=== PATIENT | male | born 1970 | race Caucasian/White ===

== ENCOUNTER 2018-07-10 17:51 | Inpatient (IN) | payer MEDICARE, MEDICAID, SELFPAY ==
[2018-07-10] VITALS (13 sets, daily range): BP systolic 98–200; BP diastolic 43–79; PULSE 65–106; RESP 16–24; TEMP 36.3–37.8; O2SAT 86–99; BMI 35.0; BMI 34.4; BMI 34.5
--- NOTE | 2018-07-10 17:58 | RAD_ITS ---
STUDY: X-RAY CHEST REASON FOR EXAM: Male, 47 years old. Dyspnea TECHNIQUE: Single frontal view COMPARISON: None. FINDINGS: The lungs are not fully expanded. There is right basilar opacity suspicious for early infiltrate.. Prominent cardiac shadow. Normal mediastinum and kuldip. Normal visualized pulmonary arteries. Normal visualized aortic arch and descending thoracic aorta. Normal visualized thoracic spine. Normal visualized ribs, clavicles, and shoulders. There is no demonstrated abnormality of the visualized soft tissue structures of the upper abdomen. RAD/Chest 1 View (Portable) IMPRESSION: Possible right basilar infiltrate. Mild cardiomegaly. Electronically Signed: Bay Mcdonald DO at 18:47 EDT Tel [phone], Service support ,
--- NOTE | 2018-07-10 17:58 | CT_ITS ---
STUDY: CT BRAIN WITHOUT CONTRAST REASON FOR EXAM: Male, 47 years old. Altered mental status RADIATION DOSAGE (If Supplied By Facility): CTDIvol = ( 44.99 ) mGy, DLP = ( 846.73 ) mGycm TECHNIQUE: Transaxial CT imaging of the brain was performed without administration of intravenous contrast material. Individualized dose optimization techniques were used for this CT. COMPARISON: No relevant priors. FINDINGS: Normal soft tissue structures. Normal calvarium. Normal size ventricles and extra-axial spaces for the patient's age. Normal white matter tracts of the cerebral hemispheres. Focal low attenuation of the left basal ganglia near the caudate nucleus may represent a prominent perivascular space or old lacunar infarct are normal thalami. Normal brainstem. Normal cerebellum. There is no intracranial hemorrhage. There are no findings of an acute ischemic infarction. Mucosal thickening of the left maxillary sinus. CT/Brain/Head without Contrast IMPRESSION: Focal low attenuation of the left basal ganglia as noted. Left maxillary sinusitis. Electronically Signed: Bay Mcdonald DO at 18:33 EDT Tel [phone], Service support ,
--- NOTE | 2018-07-10 18:10 | ED.VIS.GEN ---
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 Apparently he admitted to law enforcement that he snorted heroin Timing: - - Unknown Quality: Unknown Location: Patient's residence Current Severity: Moderate Maximum Severity: Severe Worsened by: Uncertain Relieved by: Improved after 2 A of Narcan Associated Symptoms: Trouble speaking, disorientation Narrative: Patient is a middle-aged male whose history is limited secondary to disorientation. He had a prescription for gabapentin filled on June 29. The 90 tablets are not accountable for. According to police paraphernalia was found to suggest use of heroin. After law enforcement arrived and spoke with patient he admits to snorting heroin. History is limited. Friend who is a nurse checked on him since she had not heard from him all day. He was found supine on his sulfa with his feet on the arm rest. He was not responsive and she called 911. Prior similar symptoms: No Recent Illness/Hospitalization: No Past Medical History - Allergies and Home Meds Allergies/Adverse Reactions: Allergies No Known Allergies Allergy (Verified 07/10/18 18:02) Surgical History: noncontributory Lives: Alone Drugs: - - Admits to heroin Review of Systems ROS: Unable to Obtain - Altered mental status with disorientation Physical Exam Vital Signs/Narrative: Vital Signs Temp Pulse Resp BP Pulse Ox 07/10/18 18:07 92 07/10/18 17:54 97.3 F L 65 24 H 109/58 L 88 Inital Vital Signs reviewed: Yes General: Well nourished, Well developed, No Acute Distress Head: Normocephalic, Atraumatic Eyes: Perrl, EOMI, - - No subconjunctival hemorrhage. Negative for: Pale conjunctiva, Scleral icterus ENT: No rhinorrhea, TM's clear, Dry mucous membranes, - - has dried gastric contents noted on face.. Negative for: Nasal congestion, Sinus tenderness Neck: Supple, Nontender, No lymphadenopathy, No JVD Cardiovascular: Regular rate, Regular rhythm, No murmurs, Normal S1, Normal S2 Respiratory: Chest nontender, Decreased Air Movement, - - Decreased respiratory volume with adventitial breath sounds noted on the right. Abdomen: Soft, Nontender, Nondistended, Normal bowel sounds, No masses. Negative for: Hepatomegaly, Splenomegaly Rectal: Deferred : - - Circumcised male penis without lesions or discharge Back: Nontender Extremities: Nontender, No edema Skin: Normal color, Cyanosis - Acrocyanosis, Trauma - Wheezing noted anterior right and left chest. Negative for: Jaundice Neurological: Normal DTR - No clonus or Babinski sign, Normal Gait - Unable, Confused, Disoriented. Negative for: Alert, Oriented x3, Normal Strength, Normal Sensation Psychological: - - Restrictive Diagnostic/Tx/Re-eval Chest X-Ray - ED: 1 View - Critical care time 42 minutes, Read by ED Physician, Normal, Heart, Mediastinum, Bony Structures, Right Infiltrate - Right middle lobe consistent with aspiration Impressions Brain CT 07/10/18 17:58 IMPRESSION: Focal low attenuation of the left basal ganglia as noted. Left maxillary sinusitis. Electronically Signed: Bay Mcdonald DO at 18:33 EDT Tel [phone], Service support , Chest X-Ray 07/10/18 17:58 IMPRESSION: Possible right basilar infiltrate. Mild cardiomegaly. Electronically Signed: Bay Mcdonald DO at 18:47 EDT Tel [phone], Service support , 07/10/18 17:58 Brain/Head without Contrast [CT] Stat Chest 1 View (Portable) [RAD] Stat 07/10/18 19:08 Abdomen Single View [RAD] Stat Chest 1 View (Portable) [RAD] Stat Laboratory Results 07/10/18 07/10/18 07/10/18 18:05 18:05 18:05 WBC 17.6 H RBC 5.50 Hgb 17.9 H Hct 52.6 MCV 95.6 H MCH 32.5 H MCHC 34.0 RDW 13.5 RDW Differential 47.3 H Plt Count 234 MPV 10.4 Immature Gran % (Auto) 0.600 Neut % (Auto) 87.1 H Lymph % (Auto) 7.2 L Towns % (Auto) 5.0 Eos % (Auto) 0.0 Baso % (Auto) 0.1 Absolute Neuts (auto) 15.4 H Absolute Lymphs (auto) 1.26 Total Counted Not Reportable PT 15.4 H INR 1.2 APTT 29.7 Sodium 129 L Potassium 9.0 H* Chloride 95 L Carbon Dioxide 22.0 Anion Gap 12 BUN 45 H Creatinine 4.30 H Estim Creat Clear Calc 23.11 Est GFR (MDRD) Af Amer 19 L Est GFR (MDRD) Non-Af 16 L BUN/Creatinine Ratio 10.5 Glucose 104 Lactic Acid Calcium 7.6 L Total Bilirubin 0.90 AST 4147 H ALT 2027 H Alkaline Phosphatase 107 Total Protein 9.3 H Albumin 4.0 Globulin 5.3 H Albumin/Globulin Ratio 0.8 L Lipase 401 H Urine Opiates Screen Urine Methadone Screen Ur Barbiturates Screen Ur Phencyclidine Scrn Ur Amphetamines Screen U Methamphetamin-MDMA U Benzodiazepines Scrn Urine Cocaine Screen U Cannabinoids Screen Ur Drug Screen Comment Ethyl Alcohol 07/10/18 07/10/18 07/10/18 18:05 18:20 18:20 WBC RBC Hgb Hct MCV MCH MCHC RDW RDW Differential Plt Count MPV Immature Gran % (Auto) Neut % (Auto) Lymph % (Auto) Towns % (Auto) Eos % (Auto) Baso % (Auto) Absolute Neuts (auto) Absolute Lymphs (auto) Total Counted PT INR APTT Sodium Potassium Chloride Carbon Dioxide Anion Gap BUN Creatinine Estim Creat Clear Calc Est GFR (MDRD) Af Amer Est GFR (MDRD) Non-Af BUN/Creatinine Ratio Glucose Lactic Acid 5.0 H* Calcium Total Bilirubin AST ALT Alkaline Phosphatase Total Protein Albumin Globulin Albumin/Globulin Ratio Lipase Urine Opiates Screen POSITIVE H Urine Methadone Screen NEGATIVE Ur Barbiturates Screen POSITIVE H Ur Phencyclidine Scrn NEGATIVE Ur Amphetamines Screen NEGATIVE U Methamphetamin-MDMA NEGATIVE U Benzodiazepines Scrn NEGATIVE Urine Cocaine Screen NEGATIVE U Cannabinoids Screen NEGATIVE Ur Drug Screen Comment Ethyl Alcohol 4.0 Ammonia level was added after reviewing elevated liver enzymes. Acetaminophen level was ordered as well. Blood gas is pending. - Rhythm Strip Rhythm Strip: Sinus Rhythm Rate: 93 - T waves are peaked Ectopy: None - EKG Initial EKG Interpretation: Sinus Tachycardia - Circular rate is 104. [place] interval, Q confucianist QT interval are normal. Voltage is low. EKG was obtained after treatment for hyperkalemia. - Medical Decision Making With history of unresponsiveness and concern for drug use will obtain alcohol and drug screen. Because there is bruising concern for intracranial bleed. CT of the head was obtained. Because his pulse ox was only 85% on room air and there is abnormal breath sounds on the right chest x-ray was obtained because of concern for aspiration. Blood work was obtained as well. CPK was also obtained because of concern for rhabdomyolysis. Payne was placed for accurate I's and O's. Patient has evidence of acute kidney injury/failure, there is also evidence of liver injury. We will obtain ammonia because of decreased level of consciousness and acetaminophen level. His elevated liver enzymes may be secondary to gabapentin overdose. Because patient's level of conscious is more depressed and concerned he may aspirate again he was orotracheally intubated. Patient received 20 mg of etomidate and 75 mg's rocuronium. He was easily orotracheally been with an 8.0 endotracheal tube. Tooth is 24 cm at the gum. OG was placed by me. Because patient has an elevated white count, tachypneic with a right middle lobe infiltrate will administer 30 cc/kg bolus. The hospitalist was paged for admission as well as the dipper machine operator. Patient received 1 amp of calcium chloride and 5 units of insulin and 1 amp of D50 for his hyperkalemia, 9.0. The blood specimen was not hemolyzed. - Critical Care Time Critical care time (excluding procedures): 30-74 minutes, Discussing w/Patient &/or Family/Pony Trimmer, Discussing w/Consultants, Arranging Admission or Transfer, Performing Direct Patient Care at Bedside Procedures Procedure(s): 1. Intubation via RSI and described in vehicle decision portion of the chart. 2. Placement of OG by physician, ED Disposition - Plan for ED Patient: Disposition: Acute Care [facility] Diagnosis: Acute respiratory failure with hypoxia, Aspiration pneumonia due to food (regurgitated), Acute kidney injury (nontraumatic), Elevated liver enzymes, Acute hyperkalemia, Lactic acidosis, Anaphylactic shock, unspecified, initial encounter, Toxic effect of ingested berries, intentional self-harm, initial encounter, Encephalopathy acute
--- NOTE | 2018-07-10 18:13 | ED.DCSUM_ITS ---
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 Apparently he admitted to law enforcement that he snorted heroin Timing: - - Unknown Quality: Unknown Location: Patient's residence Current Severity: Moderate Maximum Severity: Severe Worsened by: Uncertain Relieved by: Improved after 2 A of Narcan Associated Symptoms: Trouble speaking, disorientation Narrative: Patient is a middle-aged male whose history is limited secondary to disorientation. He had a prescription for gabapentin filled on June 29. The 90 tablets are not accountable for. According to police paraphernalia was found to suggest use of heroin. After law enforcement arrived and spoke with patient he admits to snorting heroin. History is limited. Friend who is a nurse checked on him since she had not heard from him all day. He was found supine on his sulfa with his feet on the arm rest. He was not responsive and she called 911. Prior similar symptoms: No Recent Illness/Hospitalization: No Past Medical History - Allergies and Home Meds Allergies/Adverse Reactions: Allergies No Known Allergies Allergy (Verified 07/10/18 18:02) Surgical History: noncontributory Lives: Alone Drugs: - - Admits to heroin Review of Systems ROS: Unable to Obtain - Altered mental status with disorientation Physical Exam Vital Signs/Narrative: Vital Signs Temp Pulse Resp BP Pulse Ox 07/10/18 18:07 92 07/10/18 17:54 97.3 F L 65 24 H 109/58 L 88 Inital Vital Signs reviewed: Yes General: Well nourished, Well developed, No Acute Distress Head: Normocephalic, Atraumatic Eyes: Perrl, EOMI, - - No subconjunctival hemorrhage. Negative for: Pale conjunctiva, Scleral icterus ENT: No rhinorrhea, TM's clear, Dry mucous membranes, - - has dried gastric contents noted on face.. Negative for: Nasal congestion, Sinus tenderness Neck: Supple, Nontender, No lymphadenopathy, No JVD Cardiovascular: Regular rate, Regular rhythm, No murmurs, Normal S1, Normal S2 Respiratory: Chest nontender, Decreased Air Movement, - - Decreased respiratory volume with adventitial breath sounds noted on the right. Abdomen: Soft, Nontender, Nondistended, Normal bowel sounds, No masses. Negative for: Hepatomegaly, Splenomegaly Rectal: Deferred : - - Circumcised male penis without lesions or discharge Back: Nontender Extremities: Nontender, No edema Skin: Normal color, Cyanosis - Acrocyanosis, Trauma - Wheezing noted anterior right and left chest. Negative for: Jaundice Neurological: Normal DTR - No clonus or Babinski sign, Normal Gait - Unable, Con fused, Disoriented. Negative for: Alert, Oriented x3, Normal Strength, Normal Sensation Psychological: - - Restrictive Diagnostic/Tx/Re-eval Chest X-Ray - ED: 1 View - Critical care time 42 minutes, Read by ED Physician, Normal, Heart, Mediastinum, Bony Structures, Right Infiltrate - Right middle lobe consistent with aspiration Impressions Brain CT 07/10/18 17:58 IMPRESSION: Focal low attenuation of the left basal ganglia as noted. Left maxillary sinusitis. Electronically Signed: Bay Mcdonald DO at 18:33 EDT Tel [phone], Service support , Chest X-Ray 07/10/18 17:58 IMPRESSION: Possible right basilar infiltrate. Mild cardiomegaly. Electronically Signed: Bay Mcdonald DO at 18:47 EDT Tel [phone], Service support , 07/10/18 17:58 Brain/Head without Contrast [CT] Stat Chest 1 View (Portable) [RAD] Stat 07/10/18 19:08 Abdomen Single View [RAD] Stat Chest 1 View (Portable) [RAD] Stat Laboratory Results 07/10/18 07/10/18 07/10/18 18:05 18:05 18:05 WBC 17.6 H RBC 5.50 Hgb 17.9 H Hct 52.6 MCV 95.6 H MCH 32.5 H MCHC 34.0 RDW 13.5 RDW Differential 47.3 H Plt Count 234 MPV 10.4 Immature Gran % (Auto) 0.600 Neut % (Auto) 87.1 H Lymph % (Auto) 7.2 L [place] % (Auto) 5.0 Eos % (Auto) 0.0 Baso % (Auto) 0.1 Absolute Neuts (auto) 15.4 H Absolute Lymphs (auto) 1.26 Total Counted Not Reportable PT 15.4 H INR 1.2 APTT 29.7 Sodium 129 L Potassium 9.0 H* Chloride 95 L Carbon Dioxide 22.0 Anion Gap 12 BUN 45 H Creatinine 4.30 H Estim Creat Clear Calc 23.11 Est GFR (MDRD) Af Amer 19 L Est GFR (MDRD) Non-Af 16 L BUN/Creatinine Ratio 10.5 Glucose 104 Lactic Acid Calcium 7.6 L Total Bilirubin 0.90 AST 4147 H ALT 2027 H Alkaline Phosphatase 107 Total Protein 9.3 H Albumin 4.0 Globulin 5.3 H Albumin/Globulin Ratio 0.8 L Lipase 401 H Urine Opiates Screen Urine Methadone Screen Ur Barbiturates Screen Ur Phencyclidine Scrn Ur Amphetamines Screen U Methamphetamin-MDMA U Benzodiazepines Scrn Urine Cocaine Screen U Cannabinoids Screen Ur Drug Screen Comment Ethyl Alcohol 07/10/18 07/10/18 07/10/18 18:05 18:20 18:20 WBC RBC Hgb Hct MCV MCH MCHC RDW RDW Differential Plt Count MPV Immature Gran % (Auto) Neut % (Auto) Lymph % (Auto) [place] % (Auto) Eos % (Auto) Baso % (Auto) Absolute Neuts (auto) Absolute Lymphs (auto) Total Counted PT INR APTT Sodium Potassium Chloride Carbon Dioxide Anion Gap BUN Creatinine Estim Creat Clear Calc Est GFR (MDRD) Af Amer Est GFR (MDRD) Non-Af BUN/Creatinine Ratio Glucose Lactic Acid 5.0 H* Calcium Total Bilirubin AST ALT Alkaline Phosphatase Total Protein Albumin Globulin Albumin/Globulin Ratio Lipase Urine Opiates Screen POSITIVE H Urine Methadone Screen NEGATIVE Ur Barbiturates Screen POSITIVE H Ur Phencyclidine Scrn NEGATIVE Ur Amphetamines Screen NEGATIVE U Methamphetamin-MDMA NEGATIVE U Benzodiazepines Scrn NEGATIVE Urine Cocaine Screen NEGATIVE U Cannabinoids Screen NEGATIVE Ur Drug Screen Comment Ethyl Alcohol 4.0 Ammonia level was added after reviewing elevated liver enzymes. Acetaminophen level was ordered as well. Blood gas is pending. - Rhythm Strip Rhythm Strip: Sinus Rhythm Rate: 93 - T waves are peaked Ectopy: None - EKG Initial EKG Interpretation: Sinus Tachycardia - Circular rate is 104. [place] interval, Q hindu QT interval are normal. Voltage is low. EKG was obtained after treatment for hyperkalemia. - Medical Decision Making With history of unresponsiveness and concern for drug use will obtain alcohol and drug screen. Because there is bruising concern for intracranial bleed. CT of the head was obtained. Because his pulse ox was only 85% on room air and there is abnormal breath sounds on the right chest x-ray was obtained because of concern for aspiration. Blood work was obtained as well. CPK was also obtained because of concern for rhabdomyolysis. Payne was placed for accurate I's and O's. Patient has evidence of acute kidney injury/failure, there is also evidence of liver injury. We will obtain ammonia because of decreased level of consciousness and acetaminophen level. His elevated liver enzymes may be second bryan to gabapentin overdose. Because patient's level of conscious is more depressed and concerned he may aspirate again he was orotracheally intubated. Patient received 20 mg of etomidate and 75 mg's rocuronium. He was easily orotracheally been with an 8.0 endotracheal tube. Tooth is 24 cm at the gum. OG was placed by me. Because patient has an elevated white count, tachypneic with a right middle lobe infiltrate will administer 30 cc/kg bolus. The hospitalist was paged for admission as well as the external grinder tender. Patient received 1 amp of calcium chloride and 5 units of insulin and 1 amp of D50 for his hyperkalemia, 9.0. The blood specimen was not hemolyzed. - Critical Care Time Critical care time (excluding procedures): 30-74 minutes, Discussing w/Patient &/or Family/Apiculture Teacher, Discussing w/Consultants, Arranging Admission or Transfer, Performing Direct Patient Care at Bedside Procedures Procedure(s): 1. Intubation via RSI and described in vehicle decision portion of the chart. 2. Placement of OG by physician, ED Disposition - Plan for ED Patient: Disposition: Acute Care [facility] Diagnosis: Acute respiratory failure with hypoxia, Aspiration pneumonia due to food (regurgitated), Acute kidney injury (nontraumatic), Elevated liver enzymes, Acute hyperkalemia, Lactic acidosis, Anaphylactic shock, unspecified, initial encounter, Toxic effect of ingested berries, intentional self-harm, initial encounter, Encephalopathy acute
[2018-07-10 18:21] LABS: Absolute Lymphocyte Count 1.26 X10^3/ul (0.83-4.51); Absolute Neutrophil Count 15.4 X10^3/uL (2.0-7.7); Basophil# 0.01 X10^3/uL; Basophil% 0.1 % (0-1); Hematocrit 52.6 % (40-54); Hemoglobin 17.9 g/dl (13.0-16.5); Lymphocyte # 1.26 X10^3/ul (4.0); Lymphocyte % 7.2 % (19-41); Mean Corpuscular Hgb 32.5 pg (27.0-32.0); Mean Corpuscular Volume 95.6 fL (80-94); Mean Platelet Vol. 10.4 fl (6.2-12.0); Monocyte# 0.88 X10^3/uL; Neutrophil # 15.35 X10^3/uL (2.7-7.7); Neutrophil % 87.1 % (47-70); Platelet Count 234 K/mm3 (150-450); RBC Distribution Width CV 13.5 % (11.6-14.6); RBC Distribution Width SD 47.3 fl (35.1-43.9); White Blood Count 17.6 K/mm3 (4.4-11.0)
[2018-07-10 18:24] LABS: POSITIVE COUNT NO; POSITIVE DIFFERENTIAL NO; POSITIVE MORPHOLOGY NO
[2018-07-10 18:32] LABS: International Normalized Ratio 1.2; Prothrombin Time (Protime)PT. 15.4 SECONDS (11.7-14.9)
[2018-07-10 18:33] LABS: Partial Thromboplast Time 29.7 Seconds (24.1-36.2)
--- NOTE | 2018-07-10 18:55 | EKG12_ITS ---
Test Reason : Blood Pressure : / mmHG Vent. Rate : 104 BPM Atrial Rate : 104 BPM P-R Int : 160 ms QRS Dur : 090 ms QT Int : 336 ms P-R-T Axes : 046 058 026 degrees QTc Int : 441 ms Sinus tachycardia Low voltage QRS Borderline ECG Confirmed by PAULETTE BAUTISTA, JEFFREY ([id number]), primer expeditor and drier CHICHI FLORES ([id number]) on 07/13/2018 10:54:41 AM Referred By: Confirmed By:JEFFREY CALDWELL MD
[2018-07-10 18:57] LABS: ALB/GLOB Ratio 0.8 RATIO (0.9-2.4); AST(SGOT) 4147 U/L (15-37); Alanine Aminotransfer ALT/SGPT 2027 U/L (16-61); Alkaline Phosphatase 107 U/L (45-117); Anion Gap 12 (5-15); BUN 45 mg/dL (7-18); BUN/Creat Ratio 10.5 RATIO (10-20); Calcium,Total 7.6 mg/dL (8.5-10.1); Chloride 95 mmol/L (98-107); EST Glomerular Filtration Rate 16 mL/min (>60); Est Glom Filt Rate - Afr Amer 19 mL/min (>60); Estimated Creatinine Clearance 23.11 ml/min; Globulin 5.3 g/dL (2.2-4.2); Glucose 104 mg/dL (74-106); Lipase 401 U/L (73-393); Protein, Total 9.3 g/dL (6.4-8.2); Sodium Level 129 mmol/L (136-145)
[2018-07-10 18:58] LABS: Amphetamine Urine VISTA NEGATIVE (<1000 ng/mL); Barbiturate Urine VISTA POSITIVE (< 200 ng/mL); Benzodiazepine Urine VISTA NEGATIVE (< 200 ng/mL); Cocaine Urine VISTA NEGATIVE (< 300 ng/mL); Ecstacy Urine VISTA NEGATIVE (< 500 ng/mL); Methadone Urine VISTA NEGATIVE (< 300 ng/mL); PCP Urine VISTA NEGATIVE (< 25 ng/mL); THC Urine VISTA NEGATIVE (< 50 ng/mL); Vista UDS pH Range 6
[2018-07-10] MEDS: Calcium Chloride 1 GM/10 ML Syringe IV (18:59)
--- NOTE | 2018-07-10 19:08 | RAD_ITS ---
STUDY: X-RAY CHEST REASON FOR EXAM: Male, 47 years old. OG placement. TECHNIQUE: Single AP portable view of the chest. COMPARISON: July 10, 2018 (1820 hours). FINDINGS: There is an endotracheal tube with its tip 6.3 cm above the darby. There is an enteric tube with its tip approximately 5 cm below the left hemidiaphragm. The lungs are hypoexpanded. There is continued density at both lung bases. There is borderline cardiomegaly. There is no change in the mediastinum, kuldip, pulmonary arteries or aorta. No visualized osseous changes. There is no demonstrated abnormality of the visualized soft tissue structures of the upper abdomen. RAD/Chest 1 View (Portable) IMPRESSION: 1. Endotracheal tube as described. 2. Enteric tube with its tip approximately 5 cm beyond the diaphragm. 3. No other major interval change when compared to the earlier study. Electronically Signed: Rosendo Madrigal DO at 20:11 EDT Tel [phone], Service support ,
--- NOTE | 2018-07-10 19:08 | RAD_ITS ---
STUDY: X-RAY CHEST REASON FOR EXAM: Male, 47 years old. OG placement. TECHNIQUE: Single AP portable view of the chest. COMPARISON: July 10, 2018 (1942 hours). FINDINGS: Stable endotracheal tube. The tear tube is now seen within the gastric fundus. There is no change in pulmonary findings when compared to prior study. Stable borderline cardiomegaly. There is no change in the mediastinum, kuldip, pulmonary arteries or aorta. No visualized osseous changes. There is no demonstrated abnormality of the visualized soft tissue structures of the upper abdomen. RAD/Chest 1 View (Portable) IMPRESSION: 1. Interval advancement of the enteric tube when compared to the earlier study. 2. No other interval change. Electronically Signed: Rosendo Madrigal DO at 20:12 EDT Tel [phone], Service support ,
[2018-07-10] MEDS: Etomidate 20 MG/10 ML Vial IV (19:13)
[2018-07-10] MEDS: Rocuronium Bromide 50 MG/5 ML Vial 75 MG IV (19:13)
[2018-07-10] MEDS: 0.9% Normal Saline 1,000 ML 1000 ML IV ×3 (19:19→19:52)
[2018-07-10] MEDS: Propofol 10MG/Ml 1,000 MG/100 ML Bottle 6.834 MG CONT INF ×2 (19:20→22:05)
--- NOTE | 2018-07-10 19:24 | PCM.HP.STD ---
Problem List (1) Acute respiratory failure with hypoxia Status: Acute (2) Aspiration pneumonia due to food (regurgitated) Status: Acute (3) Acute kidney injury (nontraumatic) Status: Acute (4) Elevated liver enzymes Status: Acute (5) Acute hyperkalemia Status: Acute (6) Lactic acidosis Status: Acute History of Present Illness Date of Admission: 07/10/18 Chief Complaint: unresponsiveness The patient is a 47 year old M with unknown medical history because he was minimally responsive. Patient is friend to a hospice nurse and reportedly recently patient sent messages to the Hospice nurse threatening to harm himself. At that time patient was found drinking vodka. On the day of presentation his friend, the hospice nurse did a wellness check on the patient and she found the patient lying supine in a sofa with his leg raised up and he had some vomitus on his chest. Patient was minimally responsive. Reportedly on 06/29/2017 patient filled 90 pills of 300 mg of gabapentin tablet and all were gone on the day of presentation. Reportedly paramedics found paraphernalia consistent with heroin. At the emergency department, emergency department doctor reported abnormal lung sounds at the patient's right side. Chest x-ray showed mild cardiomegaly and right basilar infiltrates. CT of the brain and head without contrast showed focal low attenuation of the left basilar ganglia and left maxillary sinusitis. Because of low [place] Coma Scale patient was intubated and started on propofol drip. Also an OG tube was placed at the emergency department. Patient was noted to have a potassium of 9.0. Emergency department doctor reported tall T waves on the monitor. Calcium gluconate; and insulin insulin and dextrose were given. Twelve leads EKG after administration of the above medication return unremarkable. Also patient was found to have elevated lactic acid of 5.0. His creatinine was 4.30. His BUN was severely elevated. His liver enzymes were also severely elevated. His lipase was mildly elevated. Emergency Department doctor discussed the case with Dr. Elias Garzon, Stove Carriage Operator and the patient was accepted to our intensive care unit. Past Medical History Medical History: Medical History (Last Updated 07/10/18 @ 23:08 by Faustino Hagan MD) Hx unobtainable Allergies No Known Allergies Allergy (Verified 07/10/18 18:02) Home Medications: Ambulatory Orders Medication Instructions Recorded Butalb/Acetaminophen/Caffeine 1 capsule PO Q6H PRN 07/10/18 [Fioricet 50-300-40 mg Capsule] Gabapentin 800 mg PO DAILY 07/10/18 Surgical History: - - Intubated and sedated and unable to obtain further history. Lives: Alone Smoking Status: Current every day smoker Tobacco Use: Cigarettes Alcohol: Heavy Drugs: - - Admits to heroin - *Family History Paternal History Items: - - unable to be obtained because of acute encephalopathy Maternal History Items: - - unable to be obtained because of acute encephalopathy Review of Systems Unable to obtain accurate/complete ROS d/t: Intubated and sedated VTE Information - Inpt Only VTE Present on Admission: No VTE Mechan Device Prophylaxis: None VTE Pharm Prophylaxis ordered?: Yes Patient Problems: Active and Suspected Problems (Last Updated 07/10/18 @ 23:08 by Faustino Hagan MD) Acute respiratory failure with hypoxia (Acute) Aspiration pneumonia due to food (regurgitated) (Acute) Acute kidney injury (nontraumatic) (Acute) Elevated liver enzymes (Acute) Acute hyperkalemia (Acute) Lactic acidosis (Acute) Anaphylactic shock, unspecified, initial encounter (Acute) Toxic effect of ingested berries, intentional self-harm, initial encounter (Acute) Encephalopathy acute (Acute) - Physical Exam General: - - Intubated and sedated HEENT: Atraumatic Neck: Trachea Midline Lungs: Diminished, - Cardiovascular: Tachycardic Abdomen: Hypoactive Bowel Sounds Extremities: No edema, Capillary Refill Less than 3 Seconds Skin: No rashes, No breakdown Musculoskeletal: No Muscle Wasting Neurological: - - Intubated and sedated Psych/Mental Status: - - Intubated and sedated Vital Signs Temp Pulse Resp BP Pulse Ox 97.3 F L 95 16 116/43 L 91 07/10/18 17:54 07/10/18 19:10 07/10/18 19:10 07/10/18 19:10 07/10/18 19:10 Oxygen Flow Rate (L/min) 5 Oxygen Delivery Method Nasal Cannula Weight: 113.9 kg Body Mass Index (BMI) 35.0 Laboratory Tests Past 24 Hrs 07/10/18 07/10/18 07/10/18 18:05 18:05 18:05 WBC 17.6 H RBC 5.50 Hgb 17.9 H Hct 52.6 MCV 95.6 H MCH 32.5 H MCHC 34.0 RDW 13.5 RDW Differential 47.3 H Plt Count 234 MPV 10.4 Immature Gran % (Auto) 0.600 Neut % (Auto) 87.1 H Lymph % (Auto) 7.2 L Alpine % (Auto) 5.0 Eos % (Auto) 0.0 Baso % (Auto) 0.1 Absolute Neuts (auto) 15.4 H Absolute Lymphs (auto) 1.26 Total Counted Not Reportable PT 15.4 H INR 1.2 APTT 29.7 Sodium 129 L Potassium 9.0 H* Chloride 95 L Carbon Dioxide 22.0 Anion Gap 12 BUN 45 H Creatinine 4.30 H Estim Creat Clear Calc 23.11 Est GFR (MDRD) Af Amer 19 L Est GFR (MDRD) Non-Af 16 L BUN/Creatinine Ratio 10.5 Glucose 104 Lactic Acid Calcium 7.6 L Total Bilirubin 0.90 AST 4147 H ALT 2027 H Alkaline Phosphatase 107 Total Creatine Kinase Total Protein 9.3 H Albumin 4.0 Globulin 5.3 H Albumin/Globulin Ratio 0.8 L Lipase 401 H Urine Opiates Screen Urine Methadone Screen Ur Barbiturates Screen Ur Phencyclidine Scrn Ur Amphetamines Screen U Methamphetamin-MDMA U Benzodiazepines Scrn Urine Cocaine Screen U Cannabinoids Screen Ur Drug Screen Comment Ethyl Alcohol 07/10/18 07/10/18 07/10/18 18:05 18:05 18:20 WBC RBC Hgb Hct MCV MCH MCHC RDW RDW Differential Plt Count MPV Immature Gran % (Auto) Neut % (Auto) Lymph % (Auto) Alpine % (Auto) Eos % (Auto) Baso % (Auto) Absolute Neuts (auto) Absolute Lymphs (auto) Total Counted PT INR APTT Sodium Potassium Chloride Carbon Dioxide Anion Gap BUN Creatinine Estim Creat Clear Calc Est GFR (MDRD) Af Amer Est GFR (MDRD) Non-Af BUN/Creatinine Ratio Glucose Lactic Acid 5.0 H* Calcium Total Bilirubin AST ALT Alkaline Phosphatase Total Creatine Kinase Pending Total Protein Albumin Globulin Albumin/Globulin Ratio Lipase Urine Opiates Screen Urine Methadone Screen Ur Barbiturates Screen Ur Phencyclidine Scrn Ur Amphetamines Screen U Methamphetamin-MDMA U Benzodiazepines Scrn Urine Cocaine Screen U Cannabinoids Screen Ur Drug Screen Comment Ethyl Alcohol 4.0 07/10/18 18:20 WBC RBC Hgb Hct MCV MCH MCHC RDW RDW Differential Plt Count MPV Immature Gran % (Auto) Neut % (Auto) Lymph % (Auto) Alpine % (Auto) Eos % (Auto) Baso % (Auto) Absolute Neuts (auto) Absolute Lymphs (auto) Total Counted PT INR APTT Sodium Potassium Chloride Carbon Dioxide Anion Gap BUN Creatinine Estim Creat Clear Calc Est GFR (MDRD) Af Amer Est GFR (MDRD) Non-Af BUN/Creatinine Ratio Glucose Lactic Acid Calcium Total Bilirubin AST ALT Alkaline Phosphatase Total Creatine Kinase Total Protein Albumin Globulin Albumin/Globulin Ratio Lipase Urine Opiates Screen POSITIVE H Urine Methadone Screen NEGATIVE Ur Barbiturates Screen POSITIVE H Ur Phencyclidine Scrn NEGATIVE Ur Amphetamines Screen NEGATIVE U Methamphetamin-MDMA NEGATIVE U Benzodiazepines Scrn NEGATIVE Urine Cocaine Screen NEGATIVE U Cannabinoids Screen NEGATIVE Ur Drug Screen Comment Ethyl Alcohol Assessment/Plan All Active Problems (Last Updated 07/10/18 @ 23:08 by Faustino Hagan MD) Acute respiratory failure with hypoxia (Acute) Aspiration pneumonia due to food (regurgitated) (Acute) Acute kidney injury (nontraumatic) (Acute) Elevated liver enzymes (Acute) Acute hyperkalemia (Acute) Lactic acidosis (Acute) Anaphylactic shock, unspecified, initial encounter (Acute) Toxic effect of ingested berries, intentional self-harm, initial encounter (Acute) Encephalopathy acute (Acute) The patient is a 47 year old M with unknown medical history who was unresponsive on presentation and was found to have paraphernalia consistent with a heroine; was recently found drinking vodka; had an empty bottle of gabapentin which was recently filled; had sent threatening messages to harm himself; and was found to have elevated liver enzymes; elevated CPK; and elevated lipase; positive urinary drug screen of opiates and barbiturates; as well as pulmonary infiltrate consistent with acute toxic metabolic encephalopathy; aspiration pneumonia and septic shock; and rhabdomyolysis. Acute toxic metabolic encephalopathy Urine drug screen showed positive opiates; positive barbiturates and with empty bottle of recently filled gabapentin. Patient was intubated and placed on mechanical ventilation. ABG was obtained and ventilation setting was subsequently adjusted. Patient is a consent for alcoholism we will place patient on thiamine; folic acid and multivitamins by OG tube. Stove Carriage Operator consult to optimize management. Septic shock Etiology includes aspiration and pneumonia. Lactic acid was 5.0. Unasyn was started the emergency department continued. Strep pneumonia antigen and Legionella pneumonia antigen ordered. MRSA of nares nares ordered. Trend lactic acid Follow-up blood cultures. Transaminitis Patient noted to have AST of 4147; ALT of 2026. This is in the ratio of 2 is 2 1. Likely from septic shock. Cannot rule out history of alcoholism. Acetaminophen level is unremarkable. Most likely from septic shock. However will check viral hepatitis panel We will trend liver enzymes and treat septic shock at this time. Hyperammonemia. His ammonia is mildly elevated at 33. We will trend ammonia level Likely from poor clearance due to shock liver Rhabdomyolysis: patient found to have a CPK of 54,480 Urine noted to be positive for protein; and occult blood. Received normal saline 30 mL's per kilogram per septic shock protocol. We will continue on normal saline maintenance infusion at 100 mL's per hour. Hyperkalemia On admission his potassium was 9.0. Patient received calcium gluconate; and insulin with dextrose. Discussed with car dumper,Dr. Sean Alexander who recommended Kayexalate and repeat potassium level after 3 hours time.. Kayexalate and MiraLAX was ordered. Nephrology Dr. Sean Alexander will be following patient. Kayexalate and miralax as repeat potassium was 7.9 Metabolic acidosis Patient while on ventilator was found to have pH of 7.23. Bicarbonate of 18.3. PO2 of 79 while on 60% FiO2. Discussed with respiratory to adjust PEEP from 5 to 8. Abnormal urinalysis Urine was noted to positive for protein; urine occult blood (which could be from rhabdomyolysis) positive nitrite and mild increase in leukocyte esterase. Notably urine of 0 bacteria. Will get urine culture. Tobacco abuse Patient with poor prognosis. Hospital Admitting Clerk if patient is able to make a recovery from his critical condition. Ethanol abuse Patient with poor prognosis. Hospital Admitting Clerk if patient is able to make a recovery from his critical condition. Thiamine; folic acid and multivitamins by OG tube. Polysubstance abuse Positive for opioids and barbiturates on drug screen. Patient with poor prognosis. Hospital Admitting Clerk if patient is able to make a recovery from his critical condition. DVT Prophylaxis Subcutaneous Lovenox GI prophylaxis Pepcid 20 mg by G-tube twice daily Critical Care spent on patient was 60 minutes ( 07/10/2018 19:15 to 20:15). It involved direct care with patient at bedside. Discussing the case and obtaining information from patient's friend who was at the bedside. Review of Chest X-ray; interpretation of labs; ventilator management; and discussion with car dumper. Patient was in respiratory failure as demonstrated by CO2 narcosis. He was in septic shock as demonstrated by lactic acid of 5.0; and he was in acute encephalopathy with GCS < 8 for which reason he required intubation. Code Visit Inpatient E&M: 69657 Init Hosp L3 Procedures: 34013 Critial Care 1st Hr
[2018-07-10] MEDS: Dextrose 50%-Water 25 GM/50 ML DISP.SYRIN IV (19:26)
[2018-07-10 20:16] LABS: Acetaminophen (Tylenol) Level < 2.0 ug/mL (10.0-30.0)
[2018-07-10] MEDS: Sodium Polystyrene Sulfonate 15 GM/60 ML UDC 30 GM PO (20:40)
[2018-07-10 21:56] LABS: Magnesium 2.2 mg/dL (1.6-2.6)
[2018-07-10] MEDS: Polyethylene Glycol 3350 17 GM PACKET 34 GM PO (22:04)
[2018-07-10] MEDS: Chlorhexidine 15 ML PO (22:12)
[2018-07-10 22:14] LABS: Reflex Lactate? Y
[2018-07-10 22:35] LABS: Base Excess -9 mmol/L (-2 to +2); Bicarbonate 18.3 mmol/L (22-26); Blood Gas Specimen Type ART; FI02 60; Mode A-C; O2 Delivery Device Vent; PEEP 5; PO2 79 mmHG (75-100); RR 16; SITE L Radial; SO2 93 % (95-99); Time Given 2225; Total Carbon Dioxide 20 mmol/L; Vt 500; pCO2 43.9 mmHg (35-45); pH 7.23 (7.35-7.45)
[2018-07-10 23:07] LABS: Anion Gap 8 (5-15); BUN 53 mg/dL (7-18); BUN/Creat Ratio 12.3 RATIO (10-20); Calcium,Total 6.8 mg/dL (8.5-10.1); Chloride 104 mmol/L (98-107); Creatinine, Serum 4.31 mg/dL (0.70-1.30); EST Glomerular Filtration Rate 16 mL/min (>60); Est Glom Filt Rate - Afr Amer 19 mL/min (>60); Estimated Creatinine Clearance 22.35 ml/min; Glucose 126 mg/dL (74-106); Sodium Level 133 mmol/L (136-145)
[2018-07-10 23:08] LABS: Potassium 7.9 mmol/L (3.5-5.1)
[2018-07-10 23:19] LABS: Lactic Acid 3.1 mmol/L (0.4-2.0)
[2018-07-10] MEDS: 0.9% Normal Saline 1,000 ML 100 ML IV (23:27)
[2018-07-10] MEDS: Sodium Bicarbonate 8.4% 50 ML Syringe 50 MEQ IV (23:45)
[2018-07-10 23:56] LABS: Bedside Glucose 135 mg/dL (70-110)
[2018-07-11] VITALS (35 sets, daily range): BP systolic 99–149; BP diastolic 49–89; PULSE 63–95; RESP 15–21; TEMP 37–38.5; O2SAT 95–100
[2018-07-11] MEDS: Sodium Polystyrene Sulfonate 15 GM/60 ML UDC 30 GM PO (00:26)
[2018-07-11] MEDS: Propofol 10MG/Ml 1,000 MG/100 ML Bottle 6.834 MG CONT INF ×3 (02:46→12:23)
[2018-07-11 03:37] LABS: Bacteria 0 SEEN /hpf (None Seen); Mucous, Urine 0 SEEN /hpf (<or=2+); Squamous Epithelial Cells - UA 0 SEEN /hpf (0-5)
--- NOTE | 2018-07-11 03:49 | NURSING ---
2 ring removed from left hand, placed in container with a patient label at bedside.
[2018-07-11 03:50] LABS: Color, Urine Amber (Yellow); Glucose, Dipstick 50 mg/dl (Normal); Ketone-Dipstick 5 mg/dl (Negative); Leukocyte Esterase-Dipstick 25 /ul (Negative); Nitrite-Dipstick Positive (Negative); Occult Blood-Urine 250 /ul (Negative); Protein-Dipstick 100 mg/dl (Negative); Urine Clarity Sl. Cloudy (Clear); Urine Urobilinogen 1 mg/dl (Normal)
[2018-07-11 04:08] LABS: Urine Sodium 41 mmol/L (Not Establ.)
[2018-07-11 04:12] LABS: Urine Bilirubin Dipstick 1 mg/dL (Negative)
[2018-07-11 04:15] LABS: Amorphous Sediment 2+; Red Blood Cells-Urine 0-5 SEEN /hpf (0-5); White Blood Cells 0-5 SEEN /hpf (0-5)
[2018-07-11 04:56] LABS: Bedside Glucose 145 mg/dL (70-110)
[2018-07-11 04:58] LABS: Absolute Lymphocyte Count 1.32 X10^3/ul (0.83-4.51); Absolute Neutrophil Count 12.4 X10^3/uL (2.0-7.7); Basophil# 0.01 X10^3/uL; Basophil% 0.1 % (0-1); Hematocrit 41.6 % (40-54); Hemoglobin 14.1 g/dl (13.0-16.5); Lymphocyte # 1.32 X10^3/ul (4.0); Lymphocyte % 9.2 % (19-41); Mean Corp Hgb Conc 33.9 g/gl (32-36); Mean Corpuscular Hgb 31.5 pg (27.0-32.0); Mean Corpuscular Volume 93.1 fL (80-94); Mean Platelet Vol. 10.5 fl (6.2-12.0); Monocyte# 0.53 X10^3/uL; Monocyte% 3.7 % (0-10); Neutrophil # 12.44 X10^3/uL (2.7-7.7); Neutrophil % 86.9 % (47-70); Platelet Count 136 K/mm3 (150-450); RBC Distribution Width CV 13.4 % (11.6-14.6); RBC Distribution Width SD 45.8 fl (35.1-43.9); Red Blood Count 4.47 M/mm3 (4.6-6.2); White Blood Count 14.3 K/mm3 (4.4-11.0)
[2018-07-11 05:05] LABS: POSITIVE COUNT NO; POSITIVE DIFFERENTIAL NO; POSITIVE MORPHOLOGY NO
[2018-07-11] MEDS: Polyethylene Glycol 3350 17 GM PACKET 34 GM GT (05:12)
--- NOTE | 2018-07-11 05:55 | US_ITS ---
STUDY: RENAL ULTRASOUND - COMPLETE REASON FOR EXAM: Male, 47 years old. Acute failure. TECHNIQUE: Ultrasound evaluation of the kidneys was performed with real-time and static nova-scale imaging. COMPARISON: None. FINDINGS: RIGHT KIDNEY: Normal location of the right kidney, which is normal in size. The right kidney measures 13.5 x 5 x 6.1 cm. There is a normal cortex of the right kidney. The renal cortex measures 1.7 cm. There is no right renal mass or cyst. There are no right renal calculi. There is no right hydronephrosis. DISTAL RIGHT URETER: There is non-visualization of the distal right ureter. There is no demonstrated right ureterovesical junction calculus. There is no demonstrated right ureteral jet. LEFT KIDNEY: Normal location of the left kidney, which is normal in size. The left kidney measures 12.2 x 5.3 x 5.5 cm. There is a normal cortex of the left kidney. The renal cortex measures 1.7 cm. There is no left renal mass or cyst. There is a nonobstructive stone in the left kidney measuring about 9 mm. There is no left hydronephrosis. DISTAL LEFT URETER: There is non-visualization of the distal left ureter. There is no demonstrated left ureterovesical junction calculus. There is no demonstrated left ureteral jet. BLADDER: The bladder is not well-distended. There is a Payne catheter in the bladder. US/Kidney and Bladder IMPRESSION: No evidence of hydronephrosis. Small nonobstructing stone in the left kidney. Electronically Signed: Balbir An MD at 15:59 EDT Tel , Service support ,
--- NOTE | 2018-07-11 06:45 | PCM.CONS.R ---
Consultation - Renal 07/11/18 PCP/ Referring MD: Requesting physician: Dr. Hagan Primary care physician: No Primary Care Phys Reason for Consultation:: HÉCTOR - History of Present Illness History of Present Illness: The patient is a 47 year old M with unknown past medical history presents to ED yesterday with unresponsiveness. Pt was found lying on his couch at home by his friend. He was obtunded. There is a suspicion of gabapentin overdose. Pt is currently intubated/sedated and cannot provide history, On evaluation in the ED, the pt was found to have HÉCTOR with SCr of 4.30 mg/dL. More importantly, the pt was found to have K of 9.0 mEq/L. Hyperkalemia is treated with Kayexalate, but repeat K was still 7.9 mEq/L. This am K is pending. However, he remains oliguric. The pt is found to have rhabdomyolysis with CK of 54K. - Allergies Allergies: Allergies No Known Allergies Allergy (Verified 07/10/18 18:02) - Current Medications Current Medications: Current Medications Albuterol Sulfate (Ventolin Aerosols) 2.5 mg INHALATION Q2H PRN PRN PRN Reason: sob/wheezing Bisacodyl (Dulcolax) 5 mg PO DAILY PRN PRN PRN Reason: Constipation Chlorhexidine Gluconate () 15 ml PO BID [facility] Last Admin: 07/10/18 22:12 Dose: 15 ml Chlorhexidine Gluconate () 1 each TOPICAL DAILY [facility] Dextrose (D50w Syringe) 0 gm IV X1 PRN; Protocol PRN Reason: Hypoglycemia Enoxaparin Sodium (Lovenox) 30 mg SC DAILY@1000 [facility] Fentanyl Citrate (Sublimaze (100mcg Ampule)) 25 mcg IV Q2H PRN PRN PRN Reason: Pain >/= 4/10 or CPOT>/= 3/8 Folic Acid (Folic Acid) 1 mg GT DAILY@0800 [facility] Stop: 07/13/18 08:01 Glucagon () 1 mg IM .X1 PRN PRN Reason: Hypoglycemia Sodium Chloride () 250 mls @ 15 mls/hr IV .[id number] PRN PRN Reason: SALINE FLUSH Famotidine 20 mg/ Sodium (Chloride) 10 mls @ 300 mls/hr IV Q12 [facility] Last Admin: 07/10/18 22:13 Dose: 300 mls/hr Propofol (Diprivan) 1,000 mg in 100 mls @ 6.834 mls/hr CONT INF .Q12H [facility] Last Admin: 07/11/18 02:46 Dose: 6.834 mls/hr Ampicillin Sodium/Sulbactam (Sodium 3 gm/ Sodium Chloride) 112 mls @ 150 mls/hr IV Q12 [facility] Sodium Chloride () 1,000 mls @ 100 mls/hr IV .Q10H [facility] Stop: 07/11/18 13:54 Last Admin: 07/10/18 23:27 Dose: 100 mls/hr Sodium Bicarbonate 50 meq/ (Dextrose) 1,050 mls @ 75 mls/hr IV .Q14H [facility] Stop: 07/11/18 12:14 Last Admin: 07/10/18 23:26 Dose: 75 mls/hr Magnesium Hydroxide (Milk Of Magnesia) 30 ml GT DAILY PRN PRN PRN Reason: Constipation Multivitamins/Minerals (Multivitamin With Minerals) 1 tablet GT DAILYCM [facility] Ondansetron HCl (Zofran) 4 mg IV Q8H PRN PRN PRN Reason: NAUSEA Polyethylene Glycol (Miralax) 34 gm GT X1 PRN PRN Reason: Bowel Movement Last Admin: 07/11/18 05:12 Dose: 34 gm Sodium Chloride () 5 - 15 ml IV UD PRN PRN Reason: SALINE FLUSH Thiamine HCl (Vitamin B1) 100 mg GT BIDCM [facility] Stop: 07/13/18 17:01 - Past Surgical History Surgical History: - - Intubated and sedated and unable to obtain further history. 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 - Family History Paternal History Items: - - unable to be obtained because of acute encephalopathy Maternal History Items: - - unable to be obtained because of acute encephalopathy Patient Problems: Active and Suspected Problems (Last Updated 07/10/18 @ 23:08 by Faustino Hagan MD) Acute respiratory failure with hypoxia (Acute) Aspiration pneumonia due to food (regurgitated) (Acute) Acute kidney injury (nontraumatic) (Acute) Elevated liver enzymes (Acute) Acute hyperkalemia (Acute) Lactic acidosis (Acute) Anaphylactic shock, unspecified, initial encounter (Acute) Toxic effect of ingested berries, intentional self-harm, initial encounter (Acute) Encephalopathy acute (Acute) - Physical Exam General: - - Sedated. HEENT: Atraumatic Oral: Moist Mucosa, - - intubated Neck: Supple Lungs: Clear to auscultation - anteriorly Cardiovascular: Normal S1, Normal S2, No murmurs Abdomen: Bowel Sounds Present, Soft, Non Tender, Non-Distended Extremities: No clubbing, No cyanosis, No edema Skin: No rashes Musculoskeletal: No Tenderness to Palpation of Joints or Extremities Neurological: - - Obtunded Vital Signs Temp Pulse Resp BP Pulse Ox 99.8 F H 89 17 118/68 98 07/11/18 06:00 07/11/18 06:00 07/11/18 06:00 07/11/18 06:00 07/11/18 06:00 Oxygen Flow Rate (L/min) 5 Oxygen Delivery Method Mechanical Ventilator Weight: 111.1 kg Body Mass Index (BMI) 34.4 Intake and Output for Last 24 Hours 07/09/18 07/10/18 07/11/18 23:59 23:59 23:59 Intake Total 3203 / 3203 1326 / 1326 Output Total 650 / 650 300 / 300 Balance 2553 / 2553 1026 / 1026 Laboratory Tests Past 24 Hrs 07/10/18 07/10/18 07/10/18 18:05 18:05 18:05 WBC 17.6 H RBC 5.50 Hgb 17.9 H Hct 52.6 MCV 95.6 H MCH 32.5 H MCHC 34.0 RDW 13.5 RDW Differential 47.3 H Plt Count 234 MPV 10.4 Immature Gran % (Auto) 0.600 Neut % (Auto) 87.1 H Lymph % (Auto) 7.2 L [place] % (Auto) 5.0 Eos % (Auto) 0.0 Baso % (Auto) 0.1 Absolute Neuts (auto) 15.4 H Absolute Lymphs (auto) 1.26 Total Counted Not Reportable PT 15.4 H INR 1.2 APTT 29.7 Specimen Type Sample Site pH Bicarbonate Actual POC Total CO2 Base Excess O2 Saturation O2 % ABG pCO2 ABG pO2 Respiration Rate O2 Delivery Device Minute Volume Vent Mode Tidal Volume POC PEEP Blood Gas Notified Whom Blood Gas Notified Time Sodium 129 L Potassium 9.0 H* Chloride 95 L Carbon Dioxide 22.0 Anion Gap 12 BUN 45 H Creatinine 4.30 H Estim Creat Clear Calc 23.11 Est GFR (MDRD) Af Amer 19 L Est GFR (MDRD) Non-Af 16 L BUN/Creatinine Ratio 10.5 Glucose 104 Lactic Acid Calcium 7.6 L Phosphorus Magnesium Total Bilirubin 0.90 AST 4147 H ALT 2027 H Alkaline Phosphatase 107 Ammonia Total Creatine Kinase Total Protein 9.3 H Albumin 4.0 Globulin 5.3 H Albumin/Globulin Ratio 0.8 L Triglycerides Lipase 401 H Urine Color Urine Clarity Urine pH Ur Specific [place] Urine Protein Urine Glucose (UA) Urine Ketones Urine Occult Blood Urine Nitrite Urine Bilirubin Urine Urobilinogen Ur Leukocyte Esterase Urine RBC Urine WBC Ur Squamous Epith Cells Amorphous Sediment Urine Bacteria Urine Mucus Ur Random Sodium Urine Creatinine Urine Opiates Screen Urine Methadone Screen Acetaminophen Ur Barbiturates Screen Ur Phencyclidine Scrn Ur Amphetamines Screen U Methamphetamin-MDMA U Benzodiazepines Scrn Urine Cocaine Screen U Cannabinoids Screen Ur Drug Screen Comment Ethyl Alcohol Hepatitis A IgM Ab Hep Bs Antigen Hep B Core IgM Ab Hepatitis C Ab (EIA) 07/10/18 07/10/18 07/10/18 18:05 18:05 18:20 WBC RBC Hgb Hct MCV MCH MCHC RDW RDW Differential Plt Count MPV Immature Gran % (Auto) Neut % (Auto) Lymph % (Auto) [place] % (Auto) Eos % (Auto) Baso % (Auto) Absolute Neuts (auto) Absolute Lymphs (auto) Total Counted PT INR APTT Specimen Type Sample Site pH Bicarbonate Actual POC Total CO2 Base Excess O2 Saturation O2 % ABG pCO2 ABG pO2 Respiration Rate O2 Delivery Device Minute Volume Vent Mode Tidal Volume POC PEEP Blood Gas Notified Whom Blood Gas Notified Time Sodium Potassium Chloride Carbon Dioxide Anion Gap BUN Creatinine Estim Creat Clear Calc Est GFR (MDRD) Af Amer Est GFR (MDRD) Non-Af BUN/Creatinine Ratio Glucose Lactic Acid 5.0 H* Calcium Phosphorus Magnesium Total Bilirubin AST ALT Alkaline Phosphatase Ammonia Total Creatine Kinase 15395 H Total Protein Albumin Globulin Albumin/Globulin Ratio Triglycerides Lipase Urine Color Urine Clarity Urine pH Ur Specific [place] Urine Protein Urine Glucose (UA) Urine Ketones Urine Occult Blood Urine Nitrite Urine Bilirubin Urine Urobilinogen Ur Leukocyte Esterase Urine RBC Urine WBC Ur Squamous Epith Cells Amorphous Sediment Urine Bacteria Urine Mucus Ur Random Sodium Urine Creatinine Urine Opiates Screen Urine Methadone Screen Acetaminophen Ur Barbiturates Screen Ur Phencyclidine Scrn Ur Amphetamines Screen U Methamphetamin-MDMA U Benzodiazepines Scrn Urine Cocaine Screen U Cannabinoids Screen Ur Drug Screen Comment Ethyl Alcohol 4.0 Hepatitis A IgM Ab Hep Bs Antigen Hep B Core IgM Ab Hepatitis C Ab (EIA) 07/10/18 07/10/18 07/10/18 18:20 19:20 19:20 WBC RBC Hgb Hct MCV MCH MCHC RDW RDW Differential Plt Count MPV Immature Gran % (Auto) Neut % (Auto) Lymph % (Auto) [place] % (Auto) Eos % (Auto) Baso % (Auto) Absolute Neuts (auto) Absolute Lymphs (auto) Total Counted PT INR APTT Specimen Type Sample Site pH Bicarbonate Actual POC Total CO2 Base Excess O2 Saturation O2 % ABG pCO2 ABG pO2 Respiration Rate O2 Delivery Device Minute Volume Vent Mode Tidal Volume POC PEEP Blood Gas Notified Whom Blood Gas Notified Time Sodium Potassium Chloride Carbon Dioxide Anion Gap BUN Creatinine Estim Creat Clear Calc Est GFR (MDRD) Af Amer Est GFR (MDRD) Non-Af BUN/Creatinine Ratio Glucose Lactic Acid Calcium Phosphorus Magnesium Total Bilirubin AST ALT Alkaline Phosphatase Ammonia 33.0 H Total Creatine Kinase Total Protein Albumin Globulin Albumin/Globulin Ratio Triglycerides Lipase Urine Color Urine Clarity Urine pH Ur Specific [place] Urine Protein Urine Glucose (UA) Urine Ketones Urine Occult Blood Urine Nitrite Urine Bilirubin Urine Urobilinogen Ur Leukocyte Esterase Urine RBC Urine WBC Ur Squamous Epith Cells Amorphous Sediment Urine Bacteria Urine Mucus Ur Random Sodium Urine Creatinine Urine Opiates Screen POSITIVE H Urine Methadone Screen NEGATIVE Acetaminophen < 2.0 L Ur Barbiturates Screen POSITIVE H Ur Phencyclidine Scrn NEGATIVE Ur Amphetamines Screen NEGATIVE U Methamphetamin-MDMA NEGATIVE U Benzodiazepines Scrn NEGATIVE Urine Cocaine Screen NEGATIVE U Cannabinoids Screen NEGATIVE Ur Drug Screen Comment Ethyl Alcohol Hepatitis A IgM Ab Hep Bs Antigen Hep B Core IgM Ab Hepatitis C Ab (EIA) 07/10/18 07/10/18 07/10/18 21:40 21:40 22:29 WBC RBC Hgb Hct MCV MCH MCHC RDW RDW Differential Plt Count MPV Immature Gran % (Auto) Neut % (Auto) Lymph % (Auto) [place] % (Auto) Eos % (Auto) Baso % (Auto) Absolute Neuts (auto) Absolute Lymphs (auto) Total Counted PT INR APTT Specimen Type ART Sample Site L Radial pH 7.23 L Bicarbonate Actual 18.3 L POC Total CO2 20 Base Excess -9 L O2 Saturation 93 L O2 % 60 ABG pCO2 43.9 ABG pO2 79 Respiration Rate 16 O2 Delivery Device Vent Minute Volume 10.00 Vent Mode A-C Tidal Volume 500 POC PEEP 5 Blood Gas Notified Whom [facility] Blood Gas Notified Time 2225 Sodium Potassium Chloride Carbon Dioxide Anion Gap BUN Creatinine Estim Creat Clear Calc Est GFR (MDRD) Af Amer Est GFR (MDRD) Non-Af BUN/Creatinine Ratio Glucose Lactic Acid Calcium Phosphorus 7.0 H Magnesium 2.2 Total Bilirubin AST ALT Alkaline Phosphatase Ammonia Total Creatine Kinase Total Protein Albumin Globulin Albumin/Globulin Ratio Triglycerides Lipase Urine Color Urine Clarity Urine pH Ur Specific [place] Urine Protein Urine Glucose (UA) Urine Ketones Urine Occult Blood Urine Nitrite Urine Bilirubin Urine Urobilinogen Ur Leukocyte Esterase Urine RBC Urine WBC Ur Squamous Epith Cells Amorphous Sediment Urine Bacteria Urine Mucus Ur Random Sodium Urine Creatinine Urine Opiates Screen Urine Methadone Screen Acetaminophen Ur Barbiturates Screen Ur Phencyclidine Scrn Ur Amphetamines Screen U Methamphetamin-MDMA U Benzodiazepines Scrn Urine Cocaine Screen U Cannabinoids Screen Ur Drug Screen Comment Ethyl Alcohol Hepatitis A IgM Ab Hep Bs Antigen Hep B Core IgM Ab Hepatitis C Ab (EIA) 07/10/18 07/10/18 07/11/18 22:45 22:45 03:30 WBC RBC Hgb Hct MCV MCH MCHC RDW RDW Differential Plt Count MPV Immature Gran % (Auto) Neut % (Auto) Lymph % (Auto) [place] % (Auto) Eos % (Auto) Baso % (Auto) Absolute Neuts (auto) Absolute Lymphs (auto) Total Counted PT INR APTT Specimen Type Sample Site pH Bicarbonate Actual POC Total CO2 Base Excess O2 Saturation O2 % ABG pCO2 ABG pO2 Respiration Rate O2 Delivery Device Minute Volume Vent Mode Tidal Volume POC PEEP Blood Gas Notified Whom Blood Gas Notified Time Sodium 133 L Potassium 7.9 H* Chloride 104 Carbon Dioxide 21.0 Anion Gap 8 BUN 53 H Creatinine 4.31 H Estim Creat Clear Calc 22.35 Est GFR (MDRD) Af Amer 19 L Est GFR (MDRD) Non-Af 16 L BUN/Creatinine Ratio 12.3 Glucose 126 H Lactic Acid 3.1 H Calcium 6.8 L Phosphorus Magnesium Total Bilirubin AST ALT Alkaline Phosphatase Ammonia Total Creatine Kinase Total Protein Albumin Globulin Albumin/Globulin Ratio Triglycerides Lipase Urine Color Christine Urine Clarity Sl. Cloudy Urine pH 5.0 Ur Specific [place] 1.020 Urine Protein 100 H Urine Glucose (UA) 50 H Urine Ketones 5 H Urine Occult Blood 250 H Urine Nitrite Positive H Urine Bilirubin 1 H Urine Urobilinogen 1 H Ur Leukocyte Esterase 25 H Urine RBC 0-5 SEEN Urine WBC 0-5 SEEN Ur Squamous Epith Cells 0 SEEN Amorphous Sediment 2+ Urine Bacteria 0 SEEN Urine Mucus 0 SEEN Ur Random Sodium Urine Creatinine Urine Opiates Screen Urine Methadone Screen Acetaminophen Ur Barbiturates Screen Ur Phencyclidine Scrn Ur Amphetamines Screen U Methamphetamin-MDMA U Benzodiazepines Scrn Urine Cocaine Screen U Cannabinoids Screen Ur Drug Screen Comment Ethyl Alcohol Hepatitis A IgM Ab Hep Bs Antigen Hep B Core IgM Ab Hepatitis C Ab (EIA) 07/11/18 07/11/18 07/11/18 03:30 03:30 04:25 WBC 14.3 H RBC 4.47 L Hgb 14.1 Hct 41.6 MCV 93.1 MCH 31.5 MCHC 33.9 RDW 13.4 RDW Differential 45.8 H Plt Count 136 L MPV 10.5 Immature Gran % (Auto) 0.100 Neut % (Auto) 86.9 H Lymph % (Auto) 9.2 L [place] % (Auto) 3.7 Eos % (Auto) 0.0 Baso % (Auto) 0.1 Absolute Neuts (auto) 12.4 H Absolute Lymphs (auto) 1.32 Total Counted Not Reportable PT INR APTT Specimen Type Sample Site pH Bicarbonate Actual POC Total CO2 Base Excess O2 Saturation O2 % ABG pCO2 ABG pO2 Respiration Rate O2 Delivery Device Minute Volume Vent Mode Tidal Volume POC PEEP Blood Gas Notified Whom Blood Gas Notified Time Sodium Potassium Chloride Carbon Dioxide Anion Gap BUN Creatinine Estim Creat Clear Calc Est GFR (MDRD) Af Amer Est GFR (MDRD) Non-Af BUN/Creatinine Ratio Glucose Lactic Acid Calcium Phosphorus Magnesium Total Bilirubin AST ALT Alkaline Phosphatase Ammonia Total Creatine Kinase Total Protein Albumin Globulin Albumin/Globulin Ratio Triglycerides Lipase Urine Color Urine Clarity Urine pH Ur Specific [place] Urine Protein Urine Glucose (UA) Urine Ketones Urine Occult Blood Urine Nitrite Urine Bilirubin Urine Urobilinogen Ur Leukocyte Esterase Urine RBC Urine WBC Ur Squamous Epith Cells Amorphous Sediment Urine Bacteria Urine Mucus Ur Random Sodium 41 Urine Creatinine 114.00 Urine Opiates Screen Urine Methadone Screen Acetaminophen Ur Barbiturates Screen Ur Phencyclidine Scrn Ur Amphetamines Screen U Methamphetamin-MDMA U Benzodiazepines Scrn Urine Cocaine Screen U Cannabinoids Screen Ur Drug Screen Comment Ethyl Alcohol Hepatitis A IgM Ab Hep Bs Antigen Hep B Core IgM Ab Hepatitis C Ab (EIA) 07/11/18 07/11/18 07/11/18 04:25 04:25 05:30 WBC RBC Hgb Hct MCV MCH MCHC RDW RDW Differential Plt Count MPV Immature Gran % (Auto) Neut % (Auto) Lymph % (Auto) [place] % (Auto) Eos % (Auto) Baso % (Auto) Absolute Neuts (auto) Absolute Lymphs (auto) Total Counted PT INR APTT Specimen Type Sample Site pH Bicarbonate Actual POC Total CO2 Base Excess O2 Saturation O2 % ABG pCO2 ABG pO2 Respiration Rate O2 Delivery Device Minute Volume Vent Mode Tidal Volume POC PEEP Blood Gas Notified Whom Blood Gas Notified Time Sodium Pending Potassium Pending Chloride Pending Carbon Dioxide Pending Anion Gap Pending BUN Pending Creatinine Pending Estim Creat Clear Calc Est GFR (MDRD) Af Amer Pending Est GFR (MDRD) Non-Af Pending BUN/Creatinine Ratio Pending Glucose Pending Lactic Acid Calcium Pending Phosphorus Magnesium Total Bilirubin Pending AST Pending ALT Pending Alkaline Phosphatase Pending Ammonia 41.0 H Total Creatine Kinase Pending Total Protein Pending Albumin Pending Globulin Albumin/Globulin Ratio Triglycerides Pending Lipase Urine Color Urine Clarity Urine pH Ur Specific [place] Urine Protein Urine Glucose (UA) Urine Ketones Urine Occult Blood Urine Nitrite Urine Bilirubin Urine Urobilinogen Ur Leukocyte Esterase Urine RBC Urine WBC Ur Squamous Epith Cells Amorphous Sediment Urine Bacteria Urine Mucus Ur Random Sodium Urine Creatinine Urine Opiates Screen Urine Methadone Screen Acetaminophen Ur Barbiturates Screen Ur Phencyclidine Scrn Ur Amphetamines Screen U Methamphetamin-MDMA U Benzodiazepines Scrn Urine Cocaine Screen U Cannabinoids Screen Ur Drug Screen Comment Ethyl Alcohol Hepatitis A IgM Ab Pending Hep Bs Antigen Pending Hep B Core IgM Ab Pending Hepatitis C Ab (EIA) Pending POC Glucose 07/11/18 07/10/18 04:47 23:50 POC Glucose 145 H 135 H Assessment/Plan All Active Problems (Last Updated 07/10/18 @ 23:08 by Faustino Hagan MD) Acute respiratory failure with hypoxia (Acute) Aspiration pneumonia due to food (regurgitated) (Acute) Acute kidney injury (nontraumatic) (Acute) Elevated liver enzymes (Acute) Acute hyperkalemia (Acute) Lactic acidosis (Acute) Anaphylactic shock, unspecified, initial encounter (Acute) Toxic effect of ingested berries, intentional self-harm, initial encounter (Acute) Encephalopathy acute (Acute) 1. Acute kidney injury. Pt's baseline renal function is unknown. Presumed normal. HÉCTOR is likely due to ischemic/nephrotoxic ATN related to rhabdomyolysis and volume depletion. Pt remains oliguric despite volume resuscitation. Since K is high, we will dialyze the pt today. Discussed with Dr. Garzon. Dose medications for CrCl<15. Decrease Pepcid to once per day. 2. Hyperkalemia. K is still>6 despite Kayexalate. Since he is still oliguric. This am K is still pending, but will still likely be high since he is oliguric with rhabdo. Will start dialysis. Can stop HCO3 gtt once the pt is on dialysis. 3. Rhabdomyolysis. See above. Will dialyze for HÉCTOR related to rhabdo. Trend CPK. No evidence of compartment syndrome involving limbs. 4. Acute hypoxic respiratory failure. Intubated/on vent. On antibiotic for possible aspiration. Dose of Unasyn acceptable for HÉCTOR on dialysis.
--- NOTE | 2018-07-11 07:17 | PCM.CON.CC ---
Problem List (1) Secondary rhabdomyolysis Status: Acute (2) Acute respiratory failure with hypoxia Status: Acute (3) Aspiration pneumonia due to food (regurgitated) Status: Acute Qualifiers: Laterality: bilateral Lung location: lower lobe of lung Qualified Code(s): J69.0 - Pneumonitis due to inhalation of food and vomit (4) Acute kidney injury (nontraumatic) Status: Acute (5) Elevated liver enzymes Status: Acute (6) Acute hyperkalemia Status: Acute (7) Lactic acidosis Status: Acute (8) Encephalopathy acute Status: Acute Reason for Consult Date of Consultation: 07/11/18 Reason for Consultation: Respiratory failure History of Present Illness: The patient is a 47 year old M, with past medical history listed below, who presented to [facility] after being found unresponsive by a friend. Patient was reportedly disoriented on presentation, but was reportedly found with drug paraphernalia and an empty bottle of gabapentin that was filled with 90 tablets on June 29. Patient had reportedly admitted to police officers that he had snorted heroin earlier in the day. Patient was reportedly found supine on the sofa with his feet on the armrest. Patient was unresponsive, so 911 was called. In the intensive care unit, patient was given Narcan with little improvement. Patient was noted to be 85% on room air and chest x-ray was suggestive of aspiration. Patient was intubated without difficulty. Patient was given a 30 cc/kg bolus, amp of calcium chloride, insulin and D50 for hyperkalemia of 9. Patient was transported to the intensive care unit for further monitoring. Overnight in the intensive care unit, patient has had very little urine output. Patient has had approximately 100 cc overnight despite significant fluid. Patient was initiated on bicarbonate drip. Patient did have a fever overnight and respiratory had reported some thick secretions. Patient is requiring 60% FiO2 to maintain saturations. Patient is currently intubated and sedated and unable to provide additional information at this time. Did discuss with Dr. Howell of nephrology at the bedside. Given patient's CK levels and lack of urine output, it is unclear the patient will recover renal function without aggressive measures. I have been asked to place a temporary dialysis line for patient to receive dialysis today. We will attempt to obtain consent from family members. Patient reportedly has only 2 brothers, his friend that is a hospice nurse and no children. Patient's brothers are reportedly out of state. Patient's parents are reportedly , but none of this can be personally verified. Past Medical History Medical History: Medical History (Last Updated 07/10/18 @ 23:08 by Faustino Hagan MD) Hx unobtainable Allergies No Known Allergies Allergy (Verified 07/10/18 18:02) Home Medications: Ambulatory Orders Medication Instructions Recorded Butalb/Acetaminophen/Caffeine 1 capsule PO Q6H PRN 07/10/18 [Fioricet 50-300-40 mg Capsule] Gabapentin 800 mg PO DAILY 07/10/18 Surgical History: - - Intubated and sedated and unable to obtain further history. Lives: Alone Smoking Status: Current every day smoker Tobacco Use: Cigarettes Alcohol: Heavy Drugs: - - Admits to heroin - *Family History Paternal History Items: - - unable to be obtained because of acute encephalopathy Maternal History Items: - - unable to be obtained because of acute encephalopathy Review of Systems Unable to obtain accurate/complete ROS d/t: Intubated and sedated Patient Problems: Active and Suspected Problems (Last Updated 07/10/18 @ 23:08 by Faustino Hagan MD) Acute respiratory failure with hypoxia (Acute) Aspiration pneumonia due to food (regurgitated) (Acute) Acute kidney injury (nontraumatic) (Acute) Elevated liver enzymes (Acute) Acute hyperkalemia (Acute) Lactic acidosis (Acute) Anaphylactic shock, unspecified, initial encounter (Acute) Toxic effect of ingested berries, intentional self-harm, initial encounter (Acute) Encephalopathy acute (Acute) Secondary rhabdomyolysis (Acute) Subjective: Respiratory reports patient's endotracheal tube has been moved from 24 cm to 27 cm since the chest x-ray. ABG on record is after mechanical ventilation and was completed on the floor. Objective: Chest x-ray shows endotracheal tube high with bilateral lower lobe infiltrates. - Physical Exam General: - - Intubated and sedated. Appears older than stated age. Multiple tattoos noted. HEENT: Atraumatic, PERRLA, EOMI, Normocephalic, - - Scleral injection without icterus Oral: No Gingival or Mucosal Lesions/ Ulcerations, Dry Mucosa Neck: Supple, No JVD, No Nodes, Trachea Midline Lungs: No wheeze, No rales, Diminished, Rhonchi - Bilateral bases, but improved with suctioning, - - Symmetric expansion. Cardiovascular: Regular rate, Regular Rhythm, Normal S1, Normal S2, No murmurs, No rub noted, No Gallop Abdomen: Bowel Sounds Present, Soft, Non Tender, Non-Distended, Obese Extremities: No clubbing, No cyanosis, No edema, Capillary Refill Less than 3 Seconds Skin: No rashes, No breakdown Musculoskeletal: No Tenderness to Palpation of Joints or Extremities Lymphatic: No Cervical, Supraclavicular, or Inguinal Adenopathy Neurological: Cranial nerves II-XII grossly intact, Neuro grossly intact Psych/Mental Status: Flat Affect Vital Signs Temp Pulse Resp BP Pulse Ox 37.7 C H 89 17 118/68 98 07/11/18 06:00 07/11/18 06:00 07/11/18 06:00 07/11/18 06:00 07/11/18 06:00 Oxygen Flow Rate (L/min) 5 Oxygen Delivery Method Mechanical Ventilator Weight: 111.1 kg Body Mass Index (BMI) 34.4 Intake and Output for Last 24 Hours 07/09/18 07/10/18 07/11/18 23:59 23:59 23:59 Intake Total 3203 / 3203 1326 / 1326 Output Total 650 / 650 300 / 300 Balance 2553 / 2553 1026 / 1026 Laboratory Tests Past 24 Hrs 07/10/18 07/10/18 07/10/18 18:05 18:05 18:05 WBC 17.6 H RBC 5.50 Hgb 17.9 H Hct 52.6 MCV 95.6 H MCH 32.5 H MCHC 34.0 RDW 13.5 RDW Differential 47.3 H Plt Count 234 MPV 10.4 Immature Gran % (Auto) 0.600 Neut % (Auto) 87.1 H Lymph % (Auto) 7.2 L [place] % (Auto) 5.0 Eos % (Auto) 0.0 Baso % (Auto) 0.1 Absolute Neuts (auto) 15.4 H Absolute Lymphs (auto) 1.26 Total Counted Not Reportable PT 15.4 H INR 1.2 APTT 29.7 Specimen Type Sample Site pH Bicarbonate Actual POC Total CO2 Base Excess O2 Saturation O2 % ABG pCO2 ABG pO2 Respiration Rate O2 Delivery Device Minute Volume Vent Mode Tidal Volume POC PEEP Blood Gas Notified Whom Blood Gas Notified Time Sodium 129 L Potassium 9.0 H* Chloride 95 L Carbon Dioxide 22.0 Anion Gap 12 BUN 45 H Creatinine 4.30 H Estim Creat Clear Calc 23.11 Est GFR (MDRD) Af Amer 19 L Est GFR (MDRD) Non-Af 16 L BUN/Creatinine Ratio 10.5 Glucose 104 Lactic Acid Calcium 7.6 L Phosphorus Magnesium Total Bilirubin 0.90 AST 4147 H ALT 2027 H Alkaline Phosphatase 107 Ammonia Total Creatine Kinase Total Protein 9.3 H Albumin 4.0 Globulin 5.3 H Albumin/Globulin Ratio 0.8 L Triglycerides Lipase 401 H Urine Color Urine Clarity Urine pH Ur Specific [place] Urine Protein Urine Glucose (UA) Urine Ketones Urine Occult Blood Urine Nitrite Urine Bilirubin Urine Urobilinogen Ur Leukocyte Esterase Urine RBC Urine WBC Ur Squamous Epith Cells Amorphous Sediment Urine Bacteria Urine Mucus Ur Random Sodium Urine Creatinine Urine Opiates Screen Urine Methadone Screen Acetaminophen Ur Barbiturates Screen Ur Phencyclidine Scrn Ur Amphetamines Screen U Methamphetamin-MDMA U Benzodiazepines Scrn Urine Cocaine Screen U Cannabinoids Screen Ur Drug Screen Comment Ethyl Alcohol Hepatitis A IgM Ab Hep Bs Antigen Hep B Core IgM Ab Hepatitis C Ab (EIA) 07/10/18 07/10/18 07/10/18 18:05 18:05 18:20 WBC RBC Hgb Hct MCV MCH MCHC RDW RDW Differential Plt Count MPV Immature Gran % (Auto) Neut % (Auto) Lymph % (Auto) [place] % (Auto) Eos % (Auto) Baso % (Auto) Absolute Neuts (auto) Absolute Lymphs (auto) Total Counted PT INR APTT Specimen Type Sample Site pH Bicarbonate Actual POC Total CO2 Base Excess O2 Saturation O2 % ABG pCO2 ABG pO2 Respiration Rate O2 Delivery Device Minute Volume Vent Mode Tidal Volume POC PEEP Blood Gas Notified Whom Blood Gas Notified Time Sodium Potassium Chloride Carbon Dioxide Anion Gap BUN Creatinine Estim Creat Clear Calc Est GFR (MDRD) Af Amer Est GFR (MDRD) Non-Af BUN/Creatinine Ratio Glucose Lactic Acid 5.0 H* Calcium Phosphorus Magnesium Total Bilirubin AST ALT Alkaline Phosphatase Ammonia Total Creatine Kinase 09022 H Total Protein Albumin Globulin Albumin/Globulin Ratio Triglycerides Lipase Urine Color Urine Clarity Urine pH Ur Specific [place] Urine Protein Urine Glucose (UA) Urine Ketones Urine Occult Blood Urine Nitrite Urine Bilirubin Urine Urobilinogen Ur Leukocyte Esterase Urine RBC Urine WBC Ur Squamous Epith Cells Amorphous Sediment Urine Bacteria Urine Mucus Ur Random Sodium Urine Creatinine Urine Opiates Screen Urine Methadone Screen Acetaminophen Ur Barbiturates Screen Ur Phencyclidine Scrn Ur Amphetamines Screen U Methamphetamin-MDMA U Benzodiazepines Scrn Urine Cocaine Screen U Cannabinoids Screen Ur Drug Screen Comment Ethyl Alcohol 4.0 Hepatitis A IgM Ab Hep Bs Antigen Hep B Core IgM Ab Hepatitis C Ab (EIA) 07/10/18 07/10/18 07/10/18 18:20 19:20 19:20 WBC RBC Hgb Hct MCV MCH MCHC RDW RDW Differential Plt Count MPV Immature Gran % (Auto) Neut % (Auto) Lymph % (Auto) [place] % (Auto) Eos % (Auto) Baso % (Auto) Absolute Neuts (auto) Absolute Lymphs (auto) Total Counted PT INR APTT Specimen Type Sample Site pH Bicarbonate Actual POC Total CO2 Base Excess O2 Saturation O2 % ABG pCO2 ABG pO2 Respiration Rate O2 Delivery Device Minute Volume Vent Mode Tidal Volume POC PEEP Blood Gas Notified Whom Blood Gas Notified Time Sodium Potassium Chloride Carbon Dioxide Anion Gap BUN Creatinine Estim Creat Clear Calc Est GFR (MDRD) Af Amer Est GFR (MDRD) Non-Af BUN/Creatinine Ratio Glucose Lactic Acid Calcium Phosphorus Magnesium Total Bilirubin AST ALT Alkaline Phosphatase Ammonia 33.0 H Total Creatine Kinase Total Protein Albumin Globulin Albumin/Globulin Ratio Triglycerides Lipase Urine Color Urine Clarity Urine pH Ur Specific [place] Urine Protein Urine Glucose (UA) Urine Ketones Urine Occult Blood Urine Nitrite Urine Bilirubin Urine Urobilinogen Ur Leukocyte Esterase Urine RBC Urine WBC Ur Squamous Epith Cells Amorphous Sediment Urine Bacteria Urine Mucus Ur Random Sodium Urine Creatinine Urine Opiates Screen POSITIVE H Urine Methadone Screen NEGATIVE Acetaminophen < 2.0 L Ur Barbiturates Screen POSITIVE H Ur Phencyclidine Scrn NEGATIVE Ur Amphetamines Screen NEGATIVE U Methamphetamin-MDMA NEGATIVE U Benzodiazepines Scrn NEGATIVE Urine Cocaine Screen NEGATIVE U Cannabinoids Screen NEGATIVE Ur Drug Screen Comment Ethyl Alcohol Hepatitis A IgM Ab Hep Bs Antigen Hep B Core IgM Ab Hepatitis C Ab (EIA) 07/10/18 07/10/18 07/10/18 21:40 21:40 22:29 WBC RBC Hgb Hct MCV MCH MCHC RDW RDW Differential Plt Count MPV Immature Gran % (Auto) Neut % (Auto) Lymph % (Auto) [place] % (Auto) Eos % (Auto) Baso % (Auto) Absolute Neuts (auto) Absolute Lymphs (auto) Total Counted PT INR APTT Specimen Type ART Sample Site L Radial pH 7.23 L Bicarbonate Actual 18.3 L POC Total CO2 20 Base Excess -9 L O2 Saturation 93 L O2 % 60 ABG pCO2 43.9 ABG pO2 79 Respiration Rate 16 O2 Delivery Device Vent Minute Volume 10.00 Vent Mode A-C Tidal Volume 500 POC PEEP 5 Blood Gas Notified Whom [facility] Blood Gas Notified Time 2225 Sodium Potassium Chloride Carbon Dioxide Anion Gap BUN Creatinine Estim Creat Clear Calc Est GFR (MDRD) Af Amer Est GFR (MDRD) Non-Af BUN/Creatinine Ratio Glucose Lactic Acid Calcium Phosphorus 7.0 H Magnesium 2.2 Total Bilirubin AST ALT Alkaline Phosphatase Ammonia Total Creatine Kinase Total Protein Albumin Globulin Albumin/Globulin Ratio Triglycerides Lipase Urine Color Urine Clarity Urine pH Ur Specific [place] Urine Protein Urine Glucose (UA) Urine Ketones Urine Occult Blood Urine Nitrite Urine Bilirubin Urine Urobilinogen Ur Leukocyte Esterase Urine RBC Urine WBC Ur Squamous Epith Cells Amorphous Sediment Urine Bacteria Urine Mucus Ur Random Sodium Urine Creatinine Urine Opiates Screen Urine Methadone Screen Acetaminophen Ur Barbiturates Screen Ur Phencyclidine Scrn Ur Amphetamines Screen U Methamphetamin-MDMA U Benzodiazepines Scrn Urine Cocaine Screen U Cannabinoids Screen Ur Drug Screen Comment Ethyl Alcohol Hepatitis A IgM Ab Hep Bs Antigen Hep B Core IgM Ab Hepatitis C Ab (EIA) 07/10/18 07/10/18 07/11/18 22:45 22:45 03:30 WBC RBC Hgb Hct MCV MCH MCHC RDW RDW Differential Plt Count MPV Immature Gran % (Auto) Neut % (Auto) Lymph % (Auto) [place] % (Auto) Eos % (Auto) Baso % (Auto) Absolute Neuts (auto) Absolute Lymphs (auto) Total Counted PT INR APTT Specimen Type Sample Site pH Bicarbonate Actual POC Total CO2 Base Excess O2 Saturation O2 % ABG pCO2 ABG pO2 Respiration Rate O2 Delivery Device Minute Volume Vent Mode Tidal Volume POC PEEP Blood Gas Notified Whom Blood Gas Notified Time Sodium 133 L Potassium 7.9 H* Chloride 104 Carbon Dioxide 21.0 Anion Gap 8 BUN 53 H Creatinine 4.31 H Estim Creat Clear Calc 22.35 Est GFR (MDRD) Af Amer 19 L Est GFR (MDRD) Non-Af 16 L BUN/Creatinine Ratio 12.3 Glucose 126 H Lactic Acid 3.1 H Calcium 6.8 L Phosphorus Magnesium Total Bilirubin AST ALT Alkaline Phosphatase Ammonia Total Creatine Kinase Total Protein Albumin Globulin Albumin/Globulin Ratio Triglycerides Lipase Urine Color [place] Urine Clarity Sl. Cloudy Urine pH 5.0 Ur Specific [place] 1.020 Urine Protein 100 H Urine Glucose (UA) 50 H Urine Ketones 5 H Urine Occult Blood 250 H Urine Nitrite Positive H Urine Bilirubin 1 H Urine Urobilinogen 1 H Ur Leukocyte Esterase 25 H Urine RBC 0-5 SEEN Urine WBC 0-5 SEEN Ur Squamous Epith Cells 0 SEEN Amorphous Sediment 2+ Urine Bacteria 0 SEEN Urine Mucus 0 SEEN Ur Random Sodium Urine Creatinine Urine Opiates Screen Urine Methadone Screen Acetaminophen Ur Barbiturates Screen Ur Phencyclidine Scrn Ur Amphetamines Screen U Methamphetamin-MDMA U Benzodiazepines Scrn Urine Cocaine Screen U Cannabinoids Screen Ur Drug Screen Comment Ethyl Alcohol Hepatitis A IgM Ab Hep Bs Antigen Hep B Core IgM Ab Hepatitis C Ab (EIA) 07/11/18 07/11/18 07/11/18 03:30 03:30 04:25 WBC 14.3 H RBC 4.47 L Hgb 14.1 Hct 41.6 MCV 93.1 MCH 31.5 MCHC 33.9 RDW 13.4 RDW Differential 45.8 H Plt Count 136 L MPV 10.5 Immature Gran % (Auto) 0.100 Neut % (Auto) 86.9 H Lymph % (Auto) 9.2 L [place] % (Auto) 3.7 Eos % (Auto) 0.0 Baso % (Auto) 0.1 Absolute Neuts (auto) 12.4 H Absolute Lymphs (auto) 1.32 Total Counted Not Reportable PT INR APTT Specimen Type Sample Site pH Bicarbonate Actual POC Total CO2 Base Excess O2 Saturation O2 % ABG pCO2 ABG pO2 Respiration Rate O2 Delivery Device Minute Volume Vent Mode Tidal Volume POC PEEP Blood Gas Notified Whom Blood Gas Notified Time Sodium Potassium Chloride Carbon Dioxide Anion Gap BUN Creatinine Estim Creat Clear Calc Est GFR (MDRD) Af Amer Est GFR (MDRD) Non-Af BUN/Creatinine Ratio Glucose Lactic Acid Calcium Phosphorus Magnesium Total Bilirubin AST ALT Alkaline Phosphatase Ammonia Total Creatine Kinase Total Protein Albumin Globulin Albumin/Globulin Ratio Triglycerides Lipase Urine Color Urine Clarity Urine pH Ur Specific [place] Urine Protein Urine Glucose (UA) Urine Ketones Urine Occult Blood Urine Nitrite Urine Bilirubin Urine Urobilinogen Ur Leukocyte Esterase Urine RBC Urine WBC Ur Squamous Epith Cells Amorphous Sediment Urine Bacteria Urine Mucus Ur Random Sodium 41 Urine Creatinine 114.00 Urine Opiates Screen Urine Methadone Screen Acetaminophen Ur Barbiturates Screen Ur Phencyclidine Scrn Ur Amphetamines Screen U Methamphetamin-MDMA U Benzodiazepines Scrn Urine Cocaine Screen U Cannabinoids Screen Ur Drug Screen Comment Ethyl Alcohol Hepatitis A IgM Ab Hep Bs Antigen Hep B Core IgM Ab Hepatitis C Ab (EIA) 07/11/18 07/11/18 07/11/18 04:25 04:25 05:30 WBC RBC Hgb Hct MCV MCH MCHC RDW RDW Differential Plt Count MPV Immature Gran % (Auto) Neut % (Auto) Lymph % (Auto) [place] % (Auto) Eos % (Auto) Baso % (Auto) Absolute Neuts (auto) Absolute Lymphs (auto) Total Counted PT INR APTT Specimen Type Sample Site pH Bicarbonate Actual POC Total CO2 Base Excess O2 Saturation O2 % ABG pCO2 ABG pO2 Respiration Rate O2 Delivery Device Minute Volume Vent Mode Tidal Volume POC PEEP Blood Gas Notified Whom Blood Gas Notified Time Sodium Pending Potassium Pending Chloride Pending Carbon Dioxide Pending Anion Gap Pending BUN Pending Creatinine Pending Estim Creat Clear Calc Est GFR (MDRD) Af Amer Pending Est GFR (MDRD) Non-Af Pending BUN/Creatinine Ratio Pending Glucose Pending Lactic Acid Calcium Pending Phosphorus Magnesium Total Bilirubin Pending AST Pending ALT Pending Alkaline Phosphatase Pending Ammonia 41.0 H Total Creatine Kinase Pending Total Protein Pending Albumin Pending Globulin Albumin/Globulin Ratio Triglycerides Pending Lipase Urine Color Urine Clarity Urine pH Ur Specific [place] Urine Protein Urine Glucose (UA) Urine Ketones Urine Occult Blood Urine Nitrite Urine Bilirubin Urine Urobilinogen Ur Leukocyte Esterase Urine RBC Urine WBC Ur Squamous Epith Cells Amorphous Sediment Urine Bacteria Urine Mucus Ur Random Sodium Urine Creatinine Urine Opiates Screen Urine Methadone Screen Acetaminophen Ur Barbiturates Screen Ur Phencyclidine Scrn Ur Amphetamines Screen U Methamphetamin-MDMA U Benzodiazepines Scrn Urine Cocaine Screen U Cannabinoids Screen Ur Drug Screen Comment Ethyl Alcohol Hepatitis A IgM Ab Pending Hep Bs Antigen Pending Hep B Core IgM Ab Pending Hepatitis C Ab (EIA) Pending POC Glucose 07/11/18 07/10/18 04:47 23:50 POC Glucose 145 H 135 H Clinical Impression(s) from Imaging Studies Brain CT 07/10/18 17:58 IMPRESSION: Focal low attenuation of the left basal ganglia as noted. Left maxillary sinusitis. Electronically Signed: Bay Mcdonald DO at 18:33 EDT Tel [phone], Service support , Chest X-Ray 07/10/18 17:58 IMPRESSION: Possible right basilar infiltrate. Mild cardiomegaly. Electronically Signed: Bay Mcdonald DO at 18:47 EDT Tel [phone], Service support , Chest X-Ray 07/10/18 19:08 IMPRESSION: 1. Interval advancement of the enteric tube when compared to the earlier study. 2. No other interval change. Electronically Signed: Rosendo Madrigal DO at 20:12 EDT Tel [phone], Service support , Chest X-Ray 07/10/18 19:08 IMPRESSION: 1. Endotracheal tube as described. 2. Enteric tube with its tip approximately 5 cm beyond the diaphragm. 3. No other major interval change when compared to the earlier study. Electronically Signed: Rosendo Madrigal DO at 20:11 EDT Tel [phone], Service support , Assessment/Plan Active and Suspected Problems (Last Updated 07/10/18 @ 23:08 by Faustino Hagan MD) Acute respiratory failure with hypoxia (Acute) Aspiration pneumonia due to food (regurgitated) (Acute) Acute kidney injury (nontraumatic) (Acute) Elevated liver enzymes (Acute) Acute hyperkalemia (Acute) Lactic acidosis (Acute) Anaphylactic shock, unspecified, initial encounter (Acute) Toxic effect of ingested berries, intentional self-harm, initial encounter (Acute) Encephalopathy acute (Acute) Secondary rhabdomyolysis (Acute) RECOMMENDATIONS: 1. Continue empiric antibiotics 2. Placement of hemodialysis line later this morning 3. Wean oxygen as tolerated 4. Likely continue aggressive fluid resuscitation, but discontinue bicarbonate once on hemodialysis IMPRESSIONS: 1. Acute toxic encephalopathy secondary to possible drug overdose/toxic hepatitis Patient may have overdosed on gabapentin or had decreased mental status secondary to snorting heroin. Exact etiology is unclear at this time. Patient does have extensive elevation of liver enzymes with a history of alcoholism. Unclear if this is an acute on chronic versus acute hepatitis only. Patient currently intubated and sedated. Will monitor. Cannot exclude an element of hypoxic encephalopathy given aspiration and presentation of hypoxia. 2. Acute combined respiratory failure secondary to probable aspiration pneumonia Patient reportedly does have a smoking history. Patient is on increased FiO2, but peak pressures are not excessive. May need to add empiric steroid therapy. Patient is on appropriate antibiotics at this time. Patient appears to be volume depleted at this time, so extent of infiltrates may be underestimating amount of aspiration. 3. Acute renal failure/hyperkalemia secondary to rhabdomyolysis Discussed with nephrology. Patient has minimal chance of recovering renal function without aggressive therapy. After consent can be obtained, a dialysis line will be placed by myself. Patient should receive dialysis today. Patient did receive medications for hyperkalemia, but no bowel movements have been noted. 4. Illicit drug use/lack of history/hyperammonemia/polysubstance abuse Complicates care, management, recovery and prognosis. We will need to monitor for withdrawal following cessation of sedation and fentanyl drips. TIME: 45 minutes critical care time spent, excluding procedures, addressing patient's acute encephalopathy, respiratory failure, renal failure, hyperkalemia, hepatitis, review of all data and collaboration with care team (6 AM to 7 AM) Code Visit 9xxxx: [id number] Critical care first hour
--- NOTE | 2018-07-11 07:23 | CON.PCM_ITS ---
Problem List (1) Secondary rhabdomyolysis Status: Acute (2) Acute respiratory failure with hypoxia Status: Acute (3) Aspiration pneumonia due to food (regurgitated) Status: Acute Qualifiers: Laterality: bilateral Lung location: lower lobe of lung Qualified Code(s): J69.0 - Pneumonitis due to inhalation of food and vomit (4) Acute kidney injury (nontraumatic) Status: Acute (5) Elevated liver enzymes Status: Acute (6) Acute hyperkalemia Status: Acute (7) Lactic acidosis Status: Acute (8) Encephalopathy acute Status: Acute Reason for Consult Date of Consultation: 07/11/18 Reason for Consultation: Respiratory failure History of Present Illness: The patient is a 47 year old M, with past medical history listed below, who presented to [facility] after being found unresponsive by a friend. Patient was reportedly disoriented on presentation, but was reportedly found with drug paraphernalia and an empty bottle of gabapentin that was filled with 90 tablets on June 29. Patient had reportedly admitted to police officers that he had snorted heroin earlier in the day. Patient was reportedly found supine on the sofa with his feet on the armrest. Patient was unresponsive, so 911 was called. In the intensive care unit, patient was given Narcan with little improvement. Patient was noted to be 85% on room air and chest x-ray was suggestive of aspiration. Patient was intubated without difficulty. Patient was given a 30 cc/kg bolus, amp of calcium chloride, insulin and D50 for hyperkalemia of 9. Patient was transported to the intensive care unit for further monitoring. Overnight in the intensive care unit, patient has had very little urine output. Patient has had approximately 100 cc overnight despite significant fluid. Patient was initiated on bicarbonate drip. Patient did have a fever overnight and respiratory had reported some thick secretions. Patient is requiring 60% FiO2 to maintain saturations. Patient is currently intubated and sedated and unable to provide additional information at this time. Did discuss with Dr. Howell of nephrology at the bedside. Given patient's CK levels and lack of urine output, it is unclear the patient will recover renal function without aggressive measures. I have been asked to place a temporary dialysis line for patient to receive dialysis today. We will attempt to obtain consent from family members. Patient reportedly has only 2 brothers, his friend that is a hospice nurse and no children. Patient's brothers are reportedly out of state. Patient's parents are reportedly , but none of this can be personally verified. Past Medical History Medical History: Medical History (Last Updated 07/10/18 @ 23:08 by Faustino Hagan MD) Hx unobtainable Allergies No Known Allergies Allergy (Verified 07/10/18 18:02) Home Medications: Ambulatory Orders Medication Instructions Recorded Butalb/Acetaminophen/Caffeine 1 capsule PO Q6H PRN 07/10/18 [Fioricet 50-300-40 mg Capsule] Gabapentin 800 mg PO DAILY 07/10/18 Surgical History: - - Intubated and sedated and unable to obtain further hi story. Lives: Alone Smoking Status: Current every day smoker Tobacco Use: Cigarettes Alcohol: Heavy Drugs: - - Admits to heroin - *Family History Paternal History Items: - - unable to be obtained because of acute encephalopathy Maternal History Items: - - unable to be obtained because of acute encephalopathy Review of Systems Unable to obtain accurate/complete ROS d/t: Intubated and sedated Patient Problems: Active and Suspected Problems (Last Updated 07/10/18 @ 23:08 by Faustino Hagan MD) Acute respiratory failure with hypoxia (Acute) Aspiration pneumonia due to food (regurgitated) (Acute) Acute kidney injury (nontraumatic) (Acute) Elevated liver enzymes (Acute) Acute hyperkalemia (Acute) Lactic acidosis (Acute) Anaphylactic shock, unspecified, initial encounter (Acute) Toxic effect of ingested berries, intentional self-harm, initial encounter (Acute) Encephalopathy acute (Acute) Secondary rhabdomyolysis (Acute) Subjective: Respiratory reports patient's endotracheal tube has been moved from 24 cm to 27 cm since the chest x-ray. ABG on record is after mechanical ventilation and was completed on the floor. Objective: Chest x-ray shows endotracheal tube high with bilateral lower lobe infiltrates. - Physical Exam General: - - Intubated and sedated. Appears older than stated age. Multiple tattoos noted. HEENT: Atraumatic, PERRLA, EOMI, Normocephalic, - - Scleral injection without icterus Oral: No Gingival or Mucosal Lesions/ Ulcerations, Dry Mucosa Neck: Supple, No JVD, No Nodes, Trachea Midline Lungs: No wheeze, No rales, Diminished, Rhonchi - Bilateral bases, but improved with suctioning, - - Symmetric expansion. Cardiovascular: Regular rate, Regular Rhythm, Normal S1, Normal S2, No murmurs, No rub noted, No Gallop Abdomen: Bowel Sounds Present, Soft, Non Tender, Non-Distended, Obese Extremities: No clubbing, No cyanosis, No edema, Capillary Refill Less than 3 Seconds Skin: No rashes, No breakdown Musculoskeletal: No Tenderness to Palpation of Joints or Extremities Lymphatic: No Cervical, Supraclavicular, or Inguinal Adenopathy Neurological: Cranial nerves II-XII grossly intact, Neuro grossly intact Psych/Mental Status: Flat Affect Vital Signs Temp Pulse Resp BP Pulse Ox 37.7 C H 89 17 118/68 98 07/11/18 06:00 07/11/18 06:00 07/11/18 06:00 07/11/18 06:00 07/11/18 06:00 Oxygen Flow Rate (L/min) 5 Oxygen Delivery Method Mechanical Ventilator Weight: 111.1 kg Body Mass Index (BMI) 34.4 Intake and Output for Last 24 Hours 07/09/18 07/10/18 07/11/18 23:59 23:59 23:59 Intake Total 3203 / 3203 1326 / 1326 Output Total 650 / 650 300 / 300 Balance 2553 / 2553 1026 / 1026 Laboratory Tests Past 24 Hrs 07/10/18 07/10/18 07/10/18 18:05 18:05 18:05 WBC 17.6 H RBC 5.50 Hgb 17.9 H Hct 52.6 MCV 95.6 H MCH 32.5 H MCHC 34.0 RDW 13.5 RDW Differential 47.3 H Plt Count 234 MPV 10.4 Immature Gran % (Auto) 0.600 Neut % (Auto) 87.1 H Lymph % (Auto) 7.2 L [place] % (Auto) 5.0 Eos % (Auto) 0.0 Baso % (Auto) 0.1 Absolute Neuts (auto) 15.4 H Absolute Lymphs (auto) 1.26 Total Counted Not Reportable PT 15.4 H INR 1.2 APTT 29.7 Specimen Type Sample Site pH Bicarbonate Actual POC Total CO2 Base Excess O2 Saturation O2 % ABG pCO2 ABG pO2 Respiration Rate O2 Delivery Device Minute Volume Vent Mode Tidal Volume POC PEEP Blood Gas Notified Whom Blood Gas Notified Time Sodium 129 L Potassium 9.0 H* Chloride 95 L Carbon Dioxide 22.0 Anion Gap 12 BUN 45 H Creatinine 4.30 H Estim Creat Clear Calc 23.11 Est GFR (MDRD) Af Amer 19 L Est GFR (MDRD) Non-Af 16 L BUN/Creatinine Ratio 10.5 Glucose 104 Lactic Acid Calcium 7.6 L Phosphorus Magnesium Total Bilirubin 0.90 AST 4147 H ALT 2027 H Alkaline Phosphatase 107 Ammonia Total Creatine Kinase Total Protein 9.3 H Albumin 4.0 Globulin 5.3 H Albumin/Globulin Ratio 0.8 L Triglycerides Lipase 401 H Urine Color Urine Clarity Urine pH Ur Specific [place] Urine Protein Urine Glucose (UA) Urine Ketones Urine Occult Blood Urine Nitrite Urine Bilirubin Urine Urobilinogen Ur Leukocyte Esterase Urine RBC Urine WBC Ur Squamous Epith Cells Amorphous Sediment Urine Bacteria Urine Mucus Ur Random Sodium Urine Creatinine Urine Opiates Screen Urine Methadone Screen Acetaminophen Ur Barbiturates Screen Ur Phencyclidine Scrn Ur Amphetamines Screen U Methamphetamin-MDMA U Benzodiazepines Scrn Urine Cocaine Screen U Cannabinoids Screen Ur Drug Screen Comment Ethyl Alcohol Hepatitis A IgM Ab Hep Bs Antigen Hep B Core IgM Ab Hepatitis C Ab (EIA) 07/10/18 07/10/18 07/10/18 18:05 18:05 18:20 WBC RBC Hgb Hct MCV MCH MCHC RDW RDW Differential Plt Count MPV Immature Gran % (Auto) Neut % (Auto) Lymph % (Auto) [place] % (Auto) Eos % (Auto) Baso % (Auto) Absolute Neuts (auto) Absolute Lymphs (auto) Total Counted PT INR APTT Specimen Type Sample Site pH Bicarbonate Actual POC Total CO2 Base Excess O2 Saturation O2 % ABG pCO2 ABG pO2 Respiration Rate O2 Delivery Device Minute Volume Vent Mode Tidal Volume POC PEEP Blood Gas Notified Whom Blood Gas Notified Time Sodium Potassium Chloride Carbon Dioxide Anion Gap BUN Creatinine Estim Creat Clear Calc Est GFR (MDRD) Af Amer Est GFR (MDRD) Non-Af BUN/Creatinine Ratio Glucose Lactic Acid 5.0 H* Calcium Phosphorus Magnesium Total Bilirubin AST ALT Alkaline Phosphatase Ammonia Total Creatine Kinase 17205 H Total Protein Albumin Globulin Albumin/Globulin Ratio Triglycerides Lipase Urine Color Urine Clarity Urine pH Ur Specific Gilbert Urine Protein Urine Glucose (UA) Urine Ketones Urine Occult Blood Urine Nitrite Urine Bilirubin Urine Urobilinogen Ur Leukocyte Esterase Urine RBC Urine WBC Ur Squamous Epith Cells Amorphous Sediment Urine Bacteria Urine Mucus Ur Random Sodium Urine Creatinine Urine Opiates Screen Urine Methadone Screen Acetaminophen Ur Barbiturates Screen Ur Phencyclidine Scrn Ur Amphetamines Screen U Methamphetamin-MDMA U Benzodiazepines Scrn Urine Cocaine Screen U Cannabinoids Screen Ur Drug Screen Comment Ethyl Alcohol 4.0 Hepatitis A IgM Ab Hep Bs Antigen Hep B Core IgM Ab Hepatitis C Ab (EIA) 07/10/18 07/10/18 07/10/18 18:20 19:20 19:20 WBC RBC Hgb Hct MCV MCH MCHC RDW RDW Differential Plt Count MPV Immature Gran % (Auto) Neut % (Auto) Lymph % (Auto) [place] % (Auto) Eos % (Auto) Baso % (Auto) Absolute Neuts (auto) Absolute Lymphs (auto) Total Counted PT INR APTT Specimen Type Sample Site pH Bicarbonate Actual POC Total CO2 Base Excess O2 Saturation O2 % ABG pCO2 ABG pO2 Respiration Rate O2 Delivery Device Minute Volume Vent Mode Tidal Volume POC PEEP Blood Gas Notified Whom Blood Gas Notified Time Sodium Potassium Chloride Carbon Dioxide Anion Gap BUN Creatinine Estim Creat Clear Calc Est GFR (MDRD) Af Amer Est GFR (MDRD) Non-Af BUN/Creatinine Ratio Glucose Lactic Acid Calcium Phosphorus Magnesium Total Bilirubin AST ALT Alkaline Phosphatase Ammonia 33.0 H Total Creatine Kinase Total Protein Albumin Globulin Albumin/Globulin Ratio Triglycerides Lipase Urine Color Urine Clarity Urine pH Ur Specific Gilbert Urine Protein Urine Glucose (UA) Urine Ketones Urine Occult Blood Urine Nitrite Urine Bilirubin Urine Urobilinogen Ur Leukocyte Esterase Urine RBC Urine WBC Ur Squamous Epith Cells Amorphous Sediment Urine Bacteria Urine Mucus Ur Random Sodium Urine Creatinine Urine Opiates Screen POSITIVE H Urine Methadone Screen NEGATIVE Acetaminophen < 2.0 L Ur Barbiturates Screen POSITIVE H Ur Phencyclidine Scrn NEGATIVE Ur Amphetamines Screen NEGATIVE U Methamphetamin-MDMA NEGATIVE U Benzodiazepines Scrn NEGATIVE Urine Cocaine Screen NEGATIVE U Cannabinoids Screen NEGATIVE Ur Drug Screen Comment Ethyl Alcohol Hepatitis A IgM Ab Hep Bs Antigen Hep B Core IgM Ab Hepatitis C Ab (EIA) 07/10/18 07/10/18 07/10/18 21:40 21:40 22:29 WBC RBC Hgb Hct MCV MCH MCHC RDW RDW Differential Plt Count MPV Immature Gran % (Auto) Neut % (Auto) Lymph % (Auto) [place] % (Auto) Eos % (Auto) Baso % (Auto) Absolute Neuts (auto) Absolute Lymphs (auto) Total Counted PT INR APTT Specimen Type ART Sample Site L Radial pH 7.23 L Bicarbonate Actual 18.3 L POC Total CO2 20 Base Excess -9 L O2 Saturation 93 L O2 % 60 ABG pCO2 43.9 ABG pO2 79 Respiration Rate 16 O2 Delivery Device Vent Minute Volume 10.00 Vent Mode A-C Tidal Volume 500 POC PEEP 5 Blood Gas Notified Whom [facility] Blood Gas Notified Time 2225 Sodium Potassium Chloride Carbon Dioxide Anion Gap BUN Creatinine Estim Creat Clear Calc Est GFR (MDRD) Af Amer Est GFR (MDRD) Non-Af BUN/Creatinine Ratio Glucose Lactic Acid Calcium Phosphorus 7.0 H Magnesium 2.2 Total Bilirubin AST ALT Alkaline Phosphatase Ammonia Total Creatine Kinase Total Protein Albumin Globulin Albumin/Globulin Ratio Triglycerides Lipase Urine Color Urine Clarity Urine pH Ur Specific [place] Urine Protein Urine Glucose (UA) Urine Ketones Urine Occult Blood Urine Nitrite Urine Bilirubin Urine Urobilinogen Ur Leukocyte Esterase Urine RBC Urine WBC Ur Squamous Epith Cells Amorphous Sediment Urine Bacteria Urine Mucus Ur Random Sodium Urine Creatinine Urine Opiates Screen Urine Methadone Screen Acetaminophen Ur Barbiturates Screen Ur Phencyclidine Scrn Ur Amphetamines Screen U Methamphetamin-MDMA U Benzodiazepines Scrn Urine Cocaine Screen U Cannabinoids Screen Ur Drug Screen Comment Ethyl Alcohol Hepatitis A IgM Ab Hep Bs Antigen Hep B Core IgM Ab Hepatitis C Ab (EIA) 07/10/18 07/10/18 07/11/18 22:45 22:45 03:30 WBC RBC Hgb Hct MCV MCH MCHC RDW RDW Differential Plt Count MPV Immature Gran % (Auto) Neut % (Auto) Lymph % (Auto) [place] % (Auto) Eos % (Auto) Baso % (Auto) Absolute Neuts (auto) Absolute Lymphs (auto) Total Counted PT INR APTT Specimen Type Sample Site pH Bicarbonate Actual POC Total CO2 Base Excess O2 Saturation O2 % ABG pCO2 ABG pO2 Respiration Rate O2 Delivery Device Minute Volume Vent Mode Tidal Volume POC PEEP Blood Gas Notified Whom Blood Gas Notified Time Sodium 133 L Potassium 7.9 H* Chloride 104 Carbon Dioxide 21.0 Anion Gap 8 BUN 53 H Creatinine 4.31 H Estim Creat Clear Calc 22.35 Est GFR (MDRD) Af Amer 19 L Est GFR (MDRD) Non-Af 16 L BUN/Creatinine Ratio 12.3 Glucose 126 H Lactic Acid 3.1 H Calcium 6.8 L Phosphorus Magnesium Total Bilirubin AST ALT Alkaline Phosphatase Ammonia Total Creatine Kinase Total Protein Albumin Globulin Albumin/Globulin Ratio Triglycerides Lipase Urine Color Christine Urine Clarity Sl. Cloudy Urine pH 5.0 Ur Specific Gilbert 1.020 Urine Protein 100 H Urine Glucose (UA) 50 H Urine Ketones 5 H Urine Occult Blood 250 H Urine Nitrite Positive H Urine Bilirubin 1 H Urine Urobilinogen 1 H Ur Leukocyte Esterase 25 H Urine RBC 0-5 SEEN Urine WBC 0-5 SEEN Ur Squamous Epith Cells 0 SEEN Amorphous Sediment 2+ Urine Bacteria 0 SEEN Urine Mucus 0 SEEN Ur Random Sodium Urine Creatinine Urine Opiates Screen Urine Methadone Screen Acetaminophen Ur Barbiturates Screen Ur Phencyclidine Scrn Ur Amphetamines Screen U Methamphetamin-MDMA U Benzodiazepines Scrn Urine Cocaine Screen U Cannabinoids Screen Ur Drug Screen Comment Ethyl Alcohol Hepatitis A IgM Ab Hep Bs Antigen Hep B Core IgM Ab Hepatitis C Ab (EIA) 07/11/18 07/11/18 07/11/18 03:30 03:30 04:25 WBC 14.3 H RBC 4.47 L Hgb 14.1 Hct 41.6 MCV 93.1 MCH 31.5 MCHC 33.9 RDW 13.4 RDW Differential 45.8 H Plt Count 136 L MPV 10.5 Immature Gran % (Auto) 0.100 Neut % (Auto) 86.9 H Lymph % (Auto) 9.2 L [place] % (Auto) 3.7 Eos % (Auto) 0.0 Baso % (Auto) 0.1 Absolute Neuts (auto) 12.4 H Absolute Lymphs (auto) 1.32 Total Counted Not Reportable PT INR APTT Specimen Type Sample Site pH Bicarbonate Actual POC Total CO2 Base Excess O2 Saturation O2 % ABG pCO2 ABG pO2 Respiration Rate O2 Delivery Device Minute Volume Vent Mode Tidal Volume POC PEEP Blood Gas Notified Whom Blood Gas Notified Time Sodium Potassium Chloride Carbon Dioxide Anion Gap BUN Creatinine Estim Creat Clear Calc Est GFR (MDRD) Af Amer Est GFR (MDRD) Non-Af BUN/Creatinine Ratio Glucose Lactic Acid Calcium Phosphorus Magnesium Total Bilirubin AST ALT Alkaline Phosphatase Ammonia Total Creatine Kinase Total Protein Albumin Globulin Albumin/Globulin Ratio Triglycerides Lipase Urine Color Urine Clarity Urine pH Ur Specific [place] Urine Protein Urine Glucose (UA) Urine Ketones Urine Occult Blood Urine Nitrite Urine Bilirubin Urine Urobilinogen Ur Leukocyte Esterase Urine RBC Urine WBC Ur Squamous Epith Cells Amorphous Sediment Urine Bacteria Urine Mucus Ur Random Sodium 41 Urine Creatinine 114.00 Urine Opiates Screen Urine Methadone Screen Acetaminophen Ur Barbiturates Screen Ur Phencyclidine Scrn Ur Amphetamines Screen U Methamphetamin-MDMA U Benzodiazepines Scrn Urine Cocaine Screen U Cannabinoids Screen Ur Drug Screen Comment Ethyl Alcohol Hepatitis A IgM Ab Hep Bs Antigen Hep B Core IgM Ab Hepatitis C Ab (EIA) 07/11/18 07/11/18 07/11/18 04:25 04:25 05:30 WBC RBC Hgb Hct MCV MCH MCHC RDW RDW Differential Plt Count MPV Immature Gran % (Auto) Neut % (Auto) Lymph % (Auto) [place] % (Auto) Eos % (Auto) Baso % (Auto) Absolute Neuts (auto) Absolute Lymphs (auto) Total Counted PT INR APTT Specimen Type Sample Site pH Bicarbonate Actual POC Total CO2 Base Excess O2 Saturation O2 % ABG pCO2 ABG pO2 Respiration Rate O2 Delivery Device Minute Volume Vent Mode Tidal Volume POC PEEP Blood Gas Notified Whom Blood Gas Notified Time Sodium Pending Potassium Pending Chloride Pending Carbon Dioxide Pending Anion Gap Pending BUN Pending Creatinine Pending Estim Creat Clear Calc Est GFR (MDRD) Af Amer Pending Est GFR (MDRD) Non-Af Pending BUN/Creatinine Ratio Pending Glucose Pending Lactic Acid Calcium Pending Phosphorus Magnesium Total Bilirubin Pending AST Pending ALT Pending Alkaline Phosphatase Pending Ammonia 41.0 H Total Creatine Kinase Pending Total Protein Pending Albumin Pending Globulin Albumin/Globulin Ratio Triglycerides Pending Lipase Urine Color Urine Clarity Urine pH Ur Specific [place] Urine Protein Urine Glucose (UA) Urine Ketones Urine Occult Blood Urine Nitrite Urine Bilirubin Urine Urobilinogen Ur Leukocyte Esterase Urine RBC Urine WBC Ur Squamous Epith Cells Amorphous Sediment Urine Bacteria Urine Mucus Ur Random Sodium Urine Creatinine Urine Opiates Screen Urine Methadone Screen Acetaminophen Ur Barbiturates Screen Ur Phencyclidine Scrn Ur Amphetamines Screen U Methamphetamin-MDMA U Benzodiazepines Scrn Urine Cocaine Screen U Cannabinoids Screen Ur Drug Screen Comment Ethyl Alcohol Hepatitis A IgM Ab Pending Hep Bs Antigen Pending Hep B Core IgM Ab Pending Hepatitis C Ab (EIA) Pending POC Glucose 07/11/18 07/10/18 04:47 23:50 POC Glucose 145 H 135 H Clinical Impression(s) from Imaging Studies Brain CT 07/10/18 17:58 IMPRESSION: Focal low attenuation of the left basal ganglia as noted. Left maxillary sinusitis. Electronically Signed: Bay Mcdonald DO at 18:33 EDT Tel [phone], Service support , Chest X-Ray 07/10/18 17:58 IMPRESSION: Possible right basilar infiltrate. Mild cardiomegaly. Electronically Signed: Bay Mcdonald DO at 18:47 EDT Tel [phone], Service support , Chest X-Ray 07/10/18 19:08 IMPRESSION: 1. Interval advancement of the enteric tube when compared to the earlier study. 2. No other interval change. Electronically Signed: Rosendo Madrigal DO at 20:12 EDT Tel [phone], Service support , Chest X-Ray 07/10/18 19:08 IMPRESSION: 1. Endotracheal tube as described. 2. Enteric tube with its tip approximately 5 cm beyond the diaphragm. 3. No other major interval change when compared to the earlier study. Electronically Signed: Rosendo Madrigal DO at 20:11 EDT Tel [phone], Service support , Assessment/Plan Active and Suspected Problems (Last Updated 07/10/18 @ 23:08 by Faustino Hagan MD) Acute respiratory failure with hypoxia (Acute) Aspiration pneumonia due to food (regurgitated) (Acute) Acute kidney injury (nontraumatic) (Acute) Elevated liver enzymes (Acute) Acute hyperkalemia (Acute) Lactic acidosis (Acute) Anaphylactic shock, unspecified, initial encounter (Acute) Toxic effect of ingested berries, intentional self-harm, initial encounter (A cute) Encephalopathy acute (Acute) Secondary rhabdomyolysis (Acute) RECOMMENDATIONS: 1. Continue empiric antibiotics 2. Placement of hemodialysis line later this morning 3. Wean oxygen as tolerated 4. Likely continue aggressive fluid resuscitation, but discontinue bicarbonate once on hemodialysis IMPRESSIONS: 1. Acute toxic encephalopathy secondary to possible drug overdose/toxic hepatitis Patient may have overdosed on gabapentin or had decreased mental status secondary to snorting heroin. Exact etiology is unclear at this time. Patient does have extensive elevation of liver enzymes with a history of alcoholism. Unclear if this is an acute on chronic versus acute hepatitis only. Patient currently intubated and sedated. Will monitor. Cannot exclude an element of hypoxic encephalopathy given aspiration and presentation of hypoxia. 2. Acute combined respiratory failure secondary to probable aspiration pneumonia Patient reportedly does have a smoking history. Patient is on increased FiO2, but peak pressures are not excessive. May need to add empiric steroid therapy. Patient is on appropriate antibiotics at this time. Patient appears to be volume depleted at this time, so extent of infiltrates may be underestimating amount of aspiration. 3. Acute renal failure/hyperkalemia secondary to rhabdomyolysis Discussed with nephrology. Patient has minimal chance of recovering renal function without aggressive therapy. After consent can be obtained, a dialysis line will be placed by myself. Patient should receive dialysis today. Patient did receive medications for hyperkalemia, but no bowel movements have been noted. 4. Illicit drug use/lack of history/hyperammonemia/polysubstance abuse Complicates care, management, recovery and prognosis. We will need to monitor for withdrawal following cessation of sedation and fentanyl drips. TIME: 45 minutes critical care time spent, excluding procedures, addressing patient's acute encephalopathy, respiratory failure, renal failure, hyperkalemia, hepatitis, review of all data and collaboration with care team (6 AM to 7 AM) Code Visit 9xxxx: [id number] Critical care first hour
--- NOTE | 2018-07-11 07:35 | PCM.PN.HOSP ---
Patient Problems: Active and Suspected Problems (Last Updated 07/10/18 @ 23:08 by Faustino Hagan MD) Acute respiratory failure with hypoxia (Acute) Aspiration pneumonia due to food (regurgitated) (Acute) Acute kidney injury (nontraumatic) (Acute) Elevated liver enzymes (Acute) Acute hyperkalemia (Acute) Lactic acidosis (Acute) Anaphylactic shock, unspecified, initial encounter (Acute) Toxic effect of ingested berries, intentional self-harm, initial encounter (Acute) Encephalopathy acute (Acute) Secondary rhabdomyolysis (Acute) Subjective: 47-year-old male admitted last night with unresponsiveness, intubated for primary airway protection. Noted to have aspirated. Managed last night in ICU. Nephrology consulted, plan for dialysis. Vitals/I&O's: Vital Signs Temp Pulse Resp BP Pulse Ox 99.8 F H 89 17 118/68 98 07/11/18 06:00 07/11/18 06:00 07/11/18 06:00 07/11/18 06:00 07/11/18 06:00 Oxygen Flow Rate (L/min) 5 Oxygen Delivery Method Mechanical Ventilator Weight: 111.1 kg Body Mass Index (BMI) 34.4 Intake and Output for Last 24 Hours 07/09/18 07/10/18 07/11/18 23:59 23:59 23:59 Intake Total 3203 / 3203 1326 / 1326 Output Total 650 / 650 300 / 300 Balance 2553 / 2553 1026 / 1026 General: - - Sedated, intubated, on mechanical ventilator, obese HEENT: Atraumatic, PERRLA, EOMI, Normocephalic Oral: Dry Mucosa - Sedated, intubated, on mechanical ventilator, - - OG tube in situ Neck: Supple Lungs: Diminished Cardiovascular: Regular rate, Regular Rhythm, Normal S1, Normal S2, No murmurs Abdomen: Bowel Sounds Present, Soft, Non Tender, Non-Distended, No Hepato-splenomegaly Extremities: No edema Skin: No rashes, No breakdown Musculoskeletal: No Tenderness to Palpation of Joints or Extremities Lymphatic: No Cervical, Supraclavicular, or Inguinal Adenopathy Neurological: Cranial nerves II-XII grossly intact, Neuro grossly intact Psych/Mental Status: Normal Affect, Appropriate Laboratory Results 07/10/18 18:05: WBC 17.6 H, RBC 5.50, Hgb 17.9 H, Hct 52.6, MCV 95.6 H, MCH 32.5 H, MCHC 34.0, RDW 13.5, RDW Differential 47.3 H, Plt Count 234, MPV 10.4, Immature Gran % (Auto) 0.600, Neut % (Auto) 87.1 H, Lymph % (Auto) 7.2 L, Coles % (Auto) 5.0, Eos % (Auto) 0.0, Baso % (Auto) 0.1, Absolute Neuts (auto) 15.4 H, Absolute Lymphs (auto) 1.26, Total Counted Not Reportable 07/10/18 18:05: PT 15.4 H, INR 1.2, APTT 29.7 07/10/18 18:05: Sodium 129 L, Potassium 9.0 H*, Chloride 95 L, Carbon Dioxide 22.0, Anion Gap 12, BUN 45 H, Creatinine 4.30 H, Estim Creat Clear Calc 23.11, Est GFR (MDRD) Af Amer 19 L, Est GFR (MDRD) Non-Af 16 L, BUN/Creatinine Ratio 10.5, Glucose 104, Calcium 7.6 L, Total Bilirubin 0.90, AST 4147 H, ALT 2027 H, Alkaline Phosphatase 107, Total Protein 9.3 H, Albumin 4.0, Globulin 5.3 H, Albumin/Globulin Ratio 0.8 L, Lipase 401 H 07/10/18 18:05: Lactic Acid 5.0 H* 07/10/18 18:05: Total Creatine Kinase 16614 H 07/10/18 18:20: Ethyl Alcohol 4.0 07/10/18 18:20: Urine Opiates Screen POSITIVE H, Urine Methadone Screen NEGATIVE, Ur Barbiturates Screen POSITIVE H, Ur Phencyclidine Scrn NEGATIVE, Ur Amphetamines Screen NEGATIVE, U Methamphetamin-MDMA NEGATIVE, U Benzodiazepines Scrn NEGATIVE, Urine Cocaine Screen NEGATIVE, U Cannabinoids Screen NEGATIVE, Ur Drug Screen Comment 07/10/18 19:20: Acetaminophen < 2.0 L 07/10/18 19:20: Ammonia 33.0 H 07/10/18 21:40: Magnesium 2.2 07/10/18 21:40: Phosphorus 7.0 H 07/10/18 22:29: Specimen Type ART, Sample Site L Radial, pH 7.23 L, Bicarbonate Actual 18.3 L, POC Total CO2 20, Base Excess -9 L, O2 Saturation 93 L, O2 % 60, ABG pCO2 43.9, ABG pO2 79, Respiration Rate 16, O2 Delivery Device Vent, Minute Volume 10.00, Vent Mode A-C, Tidal Volume 500, POC PEEP 5, Blood Gas Notified Whom ANN MARIE BAUTISTA, Blood Gas Notified Time 22207/10/18 22:45: Sodium 133 L, Potassium 7.9 H*, Chloride 104, Carbon Dioxide 21.0, Anion Gap 8, BUN 53 H, Creatinine 4.31 H, Estim Creat Clear Calc 22.35, Est GFR (MDRD) Af Amer 19 L, Est GFR (MDRD) Non-Af 16 L, BUN/Creatinine Ratio 12.3, Glucose 126 H, Calcium 6.8 L 07/10/18 22:45: Lactic Acid 3.1 H 07/10/18 23:50: POC Glucose 135 H 07/11/18 03:30: Urine Color Christine, Urine Clarity Sl. Cloudy, Urine pH 5.0, Ur Specific Cornish 1.020, Urine Protein 100 H, Urine Glucose (UA) 50 H, Urine Ketones 5 H, Urine Occult Blood 250 H, Urine Nitrite Positive H, Urine Bilirubin 1 H, Urine Urobilinogen 1 H, Ur Leukocyte Esterase 25 H, Urine RBC 0-5 SEEN, Urine WBC 0-5 SEEN, Ur Squamous Epith Cells 0 SEEN, Amorphous Sediment 2+, Urine Bacteria 0 SEEN, Urine Mucus 0 SEEN 07/11/18 03:30: Urine Creatinine 114.00 07/11/18 03:30: Ur Random Sodium 41 07/11/18 04:25: WBC 14.3 H, RBC 4.47 L, Hgb 14.1, Hct 41.6, MCV 93.1, MCH 31.5, MCHC 33.9, RDW 13.4, RDW Differential 45.8 H, Plt Count 136 L, MPV 10.5, Immature Gran % (Auto) 0.100, Neut % (Auto) 86.9 H, Lymph % (Auto) 9.2 L, Coles % (Auto) 3.7, Eos % (Auto) 0.0, Baso % (Auto) 0.1, Absolute Neuts (auto) 12.4 H, Absolute Lymphs (auto) 1.32, Total Counted Not Reportable 07/11/18 04:25: Sodium Pending, Potassium Pending, Chloride Pending, Carbon Dioxide Pending, Anion Gap Pending, BUN Pending, Creatinine Pending, Est GFR (MDRD) Af Amer Pending, Est GFR (MDRD) Non-Af Pending, BUN/Creatinine Ratio Pending, Glucose Pending, Calcium Pending, Total Bilirubin Pending, AST Pending, ALT Pending, Alkaline Phosphatase Pending, Total Creatine Kinase Pending, Total Protein Pending, Albumin Pending, Triglycerides Pending 07/11/18 04:25: Ammonia 41.0 H 07/11/18 04:47: POC Glucose 145 H 07/11/18 05:30: Hepatitis A IgM Ab Pending, Hep Bs Antigen Pending, Hep B Core IgM Ab Pending, Hepatitis C Ab (EIA) Pending Current Medications Albuterol Sulfate (Ventolin Aerosols) 2.5 mg INHALATION Q2H PRN PRN PRN Reason: sob/wheezing Bisacodyl (Dulcolax) 5 mg PO DAILY PRN PRN PRN Reason: Constipation Chlorhexidine Gluconate () 15 ml PO BID [facility] Last Admin: 07/10/18 22:12 Dose: 15 ml Chlorhexidine Gluconate () 1 each TOPICAL DAILY [facility] Dextrose (D50w Syringe) 0 gm IV X1 PRN; Protocol PRN Reason: Hypoglycemia Enoxaparin Sodium (Lovenox) 30 mg SC DAILY@1000 KRISTEN Fentanyl Citrate (Sublimaze (100mcg Ampule)) 25 mcg IV Q2H PRN PRN PRN Reason: Pain >/= 4/10 or CPOT>/= 3/8 Folic Acid (Folic Acid) 1 mg GT DAILY@0800 [facility] Stop: 07/13/18 08:01 Glucagon () 1 mg IM .X1 PRN PRN Reason: Hypoglycemia Sodium Chloride () 250 mls @ 15 mls/hr IV .[id number] PRN PRN Reason: SALINE FLUSH Propofol (Diprivan) 1,000 mg in 100 mls @ 6.834 mls/hr CONT INF .Q12H [facility] Last Admin: 07/11/18 07:21 Dose: 6.834 mls/hr Ampicillin Sodium/Sulbactam (Sodium 3 gm/ Sodium Chloride) 112 mls @ 150 mls/hr IV Q12 [facility] Sodium Chloride () 1,000 mls @ 100 mls/hr IV .Q10H [facility] Stop: 07/11/18 13:54 Last Admin: 07/10/18 23:27 Dose: 100 mls/hr Sodium Bicarbonate 50 meq/ (Dextrose) 1,050 mls @ 75 mls/hr IV .Q14H [facility] Stop: 07/11/18 12:14 Last Admin: 07/10/18 23:26 Dose: 75 mls/hr Famotidine 20 mg/ Sodium (Chloride) 10 mls @ 300 mls/hr IV Q24 [facility] Lactated Ringer's () 1,000 mls @ 999 mls/hr IV .Q1H1M [facility] Stop: 07/11/18 08:25 Magnesium Hydroxide (Milk Of Magnesia) 30 ml GT DAILY PRN PRN PRN Reason: Constipation Multivitamins/Minerals (Multivitamin With Minerals) 1 tablet GT DAILYCM [facility] Ondansetron HCl (Zofran) 4 mg IV Q8H PRN PRN PRN Reason: NAUSEA Polyethylene Glycol (Miralax) 34 gm GT X1 PRN PRN Reason: Bowel Movement Last Admin: 07/11/18 05:12 Dose: 34 gm Sodium Chloride () 5 - 15 ml IV UD PRN PRN Reason: SALINE FLUSH Thiamine HCl (Vitamin B1) 100 mg GT BIDCM [facility] Stop: 07/13/18 17:01 Medical Necessity - Tobacco Use Smoking Status: Current every day smoker Tobacco Use: Cigarettes Assessment/Plan All Active Problems (Last Updated 07/10/18 @ 23:08 by Faustino Hagan MD) Acute respiratory failure with hypoxia (Acute) Aspiration pneumonia due to food (regurgitated) (Acute) Acute kidney injury (nontraumatic) (Acute) Elevated liver enzymes (Acute) Acute hyperkalemia (Acute) Lactic acidosis (Acute) Anaphylactic shock, unspecified, initial encounter (Acute) Toxic effect of ingested berries, intentional self-harm, initial encounter (Acute) Encephalopathy acute (Acute) Secondary rhabdomyolysis (Acute) 47 year old male with alcohol use disorder history admitted with unresponsiveness. Patient was emergently intubated in the emergency department for airway protection and has since been managed in the ICU on mechanical ventilator. Patient with reported suicidal ideation/intent, found to have heroin, vodka and an empty bottle of gabapentin in his possession. 1. Acute hypoxic respiratory failure secondary to acute metabolic encephalopathy, status post intubation, admitting SPO2 was 85% being managed on mechanical ventilator, internet salesperson on consulted, continue per recommendation 2. Acute metabolic encephalopathy secondary to polysubstance use/reported gabapentin overdose Urine drug screen showed positive opiates, barbiturates, intubated, will continue to monitor 2. Elevated lactic acid secondary to HÉCTOR, hypoxia, less likely from septic shock, lactic acid is resolving, is 3.1 Blood pressures have remained stable, started on IV antibiotics for aspiration 3. HÉCTOR secondary to medication overdose/rhabdomyolysis/dehydration, Patient is oliguric, nephrology consulted, plan is for dialysis 4. Aspiration pneumonitis/pneumonia, on IV Unasyn, WBC count improved from 17.6-14.3, will continue on same antibiotics 5. Hyperkalemia, status post Kayexalate, secondary to AK I patient is to be dialyzed today, nephrology consulted 6. Rhabdomyolysis likely secondary to medication side effect/unresponsiveness, admitting CK was 54,480, currently [id number] Patient will be dialyzed today 7. Elevated liver transaminitis likely medication related, very minimal change in liver function 8. Hyperammonemia, admitting ammonia was 33, increasing to 41.0 9. Polysubstance use, reported use of alcohol, urine tox positive for opiates and barbiturates 10. Chronic alcohol use 11. DVT PPx - Heparin SC 12. GI ppx- famotidine. Code Visit Inpatient E&M: 07601 Subs Hosp L2
--- NOTE | 2018-07-11 07:43 | NURSING ---
Attempted to call brother, Matthew, to get consent for temp dialysis catheter. He did not answer at this time. Left message to call back as soon as possible for consent for procedure this AM.
[2018-07-11 07:46] LABS: Allen Test POS; Base Excess -7 mmol/L (-2 to +2); Bicarbonate 19.7 mmol/L (22-26); Blood Gas Specimen Type ART; FI02 50; Mode A-C; O2 Delivery Device Vent; PEEP 5; PO2 90 mmHG (75-100); RR 16; SITE L Radial; SO2 96 % (95-99); Time Given 730; Total Carbon Dioxide 21 mmol/L; Vt 500; pCO2 40.1 mmHg (35-45)
[2018-07-11] MEDS: Lactated Ringers 1,000 ML 999 ML IV ×2 (07:51→09:30)
[2018-07-11 08:16] LABS: ALB/GLOB Ratio 0.8 RATIO (0.9-2.4); AST(SGOT) 3674 U/L (15-37); Alanine Aminotransfer ALT/SGPT 1573 U/L (16-61); Albumin, Serum 2.7 g/dL (3.2-5.0); Alkaline Phosphatase 75 U/L (45-117); Anion Gap 11 (5-15); BUN 63 mg/dL (7-18); BUN/Creat Ratio 13.3 RATIO (10-20); CPK Total, Creatine Kinase 51520 U/L (39-308); Calcium,Total 6.4 mg/dL (8.5-10.1); Chloride 103 mmol/L (98-107); Creatinine, Serum 4.72 mg/dL (0.70-1.30); EST Glomerular Filtration Rate 14 mL/min (>60); Est Glom Filt Rate - Afr Amer 17 mL/min (>60); Estimated Creatinine Clearance 20.41 ml/min; Globulin 3.6 g/dL (2.2-4.2); Glucose 138 mg/dL (74-106); Potassium 6.2 mmol/L (3.5-5.1); Protein, Total 6.3 g/dL (6.4-8.2); Sodium Level 135 mmol/L (136-145); Triglycerides 168 mg/dL
--- NOTE | 2018-07-11 08:23 | CASEMGMT ---
SW spoke w/pt's RN, as her note indicates she does have a number for pt's brother Matthew, called and left a message. Pt is on a ventilator at this time. SW is available to speak w/family as needed and assist as appropriate with supportive/discharge needs. ZIGGY Tapia, GRADE RECORDER
[2018-07-11] MEDS: 0.9% Normal Saline 1,000 ML 100 ML IV (09:45)
--- NOTE | 2018-07-11 09:46 | NURSING ---
Dr Garzon at bedside placing temp dialysis line
--- NOTE | 2018-07-11 10:15 | PCM.OP.PRO ---
Problem List (1) Secondary rhabdomyolysis Status: Acute (2) Acute respiratory failure with hypoxia Status: Acute (3) Aspiration pneumonia due to food (regurgitated) Status: Acute Qualifiers: Laterality: bilateral Lung location: lower lobe of lung Qualified Code(s): J69.0 - Pneumonitis due to inhalation of food and vomit (4) Acute kidney injury (nontraumatic) Status: Acute (5) Elevated liver enzymes Status: Acute (6) Acute hyperkalemia Status: Acute (7) Lactic acidosis Status: Acute (8) Encephalopathy acute Status: Acute Procedure Report Date of Procedure: 07/11/18 - Dialysis line Temporary Hemodialysis Catheter Indication: Acute renal failure from rhabdomyolysis Consent was obtained from: Brother over telephone A time-out was completed verifying correct patient, procedure, site, positioning, and special equipment if applicable. The patient was placed in a dependent position appropriate for hemodialysis line placement based on the vein to be cannulated. The patient's right IJ was prepped and draped in the sterile fashion. 1% Lidocaine was used and emphasized the surrounding skin area. A 21 cm guidewire was introduced into the right IJ, following sequential dilations, using the Seldinger technique and under ultrasound guidance. Verification of venous position using ultrasound guidance and nonpulsatile dark blood. The catheter was threaded smoothly over the guidewire and appropriate blood return was obtained. Each lumen of the catheter was evacuated of air and flushed with sterile saline. 1.3 cc of heparin was dwelled in each catheter. The catheter was then sutured in place to the skin and a sterile dressing applied. Chest x-ray to confirm appropriate positioning is pending. ULTRASOUND GUIDANCE STATEMENT (Vascular Access): I performed an ultrasound image acquisition and interpretation for needle placement during the procedure. The vessel was identified and was found to be free of thrombosis by compression technique. A safe point of entry was marked at the skin in an angle for axis was determined. The needle was guided by obtaining free-flowing fluid and by real-time visualization. Code Visit Procedures: 60220 Insert Non-tunnel CV Cath - With ultrasound guidance [id number]
--- NOTE | 2018-07-11 10:19 | PRO.PCM_ITS ---
Problem List (1) Secondary rhabdomyolysis Status: Acute (2) Acute respiratory failure with hypoxia Status: Acute (3) Aspiration pneumonia due to food (regurgitated) Status: Acute Qualifiers: Laterality: bilateral Lung location: lower lobe of lung Qualified Code(s): J69.0 - Pneumonitis due to inhalation of food and vomit (4) Acute kidney injury (nontraumatic) Status: Acute (5) Elevated liver enzymes Status: Acute (6) Acute hyperkalemia Status: Acute (7) Lactic acidosis Status: Acute (8) Encephalopathy acute Status: Acute Procedure Report Date of Procedure: 07/11/18 - Dialysis line Temporary Hemodialysis Catheter Indication: Acute renal failure from rhabdomyolysis Consent was obtained from: Brother over telephone A time-out was completed verifying correct patient, procedure, site, positioning, and special equipment if applicable. The patient was placed in a dependent position appropriate for hemodialysis line placement based on the vein to be cannulated. The patient's right IJ was prepped and draped in the sterile fashion. 1% Lidocaine was used and emphasized the surrounding skin area. A 21 cm guidewire was introduced into the right IJ, following sequential dilations, using the Seldinger technique and under ultrasound guidance. Verification of venous position using ultrasound guidance and nonpulsatile dark blood. The catheter was threaded smoothly over the guidewire and appropriate blood return was obtained. Each lumen of the catheter was evacuated of air and flushed with sterile saline. 1.3 cc of heparin was dwelled in each catheter. The catheter was then sutured in place to the skin and a sterile dressing applied. Chest x- ray to confirm appropriate positioning is pending. ULTRASOUND GUIDANCE STATEMENT (Vascular Access): I performed an ultrasound image acquisition and interpretation for needle placement during the procedure. The vessel was identified and was found to be free of thrombosis by compression technique. A safe point of entry was marked at the skin in an angle for axis was determined. The needle was guided by obtaining free-flowing fluid and by real-time visualization. Code Visit Procedures: 87128 Insert Non-tunnel CV Cath - With ultrasound guidance [id number]
--- NOTE | 2018-07-11 10:20 | RAD_ITS ---
STUDY: X-RAY CHEST REASON FOR EXAM: Male, 47 years old. Status post central line placement TECHNIQUE: Single AP portable view of the chest. COMPARISON: 07/10/2018. FINDINGS: The endotracheal tube is in stable position. There is a new right internal jugular central venous catheter with its tip in the distal superior vena cava. Bilateral lower lung infiltrates are again seen slightly improved on the right side since the previous examination. There may be trace of left pleural effusion. There is borderline cardiomegaly. Normal mediastinum and kuldip. Normal visualized pulmonary arteries. The thoracic aorta is obscured. The bony structures are unchanged. There is no demonstrated abnormality of the visualized soft tissue structures of the upper abdomen. RAD/CXR for Line Placement IMPRESSION: 1. Status post right central venous catheter placement. 2. No evidence of pneumothorax. 3. Improved right basilar infiltrate. 4. Otherwise no significant change Electronically Signed: Balbir An MD at 10:46 EDT Tel , Service support ,
[2018-07-11] MEDS: Folic Acid 1 MG Tablet GT (12:25)
[2018-07-11] MEDS: Thiamine Hydrochloride 100 MG Tablet GT ×2 (12:25→18:18)
[2018-07-11] MEDS: Multivitamins,Ther W-Minerals Tablet 1 TABLET GT (12:25)
[2018-07-11] MEDS: Heparin 10,000 UNITS/10 ML Vial 1000 UNITS IV (12:25)
[2018-07-11] MEDS: CHLORHEXIDINE GLUC 2% CLOTH 1 EACH TOWELETTE TOPICAL (12:32)
[2018-07-11] MEDS: Chlorhexidine 15 ML PO ×2 (12:32→21:36)
[2018-07-11] MEDS: 0.9% NaCl Peripheral Flush Adult/Peds IV (12:37)
[2018-07-11] MEDS: fentaNYL drip 100 ML 2.5 MCG CONT INF (12:47)
[2018-07-11 13:46] LABS: Bedside Glucose 107 mg/dL (70-110)
[2018-07-11 15:05] LABS: M R Staph aureus DNA By PCR POSITIVE (Negative); Probe Check PASS
[2018-07-11] MEDS: Heparin Injection (Vial) 5,000 UNIT/ML VIAL 5000 UNIT SC ×2 (18:18→21:36)
[2018-07-11] MEDS: Vital AF 1.2 Cal Liquid 1,000 ML 65 ML GT (18:19)
[2018-07-11 18:36] LABS: Bedside Glucose 89 mg/dL (70-110)
[2018-07-11] MEDS: Heparin 10,000 UNITS/10 ML Vial 2600 UNITS IV (18:41)
--- NOTE | 2018-07-11 18:55 | DIALYSIS ---
HD tx complete. 2.5 hour, 1k bath. No fluid removed with HD. Pt tolerated HD tx well. Right IJ Mahurkar. Site benign, dressing dry and intact. Lumen flushed with NS, filled to volume with Heparin, capped and clamped. Patient's next HD tx tomorrow (07/12/18) Report given to primary RN, Boni Licona
[2018-07-12] VITALS (36 sets, daily range): BP systolic 110–158; BP diastolic 52–77; PULSE 70–102; RESP 11–24; TEMP 37.7–38.6; O2SAT 87–100
[2018-07-12 00:15] LABS: Bedside Glucose 108 mg/dL (70-110)
[2018-07-12] MEDS: Propofol 10MG/Ml 1,000 MG/100 ML Bottle 6.834 MG CONT INF ×2 (00:17→09:36)
[2018-07-12] MEDS: CHLORHEXIDINE GLUC 2% CLOTH 1 EACH TOWELETTE TOPICAL (02:17)
--- NOTE | 2018-07-12 02:44 | NURSING ---
Pt.'s belongings went through and locked in closet in pt. room. Cell phone, wallet, glasses, pants, socks, underwear, keys, earrings and rings all found in pt. belonging bag and locked in pt.'s room. Also found an empty bottle of Gabapentin and a bottle of Fiorcet. Bottle of Fiorcet locked in narc seamless tube drawer med room.
[2018-07-12] MEDS: 0.9% NaCl Peripheral Flush Adult/Peds IV ×6 (04:01→14:04)
[2018-07-12 04:21] LABS: Absolute Lymphocyte Count 1.57 X10^3/ul (0.83-4.51); Basophil# 0.02 X10^3/uL; Basophil% 0.2 % (0-1); Eosinophil# 0.12 X10^3/uL; Hematocrit 37.3 % (40-54); Hemoglobin 12.8 g/dl (13.0-16.5); Lymphocyte # 1.57 X10^3/ul (4.0); Lymphocyte % 12.6 % (19-41); Mean Corp Hgb Conc 34.3 g/gl (32-36); Mean Corpuscular Hgb 31.4 pg (27.0-32.0); Mean Corpuscular Volume 91.6 fL (80-94); Mean Platelet Vol. 10.8 fl (6.2-12.0); Monocyte# 0.78 X10^3/uL; Monocyte% 6.2 % (0-10); Neutrophil # 9.97 X10^3/uL (2.7-7.7); Neutrophil % 79.7 % (47-70); Platelet Count 112 K/mm3 (150-450); RBC Distribution Width CV 13.8 % (11.6-14.6); RBC Distribution Width SD 45.6 fl (35.1-43.9); Red Blood Count 4.07 M/mm3 (4.6-6.2); White Blood Count 12.5 K/mm3 (4.4-11.0)
[2018-07-12 04:54] LABS: Albumin, Serum 2.1 g/dL (3.2-5.0); BUN 62 mg/dL (7-18); BUN/Creat Ratio 11.6 RATIO (10-20); Calcium,Total 6.6 mg/dL (8.5-10.1); Chloride 99 mmol/L (98-107); Creatinine, Serum 5.34 mg/dL (0.70-1.30); EST Glomerular Filtration Rate 12 mL/min (>60); Est Glom Filt Rate - Afr Amer 15 mL/min (>60); Estimated Creatinine Clearance 18.04 ml/min; Glucose 108 mg/dL (74-106); Potassium 4.5 mmol/L (3.5-5.1); Sodium Level 136 mmol/L (136-145)
[2018-07-12 04:55] LABS: POSITIVE COUNT NO; POSITIVE DIFFERENTIAL NO; POSITIVE MORPHOLOGY NO
[2018-07-12] MEDS: Heparin Injection (Vial) 5,000 UNIT/ML VIAL 5000 UNIT SC ×3 (05:45→22:04)
[2018-07-12 05:51] LABS: Bedside Glucose 99 mg/dL (70-110)
[2018-07-12 06:51] LABS: Allen Test POS; Base Excess -4 mmol/L (-2 to +2); Blood Gas Specimen Type ART; FI02 30; Mode A-C; O2 Delivery Device Vent; PEEP 5; PO2 76 mmHG (75-100); RR 16; SITE L Radial; SO2 95 % (95-99); Time Given 640; Total Carbon Dioxide 22 mmol/L; Vt 500; pCO2 33.5 mmHg (35-45); pH 7.41 (7.35-7.45)
--- NOTE | 2018-07-12 07:31 | PN_ITS ---
Patient Problems: Active and Suspected Problems (Last Updated 07/10/18 @ 23:08 by Faustino Hagan MD) Acute respiratory failure with hypoxia (Acute) Aspiration pneumonia due to food (regurgitated) (Acute) Acute kidney injury (nontraumatic) (Acute) Elevated liver enzymes (Acute) Acute hyperkalemia (Acute) Lactic acidosis (Acute) Anaphylactic shock, unspecified, initial encounter (Acute) Toxic effect of ingested berries, intentional self-harm, initial encounter (Acute) Encephalopathy acute (Acute) Secondary rhabdomyolysis (Acute) Subjective: Patient was seen and examined. Remains intubated. He will be getting dialysis today. Still having fever. No other acute events overnight. Objective: Physical exam: General: - - Sedated, intubated, on mechanical ventilator, obese HEENT: Atraumatic, PERRLA, EOMI, Normocephalic Oral: Dry Mucosa - Sedated, intubated, on mechanical ventilator, - - OG tube in situ Neck: Supple Lungs: Diminished Cardiovascular: Regular rate, Regular Rhythm, Normal S1, Normal S2, No murmurs Abdomen: Bowel Sounds Present, Soft, Non Tender, Non-Distended, No Hepato- splenomegaly Extremities: No edema Skin: No rashes, No breakdown Musculoskeletal: No Tenderness to Palpation of Joints or Extremities Lymphatic: No Cervical, Supraclavicular, or Inguinal Adenopathy Neurological: Cranial nerves II-XII grossly intact, Neuro grossly intact Psych/Mental Status: Normal Affect, Appropriate Vitals/I&O's: Vital Signs Temp Pulse Resp BP Pulse Ox 100.5 F H 83 15 139/63 H 98 07/12/18 06:00 07/12/18 06:00 07/12/18 06:00 07/12/18 06:00 07/12/18 06:00 Oxygen Flow Rate (L/min) 5 Oxygen Delivery Method Mechanical Ventilator Weight: 116.2 kg Body Mass Index (BMI) 34.4 Intake and Output for Last 24 Hours 07/10/18 07/11/18 07/12/18 23:59 23:59 23:59 Intake Total 3203 / 3203 6418.5 / 6418.5 1096.4 / 1096.4 Output Total 650 / 650 700 / 700 50 / 50 Balance 2553 / 2553 5718.5 / 5718.5 1046.4 / 1046.4 Microbiology Past 72 Hours 07/10/18 18:45 Blood Culture (Wb) - Anticubital Right Bacteria Detection (PCR) - Final Streptococcus pneumoniae 07/10/18 18:45 Blood Culture (Wb) - Anticubital Right Blood Culture - Preliminary Gram Positive Cocci 07/11/18 03:30 Urine Catheter - Payne Streptococcus pneumoniae Antigen (M - Final 07/11/18 03:30 Urine Catheter - Payne Legionella Antigen - Final Laboratory Results 07/11/18 04:25: Sodium 135 L, Potassium 6.2 H*, Chloride 103, Carbon Dioxide 21.0, Anion Gap 11, BUN 63 H, Creatinine 4.72 H, Estim Creat Clear Calc 20.41, Est GFR (MDRD) Af Amer 17 L, Est GFR (MDRD) Non-Af 14 L, BUN/Creatinine Ratio 13.3, Glucose 138 H, Calcium 6.4 L*, Total Bilirubin 0.90, AST 3674 H, ALT 1573 H, Alkaline Phosphatase 75, Total Creatine Kinase 17076 H, Total Protein 6.3 L, Albumin 2.7 L, Globulin 3.6, Albumin/Globulin Ratio 0.8 L, Triglycerides 168 07/11/18 07:42: Specimen Type ART, Sample Site L Radial, pH 7.30 L, Bicarbonate Actual 19.7 L, POC Total CO2 21, Base Excess -7 L, O2 Saturation 96, O2 % 50, ABG pCO2 40.1, ABG pO2 90, Suman Test POS, Respiration Rate 16, O2 Delivery Device Vent, Vent Mode A-C, Tidal Volume 500, POC PEEP 5, Blood Gas Notified Whom ICU , Blood Gas Notified Time 730 07/11/18 12:20: MRSA (PCR) POSITIVE H 07/11/18 12:48: POC Glucose 107 07/11/18 18:21: POC Glucose 89 07/12/18 00:04: POC Glucose 108 07/12/18 04:00: WBC 12.5 H, RBC 4.07 L, Hgb 12.8 L, Hct 37.3 L, MCV 91.6, MCH 31.4, MCHC 34.3, RDW 13.8, RDW Differential 45.6 H, Plt Count 112 L, MPV 10.8, Immature Gran % (Auto) 0.300, Neut % (Auto) 79.7 H, Lymph % (Auto) 12.6 L, Dickenson % (Auto) 6.2, Eos % (Auto) 1.0, Baso % (Auto) 0.2, Absolute Neuts (auto) 10.0 H, Absolute Lymphs (auto) 1.57, Total Counted Not Reportable 07/12/18 04:00: Sodium 136, Potassium 4.5, Chloride 99, Carbon Dioxide 24.0, BUN 62 H, Creatinine 5.34 H, Estim Creat Clear Calc 18.04, Est GFR (MDRD) Af Amer 15 L, Est GFR (MDRD) Non-Af 12 L, BUN/Creatinine Ratio 11.6, Glucose 108 H, Calcium 6.6 L, Phosphorus 5.0 H, Albumin 2.1 L 07/12/18 04:00: Magnesium Pending, Total Bilirubin Pending, Direct Bilirubin Pending, AST Pending, ALT Pending, Alkaline Phosphatase Pending, Total Creatine Kinase Pending, Total Protein Pending, Albumin Pending 07/12/18 05:41: POC Glucose 99 07/12/18 06:45: Specimen Type ART, Sample Site L Radial, pH 7.41, Bicarbonate Actual 21.0 L, POC Total CO2 22, Base Excess -4 L, O2 Saturation 95, O2 % 30, ABG pCO2 33.5 L, ABG pO2 76, Suman Test POS, Respiration Rate 16, O2 Delivery Device Vent, Vent Mode A-C, Tidal Volume 500, POC PEEP 5, Blood Gas Notified Whom ICU MD, Blood Gas Notified Time 640 Current Medications Albuterol Sulfate (Ventolin Aerosols) 2.5 mg INHALATION Q2H PRN PRN PRN Reason: sob/wheezing Bisacodyl (Dulcolax) 5 mg PO DAILY PRN PRN PRN Reason: Constipation Chlorhexidine Gluconate () 15 ml PO BID [facility] Last Admin: 07/11/18 21:36 Dose: 15 ml Chlorhexidine Gluconate () 1 each TOPICAL DAILY [facility] Last Admin: 07/12/18 02:17 Dose: 1 each Dextrose (D50w Syringe) 0 gm IV X1 PRN; Protocol PRN Reason: Hypoglycemia Fentanyl Citrate (Sublimaze (100mcg Ampule)) 25 mcg IV Q2H PRN PRN PRN Reason: Pain >/= 4/10 or CPOT>/= 3/8 Folic Acid (Folic Acid) 1 mg GT DAILY@0800 [facility] Stop: 07/13/18 08:01 Last Admin: 07/11/18 12:25 Dose: 1 mg Glucagon () 1 mg IM .X1 PRN PRN Reason: Hypoglycemia Heparin Sodium (Porcine) (Heparin Na) 5,000 unit SC Q8 [facility] Last Admin: 07/12/18 05:45 Dose: 5,000 unit Sodium Chloride () 250 mls @ 15 mls/hr IV .[id number] PRN PRN Reason: SALINE FLUSH Propofol (Diprivan) 1,000 mg in 100 mls @ 6.834 mls/hr CONT INF .Q12H [facility] Last Admin: 07/12/18 00:17 Dose: 6.834 mls/hr Ampicillin Sodium/Sulbactam (Sodium 3 gm/ Sodium Chloride) 112 mls @ 150 mls/hr IV Q12 [facility] Last Admin: 07/11/18 21:34 Dose: 150 mls/hr Famotidine 20 mg/ Sodium (Chloride) 10 mls @ 300 mls/hr IV Q24 [facility] Last Admin: 07/11/18 12:34 Dose: 300 mls/hr Fentanyl () 100 mls @ 2.5 mls/hr CONT INF .Q40H [facility] Last Admin: 07/11/18 12:47 Dose: 2.5 mls/hr Enteral Nutritional Formula (Vital Af 1.2 Dc Liquid) 1,000 mls @ 65 mls/hr GT .[id number] [facility] Last Admin: 07/12/18 04:09 Dose: Not Given Sodium Chloride () 1,000 mls @ 125 mls/hr IV .Q8H [facility] Last Admin: 07/12/18 05:15 Dose: Not Given Insulin Human Lispro (Humalog Kwikpen (Bkc)) 0 unit SC Q6 [facility]; Protocol Last Admin: 07/12/18 05:45 Dose: Not Given Magnesium Hydroxide (Milk Of Magnesia) 30 ml GT DAILY PRN PRN PRN Reason: Constipation Multivitamins/Minerals (Multivitamin With Minerals) 1 tablet GT DAILYCM [facility] Last Admin: 07/11/18 12:25 Dose: 1 tablet Ondansetron HCl (Zofran) 4 mg IV Q8H PRN PRN PRN Reason: NAUSEA Polyethylene Glycol (Miralax) 34 gm GT X1 PRN PRN Reason: Bowel Movement Last Admin: 07/11/18 05:12 Dose: 34 gm Sodium Chloride () 5 - 15 ml IV UD PRN PRN Reason: SALINE FLUSH Last Admin: 07/12/18 04:04 Dose: 10 ml Thiamine HCl (Vitamin B1) 100 mg GT BIDCM KRISTEN Stop: 07/13/18 17:01 Last Admin: 07/11/18 18:18 Dose: 100 mg Medical Necessity - Tobacco Use Smoking Status: Current every day smoker Tobacco Use: Cigarettes Assessment/Plan All Active Problems (Last Updated 07/10/18 @ 23:08 by Faustino Hagan MD) Acute respiratory failure with hypoxia (Acute) Aspiration pneumonia due to food (regurgitated) (Acute) Acute kidney injury (nontraumatic) (Acute) Elevated liver enzymes (Acute) Acute hyperkalemia (Acute) Lactic acidosis (Acute) Anaphylactic shock, unspecified, initial encounter (Acute) Toxic effect of ingested berries, intentional self-harm, initial encounter (Acute) Encephalopathy acute (Acute) Secondary rhabdomyolysis (Acute) 47 year old male with alcohol use disorder history admitted with unresponsiveness. Patient was emergently intubated in the emergency department for airway protection and has since been managed in the ICU on mechanical ventilator. Patient with reported suicidal ideation/intent, found to have heroin, vodka and an empty bottle of gabapentin in his possession. 1. Acute hypoxic respiratory failure secondary to acute metabolic encephalopathy, status post intubation, admitting SPO2 was 85% On mechanical ventilator, dispatcher service or work on consulted, continue per recommendations 2. Acute metabolic encephalopathy secondary to polysubstance use/reported gabape ntin overdose Urine drug screen showed positive opiates, barbiturates, intubated, will continue to monitor 2. Elevated lactic acid secondary to HÉCTOR, hypoxia, less likely from septic shock, resolved 3. HÉCTOR secondary to medication overdose/rhabdomyolysis/dehydration, Started on hemodialysis, day #2, nephrology consulted and following 4. Aspiration pneumonitis/pneumonia, on IV Unasyn, still spiking fever despite being on IV Unasyn White cell count is improved, will switch to Zosyn, repeat blood cultures, ID consult, labs in a.m. 5. Hyperkalemia, status post Kayexalate, secondary to HÉCTOR, resolved Receiving dialysis, follow-up labs in a.m. 6. Rhabdomyolysis likely secondary to medication side effect/unresponsiveness, admitting CK was 54,480, Improved to 20,835, getting dialysis today, CK in a.m. 7. Elevated liver transaminitis likely medication related, very minimal change in liver function Get ultrasound of the liver, trend liver enzymes 8. Hyperammonemia, admitting ammonia was 33, increasing to 41.0, repeat in am 9. Polysubstance use, reported use of alcohol, urine tox positive for opiates and barbiturates 10. Chronic alcohol use, will be monitoring for alcohol withdrawal 11. Hypomagnesemia, replaced, recheck in am 12. DVT PPx - Heparin SC 13. GI ppx- famotidine. Code Visit Inpatient E&M: 73667 Subs Hosp L3
[2018-07-12] MEDS: Folic Acid 1 MG Tablet GT (08:00)
[2018-07-12] MEDS: Thiamine Hydrochloride 100 MG Tablet GT ×2 (08:00→17:31)
[2018-07-12] MEDS: Multivitamins,Ther W-Minerals Tablet 1 TABLET GT (08:01)
--- NOTE | 2018-07-12 08:09 | PN_ITS ---
Subjective: Patient did okay overnight. Patient was tolerating tube feeds and had a spontaneous breathing trial this morning. Patient is interacting appropriately and reports generalized muscle aches. Unable to determine the patient was trying to hurt himself at this time. Patient did pass a spontaneous breathing trial, but extubation was delayed so that hemodialysis could be completed safely. General: - - Anasarca. RASS -1. Appears older than stated age. Obese. Good vent synchrony. HEENT: Atraumatic, PERRLA, EOMI, Normocephalic, - - Scleral injection without icterus Oral: Moist Mucosa, No Gingival or Mucosal Lesions/ Ulcerations, - - Fair dentition Neck: Supple, No Nodes, Trachea Midline, JVD, Right Lungs: No rhonchi, No wheeze, No rales, Diminished, - - Symmetric expansion. No dullness to percussion. Cardiovascular: Regular rate, Regular Rhythm, Normal S1, Normal S2, No murmurs, No rub noted, No Gallop Abdomen: Bowel Sounds Present, Soft, Non Tender, Distended - Mildly, - - No guarding or rebound tenderness noted Extremities: No clubbing, No cyanosis, Capillary Refill Less than 3 Seconds, Edema Skin: - - No significant change compared to previous Musculoskeletal: Tenderness - Generalized to palpation Lymphatic: No Cervical, Supraclavicular, or Inguinal Adenopathy Neurological: Cranial nerves II-XII grossly intact, Neuro grossly intact, - - Weak movements noted. Psych/Mental Status: Appropriate, Flat Affect Vital Signs Temp Pulse Resp BP Pulse Ox 38.1 C H 102 H 16 139/63 H 97 07/12/18 06:00 07/12/18 07:40 07/12/18 07:10 07/12/18 06:00 07/12/18 07:10 Oxygen Flow Rate (L/min) 5 Oxygen Delivery Method Mechanical Ventilator Weight: 116.2 kg Body Mass Index (BMI) 34.4 Intake and Output for Last 24 Hours 07/10/18 07/11/18 07/12/18 23:59 23:59 23:59 Intake Total 3203 / 3203 6418.5 / 6418.5 1096.4 / 1096.4 Output Total 650 / 650 700 / 700 50 / 50 Balance 2553 / 2553 5718.5 / 5718.5 1046.4 / 1046.4 Labs (Last 48 Hours) 07/10/18 07/10/18 07/10/18 18:05 18:05 18:05 WBC 17.6 H RBC 5.50 Hgb 17.9 H Hct 52.6 MCV 95.6 H MCH 32.5 H MCHC 34.0 RDW 13.5 RDW Differential 47.3 H Plt Count 234 MPV 10.4 Immature Gran % (Auto) 0.600 Neut % (Auto) 87.1 H Lymph % (Auto) 7.2 L [place] % (Auto) 5.0 Eos % (Auto) 0.0 Baso % (Auto) 0.1 Absolute Neuts (auto) 15.4 H Absolute Lymphs (auto) 1.26 Total Counted Not Reportable PT 15.4 H INR 1.2 APTT 29.7 Specimen Type Sample Site pH Bicarbonate Actual POC Total CO2 Base Excess O2 Saturation O2 % ABG pCO2 ABG pO2 Suman Test Respiration Rate O2 Delivery Device Minute Volume Vent Mode Tidal Volume POC PEEP Blood Gas Notified Whom Blood Gas Notified Time Sodium 129 L Potassium 9.0 H* Chloride 95 L Carbon Dioxide 22.0 Anion Gap 12 BUN 45 H Creatinine 4.30 H Estim Creat Clear Calc 23.11 Est GFR (MDRD) Af Amer 19 L Est GFR (MDRD) Non-Af 16 L BUN/Creatinine Ratio 10.5 Glucose 104 Lactic Acid Calcium 7.6 L Phosphorus Magnesium Total Bilirubin 0.90 Direct Bilirubin AST 4147 H ALT 2027 H Alkaline Phosphatase 107 Ammonia Total Creatine Kinase Total Protein 9.3 H Albumin 4.0 Globulin 5.3 H Albumin/Globulin Ratio 0.8 L Triglycerides Lipase 401 H Urine Color Urine Clarity Urine pH Ur Specific [place] Urine Protein Urine Glucose (UA) Urine Ketones Urine Occult Blood Urine Nitrite Urine Bilirubin Urine Urobilinogen Ur Leukocyte Esterase Urine RBC Urine WBC Ur Squamous Epith Cells Amorphous Sediment Urine Bacteria Urine Mucus Ur Random Sodium Urine Creatinine Urine Opiates Screen Urine Methadone Screen Acetaminophen Ur Barbiturates Screen Ur Phencyclidine Scrn Ur Amphetamines Screen U Methamphetamin-MDMA U Benzodiazepines Scrn Urine Cocaine Screen U Cannabinoids Screen Ur Drug Screen Comment Ethyl Alcohol Hepatitis A IgM Ab Hep Bs Antigen Hep B Core IgM Ab Hepatitis C Ab (EIA) MRSA (PCR) POC Glucose 07/10/18 07/10/18 07/10/18 18:05 18:05 18:20 WBC RBC Hgb Hct MCV MCH MCHC RDW RDW Differential Plt Count MPV Immature Gran % (Auto) Neut % (Auto) Lymph % (Auto) [place] % (Auto) Eos % (Auto) Baso % (Auto) Absolute Neuts (auto) Absolute Lymphs (auto) Total Counted PT INR APTT Specimen Type Sample Site pH Bicarbonate Actual POC Total CO2 Base Excess O2 Saturation O2 % ABG pCO2 ABG pO2 Suman Test Respiration Rate O2 Delivery Device Minute Volume Vent Mode Tidal Volume POC PEEP Blood Gas Notified Whom Blood Gas Notified Time Sodium Potassium Chloride Carbon Dioxide Anion Gap BUN Creatinine Estim Creat Clear Calc Est GFR (MDRD) Af Amer Est GFR (MDRD) Non-Af BUN/Creatinine Ratio Glucose Lactic Acid 5.0 H* Calcium Phosphorus Magnesium Total Bilirubin Direct Bilirubin AST ALT Alkaline Phosphatase Ammonia Total Creatine Kinase 71432 H Total Protein Albumin Globulin Albumin/Globulin Ratio Triglycerides Lipase Urine Color Urine Clarity Urine pH Ur Specific [place] Urine Protein Urine Glucose (UA) Urine Ketones Urine Occult Blood Urine Nitrite Urine Bilirubin Urine Urobilinogen Ur Leukocyte Esterase Urine RBC Urine WBC Ur Squamous Epith Cells Amorphous Sediment Urine Bacteria Urine Mucus Ur Random Sodium Urine Creatinine Urine Opiates Screen Urine Methadone Screen Acetaminophen Ur Barbiturates Screen Ur Phencyclidine Scrn Ur Amphetamines Screen U Methamphetamin-MDMA U Benzodiazepines Scrn Urine Cocaine Screen U Cannabinoids Screen Ur Drug Screen Comment Ethyl Alcohol 4.0 Hepatitis A IgM Ab Hep Bs Antigen Hep B Core IgM Ab Hepatitis C Ab (EIA) MRSA (PCR) POC Glucose 07/10/18 07/10/18 07/10/18 18:20 19:20 19:20 WBC RBC Hgb Hct MCV MCH MCHC RDW RDW Differential Plt Count MPV Immature Gran % (Auto) Neut % (Auto) Lymph % (Auto) [place] % (Auto) Eos % (Auto) Baso % (Auto) Absolute Neuts (auto) Absolute Lymphs (auto) Total Counted PT INR APTT Specimen Type Sample Site pH Bicarbonate Actual POC Total CO2 Base Excess O2 Saturation O2 % ABG pCO2 ABG pO2 Suman Test Respiration Rate O2 Delivery Device Minute Volume Vent Mode Tidal Volume POC PEEP Blood Gas Notified Whom Blood Gas Notified Time Sodium Potassium Chloride Carbon Dioxide Anion Gap BUN Creatinine Estim Creat Clear Calc Est GFR (MDRD) Af Amer Est GFR (MDRD) Non-Af BUN/Creatinine Ratio Glucose Lactic Acid Calcium Phosphorus Magnesium Total Bilirubin Direct Bilirubin AST ALT Alkaline Phosphatase Ammonia 33.0 H Total Creatine Kinase Total Protein Albumin Globulin Albumin/Globulin Ratio Triglycerides Lipase Urine Color Urine Clarity Urine pH Ur Specific [place] Urine Protein Urine Glucose (UA) Urine Ketones Urine Occult Blood Urine Nitrite Urine Bilirubin Urine Urobilinogen Ur Leukocyte Esterase Urine RBC Urine WBC Ur Squamous Epith Cells Amorphous Sediment Urine Bacteria Urine Mucus Ur Random Sodium Urine Creatinine Urine Opiates Screen POSITIVE H Urine Methadone Screen NEGATIVE Acetaminophen < 2.0 L Ur Barbiturates Screen POSITIVE H Ur Phencyclidine Scrn NEGATIVE Ur Amphetamines Screen NEGATIVE U Methamphetamin-MDMA NEGATIVE U Benzodiazepines Scrn NEGATIVE Urine Cocaine Screen NEGATIVE U Cannabinoids Screen NEGATIVE Ur Drug Screen Comment Ethyl Alcohol Hepatitis A IgM Ab Hep Bs Antigen Hep B Core IgM Ab Hepatitis C Ab (EIA) MRSA (PCR) POC Glucose 07/10/18 07/10/18 07/10/18 21:40 21:40 22:29 WBC RBC Hgb Hct MCV MCH MCHC RDW RDW Differential Plt Count MPV Immature Gran % (Auto) Neut % (Auto) Lymph % (Auto) [place] % (Auto) Eos % (Auto) Baso % (Auto) Absolute Neuts (auto) Absolute Lymphs (auto) Total Counted PT INR APTT Specimen Type ART Sample Site L Radial pH 7.23 L Bicarbonate Actual 18.3 L POC Total CO2 20 Base Excess -9 L O2 Saturation 93 L O2 % 60 ABG pCO2 43.9 ABG pO2 79 Suman Test Respiration Rate 16 O2 Delivery Device Vent Minute Volume 10.00 Vent Mode A-C Tidal Volume 500 POC PEEP 5 Blood Gas Notified Whom [place] [employer] Blood Gas Notified Time 2225 Sodium Potassium Chloride Carbon Dioxide Anion Gap BUN Creatinine Estim Creat Clear Calc Est GFR (MDRD) Af Amer Est GFR (MDRD) Non-Af BUN/Creatinine Ratio Glucose Lactic Acid Calcium Phosphorus 7.0 H Magnesium 2.2 Total Bilirubin Direct Bilirubin AST ALT Alkaline Phosphatase Ammonia Total Creatine Kinase Total Protein Albumin Globulin Albumin/Globulin Ratio Triglycerides Lipase Urine Color Urine Clarity Urine pH Ur Specific [place] Urine Protein Urine Glucose (UA) Urine Ketones Urine Occult Blood Urine Nitrite Urine Bilirubin Urine Urobilinogen Ur Leukocyte Esterase Urine RBC Urine WBC Ur Squamous Epith Cells Amorphous Sediment Urine Bacteria Urine Mucus Ur Random Sodium Urine Creatinine Urine Opiates Screen Urine Methadone Screen Acetaminophen Ur Barbiturates Screen Ur Phencyclidine Scrn Ur Amphetamines Screen U Methamphetamin-MDMA U Benzodiazepines Scrn Urine Cocaine Screen U Cannabinoids Screen Ur Drug Screen Comment Ethyl Alcohol Hepatitis A IgM Ab Hep Bs Antigen Hep B Core IgM Ab Hepatitis C Ab (EIA) MRSA (PCR) POC Glucose 07/10/18 07/10/18 07/10/18 22:45 22:45 23:50 WBC RBC Hgb Hct MCV MCH MCHC RDW RDW Differential Plt Count MPV Immature Gran % (Auto) Neut % (Auto) Lymph % (Auto) [place] % (Auto) Eos % (Auto) Baso % (Auto) Absolute Neuts (auto) Absolute Lymphs (auto) Total Counted PT INR APTT Specimen Type Sample Site pH Bicarbonate Actual POC Total CO2 Base Excess O2 Saturation O2 % ABG pCO2 ABG pO2 Suman Test Respiration Rate O2 Delivery Device Minute Volume Vent Mode Tidal Volume POC PEEP Blood Gas Notified Whom Blood Gas Notified Time Sodium 133 L Potassium 7.9 H* Chloride 104 Carbon Dioxide 21.0 Anion Gap 8 BUN 53 H Creatinine 4.31 H Estim Creat Clear Calc 22.35 Est GFR (MDRD) Af Amer 19 L Est GFR (MDRD) Non-Af 16 L BUN/Creatinine Ratio 12.3 Glucose 126 H Lactic Acid 3.1 H Calcium 6.8 L Phosphorus Magnesium Total Bilirubin Direct Bilirubin AST ALT Alkaline Phosphatase Ammonia Total Creatine Kinase Total Protein Albumin Globulin Albumin/Globulin Ratio Triglycerides Lipase Urine Color Urine Clarity Urine pH Ur Specific [place] Urine Protein Urine Glucose (UA) Urine Ketones Urine Occult Blood Urine Nitrite Urine Bilirubin Urine Urobilinogen Ur Leukocyte Esterase Urine RBC Urine WBC Ur Squamous Epith Cells Amorphous Sediment Urine Bacteria Urine Mucus Ur Random Sodium Urine Creatinine Urine Opiates Screen Urine Methadone Screen Acetaminophen Ur Barbiturates Screen Ur Phencyclidine Scrn Ur Amphetamines Screen U Methamphetamin-MDMA U Benzodiazepines Scrn Urine Cocaine Screen U Cannabinoids Screen Ur Drug Screen Comment Ethyl Alcohol Hepatitis A IgM Ab Hep Bs Antigen Hep B Core IgM Ab Hepatitis C Ab (EIA) MRSA (PCR) POC Glucose 135 H 07/11/18 07/11/18 07/11/18 03:30 03:30 03:30 WBC RBC Hgb Hct MCV MCH MCHC RDW RDW Differential Plt Count MPV Immature Gran % (Auto) Neut % (Auto) Lymph % (Auto) [place] % (Auto) Eos % (Auto) Baso % (Auto) Absolute Neuts (auto) Absolute Lymphs (auto) Total Counted PT INR APTT Specimen Type Sample Site pH Bicarbonate Actual POC Total CO2 Base Excess O2 Saturation O2 % ABG pCO2 ABG pO2 Suman Test Respiration Rate O2 Delivery Device Minute Volume Vent Mode Tidal Volume POC PEEP Blood Gas Notified Whom Blood Gas Notified Time Sodium Potassium Chloride Carbon Dioxide Anion Gap BUN Creatinine Estim Creat Clear Calc Est GFR (MDRD) Af Amer Est GFR (MDRD) Non-Af BUN/Creatinine Ratio Glucose Lactic Acid Calcium Phosphorus Magnesium Total Bilirubin Direct Bilirubin AST ALT Alkaline Phosphatase Ammonia Total Creatine Kinase Total Protein Albumin Globulin Albumin/Globulin Ratio Triglycerides Lipase Urine Color [place] Urine Clarity Sl. Cloudy Urine pH 5.0 Ur Specific [place] 1.020 Urine Protein 100 H Urine Glucose (UA) 50 H Urine Ketones 5 H Urine Occult Blood 250 H Urine Nitrite Positive H Urine Bilirubin 1 H Urine Urobilinogen 1 H Ur Leukocyte Esterase 25 H Urine RBC 0-5 SEEN Urine WBC 0-5 SEEN Ur Squamous Epith Cells 0 SEEN Amorphous Sediment 2+ Urine Bacteria 0 SEEN Urine Mucus 0 SEEN Ur Random Sodium 41 Urine Creatinine 114.00 Urine Opiates Screen Urine Methadone Screen Acetaminophen Ur Barbiturates Screen Ur Phencyclidine Scrn Ur Amphetamines Screen U Methamphetamin-MDMA U Benzodiazepines Scrn Urine Cocaine Screen U Cannabinoids Screen Ur Drug Screen Comment Ethyl Alcohol Hepatitis A IgM Ab Hep Bs Antigen Hep B Core IgM Ab Hepatitis C Ab (EIA) MRSA (PCR) POC Glucose 07/11/18 07/11/18 07/11/18 04:25 04:25 04:25 WBC 14.3 H RBC 4.47 L Hgb 14.1 Hct 41.6 MCV 93.1 MCH 31.5 MCHC 33.9 RDW 13.4 RDW Differential 45.8 H Plt Count 136 L MPV 10.5 Immature Gran % (Auto) 0.100 Neut % (Auto) 86.9 H Lymph % (Auto) 9.2 L [place] % (Auto) 3.7 Eos % (Auto) 0.0 Baso % (Auto) 0.1 Absolute Neuts (auto) 12.4 H Absolute Lymphs (auto) 1.32 Total Counted Not Reportable PT INR APTT Specimen Type Sample Site pH Bicarbonate Actual POC Total CO2 Base Excess O2 Saturation O2 % ABG pCO2 ABG pO2 Suman Test Respiration Rate O2 Delivery Device Minute Volume Vent Mode Tidal Volume POC PEEP Blood Gas Notified Whom Blood Gas Notified Time Sodium 135 L Potassium 6.2 H* Chloride 103 Carbon Dioxide 21.0 Anion Gap 11 BUN 63 H Creatinine 4.72 H Estim Creat Clear Calc 20.41 Est GFR (MDRD) Af Amer 17 L Est GFR (MDRD) Non-Af 14 L BUN/Creatinine Ratio 13.3 Glucose 138 H Lactic Acid Calcium 6.4 L* Phosphorus Magnesium Total Bilirubin 0.90 Direct Bilirubin AST 3674 H ALT 1573 H Alkaline Phosphatase 75 Ammonia 41.0 H Total Creatine Kinase 62505 H Total Protein 6.3 L Albumin 2.7 L Globulin 3.6 Albumin/Globulin Ratio 0.8 L Triglycerides 168 Lipase Urine Color Urine Clarity Urine pH Ur Specific [place] Urine Protein Urine Glucose (UA) Urine Ketones Urine Occult Blood Urine Nitrite Urine Bilirubin Urine Urobilinogen Ur Leukocyte Esterase Urine RBC Urine WBC Ur Squamous Epith Cells Amorphous Sediment Urine Bacteria Urine Mucus Ur Random Sodium Urine Creatinine Urine Opiates Screen Urine Methadone Screen Acetaminophen Ur Barbiturates Screen Ur Phencyclidine Scrn Ur Amphetamines Screen U Methamphetamin-MDMA U Benzodiazepines Scrn Urine Cocaine Screen U Cannabinoids Screen Ur Drug Screen Comment Ethyl Alcohol Hepatitis A IgM Ab Hep Bs Antigen Hep B Core IgM Ab Hepatitis C Ab (EIA) MRSA (PCR) POC Glucose 07/11/18 07/11/18 07/11/18 04:47 05:30 07:42 WBC RBC Hgb Hct MCV MCH MCHC RDW RDW Differential Plt Count MPV Immature Gran % (Auto) Neut % (Auto) Lymph % (Auto) [place] % (Auto) Eos % (Auto) Baso % (Auto) Absolute Neuts (auto) Absolute Lymphs (auto) Total Counted PT INR APTT Specimen Type ART Sample Site L Radial pH 7.30 L Bicarbonate Actual 19.7 L POC Total CO2 21 Base Excess -7 L O2 Saturation 96 O2 % 50 ABG pCO2 40.1 ABG pO2 90 Suman Test POS Respiration Rate 16 O2 Delivery Device Vent Minute Volume Vent Mode A-C Tidal Volume 500 POC PEEP 5 Blood Gas Notified Whom ICU Blood Gas Notified Time 730 Sodium Potassium Chloride Carbon Dioxide Anion Gap BUN Creatinine Estim Creat Clear Calc Est GFR (MDRD) Af Amer Est GFR (MDRD) Non-Af BUN/Creatinine Ratio Glucose Lactic Acid Calcium Phosphorus Magnesium Total Bilirubin Direct Bilirubin AST ALT Alkaline Phosphatase Ammonia Total Creatine Kinase Total Protein Albumin Globulin Albumin/Globulin Ratio Triglycerides Lipase Urine Color Urine Clarity Urine pH Ur Specific [place] Urine Protein Urine Glucose (UA) Urine Ketones Urine Occult Blood Urine Nitrite Urine Bilirubin Urine Urobilinogen Ur Leukocyte Esterase Urine RBC Urine WBC Ur Squamous Epith Cells Amorphous Sediment Urine Bacteria Urine Mucus Ur Random Sodium Urine Creatinine Urine Opiates Screen Urine Methadone Screen Acetaminophen Ur Barbiturates Screen Ur Phencyclidine Scrn Ur Amphetamines Screen U Methamphetamin-MDMA U Benzodiazepines Scrn Urine Cocaine Screen U Cannabinoids Screen Ur Drug Screen Comment Ethyl Alcohol Hepatitis A IgM Ab Pending Hep Bs Antigen Pending Hep B Core IgM Ab Pending Hepatitis C Ab (EIA) Pending MRSA (PCR) POC Glucose 145 H 07/11/18 07/11/18 07/11/18 12:20 12:48 18:21 WBC RBC Hgb Hct MCV MCH MCHC RDW RDW Differential Plt Count MPV Immature Gran % (Auto) Neut % (Auto) Lymph % (Auto) [place] % (Auto) Eos % (Auto) Baso % (Auto) Absolute Neuts (auto) Absolute Lymphs (auto) Total Counted PT INR APTT Specimen Type Sample Site pH Bicarbonate Actual POC Total CO2 Base Excess O2 Saturation O2 % ABG pCO2 ABG pO2 Suman Test Respiration Rate O2 Delivery Device Minute Volume Vent Mode Tidal Volume POC PEEP Blood Gas Notified Whom Blood Gas Notified Time Sodium Potassium Chloride Carbon Dioxide Anion Gap BUN Creatinine Estim Creat Clear Calc Est GFR (MDRD) Af Amer Est GFR (MDRD) Non-Af BUN/Creatinine Ratio Glucose Lactic Acid Calcium Phosphorus Magnesium Total Bilirubin Direct Bilirubin AST ALT Alkaline Phosphatase Ammonia Total Creatine Kinase Total Protein Albumin Globulin Albumin/Globulin Ratio Triglycerides Lipase Urine Color Urine Clarity Urine pH Ur Specific [place] Urine Protein Urine Glucose (UA) Urine Ketones Urine Occult Blood Urine Nitrite Urine Bilirubin Urine Urobilinogen Ur Leukocyte Esterase Urine RBC Urine WBC Ur Squamous Epith Cells Amorphous Sediment Urine Bacteria Urine Mucus Ur Random Sodium Urine Creatinine Urine Opiates Screen Urine Methadone Screen Acetaminophen Ur Barbiturates Screen Ur Phencyclidine Scrn Ur Amphetamines Screen U Methamphetamin-MDMA U Benzodiazepines Scrn Urine Cocaine Screen U Cannabinoids Screen Ur Drug Screen Comment Ethyl Alcohol Hepatitis A IgM Ab Hep Bs Antigen Hep B Core IgM Ab Hepatitis C Ab (EIA) MRSA (PCR) POSITIVE H POC Glucose 107 89 07/12/18 07/12/18 07/12/18 00:04 04:00 04:00 WBC 12.5 H RBC 4.07 L Hgb 12.8 L Hct 37.3 L MCV 91.6 MCH 31.4 MCHC 34.3 RDW 13.8 RDW Differential 45.6 H Plt Count 112 L MPV 10.8 Immature Gran % (Auto) 0.300 Neut % (Auto) 79.7 H Lymph % (Auto) 12.6 L [place] % (Auto) 6.2 Eos % (Auto) 1.0 Baso % (Auto) 0.2 Absolute Neuts (auto) 10.0 H Absolute Lymphs (auto) 1.57 Total Counted Not Reportable PT INR APTT Specimen Type Sample Site pH Bicarbonate Actual POC Total CO2 Base Excess O2 Saturation O2 % ABG pCO2 ABG pO2 Suman Test Respiration Rate O2 Delivery Device Minute Volume Vent Mode Tidal Volume POC PEEP Blood Gas Notified Whom Blood Gas Notified Time Sodium 136 Potassium 4.5 Chloride 99 Carbon Dioxide 24.0 Anion Gap BUN 62 H Creatinine 5.34 H Estim Creat Clear Calc 18.04 Est GFR (MDRD) Af Amer 15 L Est GFR (MDRD) Non-Af 12 L BUN/Creatinine Ratio 11.6 Glucose 108 H Lactic Acid Calcium 6.6 L Phosphorus 5.0 H Magnesium Total Bilirubin Direct Bilirubin AST ALT Alkaline Phosphatase Ammonia Total Creatine Kinase Total Protein Albumin 2.1 L Globulin Albumin/Globulin Ratio Triglycerides Lipase Urine Color Urine Clarity Urine pH Ur Specific [place] Urine Protein Urine Glucose (UA) Urine Ketones Urine Occult Blood Urine Nitrite Urine Bilirubin Urine Urobilinogen Ur Leukocyte Esterase Urine RBC Urine WBC Ur Squamous Epith Cells Amorphous Sediment Urine Bacteria Urine Mucus Ur Random Sodium Urine Creatinine Urine Opiates Screen Urine Methadone Screen Acetaminophen Ur Barbiturates Screen Ur Phencyclidine Scrn Ur Amphetamines Screen U Methamphetamin-MDMA U Benzodiazepines Scrn Urine Cocaine Screen U Cannabinoids Screen Ur Drug Screen Comment Ethyl Alcohol Hepatitis A IgM Ab Hep Bs Antigen Hep B Core IgM Ab Hepatitis C Ab (EIA) MRSA (PCR) POC Glucose 108 07/12/18 07/12/18 07/12/18 04:00 05:41 06:45 WBC RBC Hgb Hct MCV MCH MCHC RDW RDW Differential Plt Count MPV Immature Gran % (Auto) Neut % (Auto) Lymph % (Auto) [place] % (Auto) Eos % (Auto) Baso % (Auto) Absolute Neuts (auto) Absolute Lymphs (auto) Total Counted PT INR APTT Specimen Type ART Sample Site L Radial pH 7.41 Bicarbonate Actual 21.0 L POC Total CO2 22 Base Excess -4 L O2 Saturation 95 O2 % 30 ABG pCO2 33.5 L ABG pO2 76 Suman Test POS Respiration Rate 16 O2 Delivery Device Vent Minute Volume Vent Mode A-C Tidal Volume 500 POC PEEP 5 Blood Gas Notified Whom ICU Blood Gas Notified Time 640 Sodium Potassium Chloride Carbon Dioxide Anion Gap BUN Creatinine Estim Creat Clear Calc Est GFR (MDRD) Af Amer Est GFR (MDRD) Non-Af BUN/Creatinine Ratio Glucose Lactic Acid Calcium Phosphorus Magnesium Pending Total Bilirubin Pending Direct Bilirubin Pending AST Pending ALT Pending Alkaline Phosphatase Pending Ammonia Total Creatine Kinase Pending Total Protein Pending Albumin Pending Globulin Albumin/Globulin Ratio Triglycerides Lipase Urine Color Urine Clarity Urine pH Ur Specific [place] Urine Protein Urine Glucose (UA) Urine Ketones Urine Occult Blood Urine Nitrite Urine Bilirubin Urine Urobilinogen Ur Leukocyte Esterase Urine RBC Urine WBC Ur Squamous Epith Cells Amorphous Sediment Urine Bacteria Urine Mucus Ur Random Sodium Urine Creatinine Urine Opiates Screen Urine Methadone Screen Acetaminophen Ur Barbiturates Screen Ur Phencyclidine Scrn Ur Amphetamines Screen U Methamphetamin-MDMA U Benzodiazepines Scrn Urine Cocaine Screen U Cannabinoids Screen Ur Drug Screen Comment Ethyl Alcohol Hepatitis A IgM Ab Hep Bs Antigen Hep B Core IgM Ab Hepatitis C Ab (EIA) MRSA (PCR) POC Glucose 99 Microbiology 07/10/18 18:45 Blood Culture (Wb) - Anticubital Right Bacteria Detection (PCR) - Final Streptococcus pneumoniae 07/10/18 18:45 Blood Culture (Wb) - Anticubital Right Blood Culture - Preliminary Gram Positive Cocci 07/11/18 03:30 Urine Catheter - Payne Streptococcus pneumoniae Antigen (M - Final 07/11/18 03:30 Urine Catheter - Payne Legionella Antigen - Final Clinical Impression(s) from Imaging Studies Renal Ultrasound 07/11/18 05:55 IMPRESSION: No evidence of hydronephrosis. Small nonobstructing stone in the left kidney. Electronically Signed: Balbir An MD at 15:59 EDT Tel , Service support , Chest X-Ray 07/11/18 10:20 IMPRESSION: 1. Status post right central venous catheter placement. 2. No evidence of pneumothorax. 3. Improved right basilar infiltrate. 4. Otherwise no significant change Electronically Signed: Balbir An MD at 10:46 EDT Tel , Service support , Medical Necessity - Tobacco Use Smoking Status: Current every day smoker Tobacco Use: Cigarettes Assessment/Plan All Active Problems (Last Updated 07/10/18 @ 23:08 by Faustino Hagan MD) Acute respiratory failure with hypoxia (Acute) Aspiration pneumonia due to food (regurgitated) (Acute) Acute kidney injury (nontraumatic) (Acute) Elevated liver enzymes (Acute) Acute hyperkalemia (Acute) Lactic acidosis (Acute) Anaphylactic shock, unspecified, initial encounter (Acute) Toxic effect of ingested berries, intentional self-harm, initial encounter (Acute) Encephalopathy acute (Acute) Secondary rhabdomyolysis (Acute) RECOMMENDATIONS: 1. Continue antibiotics 2. Hemodialysis per nephrology 3. Wean oxygen as tolerated 4. Continue to monitor CK levels 5. Extubation following hemodialysis today IMPRESSIONS: 1. Acute toxic encephalopathy secondary to possible drug overdose/toxic hepatitis Appears to be improving. Patient may have overdosed on gabapentin or had decreased mental status secondary to snorting heroin. Exact etiology is unclear at this time. Patient does have extensive elevation of liver enzymes with a history of alcoholism. Unclear if this is an acute on chronic versus acute hepatitis only. Patient currently intubated and sedated. Will monitor. Cannot exclude an element of hypoxic encephalopathy given aspiration and presentation of hypoxia. 2. Acute combined respiratory failure secondary to pneumococcal pneumonia Patient reportedly does have a smoking history. Patient is growing pneumococcus and cultures at this time. Patient may have had a pneumonia with decompensation following illicit drug use. Patient is on appropriate antibiotics at this time. Patient was able to pass a spontaneous breathing and awakening trial 3. Acute renal failure/hyperkalemia secondary to rhabdomyolysis Discussed with nephrology. Patient has minimal chance of recovering renal function without aggressive therapy. Patient did receive hemodialysis yesterday with no fluid removal. Patient will receive hemodialysis today. Patient may be extubated following hemodialysis. 4. Illicit drug use/lack of history/hyperammonemia/polysubstance abuse Complicates care, management, recovery and prognosis. We will need to monitor for withdrawal following cessation of sedation and fentanyl drips. TIME: 35 minutes critical care time spent, excluding procedures, addressing patient's acute encephalopathy, respiratory failure, renal failure, hyperkalemia, hepatitis, review of all data and collaboration with care team (6 AM to 7:30 AM) Code Visit 9xxxx: [id number] Critical care first hour
[2018-07-12] MEDS: 0.9% Normal Saline 1,000 ML 125 ML IV ×2 (08:16)
--- NOTE | 2018-07-12 08:30 | PCM.PN.REN ---
Patient Problems: Active and Suspected Problems (Last Updated 07/10/18 @ 23:08 by Faustino Hagan MD) Acute respiratory failure with hypoxia (Acute) Aspiration pneumonia due to food (regurgitated) (Acute) Acute kidney injury (nontraumatic) (Acute) Elevated liver enzymes (Acute) Acute hyperkalemia (Acute) Lactic acidosis (Acute) Anaphylactic shock, unspecified, initial encounter (Acute) Toxic effect of ingested berries, intentional self-harm, initial encounter (Acute) Encephalopathy acute (Acute) Secondary rhabdomyolysis (Acute) Subjective: Following for HÉCTOR. Pt remains on ventilator (plan for extubation after HD). Seen during HD. Cannot do ROS. - Physical Exam General: No apparent distress HEENT: Atraumatic, Normocephalic Oral: - - Intubated Neck: Supple Lungs: Clear to auscultation Cardiovascular: Normal S1, Normal S2, No murmurs Abdomen: Bowel Sounds Present, Soft, Non Tender Extremities: No edema Vital Signs Temp Pulse Resp BP Pulse Ox 100.4 F H 82 12 122/52 H 96 07/12/18 08:00 07/12/18 08:00 07/12/18 08:00 07/12/18 08:00 07/12/18 08:00 Oxygen Flow Rate (L/min) 5 Oxygen Delivery Method Mechanical Ventilator Weight: 116.2 kg Body Mass Index (BMI) 34.4 Intake and Output for Last 24 Hours 07/10/18 07/11/18 07/12/18 23:59 23:59 23:59 Intake Total 3203 / 3203 6418.5 / 6418.5 1096.4 / 1096.4 Output Total 650 / 650 700 / 700 50 / 50 Balance 2553 / 2553 5718.5 / 5718.5 1046.4 / 1046.4 Microbiology Past 72 Hours 07/10/18 18:45 Bacteria Detection (PCR) - Final Blood Culture (Wb) - Anticubital Right Streptococcus pneumoniae Blood Culture - Preliminary Gram Positive Cocci 07/11/18 03:30 Streptococcus pneumoniae Antigen (M - Final Urine Catheter - Payne 07/11/18 03:30 Legionella Antigen - Final Urine Catheter - Payne Laboratory Tests Past 24 Hrs 07/11/18 07/12/18 07/12/18 12:20 04:00 04:00 WBC 12.5 H RBC 4.07 L Hgb 12.8 L Hct 37.3 L MCV 91.6 MCH 31.4 MCHC 34.3 RDW 13.8 RDW Differential 45.6 H Plt Count 112 L MPV 10.8 Immature Gran % (Auto) 0.300 Neut % (Auto) 79.7 H Lymph % (Auto) 12.6 L [place] % (Auto) 6.2 Eos % (Auto) 1.0 Baso % (Auto) 0.2 Absolute Neuts (auto) 10.0 H Absolute Lymphs (auto) 1.57 Total Counted Not Reportable Specimen Type Sample Site pH Bicarbonate Actual POC Total CO2 Base Excess O2 Saturation O2 % ABG pCO2 ABG pO2 Suman Test Respiration Rate O2 Delivery Device Vent Mode Tidal Volume POC PEEP Blood Gas Notified Whom Blood Gas Notified Time Sodium 136 Potassium 4.5 Chloride 99 Carbon Dioxide 24.0 BUN 62 H Creatinine 5.34 H Estim Creat Clear Calc 18.04 Est GFR (MDRD) Af Amer 15 L Est GFR (MDRD) Non-Af 12 L BUN/Creatinine Ratio 11.6 Glucose 108 H Calcium 6.6 L Phosphorus 5.0 H Magnesium Total Bilirubin Direct Bilirubin AST ALT Alkaline Phosphatase Total Creatine Kinase Total Protein Albumin 2.1 L MRSA (PCR) POSITIVE H 07/12/18 07/12/18 04:00 06:45 WBC RBC Hgb Hct MCV MCH MCHC RDW RDW Differential Plt Count MPV Immature Gran % (Auto) Neut % (Auto) Lymph % (Auto) [place] % (Auto) Eos % (Auto) Baso % (Auto) Absolute Neuts (auto) Absolute Lymphs (auto) Total Counted Specimen Type ART Sample Site L Radial pH 7.41 Bicarbonate Actual 21.0 L POC Total CO2 22 Base Excess -4 L O2 Saturation 95 O2 % 30 ABG pCO2 33.5 L ABG pO2 76 Suman Test POS Respiration Rate 16 O2 Delivery Device Vent Vent Mode A-C Tidal Volume 500 POC PEEP 5 Blood Gas Notified Whom ICU MD Blood Gas Notified Time 640 Sodium Potassium Chloride Carbon Dioxide BUN Creatinine Estim Creat Clear Calc Est GFR (MDRD) Af Amer Est GFR (MDRD) Non-Af BUN/Creatinine Ratio Glucose Calcium Phosphorus Magnesium Pending Total Bilirubin Pending Direct Bilirubin Pending AST Pending ALT Pending Alkaline Phosphatase Pending Total Creatine Kinase Pending Total Protein Pending Albumin Pending MRSA (PCR) POC Glucose 07/12/18 07/12/18 07/11/18 05:41 00:04 18:21 POC Glucose 99 108 89 07/11/18 12:48 POC Glucose 107 Medical Necessity - Tobacco Use Smoking Status: Current every day smoker Tobacco Use: Cigarettes Assessment/Plan All Active Problems (Last Updated 07/10/18 @ 23:08 by Faustino Hagan MD) Acute respiratory failure with hypoxia (Acute) Aspiration pneumonia due to food (regurgitated) (Acute) Acute kidney injury (nontraumatic) (Acute) Elevated liver enzymes (Acute) Acute hyperkalemia (Acute) Lactic acidosis (Acute) Anaphylactic shock, unspecified, initial encounter (Acute) Toxic effect of ingested berries, intentional self-harm, initial encounter (Acute) Encephalopathy acute (Acute) Secondary rhabdomyolysis (Acute) 1. Acute kidney injury. Pt's baseline renal function is unknown. Presumed normal. HÉCTOR is likely due to ischemic/nephrotoxic ATN related to rhabdomyolysis and volume depletion. UOP is better but still marginal-continue IVF. He does not appear to be volume OL. Dialysis #2 today. Seen on HD. 3.5 hrs today. Increase Qb to 350 mL/min. Plan on HD again tomorrow. Dose medications for CrCl<15. 2. Hyperkalemia. K is better. HD on 3 mEq K dialysate today. Follow K. 3. Rhabdomyolysis. Will dialyze for HÉCTOR related to rhabdo. Trend CPK. No evidence of compartment syndrome involving limbs. 4. Acute hypoxic respiratory failure. Intubated/on vent. On antibiotic for possible aspiration. Dose of Unasyn acceptable for HÉCTOR on dialysis.
[2018-07-12 08:34] LABS: AST(SGOT) 3047 U/L (15-37); Alanine Aminotransfer ALT/SGPT 2509 U/L (16-61); Albumin, Serum 2.2 g/dL (3.2-5.0); Alkaline Phosphatase 69 U/L (45-117); Bilirubin, Direct 0.78 mg/dL (0.00-0.30); CPK Total, Creatine Kinase 20835 U/L (39-308); Globulin 3.4 g/dL (2.2-4.2); Magnesium 1.9 mg/dL (1.6-2.6); Protein, Total 5.6 g/dL (6.4-8.2)
[2018-07-12] MEDS: Chlorhexidine 15 ML PO (10:23)
--- NOTE | 2018-07-12 12:23 | US_ITS ---
STUDY: RENAL ULTRASOUND - COMPLETE REASON FOR EXAM: Male, 47 years old. Acute failure. TECHNIQUE: Ultrasound evaluation of the kidneys was performed with real-time and static nova-scale imaging. COMPARISON: None. FINDINGS: RIGHT KIDNEY: Normal location of the right kidney, which is normal in size. The right kidney measures 13.5 x 5 x 6.1 cm. There is a normal cortex of the right kidney. The renal cortex measures 1.7 cm. There is no right renal mass or cyst. There are no right renal calculi. There is no right hydronephrosis. DISTAL RIGHT URETER: There is non-visualization of the distal right ureter. There is no demonstrated right ureterovesical junction calculus. There is no demonstrated right ureteral jet. LEFT KIDNEY: Normal location of the left kidney, which is normal in size. The left kidney measures 12.2 x 5.3 x 5.5 cm. There is a normal cortex of the left kidney. The renal cortex measures 1.7 cm. There is no left renal mass or cyst. There is a nonobstructive stone in the left kidney measuring about 9 mm. There is no left hydronephrosis. DISTAL LEFT URETER: There is non-visualization of the distal left ureter. There is no demonstrated left ureterovesical junction calculus. There is no demonstrated left ureteral jet. BLADDER: The bladder is not well-distended. There is a Payne catheter in the bladder. US/Liver IMPRESSION: No evidence of hydronephrosis. Small nonobstructing stone in the left kidney. Electronically Signed: Balbir An MD at 15:59 EDT Tel , Service support ,
--- NOTE | 2018-07-12 12:49 | DIALYSIS ---
Hemodialysis tx completed x 3.5 hours as ordered without complications. Pt tolerated tx well, no fluid removed. Next scheduled dialysis tx 07/13/18. Verbal report given to CIERRA Ramirez post tx.
[2018-07-12 12:51] LABS: Bedside Glucose 95 mg/dL (70-110)
[2018-07-12] MEDS: Heparin 10,000 UNITS/10 ML Vial 2600 UNITS IV (14:00)
[2018-07-12] MEDS: Magnesium Sulfate 1 GM in 0.9% Normal Saline 100 ML IV (14:01)
--- NOTE | 2018-07-12 14:26 | NURSING ---
1424- pt extubated. Placed on 2L NC. OG removed as well. Restraints off
--- NOTE | 2018-07-12 16:54 | NURSING ---
When talking with patient, he admitted to taking the rest of what was left in the gabapentin and doing heroin prior to admission. Pt stated I wasn't trying to hurt myself. I was just hurting real bad.
[2018-07-12 18:06] LABS: Bedside Glucose 119 mg/dL (70-110)
[2018-07-12] MEDS: Acetaminophen 325 MG Tablet 650 MG PO (18:41)
[2018-07-12 20:06] LABS: HEPATITIS B SURFACE AG Negative (Negative); Hepatitis A IgM Antibody Negative (Negative); Hepatitis B Core AB IgM Negative (Negative)
[2018-07-12] MEDS: oxyCODONE 5 MG Tablet 10 MG PO (20:28)
[2018-07-12] MEDS: 0.9% NaCl IVPB Med Flush (250 mL) 15 ML IV (22:04)
[2018-07-12 23:40] LABS: Bedside Glucose 105 mg/dL (70-110)
[2018-07-13] VITALS (20 sets, daily range): BP systolic 116–165; BP diastolic 56–86; PULSE 64–78; RESP 14–19; TEMP 36.6–37.9; O2SAT 89–96
[2018-07-13] MEDS: oxyCODONE 5 MG Tablet 10 MG PO ×3 (00:27→22:31)
[2018-07-13] MEDS: 0.9% Normal Saline 1,000 ML 125 ML IV ×2 (00:28→08:40)
[2018-07-13 04:33] LABS: Absolute Lymphocyte Count 1.37 X10^3/ul (0.83-4.51); Absolute Neutrophil Count 8.1 X10^3/uL (2.0-7.7); Basophil# 0.02 X10^3/uL; Basophil% 0.2 % (0-1); Eosinophil# 0.07 X10^3/uL; Eosinophils% 0.7 % (0-5); Hematocrit 32.1 % (40-54); Hemoglobin 11.2 g/dl (13.0-16.5); Lymphocyte # 1.37 X10^3/ul (4.0); Lymphocyte % 13.1 % (19-41); Mean Corp Hgb Conc 34.9 g/gl (32-36); Mean Corpuscular Hgb 31.6 pg (27.0-32.0); Mean Corpuscular Volume 90.7 fL (80-94); Mean Platelet Vol. 10.5 fl (6.2-12.0); Monocyte# 0.87 X10^3/uL; Monocyte% 8.3 % (0-10); Neutrophil # 8.08 X10^3/uL (2.7-7.7); Neutrophil % 77.1 % (47-70); Platelet Count 76 K/mm3 (150-450); RBC Distribution Width CV 13.2 % (11.6-14.6); RBC Distribution Width SD 42.9 fl (35.1-43.9); Red Blood Count 3.54 M/mm3 (4.6-6.2); White Blood Count 10.5 K/mm3 (4.4-11.0)
[2018-07-13 04:36] LABS: POSITIVE COUNT NO; POSITIVE DIFFERENTIAL NO; POSITIVE MORPHOLOGY NO
[2018-07-13] MEDS: CHLORHEXIDINE GLUC 2% CLOTH 1 EACH TOWELETTE TOPICAL (04:44)
[2018-07-13 05:40] LABS: ALB/GLOB Ratio 0.5 RATIO (0.9-2.4); AST(SGOT) 1152 U/L (15-37); Alanine Aminotransfer ALT/SGPT 1423 U/L (16-61); Albumin, Serum 1.9 g/dL (3.2-5.0); Alkaline Phosphatase 68 U/L (45-117); Anion Gap 11 (5-15); BUN 55 mg/dL (7-18); BUN/Creat Ratio 9.2 RATIO (10-20); CPK Total, Creatine Kinase 7457 U/L (39-308); Calcium,Total 6.4 mg/dL (8.5-10.1); Chloride 101 mmol/L (98-107); Creatinine, Serum 5.95 mg/dL (0.70-1.30); EST Glomerular Filtration Rate 11 mL/min (>60); Est Glom Filt Rate - Afr Amer 13 mL/min (>60); Estimated Creatinine Clearance 16.19 ml/min; Globulin 3.5 g/dL (2.2-4.2); Glucose 96 mg/dL (74-106); Potassium 3.8 mmol/L (3.5-5.1); Protein, Total 5.4 g/dL (6.4-8.2); Sodium Level 139 mmol/L (136-145)
--- NOTE | 2018-07-13 06:18 | PCM.PN.INT ---
Subjective: The patient was seen and examined at the bedside this morning. Events from the last 24 hours have been reviewed. The patient currently has a low-grade fever, but remains hemodynamically stable. He is maintaining appropriate oxygen saturations on 3 L/min via nasal cannula. The patient tolerated hemodialysis yesterday with no fluid removal. There are tentative plans for repeat hemodialysis session today. The patient's platelet count continues to fall and was noted to be 76,000 this morning. The patient subcu heparin was discontinued this morning accordingly. Transaminases and CK are improving. The patient is currently documented to be overall net +11.6 L for the admission. Objective: The patient's most recent lab work, culture data and imaging studies have all been personally reviewed. Blood culture was positive for Streptococcus pneumoniae. Sputum culture was positive for MSSA. General: Alert, Cooperative, No apparent distress HEENT: Atraumatic, PERRLA, Normocephalic Oral: No Gingival or Mucosal Lesions/ Ulcerations Neck: Supple, No Nodes, Trachea Midline Lungs: No rhonchi, No wheeze, No rales, Diminished Cardiovascular: Regular rate, Regular Rhythm, Normal S1, Normal S2, No murmurs Abdomen: Bowel Sounds Present, Soft, Non Tender Extremities: No clubbing, No cyanosis, Edema Skin: No breakdown Musculoskeletal: No Muscle Wasting Lymphatic: No Cervical, Supraclavicular, or Inguinal Adenopathy Neurological: Neuro grossly intact Psych/Mental Status: Flat Affect Vital Signs Temp Pulse Resp BP Pulse Ox 37.7 C H 70 16 131/56 H 91 07/13/18 06:00 07/13/18 06:00 07/13/18 06:00 07/13/18 06:00 07/13/18 06:00 Oxygen Flow Rate (L/min) 3 Oxygen Delivery Method Nasal Cannula Weight: 259 lb 14.8 oz Body Mass Index (BMI) 34.4 Intake and Output for Last 24 Hours 07/11/18 07/12/18 07/13/18 23:59 23:59 23:59 Intake Total 6418.5 / 6418.5 2712.2 / 2712.2 938.1 / 938.1 Output Total 700 / 700 225 / 225 75 / 75 Balance 5718.5 / 5718.5 2487.2 / 2487.2 863.1 / 863.1 Labs (Last 48 Hours) 07/11/18 07/11/18 07/11/18 04:25 07:42 12:20 WBC RBC Hgb Hct MCV MCH MCHC RDW RDW Differential Plt Count MPV Immature Gran % (Auto) Neut % (Auto) Lymph % (Auto) [place] % (Auto) Eos % (Auto) Baso % (Auto) Absolute Neuts (auto) Absolute Lymphs (auto) Total Counted Specimen Type ART Sample Site L Radial pH 7.30 L Bicarbonate Actual 19.7 L POC Total CO2 21 Base Excess -7 L O2 Saturation 96 O2 % 50 ABG pCO2 40.1 ABG pO2 90 Suman Test POS Respiration Rate 16 O2 Delivery Device Vent Vent Mode A-C Tidal Volume 500 POC PEEP 5 Blood Gas Notified Whom ICU MD Blood Gas Notified Time 730 Sodium 135 L Potassium 6.2 H* Chloride 103 Carbon Dioxide 21.0 Anion Gap 11 BUN 63 H Creatinine 4.72 H Estim Creat Clear Calc 20.41 Est GFR (MDRD) Af Amer 17 L Est GFR (MDRD) Non-Af 14 L BUN/Creatinine Ratio 13.3 Glucose 138 H Calcium 6.4 L* Phosphorus Magnesium Total Bilirubin 0.90 Direct Bilirubin AST 3674 H ALT 1573 H Alkaline Phosphatase 75 Ammonia Total Creatine Kinase 11791 H Total Protein 6.3 L Albumin 2.7 L Globulin 3.6 Albumin/Globulin Ratio 0.8 L Triglycerides 168 MRSA (PCR) POSITIVE H POC Glucose 07/11/18 07/11/18 07/12/18 12:48 18:21 00:04 WBC RBC Hgb Hct MCV MCH MCHC RDW RDW Differential Plt Count MPV Immature Gran % (Auto) Neut % (Auto) Lymph % (Auto) [place] % (Auto) Eos % (Auto) Baso % (Auto) Absolute Neuts (auto) Absolute Lymphs (auto) Total Counted Specimen Type Sample Site pH Bicarbonate Actual POC Total CO2 Base Excess O2 Saturation O2 % ABG pCO2 ABG pO2 Suman Test Respiration Rate O2 Delivery Device Vent Mode Tidal Volume POC PEEP Blood Gas Notified Whom Blood Gas Notified Time Sodium Potassium Chloride Carbon Dioxide Anion Gap BUN Creatinine Estim Creat Clear Calc Est GFR (MDRD) Af Amer Est GFR (MDRD) Non-Af BUN/Creatinine Ratio Glucose Calcium Phosphorus Magnesium Total Bilirubin Direct Bilirubin AST ALT Alkaline Phosphatase Ammonia Total Creatine Kinase Total Protein Albumin Globulin Albumin/Globulin Ratio Triglycerides MRSA (PCR) POC Glucose 107 89 108 07/12/18 07/12/18 07/12/18 04:00 04:00 04:00 WBC 12.5 H RBC 4.07 L Hgb 12.8 L Hct 37.3 L MCV 91.6 MCH 31.4 MCHC 34.3 RDW 13.8 RDW Differential 45.6 H Plt Count 112 L MPV 10.8 Immature Gran % (Auto) 0.300 Neut % (Auto) 79.7 H Lymph % (Auto) 12.6 L [place] % (Auto) 6.2 Eos % (Auto) 1.0 Baso % (Auto) 0.2 Absolute Neuts (auto) 10.0 H Absolute Lymphs (auto) 1.57 Total Counted Not Reportable Specimen Type Sample Site pH Bicarbonate Actual POC Total CO2 Base Excess O2 Saturation O2 % ABG pCO2 ABG pO2 Suman Test Respiration Rate O2 Delivery Device Vent Mode Tidal Volume POC PEEP Blood Gas Notified Whom Blood Gas Notified Time Sodium 136 Potassium 4.5 Chloride 99 Carbon Dioxide 24.0 Anion Gap BUN 62 H Creatinine 5.34 H Estim Creat Clear Calc 18.04 Est GFR (MDRD) Af Amer 15 L Est GFR (MDRD) Non-Af 12 L BUN/Creatinine Ratio 11.6 Glucose 108 H Calcium 6.6 L Phosphorus 5.0 H Magnesium 1.9 Total Bilirubin 1.30 H Direct Bilirubin 0.78 H AST 3047 H ALT 2509 H Alkaline Phosphatase 69 Ammonia Total Creatine Kinase 17331 H Total Protein 5.6 L Albumin 2.1 L 2.2 L Globulin 3.4 Albumin/Globulin Ratio Triglycerides MRSA (PCR) POC Glucose 07/12/18 07/12/18 07/12/18 05:41 06:45 12:42 WBC RBC Hgb Hct MCV MCH MCHC RDW RDW Differential Plt Count MPV Immature Gran % (Auto) Neut % (Auto) Lymph % (Auto) [place] % (Auto) Eos % (Auto) Baso % (Auto) Absolute Neuts (auto) Absolute Lymphs (auto) Total Counted Specimen Type ART Sample Site L Radial pH 7.41 Bicarbonate Actual 21.0 L POC Total CO2 22 Base Excess -4 L O2 Saturation 95 O2 % 30 ABG pCO2 33.5 L ABG pO2 76 Suman Test POS Respiration Rate 16 O2 Delivery Device Vent Vent Mode A-C Tidal Volume 500 POC PEEP 5 Blood Gas Notified Whom ICU MD Blood Gas Notified Time 640 Sodium Potassium Chloride Carbon Dioxide Anion Gap BUN Creatinine Estim Creat Clear Calc Est GFR (MDRD) Af Amer Est GFR (MDRD) Non-Af BUN/Creatinine Ratio Glucose Calcium Phosphorus Magnesium Total Bilirubin Direct Bilirubin AST ALT Alkaline Phosphatase Ammonia Total Creatine Kinase Total Protein Albumin Globulin Albumin/Globulin Ratio Triglycerides MRSA (PCR) POC Glucose 99 95 07/12/18 07/12/18 07/13/18 18:02 23:32 04:30 WBC 10.5 RBC 3.54 L Hgb 11.2 L Hct 32.1 L MCV 90.7 MCH 31.6 MCHC 34.9 RDW 13.2 RDW Differential 42.9 Plt Count 76 L MPV 10.5 Immature Gran % (Auto) 0.600 Neut % (Auto) 77.1 H Lymph % (Auto) 13.1 L [place] % (Auto) 8.3 Eos % (Auto) 0.7 Baso % (Auto) 0.2 Absolute Neuts (auto) 8.1 H Absolute Lymphs (auto) 1.37 Total Counted Not Reportable Specimen Type Sample Site pH Bicarbonate Actual POC Total CO2 Base Excess O2 Saturation O2 % ABG pCO2 ABG pO2 Suman Test Respiration Rate O2 Delivery Device Vent Mode Tidal Volume POC PEEP Blood Gas Notified Whom Blood Gas Notified Time Sodium Potassium Chloride Carbon Dioxide Anion Gap BUN Creatinine Estim Creat Clear Calc Est GFR (MDRD) Af Amer Est GFR (MDRD) Non-Af BUN/Creatinine Ratio Glucose Calcium Phosphorus Magnesium Total Bilirubin Direct Bilirubin AST ALT Alkaline Phosphatase Ammonia Total Creatine Kinase Total Protein Albumin Globulin Albumin/Globulin Ratio Triglycerides MRSA (PCR) POC Glucose 119 H 105 07/13/18 07/13/18 04:30 04:30 WBC RBC Hgb Hct MCV MCH MCHC RDW RDW Differential Plt Count MPV Immature Gran % (Auto) Neut % (Auto) Lymph % (Auto) [place] % (Auto) Eos % (Auto) Baso % (Auto) Absolute Neuts (auto) Absolute Lymphs (auto) Total Counted Specimen Type Sample Site pH Bicarbonate Actual POC Total CO2 Base Excess O2 Saturation O2 % ABG pCO2 ABG pO2 Suman Test Respiration Rate O2 Delivery Device Vent Mode Tidal Volume POC PEEP Blood Gas Notified Whom Blood Gas Notified Time Sodium 139 Potassium 3.8 Chloride 101 Carbon Dioxide 27.0 Anion Gap 11 BUN 55 H Creatinine 5.95 H Estim Creat Clear Calc 16.19 Est GFR (MDRD) Af Amer 13 L Est GFR (MDRD) Non-Af 11 L BUN/Creatinine Ratio 9.2 L Glucose 96 Calcium 6.4 L* Phosphorus Magnesium Total Bilirubin 3.40 H Direct Bilirubin AST 1152 H ALT 1423 H Alkaline Phosphatase 68 Ammonia 24.0 Total Creatine Kinase 7457 H Total Protein 5.4 L Albumin 1.9 L Globulin 3.5 Albumin/Globulin Ratio 0.5 L Triglycerides MRSA (PCR) POC Glucose Microbiology 07/11/18 12:20 Sputum, Induced/[place]ens Gram Stain - Final 07/11/18 12:20 Sputum, Induced/[place]ens Respiratory Culture - Preliminary Staphylococcus aureus 07/11/18 03:30 Urine Catheter - Payne Urine Culture - Preliminary Culture exhibits no growth. 07/10/18 18:45 Blood Culture (Wb) - Anticubital Right Bacteria Detection (PCR) - Final Streptococcus pneumoniae 07/10/18 18:45 Blood Culture (Wb) - Anticubital Right Blood Culture - Preliminary Streptococcus pneumoniae 07/11/18 03:30 Urine Catheter - Payne Streptococcus pneumoniae Antigen (M - Final 07/11/18 03:30 Urine Catheter - Payne Legionella Antigen - Final Clinical Impression(s) from Imaging Studies Brain CT 07/10/18 17:58 IMPRESSION: Focal low attenuation of the left basal ganglia as noted. Left maxillary sinusitis. Electronically Signed: Bay Mcdonald DO at 18:33 EDT Tel [phone], Service support , Chest X-Ray 07/10/18 17:58 IMPRESSION: Possible right basilar infiltrate. Mild cardiomegaly. Electronically Signed: Bay Mcdonald DO at 18:47 EDT Tel [phone], Service support , Chest X-Ray 07/10/18 19:08 IMPRESSION: 1. Interval advancement of the enteric tube when compared to the earlier study. 2. No other interval change. Electronically Signed: Rosendo Madrigal DO at 20:12 EDT Tel [phone], Service support , Chest X-Ray 07/10/18 19:08 IMPRESSION: 1. Endotracheal tube as described. 2. Enteric tube with its tip approximately 5 cm beyond the diaphragm. 3. No other major interval change when compared to the earlier study. Electronically Signed: Rosendo Madrigal DO at 20:11 EDT Tel [phone], Service support , Renal Ultrasound 07/11/18 05:55 IMPRESSION: No evidence of hydronephrosis. Small nonobstructing stone in the left kidney. Electronically Signed: Balbir An MD at 15:59 EDT Tel , Service support , Chest X-Ray 07/11/18 10:20 IMPRESSION: 1. Status post right central venous catheter placement. 2. No evidence of pneumothorax. 3. Improved right basilar infiltrate. 4. Otherwise no significant change Electronically Signed: Balbir An MD at 10:46 EDT Tel , Service support , Medical Necessity - Tobacco Use Smoking Status: Current every day smoker Tobacco Use: Cigarettes Assessment/Plan All Active Problems (Last Updated 07/10/18 @ 23:08 by Faustino Hagan MD) Acute respiratory failure with hypoxia (Acute) Aspiration pneumonia due to food (regurgitated) (Acute) Acute kidney injury (nontraumatic) (Acute) Elevated liver enzymes (Acute) Acute hyperkalemia (Acute) Lactic acidosis (Acute) Anaphylactic shock, unspecified, initial encounter (Acute) Toxic effect of ingested berries, intentional self-harm, initial encounter (Acute) Encephalopathy acute (Acute) Secondary rhabdomyolysis (Acute) RECOMMENDATIONS: 1. Discontinue heparin and avoid heparin-containing products. 2. Continue broad-spectrum antibiotics, pending finalized infectious workup. 3. Continue hemodialysis per nephrology recommendations. 4. Wean supplemental oxygen to maintain saturations at or above 90%. IMPRESSIONS: 1. Acute toxic encephalopathy secondary to possible drug overdose Improving clinically. Continue to avoid sedating medications. 2. Acute combined respiratory failure secondary to staphylococcal pneumonia Continue antibiotics as ordered. Wean supplemental oxygen to maintain saturations at or above 90%. Continue attempts at volume optimization with hemodialysis. Encourage incentive spirometer use and mobilize patient as tolerated. 3. Acute kidney injury/rhabdomyolysis Likely secondary to intravascular volume depletion coupled with rhabdomyolysis and ischemic ATN. Nephrology is following. He will likely require volume optimization by hemodialysis. Will defer management accordingly. 4. Acute liver injury Likely secondary to drug-induced liver injury. Continue to withhold potentially hepatotoxic medications. 5. Thrombocytopenia Likely secondary to sepsis. However, the patient was receiving heparin, so therefore cannot discount the possibility of heparin-induced thrombocytopenia. All heparin containing products have been discontinued at this time. 6. Illicit drug use/lack of history/hyperammonemia/polysubstance abuse Complicates care, management, recovery and prognosis. Monitor for signs of withdrawal. This note was generated with [employer] dictation software. It may contain incorrect words, spelling, and punctuation that were not noted in checking the note before signing. Code Visit Inpatient E&M: 20570 Subs Hosp L3
--- NOTE | 2018-07-13 07:37 | PN_ITS ---
Patient Problems: Active and Suspected Problems (Last Updated 07/10/18 @ 23:08 by Faustino Hagan MD) Acute respiratory failure with hypoxia (Acute) Aspiration pneumonia due to food (regurgitated) (Acute) Acute kidney injury (nontraumatic) (Acute) Elevated liver enzymes (Acute) Acute hyperkalemia (Acute) Lactic acidosis (Acute) Anaphylactic shock, unspecified, initial encounter (Acute) Toxic effect of ingested berries, intentional self-harm, initial encounter (Acute) Encephalopathy acute (Acute) Secondary rhabdomyolysis (Acute) Subjective: Patient is a 47-year-old gentleman with a history of chronic alcohol abuse, depression with reported suicidal ideation and maintains who was apparently found unresponsive at home brought to the emergency department. Patient was intubated in the ED and subsequently admitted to the intensive care unit. Patient was weaned off the vent on 07/12/2018 Objective: GENERAL: Somewhat lethargic but arousable HEENT: Atraumatic; moist oral mucosa EYES; Anicteric, Normal Conjunctiva NECK; supple, normal thyroid, no distended JVD. RESPIRATORY: Diminished to auscultation bilaterally, CARDIOVASCULAR: Regular S1 S2, no audible murmurs GI: soft, non-tender, normoactive bowel sounds, : No Renal angle tenderness; EXTREMITIES: No edema, no clubbing, no cyanosis. MUSCULOSKELETAL: No Joint Tenderness; NEURO: No lateralizing signs. SKIN: No Rash PSYCH; flat affect Vitals/I&O's: Vital Signs Temp Pulse Resp BP Pulse Ox 99.9 F H 70 16 131/56 H 91 07/13/18 06:00 07/13/18 06:00 07/13/18 06:00 07/13/18 06:00 07/13/18 06:45 Oxygen Flow Rate (L/min) 3 Oxygen Delivery Method Nasal Cannula Weight: 117.9 kg Body Mass Index (BMI) 34.4 Intake and Output for Last 24 Hours 07/11/18 07/12/18 07/13/18 23:59 23:59 23:59 Intake Total 6418.5 / 6418.5 2712.2 / 2712.2 938.1 / 938.1 Output Total 700 / 700 225 / 225 75 / 75 Balance 5718.5 / 5718.5 2487.2 / 2487.2 863.1 / 863.1 Microbiology Past 72 Hours 07/11/18 12:20 Sputum, Induced/Lukens Gram Stain - Final 07/11/18 12:20 Sputum, Induced/Lukens Respiratory Culture - Final Staphylococcus aureus 07/11/18 03:30 Urine Catheter - Payne Urine Culture - Preliminary Culture exhibits no growth. 07/10/18 18:45 Blood Culture (Wb) - Anticubital Right Bacteria Detection (PCR) - Final Streptococcus pneumoniae 07/10/18 18:45 Blood Culture (Wb) - Anticubital Right Blood Culture - Preliminary Streptococcus pneumoniae 07/11/18 03:30 Urine Catheter - Payne Streptococcus pneumoniae Antigen (M - Final 07/11/18 03:30 Urine Catheter - Payne Legionella Antigen - Final Laboratory Results 07/12/18 04:00: Magnesium 1.9, Total Bilirubin 1.30 H, Direct Bilirubin 0.78 H, AST 3047 H, ALT 2509 H, Alkaline Phosphatase 69, Total Creatine Kinase 00720 H, Total Protein 5.6 L, Albumin 2.2 L, Globulin 3.4 07/12/18 12:42: POC Glucose 95 07/12/18 18:02: POC Glucose 119 H 07/12/18 23:32: POC Glucose 105 07/13/18 04:30: WBC 10.5, RBC 3.54 L, Hgb 11.2 L, Hct 32.1 L, MCV 90.7, MCH 31.6, MCHC 34.9, RDW 13.2, RDW Differential 42.9, Plt Count 76 L, MPV 10.5, Immature Gran % (Auto) 0.600, Neut % (Auto) 77.1 H, Lymph % (Auto) 13.1 L, [place] % (Auto) 8.3, Eos % (Auto) 0.7, Baso % (Auto) 0.2, Absolute Neuts (auto) 8.1 H, Absolute Lymphs (auto) 1.37, Total Counted Not Reportable 07/13/18 04:30: Sodium 139, Potassium 3.8, Chloride 101, Carbon Dioxide 27.0, Anion Gap 11, BUN 55 H, Creatinine 5.95 H, Estim Creat Clear Calc 16.19, Est GFR (MDRD) Af Amer 13 L, Est GFR (MDRD) Non-Af 11 L, BUN/Creatinine Ratio 9.2 L, Glucose 96, Calcium 6.4 L*, Total Bilirubin 3.40 H, AST 1152 H, ALT 1423 H, Janessa line Phosphatase 68, Total Creatine Kinase 7457 H, Total Protein 5.4 L, Albumin 1.9 L, Globulin 3.5, Albumin/Globulin Ratio 0.5 L 07/13/18 04:30: Ammonia 24.0 Current Medications Acetaminophen (Tylenol) 650 mg PO Q6H PRN PRN PRN Reason: Fever >101 Last Admin: 07/12/18 18:41 Dose: 650 mg Albuterol Sulfate (Ventolin Aerosols) 2.5 mg INHALATION Q2H PRN PRN PRN Reason: sob/wheezing Bisacodyl (Dulcolax) 5 mg PO DAILY PRN PRN PRN Reason: Constipation Chlorhexidine Gluconate () 1 each TOPICAL DAILY [facility] Last Admin: 07/13/18 04:44 Dose: 1 each Folic Acid (Folic Acid) 1 mg PO DAILY@0800 [facility] Stop: 07/13/18 08:01 Sodium Chloride () 250 mls @ 15 mls/hr IV .[id number] PRN PRN Reason: SALINE FLUSH Last Admin: 07/12/18 22:04 Dose: 15 mls/hr Famotidine 20 mg/ Sodium (Chloride) 10 mls @ 300 mls/hr IV Q24 [facility] Last Admin: 07/12/18 10:41 Dose: 300 mls/hr Sodium Chloride () 1,000 mls @ 125 mls/hr IV .Q8H [facility] Last Admin: 07/13/18 05:51 Dose: Not Given Piperacillin Sod/Tazobactam (Sod 3.375 gm/ Sodium Chloride) 50 mls @ 12.5 mls/hr IV BID [facility] Last Admin: 07/12/18 22:03 Dose: 12.5 mls/hr Magnesium Hydroxide (Milk Of Magnesia) 30 ml PO DAILY PRN PRN PRN Reason: Constipation Multivitamins/Minerals (Multivitamin With Minerals) [facility] Ondansetron HCl (Zofran) 4 mg IV Q8H PRN PRN PRN Reason: NAUSEA Oxycodone HCl (Oxyir) 10 mg PO Q4H PRN PRN PRN Reason: SEVERE PAIN (6-10/10) Last Admin: 07/13/18 04:41 Dose: 10 mg Polyethylene Glycol (Miralax) 34 gm PO X1 PRN PRN Reason: Bowel Movement Sodium Chloride () 5 - 15 ml IV UD PRN PRN Reason: SALINE FLUSH Last Admin: 07/12/18 14:04 Dose: 10 ml Thiamine HCl (Vitamin B1) 100 mg PO BIDCM [facility] Stop: 07/13/18 17:01 Medical Necessity - Tobacco Use Smoking Status: Current every day smoker Tobacco Use: Cigarettes Assessment/Plan All Active Problems (Last Updated 07/10/18 @ 23:08 by Faustino Hagan MD) Acute respiratory failure with hypoxia (Acute) Aspiration pneumonia due to food (regurgitated) (Acute) Acute kidney injury (nontraumatic) (Acute) Elevated liver enzymes (Acute) Acute hyperkalemia (Acute) Lactic acidosis (Acute) Anaphylactic shock, unspecified, initial encounter (Acute) Toxic effect of ingested berries, intentional self-harm, initial encounter (Acute) Encephalopathy acute (Acute) Secondary rhabdomyolysis (Acute) Patient is a 47-year-old gentleman with a history of chronic alcohol abuse, depression with reported suicidal ideation and maintains who was apparently found unresponsive at home brought to the emergency department. Patient was intubated in the ED and subsequently admitted to the intensive care unit. Patient was weaned off the vent on 07/12/2018 1. Acute hypoxic respiratory failure in the context of metabolic encephalopathy as well as suspected aspiration pneumonia patient was intubated in the ED weaned off the vent on 07/12/2018 2. Acute metabolic encephalopathy attributed to intentional drug overdose with gabapentin. Patient in addition was found with with heroin and vodka in his position. 3. Acute kidney injury attributed to acute rhabdomyolysis with significant dehydration consultation placed to nephrology patient currently being dialyzed 4. Aspiration pneumonia; blood cultures positive for strep species sputum cultures positive for staph patient currently on Unasyn 5. Drug-induced hepatitis following patient liver function tests 6. Hyperkalemia resolved with dialysis 7. Acute rhabdomyolysis patient being dialyzed with serial monitoring of CPK levels 8. Substance abuse including alcohol as well as opioids counseled on cessation 9. Pulmonary edema corrected per protocol 10. DVT prophylaxis SC heparin Active Medications Acetaminophen (Tylenol) 650 mg PO Q6H PRN PRN PRN Reason: Fever >101 Last Admin: 07/12/18 18:41 Dose: 650 mg Albuterol Sulfate (Ventolin Aerosols) 2.5 mg INHALATION Q2H PRN PRN PRN Reason: sob/wheezing Bisacodyl (Dulcolax) 5 mg PO DAILY PRN PRN PRN Reason: Constipation Chlorhexidine Gluconate () 1 each TOPICAL DAILY [facility] Last Admin: 07/13/18 04:44 Dose: 1 each Sodium Chloride () 250 mls @ 15 mls/hr IV .[id number] PRN PRN Reason: SALINE FLUSH Last Admin: 07/12/18 22:04 Dose: 15 mls/hr Famotidine 20 mg/ Sodium (Chloride) 10 mls @ 300 mls/hr IV Q24 [facility] Last Admin: 07/12/18 10:41 Dose: 300 mls/hr Sodium Chloride () 1,000 mls @ 125 mls/hr IV .Q8H [facility] Last Admin: 07/13/18 08:40 Dose: 125 mls/hr Ampicillin Sodium/Sulbactam (Sodium 3 gm/ Sodium Chloride) 112 mls @ 150 mls/hr IV Q12 [facility] Magnesium Hydroxide (Milk Of Magnesia) 30 ml PO DAILY PRN PRN PRN Reason: Constipation Multivitamins/Minerals (Multivitamin With Minerals) 1 tablet PO DAILYCM [facility] Ondansetron HCl (Zofran) 4 mg IV Q8H PRN PRN PRN Reason: NAUSEA Oxycodone HCl (Oxyir) 10 mg PO Q4H PRN PRN PRN Reason: SEVERE PAIN (6-10/10) Last Admin: 07/13/18 04:41 Dose: 10 mg Sodium Chloride () 5 - 15 ml IV UD PRN PRN Reason: SALINE FLUSH Last Admin: 07/12/18 14:04 Dose: 10 ml Thiamine HCl (Vitamin B1) 100 mg PO BIDCM [facility] Stop: 07/13/18 17:01 Clinical Impression(s) from Imaging Studies Chest X-Ray 07/13/18 09:50 IMPRESSION: Status post extubation. Since prior study, there has been a progression of the bilateral airspace disease as described. Follow-up is recommended. Electronically Signed: Teto Carrasco, at 10:26 EDT , Service support , Code Visit Inpatient E&M: 71205 Subs Hosp L3
--- NOTE | 2018-07-13 09:50 | RAD_ITS ---
STUDY: X-RAY CHEST REASON FOR EXAM: Male, 47 years old. Acute toxic encephalopathy. TECHNIQUE: Single AP portable view of the chest. COMPARISON: Comparison is made with prior study dated July 11, 2018. FINDINGS: A right sided internal jugular venous catheter is seen with the tip in the proximal portion of the superior vena cava. EKG electrodes are seen. Since prior study, the endotracheal tube has been removed. The orogastric tube has been as well. There has been progressive bilateral patchy airspace disease. This may represent either CHF versus bilateral patchy infiltrates. Clinical correlation is recommended. Normal size heart. Normal mediastinum and kuldip. Normal visualized pulmonary arteries. Normal visualized aortic arch and descending thoracic aorta. Normal visualized thoracic spine. Normal visualized ribs, clavicles, and shoulders. There is no demonstrated abnormality of the visualized soft tissue structures of the upper abdomen. RAD/Chest 1 View (Portable) IMPRESSION: Status post extubation. Since prior study, there has been a progression of the bilateral airspace disease as described. Follow-up is recommended. Electronically Signed: Teto Carrasco, at 10:26 EDT , Service support ,
[2018-07-13] MEDS: Thiamine Hydrochloride 100 MG Tablet PO (10:53)
[2018-07-13] MEDS: Folic Acid 1 MG Tablet PO (10:53)
[2018-07-13] MEDS: Multivitamins,Ther W-Minerals Tablet 1 TABLET PO (10:53)
--- NOTE | 2018-07-13 11:20 | PN.RENAL_ITS ---
Patient Problems: Active and Suspected Problems (Last Updated 07/10/18 @ 23:08 by Faustino Hagan MD) Acute respiratory failure with hypoxia (Acute) Aspiration pneumonia due to food (regurgitated) (Acute) Acute kidney injury (nontraumatic) (Acute) Elevated liver enzymes (Acute) Acute hyperkalemia (Acute) Lactic acidosis (Acute) Anaphylactic shock, unspecified, initial encounter (Acute) Toxic effect of ingested berries, intentional self-harm, initial encounter (Acute) Encephalopathy acute (Acute) Secondary rhabdomyolysis (Acute) Subjective: Pt is feeling tired. No nausea No vomiting - Physical Exam General: Alert Oral: Moist Mucosa Neck: Supple, No JVD Lungs: - - b/l lungs bases crackles Cardiovascular: Regular rate, Regular Rhythm, Normal S1, Normal S2 Abdomen: Bowel Sounds Present, Soft, Non Tender, Non-Distended Extremities: No clubbing, No cyanosis, No edema Skin: No rashes Musculoskeletal: No Tenderness to Palpation of Joints or Extremities Lymphatic: No Cervical, Supraclavicular, or Inguinal Adenopathy Neurological: Cranial nerves II-XII grossly intact, Neuro grossly intact Psych/Mental Status: Appropriate Vital Signs Temp Pulse Resp BP Pulse Ox 100.3 F H 68 19 H 155/75 H 93 07/13/18 10:00 07/13/18 10:00 07/13/18 10:00 07/13/18 10:00 07/13/18 10:00 Oxygen Flow Rate (L/min) 4 Oxygen Delivery Method Nasal Cannula Weight: 117.9 kg Body Mass Index (BMI) 34.4 Intake and Output for Last 24 Hours 07/11/18 07/12/18 07/13/18 23:59 23:59 23:59 Intake Total 6418.5 / 6418.5 2712.2 / 2712.2 938.1 / 938.1 Output Total 700 / 700 225 / 225 75 / 75 Balance 5718.5 / 5718.5 2487.2 / 2487.2 863.1 / 863.1 Microbiology Past 72 Hours 07/11/18 03:30 Urine Culture - Final Urine Catheter - Payne Culture exhibits no growth. 07/10/18 18:45 Bacteria Detection (PCR) - Final Blood Culture (Wb) - Anticubital Right Streptococcus pneumoniae Blood Culture - Preliminary Streptococcus pneumoniae 07/11/18 12:20 Gram Stain - Final Sputum, Induced/Lukens Respiratory Culture - Final Staphylococcus aureus 07/11/18 03:30 Streptococcus pneumoniae Antigen (M - Final Urine Catheter - Payne 07/11/18 03:30 Legionella Antigen - Final Urine Catheter - Payne Laboratory Tests Past 24 Hrs 07/13/18 07/13/18 07/13/18 04:30 04:30 04:30 WBC 10.5 RBC 3.54 L Hgb 11.2 L Hct 32.1 L MCV 90.7 MCH 31.6 MCHC 34.9 RDW 13.2 RDW Differential 42.9 Plt Count 76 L MPV 10.5 Immature Gran % (Auto) 0.600 Neut % (Auto) 77.1 H Lymph % (Auto) 13.1 L [place] % (Auto) 8.3 Eos % (Auto) 0.7 Baso % (Auto) 0.2 Absolute Neuts (auto) 8.1 H Absolute Lymphs (auto) 1.37 Total Counted Not Reportable Sodium 139 Potassium 3.8 Chloride 101 Carbon Dioxide 27.0 Anion Gap 11 BUN 55 H Creatinine 5.95 H Estim Creat Clear Calc 16.19 Est GFR (MDRD) Af Amer 13 L Est GFR (MDRD) Non-Af 11 L BUN/Creatinine Ratio 9.2 L Glucose 96 Calcium 6.4 L* Total Bilirubin 3.40 H AST 1152 H ALT 1423 H Alkaline Phosphatase 68 Ammonia 24.0 Total Creatine Kinase 7457 H Total Protein 5.4 L Albumin 1.9 L Globulin 3.5 Albumin/Globulin Ratio 0.5 L Heparin-induced Plt Ab 07/13/18 08:40 WBC RBC Hgb Hct MCV MCH MCHC RDW RDW Differential Plt Count MPV Immature Gran % (Auto) Neut % (Auto) Lymph % (Auto) [place] % (Auto) Eos % (Auto) Baso % (Auto) Absolute Neuts (auto) Absolute Lymphs (auto) Total Counted Sodium Potassium Chloride Carbon Dioxide Anion Gap BUN Creatinine Estim Creat Clear Calc Est GFR (MDRD) Af Amer Est GFR (MDRD) Non-Af BUN/Creatinine Ratio Glucose Calcium Total Bilirubin AST ALT Alkaline Phosphatase Ammonia Total Creatine Kinase Total Protein Albumin Globulin Albumin/Globulin Ratio Heparin-induced Plt Ab Pending POC Glucose 07/12/18 07/12/18 07/12/18 23:32 18:02 12:42 POC Glucose 105 119 H 95 Medical Necessity - Tobacco Use Smoking Status: Current every day smoker Tobacco Use: Cigarettes Assessment/Plan All Active Problems (Last Updated 07/10/18 @ 23:08 by Faustino Hagan MD) Acute respiratory failure with hypoxia (Acute) Aspiration pneumonia due to food (regurgitated) (Acute) Acute kidney injury (nontraumatic) (Acute) Elevated liver enzymes (Acute) Acute hyperkalemia (Acute) Lactic acidosis (Acute) Anaphylactic shock, unspecified, initial encounter (Acute) Toxic effect of ingested berries, intentional self-harm, initial encounter (Acute) Encephalopathy acute (Acute) Secondary rhabdomyolysis (Acute) 1. Acute kidney injury. Pt's baseline renal function is unknown. Presumed normal. HÉCTOR is likely due to ischemic/nephrotoxic ATN related to rhabdomyolysis and volume depletion. Pt is now HD dependent. HD started on 07/11. Remains oliguric Will arrange for 3rd HD session today for 3 hours and 30 minutes, BQ 400 DQ 700 UF 2L Dose medications for CrCl<15. Avoid ACEI/ARB Will continue to monitor for kidney function recovery 2. Hyperkalemia. K is better. HD on 3 mEq K dialysate today. Follow K. 3. Rhabdomyolysis. CPK is trending down b 4. Acute hypoxic respiratory failure. extubated On antibiotic for possible aspiration. Dose of Unasyn acceptable for HÉCTOR on dialysis. Renal team will continue to follow. please call if any question at [phone] CLAU HOBSON MD
[2018-07-13 11:51] LABS: Hep C Antibodies >11.0 s/co ratio (0.0-0.9)
--- NOTE | 2018-07-13 16:21 | CASEMGMT ---
Social Work PCU Consult received: intentional overdose; history of substance abuse Summary: Reviewed chart and noted patient is going to have dialysis today. Also noted concern for intentional overdose of Neurontin and reported admission of snorting heroin sometime prior to arrival at the hospital. Noted in record that patient had reportedly reached out to a friend, who is a nurse, and made comments about self harm. The friend is reportedly the person who found patient at home and initiated call to 911. Presented to patient's room on PCU. Patient transferred from ICU today. Dialysis equipment being set up, not yet initiated. Patient laying in bed with eyes closed. Patient did awaken to talk to social security specialist, but conversation limited due to patient keeping eyes closed, rolling head back and forth when not talking, and voicing that feels groggy and to be in pain. Patient was cooperative however with answering the brief questions asked by this resume writer. Educated patient that social security specialist will come back at a later time to see how patient is doing and assess situation. Patient reports to see Dr. Cheung for primary care. Patient reports that was not on dialysis prior to this admission. Patient denies having any adult children. Closest living relative is reported to be a brother, Matthew. Per patient verbal report, it is okay to speak with Matthew if the need arises. Patient provides an additional contact, friend Miesha Escudero, who the patient reports is the nurse friend. Miesha's number is reported by patient to be: [phone]. Plan: Social work to follow and assist as indicated. Anticipating need for crisis consult for possible psychiatric placement based on reports regarding reason for admission. -ZIGGY Forde, JAVA SDET
--- NOTE | 2018-07-13 16:54 | PCM.HP.ID ---
Problem List (1) Acute respiratory failure with hypoxia Status: Acute Reason for Consult: sepsis Consulted by: Dr. Heaton History of Present Illness: The patient is a 47 year old M found down with heroin paraphernalia, denies IVDU, admitted with sepsis and resp failure and massive transaminitis. On unasyn for aspiration coverage. On HD due to HÉCTOR. Hep C (+), denies sharing needles, no prior hep dx or hiv testing. C/o both shoulders are sore. Full ROS performed and neg except as noted above. - Medical History Allergies/Adverse Reactions: Allergies No Known Allergies Allergy (Verified 07/10/18 18:02) Home Medications: Ambulatory Orders Medication Instructions Recorded Butalb/Acetaminophen/Caffeine 1 capsule PO Q6H PRN 07/10/18 [Fioricet 50-300-40 mg Capsule] Gabapentin 800 mg PO DAILY 07/10/18 - Social History SMOKING STATUS:: Current every day smoker Drug Use: heroin Vital Signs Temp Pulse Resp BP Pulse Ox 98 F 78 18 165/77 H 94 07/13/18 16:00 07/13/18 16:00 07/13/18 16:00 07/13/18 16:00 07/13/18 16:00 Oxygen Flow Rate (L/min) 4 Oxygen Delivery Method Nasal Cannula Weight: 117.9 kg Body Mass Index (BMI) 34.4 Microbiology Past 72 Hours 07/10/18 18:45 Blood Culture - Preliminary Blood Culture (Wb) - Right Hand No growth in 48 hours. 07/10/18 18:45 Bacteria Detection (PCR) - Final Blood Culture (Wb) - Anticubital Right Streptococcus pneumoniae Blood Culture - Preliminary Streptococcus pneumoniae 07/11/18 03:30 Urine Culture - Final Urine Catheter - Payne Culture exhibits no growth. 07/11/18 12:20 Gram Stain - Final Sputum, Induced/Lukens Respiratory Culture - Final Staphylococcus aureus 07/11/18 03:30 Streptococcus pneumoniae Antigen (M - Final Urine Catheter - Payne 07/11/18 03:30 Legionella Antigen - Final Urine Catheter - Payne Laboratory Tests Past 24 Hrs 07/10/18 07/11/18 07/13/18 18:20 05:30 04:30 WBC 10.5 RBC 3.54 L Hgb 11.2 L Hct 32.1 L MCV 90.7 MCH 31.6 MCHC 34.9 RDW 13.2 RDW Differential 42.9 Plt Count 76 L MPV 10.5 Immature Gran % (Auto) 0.600 Neut % (Auto) 77.1 H Lymph % (Auto) 13.1 L [place] % (Auto) 8.3 Eos % (Auto) 0.7 Baso % (Auto) 0.2 Absolute Neuts (auto) 8.1 H Absolute Lymphs (auto) 1.37 Total Counted Not Reportable Sodium Potassium Chloride Carbon Dioxide Anion Gap BUN Creatinine Estim Creat Clear Calc Est GFR (MDRD) Af Amer Est GFR (MDRD) Non-Af BUN/Creatinine Ratio Glucose Calcium Total Bilirubin AST ALT Alkaline Phosphatase Ammonia Total Creatine Kinase Total Protein Albumin Globulin Albumin/Globulin Ratio Heparin-induced Plt Ab Hepatitis A IgM Ab Negative Hep Bs Antigen Negative Hep B Core IgM Ab Negative Hepatitis C Ab (EIA) >11.0 H HIV 1&2 Antibody Pending 07/13/18 07/13/18 07/13/18 04:30 04:30 08:40 WBC RBC Hgb Hct MCV MCH MCHC RDW RDW Differential Plt Count MPV Immature Gran % (Auto) Neut % (Auto) Lymph % (Auto) [place] % (Auto) Eos % (Auto) Baso % (Auto) Absolute Neuts (auto) Absolute Lymphs (auto) Total Counted Sodium 139 Potassium 3.8 Chloride 101 Carbon Dioxide 27.0 Anion Gap 11 BUN 55 H Creatinine 5.95 H Estim Creat Clear Calc 16.19 Est GFR (MDRD) Af Amer 13 L Est GFR (MDRD) Non-Af 11 L BUN/Creatinine Ratio 9.2 L Glucose 96 Calcium 6.4 L* Total Bilirubin 3.40 H AST 1152 H ALT 1423 H Alkaline Phosphatase 68 Ammonia 24.0 Total Creatine Kinase 7457 H Total Protein 5.4 L Albumin 1.9 L Globulin 3.5 Albumin/Globulin Ratio 0.5 L Heparin-induced Plt Ab Pending Hepatitis A IgM Ab Hep Bs Antigen Hep B Core IgM Ab Hepatitis C Ab (EIA) HIV 1&2 Antibody - Other Studies Radiology: [] reviewed Other Studies: [] Route of nutrition/ use of supplements: [] Nutritional Intake: [] IV Site: [] Payne Catheter: [] - Physical Exam General: Oriented x3, Cooperative, No apparent distress, Lethargic HEENT: Atraumatic, PERRLA, EOMI Neck: Supple, No Nodes Lungs: Clear to auscultation, Normal air movement Cardiovascular: Regular rate, Regular Rhythm Abdomen: Soft, Non Tender, Non-Distended Extremities: Edema Skin: No rashes IV Site: Peripheral, without redness Musculoskeletal: - - both shoulders some soreness to touch Neurological: Cranial nerves II-XII grossly intact - Assessment/Plan Antibiotics: [] Assessment/Plan: [] Active and Suspected Problems (Last Updated 07/10/18 @ 23:08 by Faustino Hagan MD) Acute respiratory failure with hypoxia (Acute) Aspiration pneumonia due to food (regurgitated) (Acute) Acute kidney injury (nontraumatic) (Acute) Elevated liver enzymes (Acute) Acute hyperkalemia (Acute) Lactic acidosis (Acute) Anaphylactic shock, unspecified, initial encounter (Acute) Toxic effect of ingested berries, intentional self-harm, initial encounter (Acute) Encephalopathy acute (Acute) Secondary rhabdomyolysis (Acute) sepsis with transaminitis, aspiration pneumonia, single (+) bcx with s.pneumo, sputum with mssa, HÉCTOR. Overall improving. Hep C (+). Will check hep C pcr and hiv. Continue unasyn. Will follow, thank you.
[2018-07-13 17:45] LABS: HIV - WCH Non-Reactive (Nonreactive)
[2018-07-13] MEDS: 0.9% NaCl Peripheral Flush Adult/Peds IV (22:39)
[2018-07-14] VITALS (17 sets, daily range): BP systolic 121–141; BP diastolic 69–84; PULSE 64–89; RESP 16–18; TEMP 36.6–37.5; O2SAT 92–100; BMI 35.9
[2018-07-14] MEDS: oxyCODONE 5 MG Tablet 10 MG PO ×2 (05:28→16:51)
[2018-07-14 05:40] LABS: Absolute Neutrophil Count 7.8 X10^3/uL (2.0-7.7); Basophil# 0.02 X10^3/uL; Basophil% 0.2 % (0-1); Eosinophil# 0.08 X10^3/uL; Eosinophils% 0.8 % (0-5); Hematocrit 31.8 % (40-54); Lymphocyte % 11.7 % (19-41); Mean Corp Hgb Conc 34.6 g/gl (32-36); Mean Corpuscular Hgb 31.6 pg (27.0-32.0); Mean Corpuscular Volume 91.4 fL (80-94); Mean Platelet Vol. 10.3 fl (6.2-12.0); Monocyte# 1.02 X10^3/uL; Monocyte% 9.9 % (0-10); Neutrophil # 7.84 X10^3/uL (2.7-7.7); Neutrophil % 76.4 % (47-70); Platelet Count 84 K/mm3 (150-450); RBC Distribution Width CV 13.1 % (11.6-14.6); RBC Distribution Width SD 42.8 fl (35.1-43.9); Red Blood Count 3.48 M/mm3 (4.6-6.2); White Blood Count 10.3 K/mm3 (4.4-11.0)
[2018-07-14 05:44] LABS: POSITIVE COUNT NO; POSITIVE DIFFERENTIAL NO; POSITIVE MORPHOLOGY NO
[2018-07-14 06:21] LABS: ALB/GLOB Ratio 0.5 RATIO (0.9-2.4); AST(SGOT) 531 U/L (15-37); Alanine Aminotransfer ALT/SGPT 848 U/L (16-61); Alkaline Phosphatase 77 U/L (45-117); Anion Gap 10 (5-15); BUN 51 mg/dL (7-18); BUN/Creat Ratio 8.9 RATIO (10-20); CPK Total, Creatine Kinase 3254 U/L (39-308); Chloride 99 mmol/L (98-107); Creatinine, Serum 5.74 mg/dL (0.70-1.30); EST Glomerular Filtration Rate 11 mL/min (>60); Est Glom Filt Rate - Afr Amer 14 mL/min (>60); Estimated Creatinine Clearance 16.78 ml/min; Globulin 3.9 g/dL (2.2-4.2); Glucose 91 mg/dL (74-106); Potassium 3.7 mmol/L (3.5-5.1); Protein, Total 5.9 g/dL (6.4-8.2); Sodium Level 138 mmol/L (136-145)
--- NOTE | 2018-07-14 07:38 | PN_ITS ---
Patient Problems: Active and Suspected Problems (Last Updated 07/14/18 @ 12:39 by Jenni Valdes PA-C) Acute respiratory failure with hypoxia (Acute) Aspiration pneumonia due to food (regurgitated) (Acute) Acute kidney injury (nontraumatic) (Acute) Elevated liver enzymes (Acute) Acute hyperkalemia (Acute) Lactic acidosis (Acute) Anaphylactic shock, unspecified, initial encounter (Acute) Toxic effect of ingested berries, intentional self-harm, initial encounter (Acute) Encephalopathy acute (Acute) Secondary rhabdomyolysis (Acute) Subjective: The patient was seen and examined at the bedside this morning. Events from the last 24 hours have been reviewed. The patient is currently afebrile, hemodynamically stable and maintaining appropriate oxygen saturations on 4 L/min via nasal cannula. The patient is currently overall net +13 L for the admission. Objective: The patient's most recent lab work, culture data and imaging studies have all been personally reviewed. Blood culture was positive for Streptococcus pneumoniae. Sputum culture was positive for MSSA. - Physical Exam General: Cooperative, No apparent distress HEENT: Atraumatic, PERRLA, Normocephalic Oral: No Gingival or Mucosal Lesions/ Ulcerations Neck: Supple, No Nodes, Trachea Midline Lungs: No rhonchi, No wheeze, No rales, Diminished Cardiovascular: Regular rate, Regular Rhythm, Normal S1, Normal S2, No murmurs Abdomen: Bowel Sounds Present, Soft, Non Tender Extremities: No clubbing, No cyanosis, Edema Skin: - - No significant change from previous Musculoskeletal: No Tenderness to Palpation of Joints or Extremities Lymphatic: No Cervical, Supraclavicular, or Inguinal Adenopathy Neurological: Neuro grossly intact Psych/Mental Status: Flat Affect Vital Signs Temp Pulse Resp BP Pulse Ox 37.2 C 68 18 121/69 H 94 07/14/18 03:05 07/14/18 03:15 07/14/18 03:05 07/14/18 03:05 07/14/18 03:05 Oxygen Flow Rate (L/min) 4 Oxygen Delivery Method Nasal Cannula Weight: 256 lb 2.834 oz Body Mass Index (BMI) 34.4 Intake and Output for Last 24 Hours 07/12/18 07/13/18 07/14/18 23:59 23:59 23:59 Intake Total 2712.2 / 2712.2 2353.1 / 2353.1 180 / 180 Output Total 225 / 225 150 / 150 100 / 100 Balance 2487.2 / 2487.2 2203.1 / 2203.1 80 / 80 Microbiology Past 72 Hours 07/10/18 18:45 Blood Culture - Preliminary Blood Culture (Wb) - Right Hand No growth in 48 hours. 07/10/18 18:45 Bacteria Detection (PCR) - Final Blood Culture (Wb) - Anticubital Right Streptococcus pneumoniae Blood Culture - Preliminary Streptococcus pneumoniae 07/11/18 03:30 Urine Culture - Final Urine Catheter - Payne Culture exhibits no growth. 07/11/18 12:20 Gram Stain - Final Sputum, Induced/Lukens Respiratory Culture - Final Staphylococcus aureus 07/11/18 03:30 Streptococcus pneumoniae Antigen (M - Final Urine Catheter - Payne 07/11/18 03:30 Legionella Antigen - Final Urine Catheter - Payne Laboratory Tests Past 24 Hrs 07/10/18 07/11/18 07/13/18 18:20 05:30 08:40 WBC RBC Hgb Hct MCV MCH MCHC RDW RDW Differential Plt Count MPV Immature Gran % (Auto) Neut % (Auto) Lymph % (Auto) [place] % (Auto) Eos % (Auto) Baso % (Auto) Absolute Neuts (auto) Absolute Lymphs (auto) Total Counted Sodium Potassium Chloride Carbon Dioxide Anion Gap BUN Creatinine Estim Creat Clear Calc Est GFR (MDRD) Af Amer Est GFR (MDRD) Non-Af BUN/Creatinine Ratio Glucose Calcium Total Bilirubin AST ALT Alkaline Phosphatase Total Creatine Kinase Total Protein Albumin Globulin Albumin/Globulin Ratio Heparin-induced Plt Ab Pending Hepatitis A IgM Ab Negative Hep Bs Antigen Negative Hep B Core IgM Ab Negative Hepatitis C Ab (EIA) >11.0 H HCV RNA Quant (PCR) HIV 1&2 Antibody Non-Reactive 07/14/18 07/14/18 07/14/18 05:30 05:30 05:30 WBC 10.3 RBC 3.48 L Hgb 11.0 L Hct 31.8 L MCV 91.4 MCH 31.6 MCHC 34.6 RDW 13.1 RDW Differential 42.8 Plt Count 84 L MPV 10.3 Immature Gran % (Auto) 1.000 H Neut % (Auto) 76.4 H Lymph % (Auto) 11.7 L [place] % (Auto) 9.9 Eos % (Auto) 0.8 Baso % (Auto) 0.2 Absolute Neuts (auto) 7.8 H Absolute Lymphs (auto) 1.20 Total Counted Not Reportable Sodium 138 Potassium 3.7 Chloride 99 Carbon Dioxide 29.0 Anion Gap 10 BUN 51 H Creatinine 5.74 H Estim Creat Clear Calc 16.78 Est GFR (MDRD) Af Amer 14 L Est GFR (MDRD) Non-Af 11 L BUN/Creatinine Ratio 8.9 L Glucose 91 Calcium 7.0 L Total Bilirubin 2.40 H AST 531 H ALT 848 H Alkaline Phosphatase 77 Total Creatine Kinase 3254 H Total Protein 5.9 L Albumin 2.0 L Globulin 3.9 Albumin/Globulin Ratio 0.5 L Heparin-induced Plt Ab Hepatitis A IgM Ab Hep Bs Antigen Hep B Core IgM Ab Hepatitis C Ab (EIA) HCV RNA Quant (PCR) Pending HIV 1&2 Antibody Clinical Impression(s) from Imaging Studies Brain CT 07/10/18 17:58 IMPRESSION: Focal low attenuation of the left basal ganglia as noted. Left maxillary sinusitis. Electronically Signed: Bay Mcdonald DO at 18:33 EDT Tel [phone], Service support , Chest X-Ray 07/10/18 17:58 IMPRESSION: Possible right basilar infiltrate. Mild cardiomegaly. Electronically Signed: Bay Mcdonald DO at 18:47 EDT Tel [phone], Service support , Chest X-Ray 07/10/18 19:08 IMPRESSION: 1. Interval advancement of the enteric tube when compared to the earlier study. 2. No other interval change. Electronically Signed: Rosendo Madrigal DO at 20:12 EDT Tel [phone], Service support , Chest X-Ray 07/10/18 19:08 IMPRESSION: 1. Endotracheal tube as described. 2. Enteric tube with its tip approximately 5 cm beyond the diaphragm. 3. No other major interval change when compared to the earlier study. Electronically Signed: Rosendo Madrigal DO at 20:11 EDT Tel [phone], Service support , Renal Ultrasound 07/11/18 05:55 IMPRESSION: No evidence of hydronephrosis. Small nonobstructing stone in the left kidney. Electronically Signed: Balbir An MD at 15:59 EDT Tel , Service support , Chest X-Ray 07/11/18 10:20 IMPRESSION: 1. Status post right central venous catheter placement. 2. No evidence of pneumothorax. 3. Improved right basilar infiltrate. 4. Otherwise no significant change Electronically Signed: Balbir An MD at 10:46 EDT Tel , Service support , Liver Ultrasound 07/12/18 12:23 IMPRESSION: No evidence of hydronephrosis. Small nonobstructing stone in the left kidney. Electronically Signed: Balbir An MD at 15:59 EDT Tel , Service support , Chest X-Ray 07/13/18 09:50 IMPRESSION: Status post extubation. Since prior study, there has been a progression of the bilateral airspace disease as described. Follow-up is recommended. Electronically Signed: Teto Carrasco, at 10:26 EDT , Service support , Medical Necessity - Tobacco Use Smoking Status: Current every day smoker Tobacco Use: Cigarettes Assessment/Plan All Active Problems (Last Updated 07/14/18 @ 12:39 by Jenni Valdes PA-C) Acute respiratory failure with hypoxia (Acute) Aspiration pneumonia due to food (regurgitated) (Acute) Acute kidney injury (nontraumatic) (Acute) Elevated liver enzymes (Acute) Acute hyperkalemia (Acute) Lactic acidosis (Acute) Anaphylactic shock, unspecified, initial encounter (Acute) Toxic effect of ingested berries, intentional self-harm, initial encounter (Acute) Encephalopathy acute (Acute) Secondary rhabdomyolysis (Acute) RECOMMENDATIONS: 1. Continue antibiotics per ID recommendations. 2. Continue hemodialysis per nephrology recommendations. 3. Wean supplemental oxygen to maintain saturations at or above 90%. 4. Encourage incentive spirometer use and mobilize patient as tolerated. 5. Given the patient's lack of ongoing ICU needs, will sign off. Please call with any additional questions. IMPRESSIONS: 1. Acute toxic encephalopathy secondary to possible drug overdose Improving clinically. Continue to avoid sedating medications. 2. Acute combined respiratory failure secondary to staphylococcal pneumonia Continue antibiotics as ordered. Wean supplemental oxygen to maintain saturat ions at or above 90%. Continue attempts at volume optimization with hemodialysis. Encourage incentive spirometer use and mobilize patient as tolerated. 3. Acute kidney injury/rhabdomyolysis Likely secondary to intravascular volume depletion coupled with rhabdomyolysis and ischemic ATN. Nephrology is following. He will require volume optimization by hemodialysis. Will defer management accordingly. 4. Acute liver injury Improving. Likely secondary to drug-induced liver injury. Continue to withhold potentially hepatotoxic medications. 5. Thrombocytopenia Likely secondary to sepsis. However, the patient was receiving heparin, so therefore cannot discount the possibility of heparin-induced thrombocytopenia. All heparin containing products have been discontinued at this time. Platelet count is currently stable. No indication for transfusion. 6. Illicit drug use/lack of history/hyperammonemia/polysubstance abuse Complicates care, management, recovery and prognosis. Monitor for signs of withdrawal. This note was generated with [employer] dictation software. It may contain incorrect words, spelling, and punctuation that were not noted in checking the note before signing. Code Visit Inpatient E&M: 59169 Subs Hosp L2
--- NOTE | 2018-07-14 09:00 | PCM.PN.HOSP ---
Patient Problems: Active and Suspected Problems (Last Updated 07/10/18 @ 23:08 by Faustino Hagan MD) Acute respiratory failure with hypoxia (Acute) Aspiration pneumonia due to food (regurgitated) (Acute) Acute kidney injury (nontraumatic) (Acute) Elevated liver enzymes (Acute) Acute hyperkalemia (Acute) Lactic acidosis (Acute) Anaphylactic shock, unspecified, initial encounter (Acute) Toxic effect of ingested berries, intentional self-harm, initial encounter (Acute) Encephalopathy acute (Acute) Secondary rhabdomyolysis (Acute) Subjective: Patient seen no improvement in his kidney function his CPK levels as well as liver function still remains markedly elevated however trending down since seen has a significant flat affect. Patient has a sitter in his room Objective: GENERAL: Patient is much more awake compared to the day prior HEENT: Atraumatic; moist oral mucosa EYES; Anicteric, Normal Conjunctiva NECK; supple, normal thyroid, no distended JVD. RESPIRATORY: Diminished to auscultation bilaterally, CARDIOVASCULAR: Regular S1 S2, no audible murmurs GI: soft, non-tender, normoactive bowel sounds, : No Renal angle tenderness; EXTREMITIES: No edema, no clubbing, no cyanosis. MUSCULOSKELETAL: No Joint Tenderness; NEURO: No lateralizing signs. SKIN: No Rash PSYCH; flat affect Vitals/I&O's: Vital Signs Temp Pulse Resp BP Pulse Ox 99 F 68 18 121/69 H 94 07/14/18 03:05 07/14/18 03:15 07/14/18 03:05 07/14/18 03:05 07/14/18 03:05 Oxygen Flow Rate (L/min) 4 Oxygen Delivery Method Nasal Cannula Weight: 116.2 kg Body Mass Index (BMI) 34.4 Intake and Output for Last 24 Hours 07/12/18 07/13/18 07/14/18 23:59 23:59 23:59 Intake Total 2712.2 / 2712.2 2353.1 / 2353.1 180 / 180 Output Total 225 / 225 150 / 150 100 / 100 Balance 2487.2 / 2487.2 2203.1 / 2203.1 80 / 80 Microbiology Past 72 Hours 07/10/18 18:45 Blood Culture (Wb) - Right Hand Blood Culture - Preliminary No growth in 48 hours. 07/10/18 18:45 Blood Culture (Wb) - Anticubital Right Bacteria Detection (PCR) - Final Streptococcus pneumoniae 07/10/18 18:45 Blood Culture (Wb) - Anticubital Right Blood Culture - Preliminary Streptococcus pneumoniae 07/11/18 03:30 Urine Catheter - Payne Urine Culture - Final Culture exhibits no growth. 07/11/18 12:20 Sputum, Induced/Lukens Gram Stain - Final 07/11/18 12:20 Sputum, Induced/Lukens Respiratory Culture - Final Staphylococcus aureus 07/11/18 03:30 Urine Catheter - Payne Streptococcus pneumoniae Antigen (M - Final 07/11/18 03:30 Urine Catheter - Payne Legionella Antigen - Final Laboratory Results 07/10/18 18:20: HIV 1&2 Antibody Non-Reactive 07/11/18 05:30: Hepatitis A IgM Ab Negative, Hep Bs Antigen Negative, Hep B Core IgM Ab Negative, Hepatitis C Ab (EIA) >11.0 H 07/14/18 05:30: WBC 10.3, RBC 3.48 L, Hgb 11.0 L, Hct 31.8 L, MCV 91.4, MCH 31.6, MCHC 34.6, RDW 13.1, RDW Differential 42.8, Plt Count 84 L, MPV 10.3, Immature Gran % (Auto) 1.000 H, Neut % (Auto) 76.4 H, Lymph % (Auto) 11.7 L, [place] % (Auto) 9.9, Eos % (Auto) 0.8, Baso % (Auto) 0.2, Absolute Neuts (auto) 7.8 H, Absolute Lymphs (auto) 1.20, Total Counted Not Reportable 07/14/18 05:30: Sodium 138, Potassium 3.7, Chloride 99, Carbon Dioxide 29.0, Anion Gap 10, BUN 51 H, Creatinine 5.74 H, Estim Creat Clear Calc 16.78, Est GFR (MDRD) Af Amer 14 L, Est GFR (MDRD) Non-Af 11 L, BUN/Creatinine Ratio 8.9 L, Glucose 91, Calcium 7.0 L, Total Bilirubin 2.40 H, AST 531 H, ALT 848 H, Alkaline Phosphatase 77, Total Creatine Kinase 3254 H, Total Protein 5.9 L, Albumin 2.0 L, Globulin 3.9, Albumin/Globulin Ratio 0.5 L 04/09/19 05:30: HCV RNA Quant (PCR) Pending Current Medications Acetaminophen (Tylenol) 650 mg PO Q6H PRN PRN PRN Reason: Fever >101 Last Admin: 07/12/18 18:41 Dose: 650 mg Albuterol Sulfate (Ventolin Aerosols) 2.5 mg INHALATION Q2H PRN PRN PRN Reason: sob/wheezing Bisacodyl (Dulcolax) 5 mg PO DAILY PRN PRN PRN Reason: Constipation Chlorhexidine Gluconate () 1 each TOPICAL DAILY [facility] Last Admin: 07/13/18 04:44 Dose: 1 each Famotidine (Pepcid) 20 mg PO DAILY [facility] Ampicillin Sodium/Sulbactam (Sodium 3 gm/ Sodium Chloride) 112 mls @ 150 mls/hr IV Q12 [facility] Last Admin: 07/13/18 22:35 Dose: 150 mls/hr Magnesium Hydroxide (Milk Of Magnesia) 30 ml PO DAILY PRN PRN PRN Reason: Constipation Multivitamins/Minerals ([facility]ivitamin With Minerals) [facility] Last Admin: 07/13/18 10:53 Dose: 1 tablet Ondansetron HCl (Zofran) 4 mg IV Q8H PRN PRN PRN Reason: NAUSEA Oxycodone HCl (Oxyir) 10 mg PO Q4H PRN PRN PRN Reason: SEVERE PAIN (6-10/10) Last Admin: 07/14/18 05:28 Dose: 10 mg Sodium Chloride () 5 - 15 ml IV UD PRN PRN Reason: SALINE FLUSH Last Admin: 07/13/18 22:39 Dose: 10 ml Medical Necessity - Tobacco Use Smoking Status: Current every day smoker Tobacco Use: Cigarettes Assessment/Plan All Active Problems (Last Updated 07/10/18 @ 23:08 by Faustino Hagan MD) Acute respiratory failure with hypoxia (Acute) Aspiration pneumonia due to food (regurgitated) (Acute) Acute kidney injury (nontraumatic) (Acute) Elevated liver enzymes (Acute) Acute hyperkalemia (Acute) Lactic acidosis (Acute) Anaphylactic shock, unspecified, initial encounter (Acute) Toxic effect of ingested berries, intentional self-harm, initial encounter (Acute) Encephalopathy acute (Acute) Secondary rhabdomyolysis (Acute) Patient is a 47-year-old gentleman with a history of chronic alcohol abuse, depression with reported suicidal ideation and maintains who was apparently found unresponsive at home brought to the emergency department. Patient was intubated in the ED and subsequently admitted to the intensive care unit. Patient was weaned off the vent on 07/12/2018 1. Acute hypoxic respiratory failure in the context of metabolic encephalopathy as well as suspected aspiration pneumonia patient was intubated in the ED weaned off the vent on 07/12/2018 patient was transferred to the progressive care unit on 07/13/2018. 2. Acute metabolic encephalopathy attributed to intentional drug overdose with gabapentin. Patient in addition was found with with heroin and vodka in his possession. 3. Acute kidney injury attributed to acute rhabdomyolysis with significant dehydration consultation placed to nephrology patient currently being dialyzed 4. Aspiration pneumonia; blood cultures positive for strep species sputum cultures positive for staph patient currently on Unasyn 5. Drug-induced hepatitis following patient liver function tests. Slight improvement in patient's liver function test 6. Hyperkalemia resolved with dialysis 7. Acute rhabdomyolysis patient being dialyzed with serial monitoring of CPK levels 8. Substance abuse including alcohol as well as opioids counseled on cessation 9. Pulmonary edema corrected per protocol 10. DVT prophylaxis SC heparin Code Visit Inpatient E&M: 47918 [facility] Hosp L3
[2018-07-14] MEDS: Famotidine 20 MG Tablet PO (09:49)
[2018-07-14] MEDS: Acetaminophen 325 MG Tablet 650 MG PO (09:49)
[2018-07-14] MEDS: Multivitamins,Ther W-Minerals Tablet 1 TABLET PO (09:49)
--- NOTE | 2018-07-14 09:52 | PCM.PN.ID ---
Patient Problems: Active and Suspected Problems (Last Updated 07/10/18 @ 23:08 by Faustino Hagan MD) Acute respiratory failure with hypoxia (Acute) Aspiration pneumonia due to food (regurgitated) (Acute) Acute kidney injury (nontraumatic) (Acute) Elevated liver enzymes (Acute) Acute hyperkalemia (Acute) Lactic acidosis (Acute) Anaphylactic shock, unspecified, initial encounter (Acute) Toxic effect of ingested berries, intentional self-harm, initial encounter (Acute) Encephalopathy acute (Acute) Secondary rhabdomyolysis (Acute) Subjective: Feeling ok, sleepy, no fever. - Physical Exam General: Alert, Cooperative, No apparent distress Lungs: Clear to auscultation, Diminished Cardiovascular: Regular rate, Regular Rhythm, No murmurs Abdomen: Soft, Non Tender, Non-Distended Extremities: Edema Skin: No rashes Vital Signs Temp Pulse Resp BP Pulse Ox 99 F 68 18 121/69 H 94 07/14/18 03:05 07/14/18 03:15 07/14/18 03:05 07/14/18 03:05 07/14/18 03:05 Oxygen Flow Rate (L/min) 4 Oxygen Delivery Method Nasal Cannula Weight: 116.2 kg Body Mass Index (BMI) 34.4 Intake and Output for Last 24 Hours 07/12/18 07/13/18 07/14/18 23:59 23:59 23:59 Intake Total 2712.2 / 2712.2 2353.1 / 2353.1 180 / 180 Output Total 225 / 225 150 / 150 100 / 100 Balance 2487.2 / 2487.2 2203.1 / 2203.1 80 / 80 Microbiology Past 72 Hours 07/12/18 13:25 Blood Culture - Preliminary Blood Culture (Wb) - Port No growth in 48 hours. 07/12/18 13:25 Blood Culture - Preliminary Blood Culture (Wb) - Anticubital Left No growth in 48 hours. 07/10/18 18:45 Blood Culture - Preliminary Blood Culture (Wb) - Right Hand No growth in 48 hours. 07/10/18 18:45 Bacteria Detection (PCR) - Final Blood Culture (Wb) - Anticubital Right Streptococcus pneumoniae Blood Culture - Preliminary Streptococcus pneumoniae 07/11/18 03:30 Urine Culture - Final Urine Catheter - Payne Culture exhibits no growth. 07/11/18 12:20 Gram Stain - Final Sputum, Induced/Lukens Respiratory Culture - Final Staphylococcus aureus 07/11/18 03:30 Streptococcus pneumoniae Antigen (M - Final Urine Catheter - Payne 07/11/18 03:30 Legionella Antigen - Final Urine Catheter - Payne Laboratory Tests Past 24 Hrs 07/10/18 07/11/18 07/14/18 18:20 05:30 05:30 WBC 10.3 RBC 3.48 L Hgb 11.0 L Hct 31.8 L MCV 91.4 MCH 31.6 MCHC 34.6 RDW 13.1 RDW Differential 42.8 Plt Count 84 L MPV 10.3 Immature Gran % (Auto) 1.000 H Neut % (Auto) 76.4 H Lymph % (Auto) 11.7 L [place] % (Auto) 9.9 Eos % (Auto) 0.8 Baso % (Auto) 0.2 Absolute Neuts (auto) 7.8 H Absolute Lymphs (auto) 1.20 Total Counted Not Reportable Sodium Potassium Chloride Carbon Dioxide Anion Gap BUN Creatinine Estim Creat Clear Calc Est GFR (MDRD) Af Amer Est GFR (MDRD) Non-Af BUN/Creatinine Ratio Glucose Calcium Total Bilirubin AST ALT Alkaline Phosphatase Total Creatine Kinase Total Protein Albumin Globulin Albumin/Globulin Ratio Hepatitis A IgM Ab Negative Hep Bs Antigen Negative Hep B Core IgM Ab Negative Hepatitis C Ab (EIA) >11.0 H HCV RNA Quant (PCR) HIV 1&2 Antibody Non-Reactive 07/14/18 07/14/18 05:30 05:30 WBC RBC Hgb Hct MCV MCH MCHC RDW RDW Differential Plt Count MPV Immature Gran % (Auto) Neut % (Auto) Lymph % (Auto) [place] % (Auto) Eos % (Auto) Baso % (Auto) Absolute Neuts (auto) Absolute Lymphs (auto) Total Counted Sodium 138 Potassium 3.7 Chloride 99 Carbon Dioxide 29.0 Anion Gap 10 BUN 51 H Creatinine 5.74 H Estim Creat Clear Calc 16.78 Est GFR (MDRD) Af Amer 14 L Est GFR (MDRD) Non-Af 11 L BUN/Creatinine Ratio 8.9 L Glucose 91 Calcium 7.0 L Total Bilirubin 2.40 H AST 531 H ALT 848 H Alkaline Phosphatase 77 Total Creatine Kinase 3254 H Total Protein 5.9 L Albumin 2.0 L Globulin 3.9 Albumin/Globulin Ratio 0.5 L Hepatitis A IgM Ab Hep Bs Antigen Hep B Core IgM Ab Hepatitis C Ab (EIA) HCV RNA Quant (PCR) Pending HIV 1&2 Antibody Medical Necessity - Tobacco Use Smoking Status: Current every day smoker Tobacco Use: Cigarettes Route of nutrition/ use of supplements: [] Nutritional Intake: [] IV Site: [] Payne Catheter: [] - Assessment/Plan Antibiotics: [] Assessment/Plan: [] Active and Suspected Problems (Last Updated 07/10/18 @ 23:08 by Faustino Hagan MD) Acute respiratory failure with hypoxia (Acute) Aspiration pneumonia due to food (regurgitated) (Acute) Acute kidney injury (nontraumatic) (Acute) Elevated liver enzymes (Acute) Acute hyperkalemia (Acute) Lactic acidosis (Acute) Anaphylactic shock, unspecified, initial encounter (Acute) Toxic effect of ingested berries, intentional self-harm, initial encounter (Acute) Encephalopathy acute (Acute) Secondary rhabdomyolysis (Acute) sepsis with transaminitis, aspiration pneumonia, single (+) bcx with s.pneumo, sputum with mssa, HÉCTOR. Overall improving. Hep C (+). Pending hep C pcr and hiv was neg. Continue unasyn. Plan on po abx at discharge. Will follow
--- NOTE | 2018-07-14 12:35 | CON.PCM_ITS ---
Problem List (1) Acute kidney injury (nontraumatic) Status: Acute Reason for Consult Date of Consultation: 07/14/18 Reason for Consultation: Acute renal injury. In need of tunneled dialysis catheter. History of Present Illness: The patient is a 47 year old M who presented unresponsive secondary to overdose. Patient currently is lethargic and unable to give specific history as to how he presented to the [facility]. He states he was taken by ambulance to the hospital for taking too many pills. Most of patient's history was obtained through other documentation from this hospitalization. Patient does deny previous renal issues. Patient initially was found unresponsive by a Hospice nurse friend at his home. Patient apparently had recently refilled gabapentin and was found by his friend to not have any gabapentin left. ED was notified by Police that the patient had an illicit substance by him suspected to be Heroin. Patient does deny any illicit drug use. Patient was also found with vomit on his shirt at his home. His urine tested positive for opiates and barbiturates. He also had a potassium of 9.0 on admission. Patient also denies alcohol use. Patient does smoke 1 ppd for an unknown period of time. Patient has never had dialysis previously. Patient was intubated in the ED with high suspicion for aspiration pneumonia. Patient also had temporary dialysis catheter placement on 07/11/18. Patient denies previous surgeries. Past Medical History Past Medical History (Chronic Problems): Chronic Problems (Last Updated 07/14/18 @ 12:39 by Jenni Valdes PA-C) Hx unobtainable (Chronic) Medical History: Medical History (Last Updated 07/14/18 @ 12:39 by Jenni Valdes PA-C) Hx unobtainable (Chronic) Neuropathy G62.9 Allergies No Known Allergies Allergy (Verified 07/10/18 18:02) Home Medications: Ambulatory Orders Medication Instructions Recorded Butalb/Acetaminophen/Caffeine 1 capsule PO Q6H PRN 07/10/18 [Fioricet 50-300-40 mg Capsule] Gabapentin 800 mg PO DAILY 07/10/18 Surgical History: no surgical history Lives: Alone Smoking Status: Current every day smoker Tobacco Use: Cigarettes Alcohol: Heavy Drugs: - - Admits to heroin - *Family History Paternal History Items: No pertinent history Maternal History Items: No pertinent history Review of Systems Constitutional: Reports: Malaise, Fatigue HEENT: Denies: Head Aches, Sinus Congestion, Sinus Drainage Cardiovascular: Denies: Chest Pain, Palpitations Respiratory: Reports: Shortness of Breath Gastrointestinal: Reports: Abdominal Pain. Denies: Nausea, Vomiting Genitourinary: Denies: Dysuria Musculoskeletal: Reports: Leg Pain Skin: Denies: Rash, Wounds Neurological: Reports: Balance problems Psychiatric: Reports: Depression Hematologic/ Lymphatic: Denies: Easy Bruising, Easy Bleeding Patient Problems: Active and Suspected Problems (Last Updated 07/14/18 @ 12:39 by Jenni Valdes PA-C) Acute respiratory failure with hypoxia (Acute) Aspiration pneumonia due to food (regurgitated) (Acute) Acute kidney injury (nontraumatic) (Acute) Elevated liver enzymes (Acute) Acute hyperkalemia (Acute) Lactic acidosis (Acute) Anaphylactic shock, unspecified, initial encounter (Acute) Toxic effect of ingested berries, intentional self-harm, initial encounter (Acute) Encephalopathy acute (Acute) Secondary rhabdomyolysis (Acute) - Physical Exam General: Cooperative, Lethargic HEENT: Atraumatic, PERRLA, EOMI, Normocephalic Neck: Supple, No JVD, Negative Carotid Bruits, - - Right temporary catheter Lungs: Clear to auscultation, Normal air movement Cardiovascular: Regular rate, No murmurs Abdomen: Tender Extremities: No edema, Capillary Refill Less than 3 Seconds Skin: No rashes, No breakdown Musculoskeletal: No Tenderness to Palpation of Joints or Extremities Psych/Mental Status: Flat Affect, Depressed Vital Signs Temp Pulse Resp BP Pulse Ox 98.2 F 69 18 141/82 H 94 07/14/18 09:05 07/14/18 11:13 07/14/18 09:05 07/14/18 09:05 07/14/18 09:05 Oxygen Flow Rate (L/min) 4 Oxygen Delivery Method Nasal Cannula Weight: 256 lb 2.834 oz Body Mass Index (BMI) 34.4 Intake and Output for Last 24 Hours 07/12/18 07/13/18 07/14/18 23:59 23:59 23:59 Intake Total 2712.2 / 2712.2 2353.1 / 2353.1 180 / 180 Output Total 225 / 225 150 / 150 200 / 200 Balance 2487.2 / 2487.2 2203.1 / 2203.1 -20 / -20 Microbiology Past 72 Hours 07/12/18 13:25 Blood Culture - Preliminary Blood Culture (Wb) - Port No growth in 48 hours. 07/12/18 13:25 Blood Culture - Preliminary Blood Culture (Wb) - Anticubital Left No growth in 48 hours. 07/10/18 18:45 Blood Culture - Preliminary Blood Culture (Wb) - Right Hand No growth in 48 hours. 07/10/18 18:45 Bacteria Detection (PCR) - Final Blood Culture (Wb) - Anticubital Right Streptococcus pneumoniae Blood Culture - Preliminary Streptococcus pneumoniae 07/11/18 03:30 Urine Culture - Final Urine Catheter - Payne Culture exhibits no growth. 07/11/18 12:20 Gram Stain - Final Sputum, Induced/Lukens Respiratory Culture - Final Staphylococcus aureus Laboratory Tests Past 24 Hrs 07/10/18 07/14/18 07/14/18 18:20 05:30 05:30 WBC 10.3 RBC 3.48 L Hgb 11.0 L Hct 31.8 L MCV 91.4 MCH 31.6 MCHC 34.6 RDW 13.1 RDW Differential 42.8 Plt Count 84 L MPV 10.3 Immature Gran % (Auto) 1.000 H Neut % (Auto) 76.4 H Lymph % (Auto) 11.7 L [place] % (Auto) 9.9 Eos % (Auto) 0.8 Baso % (Auto) 0.2 Absolute Neuts (auto) 7.8 H Absolute Lymphs (auto) 1.20 Total Counted Not Reportable Sodium 138 Potassium 3.7 Chloride 99 Carbon Dioxide 29.0 Anion Gap 10 BUN 51 H Creatinine 5.74 H Estim Creat Clear Calc 16.78 Est GFR (MDRD) Af Amer 14 L Est GFR (MDRD) Non-Af 11 L BUN/Creatinine Ratio 8.9 L Glucose 91 Calcium 7.0 L Total Bilirubin 2.40 H AST 531 H ALT 848 H Alkaline Phosphatase 77 Total Creatine Kinase 3254 H Total Protein 5.9 L Albumin 2.0 L Globulin 3.9 Albumin/Globulin Ratio 0.5 L HCV RNA Quant (PCR) HIV 1&2 Antibody Non-Reactive 07/14/18 05:30 WBC RBC Hgb Hct MCV MCH MCHC RDW RDW Differential Plt Count MPV Immature Gran % (Auto) Neut % (Auto) Lymph % (Auto) [place] % (Auto) Eos % (Auto) Baso % (Auto) Absolute Neuts (auto) Absolute Lymphs (auto) Total Counted Sodium Potassium Chloride Carbon Dioxide Anion Gap BUN Creatinine Estim Creat Clear Calc Est GFR (MDRD) Af Amer Est GFR (MDRD) Non-Af BUN/Creatinine Ratio Glucose Calcium Total Bilirubin AST ALT Alkaline Phosphatase Total Creatine Kinase Total Protein Albumin Globulin Albumin/Globulin Ratio HCV RNA Quant (PCR) Pending HIV 1&2 Antibody Assessment/Plan All Active Problems (Last Updated 07/14/18 @ 12:39 by Jenni Valdes PA-C) Acute respiratory failure with hypoxia (Acute) Aspiration pneumonia due to food (regurgitated) (Acute) Acute kidney injury (nontraumatic) (Acute) Elevated liver enzymes (Acute) Acute hyperkalemia (Acute) Lactic acidosis (Acute) Anaphylactic shock, unspecified, initial encounter (Acute) Toxic effect of ingested berries, intentional self-harm, initial encounter (Acute) Encephalopathy acute (Acute) Secondary rhabdomyolysis (Acute) I have been consulted in conjunction with Dr. Danielle. He will independently evaluate this patient. Impression: Acute renal failure following overdose Plan: I have discussed this patient in conjunction with Dr. Danielle. Dr. Danielle will plan to perform a right chest tunneled dialysis catheter placement. Procedure details, risks and benefits have been explained to the patient. Patient has had the opportunity to ask and have questions answered. Patient verbally understands and agrees with the plan. Verbal consent has been obtained by the patient's brother in [place] via two nurses on PCU. Temporary right neck catheters will be removed prior to the procedure today. Thank you for allowing us to participate in this patient's care. Code Visit Office Visits / Consults: [id number] IP Consult L3
--- NOTE | 2018-07-14 13:58 | CASEMGMT ---
Per Dr. Perkins, pt needs to be set up for OP dialysis at this time. Referral faxed to [facility] at this time after pt demographics updated at this time. Joel NORTON CM
--- NOTE | 2018-07-14 15:10 | DIALYSIS ---
TEMP HD CVC REMOVAL FROM R.NECK 1436 pre-vs 150/84 70 20 99.9 (oral) 94% 4L NC post line removal VS 1500 - 142/77 70 20 95% 4L NC supine 1515 - 148/81 70 20 94% 98.8 supine Pt tolerated well. Site held x 5 mins with no bleeding. Post VS and bedrest by this RN x 30 mins post line removal. remains with no s/s of bleeding. Bedside handoff with Yuliet NORTON. Orders written and reviewed for recommended post temp line instructions. Note that when this RN arrived staff had fluids running via his Venous line of the R.Neck HD CVC. CVC was removed intact.
[2018-07-14] MEDS: Cefazolin 2 GM in 0.9% Normal Saline 100 ML IV (19:15)
[2018-07-14] MEDS: Bupivacaine Mpf 0.5% 30 ML VIAL (19:40)
[2018-07-14] MEDS: Heparin 10,000 UNITS/10 ML Vial 10000 UNITS (19:46)
--- NOTE | 2018-07-14 19:53 | OP.PCM_ITS ---
Problem List (1) Acute kidney injury (nontraumatic) Status: Acute Report of Operation Date of Procedure: 07/14/18 Pre-Operative Diagnosis: Acute kidney injury Post-Operative Diagnosis: Same Surgery/Procedure Performed:: Right internal jugular 19 cm pre-curved palindrome dialysis catheter placement Description of Surgical Findings:: Timeout and informed consent was obtained. 47 urgent was taken out from placement stable. He underwent monitored anesthesia care. Ancef 2 g given intravenously preoperatively. The right neck and chest were sterilely prepped draped. Under ultrasound guidance 1% lidocaine mixed 50-50 with 0.5% Marcaine was used as local anesthetic. A total of 17 cc was used. Under ultrasound guidance micropuncture needle was inserted in the right internal jugular vein followed by micropuncture wire micropuncture sheath exchanged out for an 035 J- wire. Local was instilled down upon the right chest wall. An exit site was selected. The 19 cm pre-curved palindrome catheter was tunneled from the chest to the neck site. Then over the J-wire after first part for confirmation serial dilatation was performed. The sheath dilator was inserted. The dilator wire removed. The catheter was advanced to the sheath. The sheath was split. The catheter is positioned. There was good curvilinear positioning. It aspirated easily. It was flushed with saline and then 10 cc of heparinized saline per channel. The neck site was closed with interrupted 5-0 Vicryl subdermal stitch. The cath was secured to skin with interrupted 3-0 nylon. A silver impregnated dressing was placed upon the exit site. Telfa OpSite dressing on the neck site. Sponge and instrument and needle counts were reported decision to be correct. Blood loss was minimal. He tolerated the procedure well and was taken to the recovery area in satisfactory condition without apparent comp occasions. Separate of the chest x-ray is pending. Specimens none. Drains none. Blood loss minimal. Mu Danielle M.D., F.A.C.S. Type of Anesthesia:: Local MAC Anesthesiologist: Jayla Vega
--- NOTE | 2018-07-14 20:08 | RAD_ITS ---
STUDY: X-RAY CHEST REASON FOR EXAM: Male, 47 years old. Line placement TECHNIQUE: Single AP portable view of the chest. COMPARISON: 07/13/2018.. FINDINGS: Dialysis catheter terminates in the mid SVC. No pneumothorax. No other changes. Low lung volumes. Bilateral perihilar and basilar infiltrates. RAD/Chest 1 View (Portable) IMPRESSION: Dialysis catheter terminates in the mid SVC. Low lung volumes with symmetric bilateral infiltrates, stable. Electronically Signed: Ramírez Lemos MD at 21:18 EDT , Service support ,
[2018-07-14] MEDS: 0.9% NaCl Peripheral Flush Adult/Peds IV (20:35)
--- NOTE | 2018-07-14 20:45 | NURSING ---
spoke with CIERRA Cali from PACU. received verbal report over phone. patient okay to come to floor.
[2018-07-15] VITALS (20 sets, daily range): BP systolic 143–169; BP diastolic 62–88; PULSE 69–81; RESP 18–24; TEMP 37.3–38.4; O2SAT 92–98
[2018-07-15] MEDS: oxyCODONE 5 MG Tablet 10 MG PO ×2 (00:05→14:16)
[2018-07-15] MEDS: Acetaminophen 325 MG Tablet 650 MG PO (00:42)
[2018-07-15] MEDS: hydrALAZINE 20 MG/ML Vial 10 MG IV (00:42)
[2018-07-15] MEDS: 0.9% NaCl Peripheral Flush Adult/Peds IV ×4 (00:42→20:16)
[2018-07-15 03:01] LABS: Bedside Glucose 95 mg/dL (70-110)
--- NOTE | 2018-07-15 03:20 | RAD_ITS ---
STUDY: X-RAY CHEST REASON FOR EXAM: Male, 47 years old. Shortness of breath. TECHNIQUE: Single AP portable view of the chest. COMPARISON: 07/14/2018. FINDINGS: There is a double-lumen right internal jugular central venous catheter with catheter tip in the distal superior vena cava. There are bilateral pulmonary infiltrates, similar to previous exam. This probably represents CHF with pulmonary edema. Overlying pneumonia cannot be excluded. There is no demonstrated pleural abnormality. Normal size heart. Normal mediastinum and kuldip. Normal visualized pulmonary arteries. Normal visualized aortic arch and descending thoracic aorta. Normal visualized thoracic spine. Normal visualized ribs, clavicles, and shoulders. There is no demonstrated abnormality of the visualized soft tissue structures of the upper abdomen. RAD/Chest 1 View (Portable) IMPRESSION: Central line is in stable position. Persistent bilateral pulmonary infiltrates, not significantly changed. Electronically Signed: Jackson Merrill MD at 3:38 EDT , Service support ,
[2018-07-15] MEDS: Acetaminophen 325 MG Tablet PO (03:26)
[2018-07-15] MEDS: Morphine 2 MG/ML Syringe IV ×4 (03:27→20:16)
[2018-07-15 03:46] LABS: Absolute Lymphocyte Count 1.29 X10^3/ul (0.83-4.51); Absolute Neutrophil Count 8.2 X10^3/uL (2.0-7.7); Basophil# 0.03 X10^3/uL; Basophil% 0.3 % (0-1); Eosinophil# 0.09 X10^3/uL; Eosinophils% 0.8 % (0-5); Hematocrit 32.2 % (40-54); Hemoglobin 10.9 g/dl (13.0-16.5); Lymphocyte # 1.29 X10^3/ul (4.0); Lymphocyte % 11.7 % (19-41); Mean Corp Hgb Conc 33.9 g/gl (32-36); Mean Corpuscular Volume 91.5 fL (80-94); Mean Platelet Vol. 10.2 fl (6.2-12.0); Monocyte# 1.27 X10^3/uL; Monocyte% 11.6 % (0-10); Neutrophil # 8.15 X10^3/uL (2.7-7.7); Neutrophil % 74.1 % (47-70); Platelet Count 112 K/mm3 (150-450); RBC Distribution Width CV 13.2 % (11.6-14.6); RBC Distribution Width SD 42.9 fl (35.1-43.9); Red Blood Count 3.52 M/mm3 (4.6-6.2)
[2018-07-15 03:52] LABS: POSITIVE COUNT NO; POSITIVE DIFFERENTIAL NO; POSITIVE MORPHOLOGY NO
[2018-07-15 04:28] LABS: ALB/GLOB Ratio 0.4 RATIO (0.9-2.4); AST(SGOT) 284 U/L (15-37); Alanine Aminotransfer ALT/SGPT 514 U/L (16-61); Albumin, Serum 1.9 g/dL (3.2-5.0); Alkaline Phosphatase 77 U/L (45-117); Anion Gap 14 (5-15); BUN 83 mg/dL (7-18); BUN/Creat Ratio 9.9 RATIO (10-20); CPK Total, Creatine Kinase 1721 U/L (39-308); Calcium,Total 6.9 mg/dL (8.5-10.1); Chloride 99 mmol/L (98-107); Creatinine, Serum 8.35 mg/dL (0.70-1.30); EST Glomerular Filtration Rate 7 mL/min (>60); Est Glom Filt Rate - Afr Amer 9 mL/min (>60); Estimated Creatinine Clearance 11.54 ml/min; Globulin 4.4 g/dL (2.2-4.2); Glucose 95 mg/dL (74-106); Potassium 3.8 mmol/L (3.5-5.1); Protein, Total 6.3 g/dL (6.4-8.2); Sodium Level 137 mmol/L (136-145)
--- NOTE | 2018-07-15 07:51 | PN_ITS ---
Patient Problems: Active and Suspected Problems (Last Updated 07/14/18 @ 12:39 by Jenni Valdes PA-C) Acute respiratory failure with hypoxia (Acute) Aspiration pneumonia due to food (regurgitated) (Acute) Acute kidney injury (nontraumatic) (Acute) Elevated liver enzymes (Acute) Acute hyperkalemia (Acute) Lactic acidosis (Acute) Anaphylactic shock, unspecified, initial encounter (Acute) Toxic effect of ingested berries, intentional self-harm, initial encounter (Acute) Encephalopathy acute (Acute) Secondary rhabdomyolysis (Acute) Subjective: Consult was placed to Dr. Danielle with vascular surgery who did place right internal jugular 19 cm pre-curved palindrome dialysis catheter placement on 07/14/2018. Patient kidney function continues to worsen with creatinine of 8.25 as of this morning patient seen scheduled to undergo dialysis this a.m. complaining of right shoulder pain x-rays of the right shoulder ordered for subsequent eval Objective: GENERAL: Patient is much more awake compared to the day prior HEENT: Atraumatic; moist oral mucosa EYES; Anicteric, Normal Conjunctiva NECK; supple, normal thyroid, no distended JVD. RESPIRATORY: Diminished to auscultation bilaterally, CARDIOVASCULAR: Regular S1 S2, no audible murmurs GI: soft, non-tender, normoactive bowel sounds, : No Renal angle tenderness; EXTREMITIES: No edema, no clubbing, no cyanosis. MUSCULOSKELETAL: No Joint Tenderness; NEURO: No lateralizing signs. SKIN: No Rash PSYCH; flat affect Vitals/I&O's: Vital Signs Temp Pulse Resp BP Pulse Ox 99.1 F 73 20 H 155/75 H 95 07/15/18 05:30 07/15/18 07:00 07/15/18 05:30 07/15/18 05:30 07/15/18 05:30 Oxygen Flow Rate (L/min) 4 Oxygen Delivery Method Nasal Cannula Weight: 116.3 kg Body Mass Index (BMI) 35.9 Intake and Output for Last 24 Hours 07/13/18 07/14/18 07/15/18 23:59 23:59 23:59 Intake Total 2353.1 / 2353.1 946 / 946 720 / 720 Output Total 150 / 150 350 / 350 60 / 60 Balance 2203.1 / 2203.1 596 / 596 660 / 660 Microbiology Past 72 Hours 07/12/18 13:25 Blood Culture (Wb) - Port Blood Culture - Preliminary No growth in 48 hours. 07/12/18 13:25 Blood Culture (Wb) - Anticubital Left Blood Culture - Preliminary No growth in 48 hours. 07/10/18 18:45 Blood Culture (Wb) - Right Hand Blood Culture - Preliminary No growth in 48 hours. 07/10/18 18:45 Blood Culture (Wb) - Anticubital Right Bacteria Detection (PCR) - Final Streptococcus pneumoniae 07/10/18 18:45 Blood Culture (Wb) - Anticubital Right Blood Culture - Prel iminary Streptococcus pneumoniae 07/11/18 03:30 Urine Catheter - Payne Urine Culture - Final Culture exhibits no growth. 07/11/18 12:20 Sputum, Induced/Lukens Gram Stain - Final 07/11/18 12:20 Sputum, Induced/Lukens Respiratory Culture - Final Staphylococcus aureus Laboratory Results 07/15/18 02:44: POC Glucose 95 07/15/18 03:36: WBC 11.0, RBC 3.52 L, Hgb 10.9 L, Hct 32.2 L, MCV 91.5, MCH 31.0, MCHC 33.9, RDW 13.2, RDW Differential 42.9, Plt Count 112 L, MPV 10.2, Immature Gran % (Auto) 1.500 H, Neut % (Auto) 74.1 H, Lymph % (Auto) 11.7 L, [place] % (Auto) 11.6 H, Eos % (Auto) 0.8, Baso % (Auto) 0.3, Absolute Neuts (auto) 8.2 H, Absolute Lymphs (auto) 1.29, Total Counted Not Reportable 07/15/18 03:36: Sodium 137, Potassium 3.8, Chloride 99, Carbon Dioxide 24.0, Anion Gap 14, BUN 83 H, Creatinine 8.35 H*, Estim Creat Clear Calc 11.54, Est GFR (MDRD) Af Amer 9 L, Est GFR (MDRD) Non-Af 7 L, BUN/Creatinine Ratio 9.9 L, Glucose 95, Calcium 6.9 L, Total Bilirubin 1.40 H, AST 284 H, ALT 514 H, Alkaline Phosphatase 77, Total Creatine Kinase 1721 H, Total Protein 6.3 L, Albumin 1.9 L, Globulin 4.4 H, Albumin/Globulin Ratio 0.4 L Current Medications Acetaminophen (Tylenol) 650 mg PO Q4H PRN PRN PRN Reason: Fever >101 Albuterol Sulfate (Ventolin Aerosols) 2.5 mg INHALATION Q2H PRN PRN PRN Reason: sob/wheezing Bisacodyl (Dulcolax) 5 mg PO DAILY PRN PRN PRN Reason: Constipation Chlorhexidine Gluconate () 1 each TOPICAL DAILY [facility] Last Admin: 07/14/18 09:44 Dose: Not Given Famotidine (Pepcid) 20 mg PO DAILY [facility] Last Admin: 07/14/18 09:49 Dose: 20 mg Hydralazine HCl (Apresoline Iv) 10 mg IV Q4H PRN PRN PRN Reason: SBP > 160 Last Admin: 07/15/18 00:42 Dose: 10 mg Ampicillin Sodium/Sulbactam (Sodium 3 gm/ Sodium Chloride) 112 mls @ 150 mls/hr IV Q12 [facility] Last Admin: 07/14/18 21:31 Dose: 150 mls/hr Magnesium Hydroxide (Milk Of Magnesia) 30 ml PO DAILY PRN PRN PRN Reason: Constipation Morphine Sulfate () 1 - 2 mg IV Q4H PRN PRN PRN Reason: PAIN Last Admin: 07/15/18 03:27 Dose: 2 mg Multivitamins/Minerals (Multivitamin With Minerals) [facility] Last Admin: 07/14/18 09:49 Dose: 1 tablet Ondansetron HCl (Zofran) 4 mg IV Q8H PRN PRN PRN Reason: NAUSEA Oxycodone HCl (Oxyir) 10 mg PO Q4H PRN PRN PRN Reason: SEVERE PAIN (6-10/10) Last Admin: 07/15/18 00:05 Dose: 10 mg Sodium Chloride () 5 - 15 ml IV UD PRN PRN Reason: SALINE FLUSH Last Admin: 07/15/18 03:27 Dose: 10 ml Medical Necessity - Tobacco Use Smoking Status: Current every day smoker Tobacco Use: Cigarettes Assessment/Plan All Active Problems (Last Updated 07/14/18 @ 12:39 by Jenni Valdes PA-C) Acute respiratory failure with hypoxia (Acute) Aspiration pneumonia due to food (regurgitated) (Acute) Acute kidney injury (nontraumatic) (Acute) Elevated liver enzymes (Acute) Acute hyperkalemia (Acute) Lactic acidosis (Acute) Anaphylactic shock, unspecified, initial encounter (Acute) Toxic effect of ingested berries, intentional self-harm, initial encounter (Acute) Encephalopathy acute (Acute) Secondary rhabdomyolysis (Acute) Patient is a 47-year-old gentleman with a history of chronic alcohol abuse, depression with reported suicidal ideation and maintains who was apparently found unresponsive at home brought to the emergency department. Patient was intubated in the ED and subsequently admitted to the intensive care unit. Patient was weaned off the vent on 07/12/2018 1. Acute hypoxic respiratory failure in the context of metabolic encephalopathy as well as suspected aspiration pneumonia patient was intubated in the ED weaned off the vent on 07/12/2018 patient was transferred to the progressive care unit on 07/13/2018. 2. Acute metabolic encephalopathy attributed to intentional drug overdose with gabapentin. Patient in addition was found with with heroin and vodka in his possession. 3. Acute kidney injury attributed to acute rhabdomyolysis with significant dehydration consultation placed to nephrology patient currently being dialyzed. Consult was placed to Dr. Danielle with vascular surgery who did place right internal jugular 19 cm pre-curved palindrome dialysis catheter placement on 07/14/2018. Patient kidney function continues to worsen with creatinine of 8.25 as of this morning on 07/15/18 4. Aspiration pneumonia; blood cultures positive for strep species sputum cultures positive for MSSA, currently on Unasyn 5. Drug-induced hepatitis following patient liver function tests. Slight improvement in patient's liver function test 6. Hyperkalemia resolved with dialysis 7. Acute rhabdomyolysis patient being dialyzed with serial monitoring of CPK levels 8. Substance abuse including alcohol as well as opioids counseled on cessation 9. Shoulder pain ordered x-rays of the shoulder ordered for subsequent elevation 10. DVT prophylaxis SC heparin Code Visit Inpatient E&M: [id number] [facility] Hosp L3
--- NOTE | 2018-07-15 08:25 | PN.SURG_ITS ---
Patient Problems: Active and Suspected Problems (Last Updated 07/14/18 @ 12:39 by Jenni Valdes PA-C) Acute respiratory failure with hypoxia (Acute) Aspiration pneumonia due to food (regurgitated) (Acute) Acute kidney injury (nontraumatic) (Acute) Elevated liver enzymes (Acute) Acute hyperkalemia (Acute) Lactic acidosis (Acute) Anaphylactic shock, unspecified, initial encounter (Acute) Toxic effect of ingested berries, intentional self-harm, initial encounter (Acute) Encephalopathy acute (Acute) Secondary rhabdomyolysis (Acute) Subjective: Patient evaluated resting/moaning in bed. He is currently on dialysis. He notes discomfort all over his body. Minimal amount of pain at the chest catheter site. - Physical Exam Skin: - - Right chest catheter site- c/d/i. No active bleeding noted. Dressing was changed this morning by nurse. No further dressing changes overnight. Vital Signs Temp Pulse Resp BP Pulse Ox 99.1 F 73 20 H 155/75 H 92 07/15/18 05:30 07/15/18 07:00 07/15/18 05:30 07/15/18 05:30 07/15/18 07:30 Oxygen Flow Rate (L/min) 4 Oxygen Delivery Method Nasal Cannula Weight: 256 lb 6.362 oz Body Mass Index (BMI) 35.9 Intake and Output for Last 24 Hours 07/13/18 07/14/18 07/15/18 23:59 23:59 23:59 Intake Total 2353.1 / 2353.1 946 / 946 720 / 720 Output Total 150 / 150 350 / 350 60 / 60 Balance 2203.1 / 2203.1 596 / 596 660 / 660 Microbiology Past 72 Hours 07/12/18 13:25 Blood Culture - Preliminary Blood Culture (Wb) - Port No growth in 48 hours. 07/12/18 13:25 Blood Culture - Preliminary Blood Culture (Wb) - Anticubital Left No growth in 48 hours. 07/10/18 18:45 Blood Culture - Preliminary Blood Culture (Wb) - Right Hand No growth in 48 hours. 07/10/18 18:45 Bacteria Detection (PCR) - Final Blood Culture (Wb) - Anticubital Right Streptococcus pneumoniae Blood Culture - Preliminary Streptococcus pneumoniae 07/11/18 03:30 Urine Culture - Final Urine Catheter - Payne Culture exhibits no growth. 07/11/18 12:20 Gram Stain - Final Sputum, Induced/Lukens Respiratory Culture - Final Staphylococcus aureus Laboratory Tests Past 24 Hrs 07/15/18 07/15/18 03:36 03:36 WBC 11.0 RBC 3.52 L Hgb 10.9 L Hct 32.2 L MCV 91.5 MCH 31.0 MCHC 33.9 RDW 13.2 RDW Differential 42.9 Plt Count 112 L MPV 10.2 Immature Gran % (Auto) 1.500 H Neut % (Auto) 74.1 H Lymph % (Auto) 11.7 L [place] % (Auto) 11.6 H Eos % (Auto) 0.8 Baso % (Auto) 0.3 Absolute Neuts (auto) 8.2 H Absolute Lymphs (auto) 1.29 Total Counted Not Reportable Sodium 137 Potassium 3.8 Chloride 99 Carbon Dioxide 24.0 Anion Gap 14 BUN 83 H Creatinine 8.35 H* Estim Creat Clear Calc 11.54 Est GFR (MDRD) Af Amer 9 L Est GFR (MDRD) Non-Af 7 L BUN/Creatinine Ratio 9.9 L Glucose 95 Calcium 6.9 L Total Bilirubin 1.40 H AST 284 H ALT 514 H Alkaline Phosphatase 77 Total Creatine Kinase 1721 H Total Protein 6.3 L Albumin 1.9 L Globulin 4.4 H Albumin/Globulin Ratio 0.4 L POC Glucose 07/15/18 02:44 POC Glucose 95 Medical Necessity - Tobacco Use Smoking Status: Current every day smoker Tobacco Use: Cigarettes Assessment/Plan All Active Problems (Last Updated 07/14/18 @ 12:39 by Jenni Valdes PA-C) Acute respiratory failure with hypoxia (Acute) Aspiration pneumonia due to food (regurgitated) (Acute) Acute kidney injury (nontraumatic) (Acute) Elevated liver enzymes (Acute) Acute hyperkalemia (Acute) Lactic acidosis (Acute) Anaphylactic shock, unspecified, initial encounter (Acute) Toxic effect of ingested berries, intentional self-harm, initial encounter (Acute) Encephalopathy acute (Acute) Secondary rhabdomyolysis (Acute) I am following this patient in conjunction with Dr. Danielle S/p right chest tunneled dialysis catheter placement Patient currently on dialysis Catheter working well We will continue to monitor this patient as needed Thank you for the consultation Code Visit Inpatient E&M: 71249 Subs Hosp L1 - No charge
[2018-07-15] MEDS: Multivitamins,Ther W-Minerals Tablet 1 TABLET PO (09:41)
[2018-07-15] MEDS: Famotidine 20 MG Tablet PO (09:41)
[2018-07-15 11:22] LABS: Heparin-Induced Plt Ab 0.222 OD (0.000-0.400)
--- NOTE | 2018-07-15 12:26 | DIALYSIS ---
Hemodialysis x 4 hours with 3K bath; Tolerated fair. Removed = -1999; Generalized pain throughout treatment. RIJ CVC capped & locked with heparin per lumen fill volume. Report given to CIERRA Wyman.
--- NOTE | 2018-07-15 12:47 | PCM.PN.REN ---
Patient Problems: Active and Suspected Problems (Last Updated 07/14/18 @ 12:39 by Jenni Valdes PA-C) Acute respiratory failure with hypoxia (Acute) Aspiration pneumonia due to food (regurgitated) (Acute) Acute kidney injury (nontraumatic) (Acute) Elevated liver enzymes (Acute) Acute hyperkalemia (Acute) Lactic acidosis (Acute) Anaphylactic shock, unspecified, initial encounter (Acute) Toxic effect of ingested berries, intentional self-harm, initial encounter (Acute) Encephalopathy acute (Acute) Secondary rhabdomyolysis (Acute) Subjective: Pt was seen during HD session. No nausea No vomiting Complaining of left shoulder pain - Physical Exam HEENT: Atraumatic Oral: Dry Mucosa Neck: Supple, No JVD Lungs: Clear to auscultation, Normal air movement, No rhonchi, No wheeze Cardiovascular: Regular rate, Regular Rhythm, Normal S1, Normal S2 Abdomen: Bowel Sounds Present, Soft, Non Tender, Non-Distended Extremities: No clubbing, No cyanosis, No edema Skin: No rashes Musculoskeletal: No Muscle Wasting Lymphatic: No Cervical, Supraclavicular, or Inguinal Adenopathy Neurological: Neuro grossly intact Vital Signs Temp Pulse Resp BP Pulse Ox 99.2 F H 75 22 H 169/88 H 97 07/15/18 12:27 07/15/18 12:27 07/15/18 12:27 07/15/18 12:27 07/15/18 09:47 Oxygen Flow Rate (L/min) 4 Oxygen Delivery Method Nasal Cannula Weight: 116.3 kg Body Mass Index (BMI) 35.9 Intake and Output for Last 24 Hours 07/13/18 07/14/18 07/15/18 23:59 23:59 23:59 Intake Total 2353.1 / 2353.1 946 / 946 720 / 720 Output Total 150 / 150 350 / 350 4060 / 4060 Balance 2203.1 / 2203.1 596 / 596 -3340 / -3340 Microbiology Past 72 Hours 07/12/18 13:25 Blood Culture - Preliminary Blood Culture (Wb) - Port No growth in 48 hours. 07/12/18 13:25 Blood Culture - Preliminary Blood Culture (Wb) - Anticubital Left No growth in 48 hours. 07/10/18 18:45 Blood Culture - Preliminary Blood Culture (Wb) - Right Hand No growth in 48 hours. 07/10/18 18:45 Bacteria Detection (PCR) - Final Blood Culture (Wb) - Anticubital Right Streptococcus pneumoniae Blood Culture - Preliminary Streptococcus pneumoniae 07/11/18 03:30 Urine Culture - Final Urine Catheter - Payne Culture exhibits no growth. 07/11/18 12:20 Gram Stain - Final Sputum, Induced/Lukens Respiratory Culture - Final Staphylococcus aureus Laboratory Tests Past 24 Hrs 07/13/18 07/15/18 07/15/18 08:40 03:36 03:36 WBC 11.0 RBC 3.52 L Hgb 10.9 L Hct 32.2 L MCV 91.5 MCH 31.0 MCHC 33.9 RDW 13.2 RDW Differential 42.9 Plt Count 112 L MPV 10.2 Immature Gran % (Auto) 1.500 H Neut % (Auto) 74.1 H Lymph % (Auto) 11.7 L [place] % (Auto) 11.6 H Eos % (Auto) 0.8 Baso % (Auto) 0.3 Absolute Neuts (auto) 8.2 H Absolute Lymphs (auto) 1.29 Total Counted Not Reportable Sodium 137 Potassium 3.8 Chloride 99 Carbon Dioxide 24.0 Anion Gap 14 BUN 83 H Creatinine 8.35 H* Estim Creat Clear Calc 11.54 Est GFR (MDRD) Af Amer 9 L Est GFR (MDRD) Non-Af 7 L BUN/Creatinine Ratio 9.9 L Glucose 95 Calcium 6.9 L Total Bilirubin 1.40 H AST 284 H ALT 514 H Alkaline Phosphatase 77 Total Creatine Kinase 1721 H Total Protein 6.3 L Albumin 1.9 L Globulin 4.4 H Albumin/Globulin Ratio 0.4 L Heparin-induced Plt Ab 0.222 POC Glucose 07/15/18 02:44 POC Glucose 95 Medical Necessity - Tobacco Use Smoking Status: Current every day smoker Tobacco Use: Cigarettes Assessment/Plan All Active Problems (Last Updated 07/14/18 @ 12:39 by Jenni Valdes PA-C) Acute respiratory failure with hypoxia (Acute) Aspiration pneumonia due to food (regurgitated) (Acute) Acute kidney injury (nontraumatic) (Acute) Elevated liver enzymes (Acute) Acute hyperkalemia (Acute) Lactic acidosis (Acute) Anaphylactic shock, unspecified, initial encounter (Acute) Toxic effect of ingested berries, intentional self-harm, initial encounter (Acute) Encephalopathy acute (Acute) Secondary rhabdomyolysis (Acute) 1. Acute kidney injury. Pt's baseline renal function is unknown. Presumed normal. HÉCTOR is likely due to ischemic/nephrotoxic ATN related to rhabdomyolysis and volume depletion. Pt is now HD dependent. HD started on 07/11. Tunneled cath was placed on 07/14 Remains oliguric HD session today : BQ 400 DQ 700 UF 2L Dose medications for CrCl<10. Avoid ACEI/ARB Will continue to monitor for kidney function recovery 2. Hyperkalemia.resolved with HD. Follow K. 3. Rhabdomyolysis. Improved 4. Acute hypoxic respiratory failure. extubated On antibiotic for possible aspiration. Dose of Unasyn acceptable for HÉCTOR on dialysis. Renal team will continue to follow. please call if any question at [phone] CLAU HOBSON MD
[2018-07-15] MEDS: Heparin 10,000 UNITS/10 ML Vial IV (12:56)
--- NOTE | 2018-07-15 15:22 | CASEMGMT ---
Call to [facility] to check on referral and per rep, Miranda is the assigned coordinator but she unable to take a call at this time. Miranda's ext. [phone]. Rep states that medical/financial clearance are still pending at this time. Joel NORTON CM
[2018-07-15 20:06] LABS: HCV Quant. RNA PCR 156000 IU/mL (.)
[2018-07-16] VITALS (14 sets, daily range): BP systolic 130–166; BP diastolic 66–78; PULSE 69–79; RESP 14–20; TEMP 37.3–37.4; O2SAT 85–96
[2018-07-16] MEDS: Ondansetron 4 MG/2 ML Vial IV (07:56)
[2018-07-16] MEDS: 0.9% NaCl Peripheral Flush Adult/Peds IV ×2 (07:56→19:46)
[2018-07-16] MEDS: Famotidine 20 MG Tablet PO (09:06)
[2018-07-16] MEDS: oxyCODONE 5 MG Tablet 10 MG PO ×2 (09:06→21:25)
[2018-07-16] MEDS: Multivitamins,Ther W-Minerals Tablet 1 TABLET PO (09:06)
--- NOTE | 2018-07-16 09:26 | PCM.PN.HOSP ---
Patient Problems: Active and Suspected Problems (Last Updated 07/14/18 @ 12:39 by Jenni Valdes PA-C) Acute respiratory failure with hypoxia (Acute) Aspiration pneumonia due to food (regurgitated) (Acute) Acute kidney injury (nontraumatic) (Acute) Elevated liver enzymes (Acute) Acute hyperkalemia (Acute) Lactic acidosis (Acute) Anaphylactic shock, unspecified, initial encounter (Acute) Toxic effect of ingested berries, intentional self-harm, initial encounter (Acute) Encephalopathy acute (Acute) Secondary rhabdomyolysis (Acute) Subjective: Patient seen and examined. He was quite lethargic but had no complaints. Was informed that he had a complaint of nausea earlier and had just been given medication for that. He denies any fever chills, palpitations or dizziness, chest pain, diarrhea or vomiting. He had a dialysis put in by general surgery yesterday. Labs and vitals reviewed. Vitals/I&O's: Vital Signs Temp Pulse Resp BP Pulse Ox 99.3 F H 76 18 134/69 H 94 07/16/18 08:10 07/16/18 08:10 07/16/18 08:10 07/16/18 08:10 07/16/18 08:10 Oxygen Flow Rate (L/min) 2 Oxygen Delivery Method Nasal Cannula Weight: 249 lb 12.54 oz Body Mass Index (BMI) 35.9 Intake and Output for Last 24 Hours 07/14/18 07/15/18 07/16/18 23:59 23:59 23:59 Intake Total 946 / 946 1457 / 1457 480 / 480 Output Total 350 / 350 4210 / 4210 50 / 50 Balance 596 / 596 -2753 / -2753 430 / 430 General: Alert, Cooperative, No apparent distress, Lethargic HEENT: Atraumatic, PERRLA, EOMI, Normocephalic Oral: Dry Mucosa Neck: Supple, No JVD, Negative Carotid Bruits Lungs: No rhonchi, No wheeze, No rales, - - breath sounds mildly diminished bibasally Cardiovascular: Regular rate, Regular Rhythm, Normal S1, Normal S2, No murmurs Abdomen: Bowel Sounds Present, Soft, Non Tender, Non-Distended, No Hepato-splenomegaly Extremities: No clubbing, No cyanosis, No edema, Capillary Refill Less than 3 Seconds Skin: No rashes, No breakdown Musculoskeletal: No Tenderness to Palpation of Joints or Extremities Lymphatic: No Cervical, Supraclavicular, or Inguinal Adenopathy Neurological: Cranial nerves II-XII grossly intact, Neuro grossly intact, Motor Exam 5/5 strength throughout Psych/Mental Status: Normal Affect, Appropriate, - - lethargic, Alert and oriented to time, place, person, mood and affect Microbiology Past 72 Hours 07/10/18 18:45 Blood Culture (Wb) - Anticubital Right Bacteria Detection (PCR) - Final Streptococcus pneumoniae 07/10/18 18:45 Blood Culture (Wb) - Anticubital Right Blood Culture - Final Streptococcus pneumoniae 07/10/18 18:45 Blood Culture (Wb) - Right Hand Blood Culture - Final No growth in 5 days. 07/12/18 13:25 Blood Culture (Wb) - Port Blood Culture - Preliminary No growth in 48 hours. 07/12/18 13:25 Blood Culture (Wb) - Anticubital Left Blood Culture - Preliminary No growth in 48 hours. 07/11/18 03:30 Urine Catheter - Payne Urine Culture - Final Culture exhibits no growth. 07/11/18 12:20 Sputum, Induced/Lukens Gram Stain - Final 07/11/18 12:20 Sputum, Induced/Lukens Respiratory Culture - Final Staphylococcus aureus Laboratory Results 07/13/18 08:40: Heparin-induced Plt Ab 0.222 Current Medications Acetaminophen (Tylenol) 650 mg PO Q4H PRN PRN PRN Reason: Fever >101 Albuterol Sulfate (Ventolin Aerosols) 2.5 mg INHALATION Q2H PRN PRN PRN Reason: sob/wheezing Bisacodyl (Dulcolax) 5 mg PO DAILY PRN PRN PRN Reason: Constipation Famotidine (Pepcid) 20 mg PO DAILY KRISTEN Last Admin: 07/16/18 09:06 Dose: 20 mg Hydralazine HCl (Apresoline Iv) 10 mg IV Q4H PRN PRN PRN Reason: SBP > 160 Last Admin: 07/15/18 00:42 Dose: 10 mg Magnesium Hydroxide (Milk Of Magnesia) 30 ml PO DAILY PRN PRN PRN Reason: Constipation Morphine Sulfate () 1 - 2 mg IV Q4H PRN PRN PRN Reason: PAIN Last Admin: 07/15/18 20:16 Dose: 2 mg Multivitamins/Minerals (Multivitamin With Minerals) 1 tablet PO DAILYCM KRISTEN Last Admin: 07/16/18 09:06 Dose: 1 tablet Ondansetron HCl (Zofran) 4 mg IV Q8H PRN PRN PRN Reason: NAUSEA Last Admin: 07/16/18 07:56 Dose: 4 mg Oxycodone HCl (Oxyir) 10 mg PO Q4H PRN PRN PRN Reason: SEVERE PAIN (6-10/10) Last Admin: 07/16/18 09:06 Dose: 10 mg Sodium Chloride () 5 - 15 ml IV UD PRN PRN Reason: SALINE FLUSH Last Admin: 07/16/18 07:56 Dose: 10 ml Medical Necessity - Tobacco Use Smoking Status: Current every day smoker Tobacco Use: Cigarettes Assessment/Plan All Active Problems (Last Updated 07/14/18 @ 12:39 by Jenni Valdes PA-C) Acute respiratory failure with hypoxia (Acute) Aspiration pneumonia due to food (regurgitated) (Acute) Acute kidney injury (nontraumatic) (Acute) Elevated liver enzymes (Acute) Acute hyperkalemia (Acute) Lactic acidosis (Acute) Anaphylactic shock, unspecified, initial encounter (Acute) Toxic effect of ingested berries, intentional self-harm, initial encounter (Acute) Encephalopathy acute (Acute) Secondary rhabdomyolysis (Acute) 1. Acute hypoxic respiratory failure due to intentional drug overdose and aspiration pneumonia successfully extubatec on 07/12/18 and transferred to PCU on 07/13/18 currently stable, saturating well on 2L of oxygen. On breawthing treatments 2. Acute metabolic encephalopathy due to intentional drug overdose with gabapentin mentation has improved now. Also had heroin and vodka in his system 3. HÉCTOR likely due to acute rhabdomyolysis and dehydration Cr was up to ~ 8 yesterday bloodwork pending today nephrology on board; having regular dialysis had right internal jugular dialysis catheter placed on 07/14/18 4. Apiration pneumonia: blood cultures were positive for strep, and sputum cultures positive for MSSA. IV Unasyn was stopped on 07/15/2018 after he completed 7-day course. 5. Drug induced hepatitis: liver enzymes showed total bilirubin of 1.4, with AST/ALT of 284/514. Results pending today. 6. Hyperkalemia: resolved with dialysis 7. Acute rhabdomyolysis: CPK remained elevated and was 1721 yesterday. Getting regular dialysis. CPK level pending today. 8. Substance abuse: had heroin and vodka in his system as well. Counselled on cessation 9. Shoulder pain: had no complaints about shoulder pain today. Resolved. 10. Thrombocytopenia: platelets were 234 on admission; dropped to a renu of 76. heparin antibodies checked were negative. Likely due to liver impairment. Platelets are 112 today. DVT prophylaxis: will give SCDs Code Visit Inpatient E&M: 46453 Subs Hosp L3
--- NOTE | 2018-07-16 09:31 | PN_ITS ---
Patient Problems: Active and Suspected Problems (Last Updated 07/14/18 @ 12:39 by Jenni Valdes PA-C) Acute respiratory failure with hypoxia (Acute) Aspiration pneumonia due to food (regurgitated) (Acute) Acute kidney injury (nontraumatic) (Acute) Elevated liver enzymes (Acute) Acute hyperkalemia (Acute) Lactic acidosis (Acute) Anaphylactic shock, unspecified, initial encounter (Acute) Toxic effect of ingested berries, intentional self-harm, initial encounter (Acute) Encephalopathy acute (Acute) Secondary rhabdomyolysis (Acute) Subjective: Patient seen and examined. He was quite lethargic but had no complaints. Was informed that he had a complaint of nausea earlier and had just been given medication for that. He denies any fever chills, palpitations or dizziness, chest pain, diarrhea or vomiting. He had a dialysis put in by general surgery yesterday. Labs and vitals reviewed. Vitals/I&O's: Vital Signs Temp Pulse Resp BP Pulse Ox 99.3 F H 76 18 134/69 H 94 07/16/18 08:10 07/16/18 08:10 07/16/18 08:10 07/16/18 08:10 07/16/18 08:10 Oxygen Flow Rate (L/min) 2 Oxygen Delivery Method Nasal Cannula Weight: 249 lb 12.54 oz Body Mass Index (BMI) 35.9 Intake and Output for Last 24 Hours 07/14/18 07/15/18 07/16/18 23:59 23:59 23:59 Intake Total 946 / 946 1457 / 1457 480 / 480 Output Total 350 / 350 4210 / 4210 50 / 50 Balance 596 / 596 -2753 / -2753 430 / 430 General: Alert, Cooperative, No apparent distress, Lethargic HEENT: Atraumatic, PERRLA, EOMI, Normocephalic Oral: Dry Mucosa Neck: Supple, No JVD, Negative Carotid Bruits Lungs: No rhonchi, No wheeze, No rales, - - breath sounds mildly diminished bibasally Cardiovascular: Regular rate, Regular Rhythm, Normal S1, Normal S2, No murmurs Abdomen: Bowel Sounds Present, Soft, Non Tender, Non-Distended, No Hepato- splenomegaly Extremities: No clubbing, No cyanosis, No edema, Capillary Refill Less than 3 Seconds Skin: No rashes, No breakdown Musculoskeletal: No Tenderness to Palpation of Joints or Extremities Lymphatic: No Cervical, Supraclavicular, or Inguinal Adenopathy Neurological: Cranial nerves II-XII grossly intact, Neuro grossly intact, Motor Exam 5/5 strength throughout Psych/Mental Status: Normal Affect, Appropriate, - - lethargic, Alert and oriented to time, place, person, mood and affect Microbiology Past 72 Hours 07/10/18 18:45 Blood Culture (Wb) - Anticubital Right Bacteria Detection (PCR) - Final Streptococcus pneumoniae 07/10/18 18:45 Blood Culture (Wb) - Anticubital Right Blood Culture - Final Streptococcus pneumoniae 07/10/18 18:45 Blood Culture (Wb) - Right Hand Blood Culture - Final No growth in 5 days. 07/12/18 13:25 Blood Culture (Wb) - Port Blood Culture - Preliminary No growth in 48 hours. 07/12/18 13:25 Blood Culture (Wb) - Anticubital Left Blood Culture - Preliminary No growth in 48 hours. 07/11/18 03:30 Urine Catheter - Payne Urine Culture - Final Culture exhibits no growth. 07/11/18 12:20 Sputum, Induced/Lukens Gram Stain - Final 07/11/18 12:20 Sputum, Induced/Lukens Respiratory Culture - Final Staphylococcus aureus Laboratory Results 07/13/18 08:40: Heparin-induced Plt Ab 0.222 Current Medications Acetaminophen (Tylenol) 650 mg PO Q4H PRN PRN PRN Reason: Fever >101 Albuterol Sulfate (Ventolin Aerosols) 2.5 mg INHALATION Q2H PRN PRN PRN Reason: sob/wheezing Bisacodyl (Dulcolax) 5 mg PO DAILY PRN PRN PRN Reason: Constipation Famotidine (Pepcid) 20 mg PO DAILY KRISTEN Last Admin: 07/16/18 09:06 Dose: 20 mg Hydralazine HCl (Apresoline Iv) 10 mg IV Q4H PRN PRN PRN Reason: SBP > 160 Last Admin: 07/15/18 00:42 Dose: 10 mg Magnesium Hydroxide (Milk Of Magnesia) 30 ml PO DAILY PRN PRN PRN Reason: Constipation Morphine Sulfate () 1 - 2 mg IV Q4H PRN PRN PRN Reason: PAIN Last Admin: 07/15/18 20:16 Dose: 2 mg Multivitamins/Minerals (Multivitamin With Minerals) 1 tablet PO DAILYCM KRISTEN Last Admin: 07/16/18 09:06 Dose: 1 tablet Ondansetron HCl (Zofran) 4 mg IV Q8H PRN PRN PRN Reason: NAUSEA Last Admin: 07/16/18 07:56 Dose: 4 mg Oxycodone HCl (Oxyir) 10 mg PO Q4H PRN PRN PRN Reason: SEVERE PAIN (6-10/10) Last Admin: 07/16/18 09:06 Dose: 10 mg Sodium Chloride () 5 - 15 ml IV UD PRN PRN Reason: SALINE FLUSH Last Admin: 07/16/18 07:56 Dose: 10 ml Medical Necessity - Tobacco Use Smoking Status: Current every day smoker Tobacco Use: Cigarettes Assessment/Plan All Active Problems (Last Updated 07/14/18 @ 12:39 by Jenni Valdes PA-C) Acute respiratory failure with hypoxia (Acute) Aspiration pneumonia due to food (regurgitated) (Acute) Acute kidney injury (nontraumatic) (Acute) Elevated liver enzymes (Acute) Acute hyperkalemia (Acute) Lactic acidosis (Acute) Anaphylactic shock, unspecified, initial encounter (Acute) Toxic effect of ingested berries, intentional self-harm, initial encounter (Acute) Encephalopathy acute (Acute) Secondary rhabdomyolysis (Acute) 1. Acute hypoxic respiratory failure due to intentional drug overdose and aspiration pneumonia * successfully extubatec on 07/12/18 and transferred to PCU on 07/13/18 * currently stable, saturating well on 2L of oxygen. On breawthing treatments * 2. Acute metabolic encephalopathy due to intentional drug overdose with gabapentin * mentation has improved now. Also had heroin and vodka in his system * 3. HÉCTOR likely due to acute rhabdomyolysis and dehydration * Cr was up to ~ 8 yesterday * bloodwork pending today * nephrology on board; having regular dialysis * had right internal jugular dialysis catheter placed on 07/14/18 * 4. Apiration pneumonia: * blood cultures were positive for strep, and sputum cultures positive for MSSA. * IV Unasyn was stopped on 07/15/2018 after he completed 7-day course. * 5. Drug induced hepatitis: liver enzymes showed total bilirubin of 1.4, with AST/ALT of 284/514. Results pending today. 6. Hyperkalemia: resolved with dialysis 7. Acute rhabdomyolysis: CPK remained elevated and was 1721 yesterday. Getting regular dialysis. CPK level pending today. 8. Substance abuse: had heroin and vodka in his system as well. Counselled on cessation 9. Shoulder pain: had no complaints about shoulder pain today. Resolved. 10. Thrombocytopenia: * platelets were 234 on admission; dropped to a renu of 76. * heparin antibodies checked were negative. * Likely due to liver impairment. Platelets are 112 today. * DVT prophylaxis: will give SCDs Code Visit Inpatient E&M: 26861 Subs Hosp L3
[2018-07-16 10:24] LABS: Absolute Lymphocyte Count 2.57 X10^3/ul (0.83-4.51); Absolute Neutrophil Count 7.1 X10^3/uL (2.0-7.7); Basophil# 0.07 X10^3/uL; Basophil% 0.7 % (0-1); Eosinophils% 1.9 % (0-5); Hemoglobin 10.5 g/dl (13.0-16.5); Lymphocyte # 2.57 X10^3/ul (4.0); Lymphocyte % 24.2 % (19-41); Mean Corp Hgb Conc 33.9 g/gl (32-36); Mean Corpuscular Volume 91.4 fL (80-94); Mean Platelet Vol. 9.2 fl (6.2-12.0); Monocyte# 0.43 X10^3/uL; Monocyte% 4.1 % (0-10); Neutrophil # 7.12 X10^3/uL (2.7-7.7); Neutrophil % 67.1 % (47-70); Platelet Count 133 K/mm3 (150-450); RBC Distribution Width CV 13.3 % (11.6-14.6); RBC Distribution Width SD 44.3 fl (35.1-43.9); Red Blood Count 3.39 M/mm3 (4.6-6.2); White Blood Count 10.6 K/mm3 (4.4-11.0)
[2018-07-16 10:25] LABS: POSITIVE COUNT YES; POSITIVE DIFFERENTIAL NO; POSITIVE MORPHOLOGY YES
--- NOTE | 2018-07-16 10:34 | PN.ID_ITS ---
Patient Problems: Active and Suspected Problems (Last Updated 07/14/18 @ 12:39 by Jenni Valdes PA-C) Acute respiratory failure with hypoxia (Acute) Aspiration pneumonia due to food (regurgitated) (Acute) Acute kidney injury (nontraumatic) (Acute) Elevated liver enzymes (Acute) Acute hyperkalemia (Acute) Lactic acidosis (Acute) Anaphylactic shock, unspecified, initial encounter (Acute) Toxic effect of ingested berries, intentional self-harm, initial encounter (Acute) Encephalopathy acute (Acute) Secondary rhabdomyolysis (Acute) Subjective: Still some low grade temps and c/o green sputum. - Physical Exam General: Alert, Cooperative Lungs: Diminished Cardiovascular: Regular rate, Regular Rhythm Abdomen: Soft, Non Tender, Non-Distended Extremities: Edema Skin: No rashes Vital Signs Temp Pulse Resp BP Pulse Ox 99.3 F H 76 18 134/69 H 94 07/16/18 08:10 07/16/18 08:10 07/16/18 08:10 07/16/18 08:10 07/16/18 08:10 Oxygen Flow Rate (L/min) 2 Oxygen Delivery Method Nasal Cannula Weight: 113.3 kg Body Mass Index (BMI) 35.9 Intake and Output for Last 24 Hours 07/14/18 07/15/18 07/16/18 23:59 23:59 23:59 Intake Total 946 / 946 1457 / 1457 480 / 480 Output Total 350 / 350 4210 / 4210 50 / 50 Balance 596 / 596 -2753 / -2753 430 / 430 Microbiology Past 72 Hours 07/10/18 18:45 Bacteria Detection (PCR) - Final Blood Culture (Wb) - Anticubital Right Streptococcus pneumoniae Blood Culture - Final Streptococcus pneumoniae 07/10/18 18:45 Blood Culture - Final Blood Culture (Wb) - Right Hand No growth in 5 days. 07/12/18 13:25 Blood Culture - Preliminary Blood Culture (Wb) - Port No growth in 48 hours. 07/12/18 13:25 Blood Culture - Preliminary Blood Culture (Wb) - Anticubital Left No growth in 48 hours. 07/11/18 03:30 Urine Culture - Final Urine Catheter - Payne Culture exhibits no growth. 07/11/18 12:20 Gram Stain - Final Sputum, Induced/Lukens Respiratory Culture - Final Staphylococcus aureus Laboratory Tests Past 24 Hrs 07/13/18 07/16/18 07/16/18 08:40 10:12 10:12 WBC 10.6 RBC 3.39 L Hgb 10.5 L Hct 31.0 L MCV 91.4 MCH 31.0 MCHC 33.9 RDW 13.3 RDW Differential 44.3 H Plt Count 133 L MPV 9.2 Immature Gran % (Auto) 2.000 H Neut % (Auto) 67.1 Lymph % (Auto) 24.2 [place] % (Auto) 4.1 Eos % (Auto) 1.9 Baso % (Auto) 0.7 Absolute Neuts (auto) 7.1 Absolute Lymphs (auto) 2.57 Total Counted Not Reportable Diff Path Review May foll Sodium Pending Potassium Pending Chloride Pending Carbon Dioxide Pending Anion Gap Pending BUN Pending Creatinine Pending Est GFR (MDRD) Af Amer Pending Est GFR (MDRD) Non-Af Pending BUN/Creatinine Ratio Pending Glucose Pending Calcium Pending Total Bilirubin Pending AST Pending ALT Pending Alkaline Phosphatase Pending Total Protein Pending Albumin Pending Heparin-induced Plt Ab 0.222 Medical Necessity - Tobacco Use Smoking Status: Current every day smoker Tobacco Use: Cigarettes Route of nutrition/ use of supplements: [] Nutritional Intake: [] IV Site: [] Payne Catheter: [] - Assessment/Plan Antibiotics: [] Assessment/Plan: [] Active and Suspected Problems (Last Updated 07/10/18 @ 23:08 by Faustino Hagan MD) Acute respiratory failure with hypoxia (Acute) Aspiration pneumonia due to food (regurgitated) (Acute) Acute kidney injury (nontraumatic) (Acute) Elevated liver enzymes (Acute) Acute hyperkalemia (Acute) Lactic acidosis (Acute) Anaphylactic shock, unspecified, initial encounter (Acute) Toxic effect of ingested berries, intentional self-harm, initial encounter (Acute) Encephalopathy acute (Acute) Secondary rhabdomyolysis (Acute) sepsis with transaminitis, aspiration pneumonia, single (+) bcx with s.pneumo, sputum with mssa, HÉCTOR. Overall improving. Hep C (+). Pending hep C pcr and hiv was neg. On unasyn, day 8 of abx, will change to augmentin and check repeat sputum cx. Persistent cxr changes may be more fluid-related, but he is still having some low grade temps. Will follow
[2018-07-16 10:53] LABS: ALB/GLOB Ratio 0.4 RATIO (0.9-2.4); AST(SGOT) 171 U/L (15-37); Alanine Aminotransfer ALT/SGPT 216 U/L (16-61); Albumin, Serum 1.8 g/dL (3.2-5.0); Alkaline Phosphatase 82 U/L (45-117); Anion Gap 11 (5-15); BUN 74 mg/dL (7-18); BUN/Creat Ratio 9.2 RATIO (10-20); Calcium,Total 7.7 mg/dL (8.5-10.1); Chloride 97 mmol/L (98-107); Creatinine, Serum 8.08 mg/dL (0.70-1.30); EST Glomerular Filtration Rate 8 mL/min (>60); Est Glom Filt Rate - Afr Amer 9 mL/min (>60); Estimated Creatinine Clearance 11.92 ml/min; Globulin 4.4 g/dL (2.2-4.2); Glucose 115 mg/dL (74-106); Potassium 3.9 mmol/L (3.5-5.1); Protein, Total 6.2 g/dL (6.4-8.2); Sodium Level 135 mmol/L (136-145)
[2018-07-16] MEDS: Amox/Clavulanate 500 MG Tablet PO (12:13)
[2018-07-16] MEDS: Acetaminophen 325 MG Tablet 650 MG PO (12:13)
--- NOTE | 2018-07-16 13:30 | PCM.PN.REN ---
Patient Problems: Active and Suspected Problems (Last Updated 07/14/18 @ 12:39 by Jenni Valdes PA-C) Acute respiratory failure with hypoxia (Acute) Aspiration pneumonia due to food (regurgitated) (Acute) Acute kidney injury (nontraumatic) (Acute) Elevated liver enzymes (Acute) Acute hyperkalemia (Acute) Lactic acidosis (Acute) Anaphylactic shock, unspecified, initial encounter (Acute) Toxic effect of ingested berries, intentional self-harm, initial encounter (Acute) Encephalopathy acute (Acute) Secondary rhabdomyolysis (Acute) Subjective: No nausea No vomiting. No SOB - Physical Exam General: Alert, Oriented x3 HEENT: Atraumatic Oral: Moist Mucosa Neck: Supple, No JVD Lungs: Clear to auscultation Cardiovascular: Regular rate, Regular Rhythm, Normal S1, Normal S2 Abdomen: Bowel Sounds Present, Soft, Non Tender, Non-Distended Extremities: No clubbing, No cyanosis, No edema Skin: No rashes Lymphatic: No Cervical, Supraclavicular, or Inguinal Adenopathy Neurological: Cranial nerves II-XII grossly intact, Neuro grossly intact Vital Signs Temp Pulse Resp BP Pulse Ox 99.3 F H 76 18 134/69 H 94 07/16/18 08:10 07/16/18 08:10 07/16/18 08:10 07/16/18 08:10 07/16/18 08:10 Oxygen Flow Rate (L/min) 2 Oxygen Delivery Method Nasal Cannula Weight: 113.3 kg Body Mass Index (BMI) 35.9 Intake and Output for Last 24 Hours 07/14/18 07/15/18 07/16/18 23:59 23:59 23:59 Intake Total 946 / 946 1457 / 1457 1213 / 1213 Output Total 350 / 350 4210 / 4210 175 / 175 Balance 596 / 596 -2753 / -2753 1038 / 1038 Microbiology Past 72 Hours 07/10/18 18:45 Bacteria Detection (PCR) - Final Blood Culture (Wb) - Anticubital Right Streptococcus pneumoniae Blood Culture - Final Streptococcus pneumoniae 07/10/18 18:45 Blood Culture - Final Blood Culture (Wb) - Right Hand No growth in 5 days. 07/12/18 13:25 Blood Culture - Preliminary Blood Culture (Wb) - Port No growth in 48 hours. 07/12/18 13:25 Blood Culture - Preliminary Blood Culture (Wb) - Anticubital Left No growth in 48 hours. Laboratory Tests Past 24 Hrs 07/16/18 07/16/18 10:12 10:12 WBC 10.6 RBC 3.39 L Hgb 10.5 L Hct 31.0 L MCV 91.4 MCH 31.0 MCHC 33.9 RDW 13.3 RDW Differential 44.3 H Plt Count 133 L MPV 9.2 Immature Gran % (Auto) 2.000 H Neut % (Auto) 67.1 Lymph % (Auto) 24.2 [place] % (Auto) 4.1 Eos % (Auto) 1.9 Baso % (Auto) 0.7 Absolute Neuts (auto) 7.1 Absolute Lymphs (auto) 2.57 Total Counted Not Reportable Diff Path Review May foll Sodium 135 L Potassium 3.9 Chloride 97 L Carbon Dioxide 27.0 Anion Gap 11 BUN 74 H Creatinine 8.08 H* Estim Creat Clear Calc 11.92 Est GFR (MDRD) Af Amer 9 L Est GFR (MDRD) Non-Af 8 L BUN/Creatinine Ratio 9.2 L Glucose 115 H Calcium 7.7 L Total Bilirubin 1.00 AST 171 H ALT 216 H Alkaline Phosphatase 82 Total Protein 6.2 L Albumin 1.8 L Globulin 4.4 H Albumin/Globulin Ratio 0.4 L Medical Necessity - Tobacco Use Smoking Status: Current every day smoker Tobacco Use: Cigarettes Assessment/Plan All Active Problems (Last Updated 07/14/18 @ 12:39 by Jenni Valdes PA-C) Acute respiratory failure with hypoxia (Acute) Aspiration pneumonia due to food (regurgitated) (Acute) Acute kidney injury (nontraumatic) (Acute) Elevated liver enzymes (Acute) Acute hyperkalemia (Acute) Lactic acidosis (Acute) Anaphylactic shock, unspecified, initial encounter (Acute) Toxic effect of ingested berries, intentional self-harm, initial encounter (Acute) Encephalopathy acute (Acute) Secondary rhabdomyolysis (Acute) 1. Acute kidney injury. Pt's baseline renal function is unknown. Presumed normal. HÉCTOR is likely due to ischemic/nephrotoxic ATN related to rhabdomyolysis and volume depletion. Pt is now HD dependent. HD started on 07/11. Tunneled cath was placed on 07/14 Remains oliguric last HD sessio 07/15. No need for HD today. Next session tomorrow Dose medications for CrCl<10. Avoid ACEI/ARB Will continue to monitor for kidney function recovery 2. Hyperkalemia.resolved with HD. Follow K. 3. Rhabdomyolysis. Improved 4. Acute hypoxic respiratory failure. extubated On antibiotic for possible aspiration. Dose of Unasyn acceptable for HÉCTOR on dialysis. Renal team will continue to follow. please call if any question at [phone] CLAU HOBSON MD
[2018-07-16 15:17] LABS: Pathologist Review Reviewed
[2018-07-16 15:56] LABS: HCV log 10 5.193 (.)
[2018-07-16] MEDS: hydrALAZINE 20 MG/ML Vial 10 MG IV (19:46)
[2018-07-17] VITALS (16 sets, daily range): BP systolic 134–155; BP diastolic 57–95; PULSE 65–76; RESP 16–20; TEMP 36.9–37.7; O2SAT 86–96
[2018-07-17] MEDS: oxyCODONE 5 MG Tablet 10 MG PO ×3 (04:55→19:30)
[2018-07-17 07:13] LABS: Differential Indicated MANUAL DIFF; Hematocrit 31.4 % (40-54); Hemoglobin 10.6 g/dl (13.0-16.5); Mean Corp Hgb Conc 33.8 g/gl (32-36); Mean Corpuscular Hgb 30.7 pg (27.0-32.0); Mean Platelet Vol. 10.3 fl (6.2-12.0); POSITIVE COUNT YES; POSITIVE DIFFERENTIAL YES; POSITIVE MORPHOLOGY YES; Platelet Count 188 K/mm3 (150-450); RBC Distribution Width SD 42.4 fl (35.1-43.9); Red Blood Count 3.45 M/mm3 (4.6-6.2); White Blood Count 10.5 K/mm3 (4.4-11.0)
[2018-07-17 07:32] LABS: ALB/GLOB Ratio 0.4 RATIO (0.9-2.4); AST(SGOT) 149 U/L (15-37); Alanine Aminotransfer ALT/SGPT 147 U/L (16-61); Albumin, Serum 1.7 g/dL (3.2-5.0); Alkaline Phosphatase 84 U/L (45-117); Anion Gap 15 (5-15); BUN 95 mg/dL (7-18); BUN/Creat Ratio 9.6 RATIO (10-20); CPK Total, Creatine Kinase 581 U/L (39-308); Calcium,Total 7.8 mg/dL (8.5-10.1); Chloride 96 mmol/L (98-107); Creatinine, Serum 9.92 mg/dL (0.70-1.30); EST Glomerular Filtration Rate 6 mL/min (>60); Est Glom Filt Rate - Afr Amer 7 mL/min (>60); Estimated Creatinine Clearance 9.71 ml/min; Globulin 4.6 g/dL (2.2-4.2); Glucose 106 mg/dL (74-106); Potassium 4.2 mmol/L (3.5-5.1); Protein, Total 6.3 g/dL (6.4-8.2); Sodium Level 136 mmol/L (136-145)
[2018-07-17 07:59] LABS: Eosinophil 5 % (0-5); Lymphocyte 18 % (19-41); Metamyelocyte 8 % (0-1); Monocyte 6 % (0-10); Neutrophil-Band 4 % (0-5); Neutrophil-Segmented 59 % (47-70); Platelet Estimate ADEQUATE (ADEQ); Total Cells Counted 100 (MANUAL DIFF)
[2018-07-17 08:00] LABS: Absolute Neutrophil Count 6.6 X10^3/uL (2.0-7.7); Red Cell Morphology NORM C+C NORMAL (NORM C&C)
--- NOTE | 2018-07-17 10:17 | CASEMGMT ---
Addendum entered by Sylvia Pavon 07/17/18 13:32: SW received call back from [facility], they cannot take pt as they state he is too medically complicated. Shannan from [facility] is here now reviewing pt's information. ZIGGY Tapia Original Note: Addendum entered by Sylvia Pavon 07/17/18 10:36: Referral faxed to [facility]. ZIGGY Tapia, [employer] Original Note: As per physician, pt is medically cleared to be seen by [facility]. SW called [facility], spoke w/Shannan, she can be here after she sees another pt. SW explained pt is on dialysis and can start looking into options for pt as time allows in the interim. Shannan suggested [facility], SW explained will call and will work on this as time allows until she gets here. SW called [facility], they cannot take pt due to dialysis. SW called [facility] in [place], they will review the referral, SW will fax referral shortly. 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
--- NOTE | 2018-07-17 10:37 | CASEMGMT ---
This CIERRA NI spoke with Stephenie at [facility] and she states that the referral for pt will be held and whenever pt is ready for discharge from psych facility, they just need to notify [facility] and they will provide a chair time for the pt at this time. Rickie FELIX aware at this time, voices understanding. Joel NORTON CM
[2018-07-17 11:58] LABS: Pathologist Review Reviewed
--- NOTE | 2018-07-17 12:43 | DIALYSIS ---
hemodialysis completed x 4 hrs today. Access via right chest hD cath. Lines reversed. circuit changed due to clotting in venous chamber. UF 3L. Pt tisha well. See HD flowsheet on chart.
[2018-07-17] MEDS: Heparin 10,000 UNITS/10 ML Vial IV (12:55)
[2018-07-17] MEDS: Multivitamins,Ther W-Minerals Tablet 1 TABLET PO (12:55)
[2018-07-17] MEDS: Famotidine 20 MG Tablet PO (12:55)
[2018-07-17] MEDS: Amox/Clavulanate 500 MG Tablet PO (12:55)
--- NOTE | 2018-07-17 13:53 | PCM.PN.ID ---
Patient Problems: Active and Suspected Problems (Last Updated 07/14/18 @ 12:39 by Jenni Valdes PA-C) Acute respiratory failure with hypoxia (Acute) Aspiration pneumonia due to food (regurgitated) (Acute) Acute kidney injury (nontraumatic) (Acute) Elevated liver enzymes (Acute) Acute hyperkalemia (Acute) Lactic acidosis (Acute) Anaphylactic shock, unspecified, initial encounter (Acute) Toxic effect of ingested berries, intentional self-harm, initial encounter (Acute) Encephalopathy acute (Acute) Secondary rhabdomyolysis (Acute) Subjective: Feeling ok, no SOB. No fever. - Physical Exam General: Alert, No apparent distress Lungs: Clear to auscultation, Normal air movement Cardiovascular: Regular rate, Regular Rhythm Abdomen: Soft, Non Tender, Non-Distended Skin: No rashes Vital Signs Temp Pulse Resp BP Pulse Ox 99.1 F 71 16 148/95 H 95 07/17/18 12:41 07/17/18 12:41 07/17/18 12:41 07/17/18 12:41 07/17/18 09:45 Oxygen Flow Rate (L/min) 2 Oxygen Delivery Method Nasal Cannula Weight: 114.2 kg Body Mass Index (BMI) 35.9 Intake and Output for Last 24 Hours 07/15/18 07/16/18 07/17/18 23:59 23:59 23:59 Intake Total 1457 / 1457 1693 / 1693 820 / 820 Output Total 4210 / 4210 275 / 275 3475 / 3475 Balance -2753 / -2753 1418 / 1418 -2655 / -2655 Microbiology Past 72 Hours 07/15/18 03:36 Blood Culture - Preliminary Blood Culture (Wb) - Left Hand No growth in 48 hours. 07/15/18 03:30 Blood Culture - Preliminary Blood Culture (Wb) - Anticubital Right No growth in 48 hours. 07/10/18 18:45 Bacteria Detection (PCR) - Final Blood Culture (Wb) - Anticubital Right Streptococcus pneumoniae Blood Culture - Final Streptococcus pneumoniae 07/10/18 18:45 Blood Culture - Final Blood Culture (Wb) - Right Hand No growth in 5 days. Laboratory Tests Past 24 Hrs 07/14/18 07/16/18 07/17/18 05:30 10:12 06:20 WBC 10.5 RBC 3.45 L Hgb 10.6 L Hct 31.4 L MCV 91.0 MCH 30.7 MCHC 33.8 RDW 13.0 RDW Differential 42.4 Plt Count 188 MPV 10.3 Neut % (Auto) Not Reportable Absolute Neuts (auto) 6.6 Absolute Lymphs (auto) 1.90 Total Counted 100 Neutrophils % (Manual) 59 Band Neutrophils % 4 Lymphocytes % (Manual) 18 L Monocytes % (Manual) 6 Eosinophils % (Manual) 5 Metamyelocytes % 8 H Diff Path Review Reviewed Reviewed Platelet Estimate ADEQUATE RBC Morphology NORM C+C Sodium Potassium Chloride Carbon Dioxide Anion Gap BUN Creatinine Estim Creat Clear Calc Est GFR (MDRD) Af Amer Est GFR (MDRD) Non-Af BUN/Creatinine Ratio Glucose Calcium Total Bilirubin AST ALT Alkaline Phosphatase Total Creatine Kinase Total Protein Albumin Globulin Albumin/Globulin Ratio HCV RNA Quant (PCR) [id number] HCV RNA (PCR) log10 5.193 Hepatitis C RNA Comment Comment 07/17/18 06:20 WBC RBC Hgb Hct MCV MCH MCHC RDW RDW Differential Plt Count MPV Neut % (Auto) Absolute Neuts (auto) Absolute Lymphs (auto) Total Counted Neutrophils % (Manual) Band Neutrophils % Lymphocytes % (Manual) Monocytes % (Manual) Eosinophils % (Manual) Metamyelocytes % Diff Path Review Platelet Estimate RBC Morphology Sodium 136 Potassium 4.2 Chloride 96 L Carbon Dioxide 25.0 Anion Gap 15 BUN 95 H Creatinine 9.92 H* Estim Creat Clear Calc 9.71 Est GFR (MDRD) Af Amer 7 L Est GFR (MDRD) Non-Af 6 L BUN/Creatinine Ratio 9.6 L Glucose 106 Calcium 7.8 L Total Bilirubin 1.00 AST 149 H ALT 147 H Alkaline Phosphatase 84 Total Creatine Kinase 581 H Total Protein 6.3 L Albumin 1.7 L Globulin 4.6 H Albumin/Globulin Ratio 0.4 L HCV RNA Quant (PCR) HCV RNA (PCR) log10 Hepatitis C RNA Comment Medical Necessity - Tobacco Use Smoking Status: Current every day smoker Tobacco Use: Cigarettes Route of nutrition/ use of supplements: [] Nutritional Intake: [] IV Site: [] Payne Catheter: [] - Assessment/Plan Antibiotics: [] Assessment/Plan: [] Active and Suspected Problems (Last Updated 07/10/18 @ 23:08 by Faustino Hagan MD) Acute respiratory failure with hypoxia (Acute) Aspiration pneumonia due to food (regurgitated) (Acute) Acute kidney injury (nontraumatic) (Acute) Elevated liver enzymes (Acute) Acute hyperkalemia (Acute) Lactic acidosis (Acute) Anaphylactic shock, unspecified, initial encounter (Acute) Toxic effect of ingested berries, intentional self-harm, initial encounter (Acute) Encephalopathy acute (Acute) Secondary rhabdomyolysis (Acute) sepsis with transaminitis, aspiration pneumonia, single (+) bcx with s.pneumo, sputum with mssa, HÉCTOR. Overall improving. Hep C (+). Pending hep C pcr (+) at 156k, and hivH was neg. Will stop augmentin today. Will follow
--- NOTE | 2018-07-17 14:46 | PCM.PN.REN ---
Patient Problems: Active and Suspected Problems (Last Updated 07/14/18 @ 12:39 by Jenni Valdes PA-C) Acute respiratory failure with hypoxia (Acute) Aspiration pneumonia due to food (regurgitated) (Acute) Acute kidney injury (nontraumatic) (Acute) Elevated liver enzymes (Acute) Acute hyperkalemia (Acute) Lactic acidosis (Acute) Anaphylactic shock, unspecified, initial encounter (Acute) Toxic effect of ingested berries, intentional self-harm, initial encounter (Acute) Encephalopathy acute (Acute) Secondary rhabdomyolysis (Acute) Subjective: Pt was seen during HD session today. No nausea No vomiting. No SOB - Physical Exam General: Alert HEENT: Atraumatic Oral: Moist Mucosa Neck: Supple, No JVD Lungs: Clear to auscultation, Normal air movement, No rhonchi, No wheeze Cardiovascular: Regular rate, Regular Rhythm, Normal S1, Normal S2 Abdomen: Bowel Sounds Present, Non Tender, Non-Distended Extremities: No clubbing, No cyanosis, No edema Skin: No rashes Musculoskeletal: No Tenderness to Palpation of Joints or Extremities Lymphatic: No Cervical, Supraclavicular, or Inguinal Adenopathy Neurological: Cranial nerves II-XII grossly intact, Neuro grossly intact Psych/Mental Status: Appropriate Vital Signs Temp Pulse Resp BP Pulse Ox 99.1 F 71 16 148/95 H 96 07/17/18 12:41 07/17/18 12:41 07/17/18 12:41 07/17/18 12:41 07/17/18 14:00 Oxygen Flow Rate (L/min) 2 Oxygen Delivery Method Nasal Cannula Weight: 114.2 kg Body Mass Index (BMI) 35.9 Intake and Output for Last 24 Hours 07/15/18 07/16/18 07/17/18 23:59 23:59 23:59 Intake Total 1457 / 1457 1693 / 1693 820 / 820 Output Total 4210 / 4210 275 / 275 3475 / 3475 Balance -2753 / -2753 1418 / 1418 -2655 / -2655 Microbiology Past 72 Hours 07/12/18 13:25 Blood Culture - Final Blood Culture (Wb) - Port No growth in 5 days. 07/12/18 13:25 Blood Culture - Final Blood Culture (Wb) - Anticubital Left No growth in 5 days. 07/15/18 03:36 Blood Culture - Preliminary Blood Culture (Wb) - Left Hand No growth in 48 hours. 07/15/18 03:30 Blood Culture - Preliminary Blood Culture (Wb) - Anticubital Right No growth in 48 hours. 07/10/18 18:45 Bacteria Detection (PCR) - Final Blood Culture (Wb) - Anticubital Right Streptococcus pneumoniae Blood Culture - Final Streptococcus pneumoniae 07/10/18 18:45 Blood Culture - Final Blood Culture (Wb) - Right Hand No growth in 5 days. Laboratory Tests Past 24 Hrs 07/14/18 07/16/18 07/17/18 05:30 10:12 06:20 WBC 10.5 RBC 3.45 L Hgb 10.6 L Hct 31.4 L MCV 91.0 MCH 30.7 MCHC 33.8 RDW 13.0 RDW Differential 42.4 Plt Count 188 MPV 10.3 Neut % (Auto) Not Reportable Absolute Neuts (auto) 6.6 Absolute Lymphs (auto) 1.90 Total Counted 100 Neutrophils % (Manual) 59 Band Neutrophils % 4 Lymphocytes % (Manual) 18 L Monocytes % (Manual) 6 Eosinophils % (Manual) 5 Metamyelocytes % 8 H Diff Path Review Reviewed Reviewed Platelet Estimate ADEQUATE RBC Morphology NORM C+C Sodium Potassium Chloride Carbon Dioxide Anion Gap BUN Creatinine Estim Creat Clear Calc Est GFR (MDRD) Af Amer Est GFR (MDRD) Non-Af BUN/Creatinine Ratio Glucose Calcium Total Bilirubin AST ALT Alkaline Phosphatase Total Creatine Kinase Total Protein Albumin Globulin Albumin/Globulin Ratio HCV RNA Quant (PCR) [id number] HCV RNA (PCR) log10 5.193 Hepatitis C RNA Comment Comment 07/17/18 06:20 WBC RBC Hgb Hct MCV MCH MCHC RDW RDW Differential Plt Count MPV Neut % (Auto) Absolute Neuts (auto) Absolute Lymphs (auto) Total Counted Neutrophils % (Manual) Band Neutrophils % Lymphocytes % (Manual) Monocytes % (Manual) Eosinophils % (Manual) Metamyelocytes % Diff Path Review Platelet Estimate RBC Morphology Sodium 136 Potassium 4.2 Chloride 96 L Carbon Dioxide 25.0 Anion Gap 15 BUN 95 H Creatinine 9.92 H* Estim Creat Clear Calc 9.71 Est GFR (MDRD) Af Amer 7 L Est GFR (MDRD) Non-Af 6 L BUN/Creatinine Ratio 9.6 L Glucose 106 Calcium 7.8 L Total Bilirubin 1.00 AST 149 H ALT 147 H Alkaline Phosphatase 84 Total Creatine Kinase 581 H Total Protein 6.3 L Albumin 1.7 L Globulin 4.6 H Albumin/Globulin Ratio 0.4 L HCV RNA Quant (PCR) HCV RNA (PCR) log10 Hepatitis C RNA Comment Medical Necessity - Tobacco Use Smoking Status: Current every day smoker Tobacco Use: Cigarettes Assessment/Plan All Active Problems (Last Updated 07/14/18 @ 12:39 by Jenni Valdes PA-C) Acute respiratory failure with hypoxia (Acute) Aspiration pneumonia due to food (regurgitated) (Acute) Acute kidney injury (nontraumatic) (Acute) Elevated liver enzymes (Acute) Acute hyperkalemia (Acute) Lactic acidosis (Acute) Anaphylactic shock, unspecified, initial encounter (Acute) Toxic effect of ingested berries, intentional self-harm, initial encounter (Acute) Encephalopathy acute (Acute) Secondary rhabdomyolysis (Acute) 1. Acute kidney injury. Pt's baseline renal function is unknown. Presumed normal. HÉCTOR is likely due to ischemic/nephrotoxic ATN related to rhabdomyolysis and volume depletion. Pt is now HD dependent. HD started on 07/11. Tunneled cath was placed on 07/14 Remains oliguric HD session today : BQ 400 DQ 700 UF 3L Dose medications for CrCl<10. Avoid ACEI/ARB Will continue to monitor for kidney function recovery 2. Hyperkalemia.resolved with HD. Follow K. 3. Rhabdomyolysis. Improved 4. Acute hypoxic respiratory failure. extubated finished Abx Renal team will continue to follow. please call if any question at [phone] CLAU HOBSON MD
--- NOTE | 2018-07-17 14:47 | PCM.PN.HOSP ---
Patient Problems: Active and Suspected Problems (Last Updated 07/14/18 @ 12:39 by Jenni Valdes PA-C) Acute respiratory failure with hypoxia (Acute) Aspiration pneumonia due to food (regurgitated) (Acute) Acute kidney injury (nontraumatic) (Acute) Elevated liver enzymes (Acute) Acute hyperkalemia (Acute) Lactic acidosis (Acute) Anaphylactic shock, unspecified, initial encounter (Acute) Toxic effect of ingested berries, intentional self-harm, initial encounter (Acute) Encephalopathy acute (Acute) Secondary rhabdomyolysis (Acute) Subjective: Patient seen and examined. He was getting dialysis at time of review. He had no complaints. Review of systems otherwise negative Vitals/I&O's: Vital Signs Temp Pulse Resp BP Pulse Ox 99.1 F 71 16 148/95 H 96 07/17/18 12:41 07/17/18 12:41 07/17/18 12:41 07/17/18 12:41 07/17/18 14:00 Oxygen Flow Rate (L/min) 2 Oxygen Delivery Method Nasal Cannula Weight: 251 lb 12.286 oz Body Mass Index (BMI) 35.9 Intake and Output for Last 24 Hours 07/15/18 07/16/18 07/17/18 23:59 23:59 23:59 Intake Total 1457 / 1457 1693 / 1693 820 / 820 Output Total 4210 / 4210 275 / 275 3475 / 3475 Balance -2753 / -2753 1418 / 1418 -2655 / -2655 General: Alert, Cooperative, No apparent distress HEENT: Atraumatic, PERRLA, EOMI, Normocephalic Oral: Dry Mucosa Neck: Supple, No JVD, Negative Carotid Bruits Lungs: No rhonchi, No wheeze, No rales, - - breath sounds mildly diminished bibasally Cardiovascular: Regular rate, Regular Rhythm, Normal S1, Normal S2, No murmurs Abdomen: Bowel Sounds Present, Soft, Non Tender, Non-Distended, No Hepato-splenomegaly Extremities: No clubbing, No cyanosis, No edema, Capillary Refill Less than 3 Seconds Skin: No rashes, No breakdown Musculoskeletal: No Tenderness to Palpation of Joints or Extremities Lymphatic: No Cervical, Supraclavicular, or Inguinal Adenopathy Neurological: Cranial nerves II-XII grossly intact, Neuro grossly intact, Motor Exam 5/5 strength throughout Psych/Mental Status: Normal Affect, Appropriate, - - lethargic, Alert and oriented to time, place, person, mood and affect Microbiology Past 72 Hours 07/12/18 13:25 Blood Culture (Wb) - Port Blood Culture - Final No growth in 5 days. 07/12/18 13:25 Blood Culture (Wb) - Anticubital Left Blood Culture - Final No growth in 5 days. 07/15/18 03:36 Blood Culture (Wb) - Left Hand Blood Culture - Preliminary No growth in 48 hours. 07/15/18 03:30 Blood Culture (Wb) - Anticubital Right Blood Culture - Preliminary No growth in 48 hours. 07/10/18 18:45 Blood Culture (Wb) - Anticubital Right Bacteria Detection (PCR) - Final Streptococcus pneumoniae 07/10/18 18:45 Blood Culture (Wb) - Anticubital Right Blood Culture - Final Streptococcus pneumoniae 07/10/18 18:45 Blood Culture (Wb) - Right Hand Blood Culture - Final No growth in 5 days. Laboratory Results 07/14/18 05:30: HCV RNA Quant (PCR) [id number], HCV RNA (PCR) log10 5.193, Hepatitis C RNA Comment Comment 07/16/18 10:12: Diff Path Review Reviewed 07/17/18 06:20: WBC 10.5, RBC 3.45 L, Hgb 10.6 L, Hct 31.4 L, MCV 91.0, MCH 30.7, MCHC 33.8, RDW 13.0, RDW Differential 42.4, Plt Count 188, MPV 10.3, Neut % (Auto) Not Reportable, Absolute Neuts (auto) 6.6, Absolute Lymphs (auto) 1.90, Total Counted 100, Neutrophils % (Manual) 59, Band Neutrophils % 4, Lymphocytes % (Manual) 18 L, Monocytes % (Manual) 6, Eosinophils % (Manual) 5, Metamyelocytes % 8 H, Diff Path Review Reviewed, Platelet Estimate ADEQUATE, RBC Morphology NORM C+C 07/17/18 06:20: Sodium 136, Potassium 4.2, Chloride 96 L, Carbon Dioxide 25.0, Anion Gap 15, BUN 95 H, Creatinine 9.92 H*, Estim Creat Clear Calc 9.71, Est GFR (MDRD) Af Amer 7 L, Est GFR (MDRD) Non-Af 6 L, BUN/Creatinine Ratio 9.6 L, Glucose 106, Calcium 7.8 L, Total Bilirubin 1.00, AST 149 H, ALT 147 H, Alkaline Phosphatase 84, Total Creatine Kinase 581 H, Total Protein 6.3 L, Albumin 1.7 L, Globulin 4.6 H, Albumin/Globulin Ratio 0.4 L Current Medications Acetaminophen (Tylenol) 650 mg PO Q4H PRN PRN PRN Reason: Fever >101 Last Admin: 07/16/18 12:13 Dose: 650 mg Albuterol Sulfate (Ventolin Aerosols) 2.5 mg INHALATION Q2H PRN PRN PRN Reason: sob/wheezing Bisacodyl (Dulcolax) 5 mg PO DAILY PRN PRN PRN Reason: Constipation Famotidine (Pepcid) 20 mg PO DAILY [facility] Last Admin: 07/17/18 12:55 Dose: 20 mg Hydralazine HCl (Apresoline Iv) 10 mg IV Q4H PRN PRN PRN Reason: SBP > 160 Last Admin: 07/16/18 19:46 Dose: 10 mg Magnesium Hydroxide (Milk Of Magnesia) 30 ml PO DAILY PRN PRN PRN Reason: Constipation Morphine Sulfate () 1 - 2 mg IV Q4H PRN PRN PRN Reason: PAIN Last Admin: 07/15/18 20:16 Dose: 2 mg Multivitamins/Minerals (Multivitamin With Minerals) 1 tablet PO DAILYCM [facility] Last Admin: 07/17/18 12:55 Dose: 1 tablet Nicotine (Nicoderm Cq (Pbkc)) 21 mg TRANSDERM. DAILY [facility] Last Admin: 07/17/18 12:55 Dose: 21 mg Ondansetron HCl (Zofran) 4 mg IV Q8H PRN PRN PRN Reason: NAUSEA Last Admin: 07/16/18 07:56 Dose: 4 mg Oxycodone HCl (Oxyir) 10 mg PO Q4H PRN PRN PRN Reason: SEVERE PAIN (6-10/10) Last Admin: 07/17/18 04:55 Dose: 10 mg Sodium Chloride () 5 - 15 ml IV UD PRN PRN Reason: SALINE FLUSH Last Admin: 07/16/18 19:46 Dose: 10 ml Medical Necessity - Tobacco Use Smoking Status: Current every day smoker Tobacco Use: Cigarettes Assessment/Plan All Active Problems (Last Updated 07/14/18 @ 12:39 by Jenni Valdes PA-C) Acute respiratory failure with hypoxia (Acute) Aspiration pneumonia due to food (regurgitated) (Acute) Acute kidney injury (nontraumatic) (Acute) Elevated liver enzymes (Acute) Acute hyperkalemia (Acute) Lactic acidosis (Acute) Anaphylactic shock, unspecified, initial encounter (Acute) Toxic effect of ingested berries, intentional self-harm, initial encounter (Acute) Encephalopathy acute (Acute) Secondary rhabdomyolysis (Acute) 1. Acute hypoxic respiratory failure due to intentional drug overdose and aspiration pneumonia successfully extubated on 07/12/18 and transferred to PCU on 07/13/18 currently stable, saturating well on 2L of oxygen. On breathing treatments titrate oxygen to maintain sats>90% 2. Acute metabolic encephalopathy due to intentional drug overdose with gabapentin mentation has improved now. Also had heroin and vodka in his system 3. HÉCTOR likely due to acute rhabdomyolysis and dehydration now dialysis dependent nephrology on board; having regular dialysis had right internal jugular dialysis catheter placed on 07/14/18 4. Apiration pneumonia: blood cultures were positive for strep, and sputum cultures positive for MSSA. IV Unasyn was stopped on 07/15/2018 after he completed 7-day course. now on PO augmentin 5. Drug induced hepatitis: liver enzymes have trended down significantly. AST/ALT down to 149/147 and total bilirubin is 1. 6. Hyperkalemia: resolved with dialysis 7. Acute rhabdomyolysis: CPK down to 581 today. dialysis dependent now due to severe HÉCTOR. 8. Substance abuse: had heroin and vodka in his system as well. Counselled on cessation 9. Shoulder pain: had no complaints about shoulder pain today. Resolved. 10. Thrombocytopenia:platelets are 188 today. DVT prophylaxis: SCDs Disposition: patient will need placement in Psych facility for mental health evaluation o.a of suicidal attempt. Mental health crises team on board. Code Visit Inpatient E&M: 27687 Subs Hosp L3
--- NOTE | 2018-07-17 14:54 | PN_ITS ---
Patient Problems: Active and Suspected Problems (Last Updated 07/14/18 @ 12:39 by Jenni Valdes PA-C) Acute respiratory failure with hypoxia (Acute) Aspiration pneumonia due to food (regurgitated) (Acute) Acute kidney injury (nontraumatic) (Acute) Elevated liver enzymes (Acute) Acute hyperkalemia (Acute) Lactic acidosis (Acute) Anaphylactic shock, unspecified, initial encounter (Acute) Toxic effect of ingested berries, intentional self-harm, initial encounter (Acute) Encephalopathy acute (Acute) Secondary rhabdomyolysis (Acute) Subjective: Patient seen and examined. He was getting dialysis at time of review. He had no complaints. Review of systems otherwise negative Vitals/I&O's: Vital Signs Temp Pulse Resp BP Pulse Ox 99.1 F 71 16 148/95 H 96 07/17/18 12:41 07/17/18 12:41 07/17/18 12:41 07/17/18 12:41 07/17/18 14:00 Oxygen Flow Rate (L/min) 2 Oxygen Delivery Method Nasal Cannula Weight: 251 lb 12.286 oz Body Mass Index (BMI) 35.9 Intake and Output for Last 24 Hours 07/15/18 07/16/18 07/17/18 23:59 23:59 23:59 Intake Total 1457 / 1457 1693 / 1693 820 / 820 Output Total 4210 / 4210 275 / 275 3475 / 3475 Balance -2753 / -2753 1418 / 1418 -2655 / -2655 General: Alert, Cooperative, No apparent distress HEENT: Atraumatic, PERRLA, EOMI, Normocephalic Oral: Dry Mucosa Neck: Supple, No JVD, Negative Carotid Bruits Lungs: No rhonchi, No wheeze, No rales, - - breath sounds mildly diminished bibasally Cardiovascular: Regular rate, Regular Rhythm, Normal S1, Normal S2, No murmurs Abdomen: Bowel Sounds Present, Soft, Non Tender, Non-Distended, No Hepato- splenomegaly Extremities: No clubbing, No cyanosis, No edema, Capillary Refill Less than 3 Seconds Skin: No rashes, No breakdown Musculoskeletal: No Tenderness to Palpation of Joints or Extremities Lymphatic: No Cervical, Supraclavicular, or Inguinal Adenopathy Neurological: Cranial nerves II-XII grossly intact, Neuro grossly intact, Motor Exam 5/5 strength throughout Psych/Mental Status: Normal Affect, Appropriate, - - lethargic, Alert and oriented to time, place, person, mood and affect Microbiology Past 72 Hours 07/12/18 13:25 Blood Culture (Wb) - Port Blood Culture - Final No growth in 5 days. 07/12/18 13:25 Blood Culture (Wb) - Anticubital Left Blood Culture - Final No growth in 5 days. 07/15/18 03:36 Blood Culture (Wb) - Left Hand Blood Culture - Preliminary No growth in 48 hours. 07/15/18 03:30 Blood Culture (Wb) - Anticubital Right Blood Culture - Preliminary No growth in 48 hours. 07/10/18 18:45 Blood Culture (Wb) - Anticubital Right Bacteria Detection (PCR) - Final Streptococcus pneumoniae 07/10/18 18:45 Blood Culture (Wb) - Anticubital Right Blood Culture - Final Streptococcus pneumoniae 07/10/18 18:45 Blood Culture (Wb) - Right Hand Blood Culture - Final No growth in 5 days. Laboratory Results 07/14/18 05:30: HCV RNA Quant (PCR) [id number], HCV RNA (PCR) log10 5.193, Hepatitis C RNA Comment Comment 07/16/18 10:12: Diff Path Review Reviewed 07/17/18 06:20: WBC 10.5, RBC 3.45 L, Hgb 10.6 L, Hct 31.4 L, MCV 91.0, MCH 30.7, MCHC 33.8, RDW 13.0, RDW Differential 42.4, Plt Count 188, MPV 10.3, Neut % (Auto) Not Reportable, Absolute Neuts (auto) 6.6, Absolute Lymphs (auto) 1.90, Total Counted 100, Neutrophils % (Manual) 59, Band Neutrophils % 4, Lymphocytes % (Manual) 18 L, Monocytes % (Manual) 6, Eosinophils % (Manual) 5, Metamyelocytes % 8 H, Diff Path Review Reviewed, Platelet Estimate ADEQUATE, RBC Morphology NORM C+C 07/17/18 06:20: Sodium 136, Potassium 4.2, Chloride 96 L, Carbon Dioxide 25.0, Anion Gap 15, BUN 95 H, Creatinine 9.92 H*, Estim Creat Clear Calc 9.71, Est GFR (MDRD) Af Amer 7 L, Est GFR (MDRD) Non-Af 6 L, BUN/Creatinine Ratio 9.6 L, Glucose 106, Calcium 7.8 L, Total Bilirubin 1.00, AST 149 H, ALT 147 H, Alkaline Phosphatase 84, Total Creatine Kinase 581 H, Total Protein 6.3 L, Albumin 1.7 L, Globulin 4.6 H, Albumin/Globulin Ratio 0.4 L Current Medications Acetaminophen (Tylenol) 650 mg PO Q4H PRN PRN PRN Reason: Fever >101 Last Admin: 07/16/18 12:13 Dose: 650 mg Albuterol Sulfate (Ventolin Aerosols) 2.5 mg INHALATION Q2H PRN PRN PRN Reason: sob/wheezing Bisacodyl (Dulcolax) 5 mg PO DAILY PRN PRN PRN Reason: Constipation Famotidine (Pepcid) 20 mg PO DAILY [facility] Last Admin: 07/17/18 12:55 Dose: 20 mg Hydralazine HCl (Apresoline Iv) 10 mg IV Q4H PRN PRN PRN Reason: SBP > 160 Last Admin: 07/16/18 19:46 Dose: 10 mg Magnesium Hydroxide (Milk Of Magnesia) 30 ml PO DAILY PRN PRN PRN Reason: Constipation Morphine Sulfate () 1 - 2 mg IV Q4H PRN PRN PRN Reason: PAIN Last Admin: 07/15/18 20:16 Dose: 2 mg Multivitamins/Minerals (Multivitamin With Minerals) 1 tablet PO DAILYCM [facility] Last Admin: 07/17/18 12:55 Dose: 1 tablet Nicotine (Nicoderm Cq (Pbkc)) 21 mg TRANSDERM. DAILY [facility] Last Admin: 07/17/18 12:55 Dose: 21 mg Ondansetron HCl (Zofran) 4 mg IV Q8H PRN PRN PRN Reason: NAUSEA Last Admin: 07/16/18 07:56 Dose: 4 mg Oxycodone HCl (Oxyir) 10 mg PO Q4H PRN PRN PRN Reason: SEVERE PAIN (6-10/10) Last Admin: 07/17/18 04:55 Dose: 10 mg Sodium Chloride () 5 - 15 ml IV UD PRN PRN Reason: SALINE FLUSH Last Admin: 07/16/18 19:46 Dose: 10 ml Medical Necessity - Tobacco Use Smoking Status: Current every day smoker Tobacco Use: Cigarettes Assessment/Plan All Active Problems (Last Updated 07/14/18 @ 12:39 by Jenni Valdes PA-C) Acute respiratory failure with hypoxia (Acute) Aspiration pneumonia due to food (regurgitated) (Acute) Acute kidney injury (nontraumatic) (Acute) Elevated liver enzymes (Acute) Acute hyperkalemia (Acute) Lactic acidosis (Acute) Anaphylactic shock, unspecified, initial encounter (Acute) Toxic effect of ingested berries, intentional self-harm, initial encounter (Acute) Encephalopathy acute (Acute) Secondary rhabdomyolysis (Acute) 1. Acute hypoxic respiratory failure due to intentional drug overdose and aspiration pneumonia * successfully extubated on 07/12/18 and transferred to PCU on 07/13/18 * currently stable, saturating well on 2L of oxygen. On breathing treatments * titrate oxygen to maintain sats>90% * 2. Acute metabolic encephalopathy due to intentional drug overdose with gabapentin * mentation has improved now. Also had heroin and vodka in his system * 3. HÉCTOR likely due to acute rhabdomyolysis and dehydration * now dialysis dependent * nephrology on board; having regular dialysis * had right internal jugular dialysis catheter placed on 07/14/18 * 4. Apiration pneumonia: * blood cultures were positive for strep, and sputum cultures positive for MSSA. * IV Unasyn was stopped on 07/15/2018 after he completed 7-day course. * now on PO augmentin * 5. Drug induced hepatitis: * liver enzymes have trended down significantly. * AST/ALT down to 149/147 and total bilirubin is 1. * * 6. Hyperkalemia: resolved with dialysis 7. Acute rhabdomyolysis: CPK down to 581 today. dialysis dependent now due to severe HÉCTOR. 8. Substance abuse: had heroin and vodka in his system as well. Counselled on cessation 9. Shoulder pain: had no complaints about shoulder pain today. Resolved. 10. Thrombocytopenia:platelets are 188 today. * * DVT prophylaxis: SCDs Disposition: patient will need placement in Psych facility for mental health evaluation o.a of suicidal attempt. Mental health crises team on board. Code Visit Inpatient E&M: 27405 [facility] Hosp L3
[2018-07-17] MEDS: Acetaminophen 325 MG Tablet 650 MG PO (15:15)
--- NOTE | 2018-07-17 16:17 | CASEMGMT ---
Addendum entered by Sylvia Pavon 07/17/18 17:02: ISIDRO spoke w/Dr. Finnegan, she would be willing to speak w/the psychiatrist at [facility]. ISIDRO called the intake number: [phone], left this SW's number and the main number for the plugger worker to pass on to the psychiatrist to reach Dr. Finnegan. Dr. Finnegan will be leaving shortly so she will try to connect with this physician tomorrow. ZIGGY Tapia Original Note: Pt's friend Miesha Escudero here to visit, SW spoke w/her outside of the room. She explains that pt has had a lot of losses over the years. She and pt grew up together in [place]. She states pt lost his mom when young, and lost his father also. She state he lost his a year or two ago in June to a Fentanyl overdose. She states pt has many siblings(10 or 11), she states they all use. 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 She states he texted him saying you said you would never leave me, she states this is out of character for him, as she states he knows she will be a support person to him. He also texted her telling her he bought dope, meaning Fentanyl. He texted to her also she knows his pin numbers, she asked why is he saying this, and he had said in case something happens. She is not certain he would harm himself but does express concern about his behavior the last couple of weeks, states that she is wondering if it has to do with the fact his in June. ISIDRO spoke w/Shannan, she has made the referral to [facility], waiting to hear back. ISIDRO did give her the information above. She states if [facility] will not take pt, [facility] is coming in after her and will continue to try other facilities. ZIGGY Tapia
[2018-07-17] MEDS: 0.9% NaCl Peripheral Flush Adult/Peds IV (22:09)
[2018-07-17] MEDS: Morphine 2 MG/ML Syringe IV (22:09)
[2018-07-18] VITALS (10 sets, daily range): BP systolic 131–153; BP diastolic 60–77; PULSE 63–81; RESP 14–18; TEMP 37.2–37.9; O2SAT 92–96
[2018-07-18 06:27] LABS: Hematocrit 31.3 % (40-54); Hemoglobin 10.6 g/dl (13.0-16.5); Mean Corp Hgb Conc 33.9 g/gl (32-36); Mean Corpuscular Hgb 30.5 pg (27.0-32.0); Mean Corpuscular Volume 90.2 fL (80-94); Platelet Count 223 K/mm3 (150-450); RBC Distribution Width CV 12.5 % (11.6-14.6); RBC Distribution Width SD 40.4 fl (35.1-43.9); Red Blood Count 3.47 M/mm3 (4.6-6.2); White Blood Count 10.1 K/mm3 (4.4-11.0)
[2018-07-18 06:28] LABS: Differential Indicated MANUAL DIFF; POSITIVE COUNT YES; POSITIVE DIFFERENTIAL NO; POSITIVE MORPHOLOGY YES
[2018-07-18 06:51] LABS: ALB/GLOB Ratio 0.4 RATIO (0.9-2.4); AST(SGOT) 169 U/L (15-37); Alanine Aminotransfer ALT/SGPT 135 U/L (16-61); Albumin, Serum 1.8 g/dL (3.2-5.0); Alkaline Phosphatase 95 U/L (45-117); Anion Gap 13 (5-15); BUN 71 mg/dL (7-18); Calcium,Total 7.8 mg/dL (8.5-10.1); Chloride 97 mmol/L (98-107); Creatinine, Serum 7.85 mg/dL (0.70-1.30); EST Glomerular Filtration Rate 8 mL/min (>60); Est Glom Filt Rate - Afr Amer 10 mL/min (>60); Estimated Creatinine Clearance 12.27 ml/min; Globulin 4.4 g/dL (2.2-4.2); Glucose 101 mg/dL (74-106); Potassium 4.3 mmol/L (3.5-5.1); Protein, Total 6.2 g/dL (6.4-8.2); Sodium Level 136 mmol/L (136-145)
[2018-07-18 07:07] LABS: Eosinophil 3 % (0-5); Lymphocyte 19 % (19-41); Metamyelocyte 1 % (0-1); Monocyte 11 % (0-10); Myelocyte 2 (0-0); Neutrophil-Band 1 % (0-5); Neutrophil-Segmented 63 % (47-70); Platelet Estimate ADEQUATE (ADEQ); Platelet Morphology LARGE; Red Cell Morphology NORM C+C NORMAL (NORM C&C); Total Cells Counted 100 (MANUAL DIFF)
[2018-07-18 07:08] LABS: Reactive Lymphocyte 1+
[2018-07-18 07:09] LABS: Absolute Lymphocyte Count 1.92 X10^3/ul (0.83-4.51); Absolute Neutrophil Count 6.5 X10^3/uL (2.0-7.7)
[2018-07-18] MEDS: Famotidine 20 MG Tablet PO (08:57)
[2018-07-18] MEDS: Multivitamins,Ther W-Minerals Tablet 1 TABLET PO (08:57)
--- NOTE | 2018-07-18 11:08 | NURSING ---
Student nurse charting reviewed.
--- NOTE | 2018-07-18 11:53 | CASEMGMT ---
SOCIAL WORK NOTE SPOKE WITH JAVA LEAD ENGINEER LABORER RAGS THROUGH THE COUNSELING CENTER, NAI. PER NAI, WAS GIVEN IN REPORT THAT TATE IS TO FOLLOW UP ON FRIDAY WITH PLACEMENT THEY ARE UNABLE TO FIND PSYCH FACILITY WILLING TO ACCEPT PATIENT AT THIS TIME D/T MEDICAL COMPLEXITY. KAYLA ORANTES, GRINDER OPERATOR, SPACE AND STORAGE CLERK.
[2018-07-18] MEDS: oxyCODONE 5 MG Tablet 10 MG PO ×2 (12:04→20:33)
--- NOTE | 2018-07-18 13:19 | PCM.PN.HOSP ---
Patient Problems: Active and Suspected Problems (Last Updated 07/14/18 @ 12:39 by Jenni Valdes PA-C) Acute respiratory failure with hypoxia (Acute) Aspiration pneumonia due to food (regurgitated) (Acute) Acute kidney injury (nontraumatic) (Acute) Elevated liver enzymes (Acute) Acute hyperkalemia (Acute) Lactic acidosis (Acute) Anaphylactic shock, unspecified, initial encounter (Acute) Toxic effect of ingested berries, intentional self-harm, initial encounter (Acute) Encephalopathy acute (Acute) Secondary rhabdomyolysis (Acute) Subjective: Patient seen and examined this morning. He had no complaints and felt well. Review of systems otherwise negative. Patient denied having any homicidal or suicidal ideations. Labs and vitals reviewed. CPK levels have trended down significantly and liver enzymes have also trended out significant. He still remains dialysis dependent. Vitals/I&O's: Vital Signs Temp Pulse Resp BP Pulse Ox 98.9 F 81 16 131/60 H 92 07/18/18 09:00 07/18/18 11:00 07/18/18 09:00 07/18/18 09:00 07/18/18 09:00 Oxygen Flow Rate (L/min) 2 Oxygen Delivery Method Room Air Weight: 244 lb 11.41 oz Body Mass Index (BMI) 35.9 Intake and Output for Last 24 Hours 07/16/18 07/17/18 07/18/18 23:59 23:59 23:59 Intake Total 1693 / 1693 1280 / 1280 610 / 610 Output Total 275 / 275 3575 / 3575 575 / 575 Balance 1418 / 1418 -2295 / -2295 35 / 35 General: Alert, Cooperative, No apparent distress HEENT: Atraumatic, PERRLA, EOMI, Normocephalic Oral: Dry Mucosa Neck: Supple, No JVD, Negative Carotid Bruits Lungs: No rhonchi, No wheeze, No rales, - - clear to auscultation Cardiovascular: Regular rate, Regular Rhythm, Normal S1, Normal S2, No murmurs Abdomen: Bowel Sounds Present, Soft, Non Tender, Non-Distended, No Hepato-splenomegaly Extremities: No clubbing, No cyanosis, No edema, Capillary Refill Less than 3 Seconds Skin: No rashes, No breakdown Musculoskeletal: No Tenderness to Palpation of Joints or Extremities; dialysis catheter in right side of chest Lymphatic: No Cervical, Supraclavicular, or Inguinal Adenopathy Neurological: Cranial nerves II-XII grossly intact, Neuro grossly intact, Motor Exam 5/5 strength throughout Psych/Mental Status: Normal Affect, Appropriate, - - lethargic, Alert and oriented to time, place, person, mood and affect Microbiology Past 72 Hours 07/12/18 13:25 Blood Culture (Wb) - Port Blood Culture - Final No growth in 5 days. 07/12/18 13:25 Blood Culture (Wb) - Anticubital Left Blood Culture - Final No growth in 5 days. 07/15/18 03:36 Blood Culture (Wb) - Left Hand Blood Culture - Preliminary No growth in 48 hours. 07/15/18 03:30 Blood Culture (Wb) - Anticubital Right Blood Culture - Preliminary No growth in 48 hours. 07/10/18 18:45 Blood Culture (Wb) - Anticubital Right Bacteria Detection (PCR) - Final Streptococcus pneumoniae 07/10/18 18:45 Blood Culture (Wb) - Anticubital Right Blood Culture - Final Streptococcus pneumoniae 07/10/18 18:45 Blood Culture (Wb) - Right Hand Blood Culture - Final No growth in 5 days. Laboratory Results 07/18/18 05:45: WBC 10.1, RBC 3.47 L, Hgb 10.6 L, Hct 31.3 L, MCV 90.2, MCH 30.5, MCHC 33.9, RDW 12.5, RDW Differential 40.4, Plt Count 223, MPV 10.0, Neut % (Auto) Not Reportable, Absolute Neuts (auto) 6.5, Absolute Lymphs (auto) 1.92, Total Counted 100, Neutrophils % (Manual) 63, Band Neutrophils % 1, Lymphocytes % (Manual) 19, Monocytes % (Manual) 11 H, Eosinophils % (Manual) 3, Metamyelocytes % 1, Myelocytes % 2 H, Diff Path Review May foll, Reactive Lymphocytes 1+, Platelet Estimate ADEQUATE, Plt Morphology Comment LARGE, RBC Morphology NORM C+C 07/18/18 05:45: Sodium 136, Potassium 4.3, Chloride 97 L, Carbon Dioxide 26.0, Anion Gap 13, BUN 71 H, Creatinine 7.85 H*, Estim Creat Clear Calc 12.27, Est GFR (MDRD) Af Amer 10 L, Est GFR (MDRD) Non-Af 8 L, BUN/Creatinine Ratio 9.0 L, Glucose 101, Calcium 7.8 L, Total Bilirubin 0.90, AST 169 H, ALT 135 H, Alkaline Phosphatase 95, Total Protein 6.2 L, Albumin 1.8 L, Globulin 4.4 H, Albumin/Globulin Ratio 0.4 L Current Medications Acetaminophen (Tylenol) 650 mg PO Q4H PRN PRN PRN Reason: Fever >101 Last Admin: 07/17/18 15:15 Dose: 650 mg Albuterol Sulfate (Ventolin Aerosols) 2.5 mg INHALATION Q2H PRN PRN PRN Reason: sob/wheezing Bisacodyl (Dulcolax) 5 mg PO DAILY PRN PRN PRN Reason: Constipation Famotidine (Pepcid) 20 mg PO DAILY [facility] Last Admin: 07/18/18 08:57 Dose: 20 mg Hydralazine HCl (Apresoline Iv) 10 mg IV Q4H PRN PRN PRN Reason: SBP > 160 Last Admin: 07/16/18 19:46 Dose: 10 mg Magnesium Hydroxide (Milk Of Magnesia) 30 ml PO DAILY PRN PRN PRN Reason: Constipation Morphine Sulfate () 1 - 2 mg IV Q4H PRN PRN PRN Reason: PAIN Last Admin: 07/17/18 22:09 Dose: 2 mg [facility]ivitamins/Minerals ([facility]) [facility] Last Admin: 07/18/18 08:57 Dose: 1 tablet Nicotine (Nicoderm Cq (Pbkc)) 21 mg TRANSDERM. DAILY [facility] Last Admin: 07/18/18 08:57 Dose: 21 mg Ondansetron HCl (Zofran) 4 mg IV Q8H PRN PRN PRN Reason: NAUSEA Last Admin: 07/16/18 07:56 Dose: 4 mg Oxycodone HCl (Oxyir) 10 mg PO Q4H PRN PRN PRN Reason: SEVERE PAIN (6-10/10) Last Admin: 07/18/18 12:04 Dose: 10 mg Sodium Chloride () 5 - 15 ml IV UD PRN PRN Reason: SALINE FLUSH Last Admin: 07/17/18 22:09 Dose: 10 ml Medical Necessity - Tobacco Use Smoking Status: Current every day smoker Tobacco Use: Cigarettes Assessment/Plan All Active Problems (Last Updated 07/14/18 @ 12:39 by Jenni Valdes PA-C) Acute respiratory failure with hypoxia (Acute) Aspiration pneumonia due to food (regurgitated) (Acute) Acute kidney injury (nontraumatic) (Acute) Elevated liver enzymes (Acute) Acute hyperkalemia (Acute) Lactic acidosis (Acute) Anaphylactic shock, unspecified, initial encounter (Acute) Toxic effect of ingested berries, intentional self-harm, initial encounter (Acute) Encephalopathy acute (Acute) Secondary rhabdomyolysis (Acute) 1. Acute hypoxic respiratory failure due to intentional drug overdose and aspiration pneumonia successfully extubated on 07/12/18 and transferred to PCU on 07/13/18 currently stable, saturating well on 2L of oxygen. On breathing treatments titrate oxygen to maintain sats>90% 2. Acute metabolic encephalopathy due to intentional drug overdose with gabapentin resolved. 3. HÉCTOR likely due to acute rhabdomyolysis and dehydration now dialysis dependent nephrology on board; having regular dialysis had right internal jugular dialysis catheter placed on 07/14/18 for dialysis MWF 4. Apiration pneumonia: blood cultures were positive for strep, and sputum cultures positive for MSSA. IV Unasyn was stopped on 07/15/2018 after he completed 7-day course. 5. Drug induced hepatitis: liver enzymes have trended down significantly. largely resolved 6. Hyperkalemia: resolved with dialysis 7. Acute rhabdomyolysis: resolving. Now dialysis dependent. 8. Substance abuse: had heroin and vodka in his system as well. Counselled on cessation 9. Shoulder pain: had no complaints about shoulder pain today. Resolved. 10. Thrombocytopenia: resolved. DVT prophylaxis: SCDs Disposition: patient will need placement in Psych facility for mental health evaluation o.a of suicidal attempt. Mental health crises team on board. [facility] didnt take patient as he was deemed as having too many medical problems. CM tried getting patient placed in [facility]. The patient denies any homicidal or suicidal ideations now, patient case manager spoke to patient's friend yesterday who explained that patient had experienced a lot of losses over the years including losing both of his parents when he was younger. He also lost his about a year ago due to fentanyl overdose. Patient has about 10-11 siblings who all use drugs. States patient has been behaving erratically over the past couple of weeks and so there is concerned that patient may attempt to harm himself again once he leaves the hospital despite him saying that he does not feel suicidal homicidal now. It is the hospitalist view that patient was strongly benefit from inpatient psychiatric evaluation. Hospitalist called [facility]. Number left in case management note on [phone]. Hospitalist unable to speak to anyone and left voicemail. Hospitalist spoke to patient case manager bronzer today and she will follow-up and see if she can get any further information. Anticipate patient will be here over the weekend due to difficulties with placement of patient. Code Visit Inpatient E&M: 08313 [facility] Hosp L3
--- NOTE | 2018-07-18 13:26 | PN_ITS ---
Patient Problems: Active and Suspected Problems (Last Updated 07/14/18 @ 12:39 by Jenni Valdes PA-C) Acute respiratory failure with hypoxia (Acute) Aspiration pneumonia due to food (regurgitated) (Acute) Acute kidney injury (nontraumatic) (Acute) Elevated liver enzymes (Acute) Acute hyperkalemia (Acute) Lactic acidosis (Acute) Anaphylactic shock, unspecified, initial encounter (Acute) Toxic effect of ingested berries, intentional self-harm, initial encounter (Acute) Encephalopathy acute (Acute) Secondary rhabdomyolysis (Acute) Subjective: Patient seen and examined this morning. He had no complaints and felt well. Review of systems otherwise negative. Patient denied having any homicidal or suicidal ideations. Labs and vitals reviewed. CPK levels have trended down significantly and liver enzymes have also trended out significant. He still remains dialysis dependent. Vitals/I&O's: Vital Signs Temp Pulse Resp BP Pulse Ox 98.9 F 81 16 131/60 H 92 07/18/18 09:00 07/18/18 11:00 07/18/18 09:00 07/18/18 09:00 07/18/18 09:00 Oxygen Flow Rate (L/min) 2 Oxygen Delivery Method Room Air Weight: 244 lb 11.41 oz Body Mass Index (BMI) 35.9 Intake and Output for Last 24 Hours 07/16/18 07/17/18 07/18/18 23:59 23:59 23:59 Intake Total 1693 / 1693 1280 / 1280 610 / 610 Output Total 275 / 275 3575 / 3575 575 / 575 Balance 1418 / 1418 -2295 / -2295 35 / 35 General: Alert, Cooperative, No apparent distress HEENT: Atraumatic, PERRLA, EOMI, Normocephalic Oral: Dry Mucosa Neck: Supple, No JVD, Negative Carotid Bruits Lungs: No rhonchi, No wheeze, No rales, - - clear to auscultation Cardiovascular: Regular rate, Regular Rhythm, Normal S1, Normal S2, No murmurs Abdomen: Bowel Sounds Present, Soft, Non Tender, Non-Distended, No Hepato- splenomegaly Extremities: No clubbing, No cyanosis, No edema, Capillary Refill Less than 3 Seconds Skin: No rashes, No breakdown Musculoskeletal: No Tenderness to Palpation of Joints or Extremities; dialysis catheter in right side of chest Lymphatic: No Cervical, Supraclavicular, or Inguinal Adenopathy Neurological: Cranial nerves II-XII grossly intact, Neuro grossly intact, Motor Exam 5/5 strength throughout Psych/Mental Status: Normal Affect, Appropriate, - - lethargic, Alert and oriented to time, place, person, mood and affect Microbiology Past 72 Hours 07/12/18 13:25 Blood Culture (Wb) - Port Blood Culture - Final No growth in 5 days. 07/12/18 13:25 Blood Culture (Wb) - Anticubital Left Blood Culture - Final No growth in 5 days. 07/15/18 03:36 Blood Culture (Wb) - Left Hand Blood Culture - Preliminary No growth in 48 hours. 07/15/18 03:30 Blood Culture (Wb) - Anticubital Right Blood Culture - Preliminary No growth in 48 hours. 07/10/18 18:45 Blood Culture (Wb) - Anticubital Right Bacteria Detection (PCR) - Final Streptococcus pneumoniae 07/10/18 18:45 Blood Culture (Wb) - Anticubital Right Blood Culture - Final Streptococcus pneumoniae 07/10/18 18:45 Blood Culture (Wb) - Right Hand Blood Culture - Final No growth in 5 days. Laboratory Results 07/18/18 05:45: WBC 10.1, RBC 3.47 L, Hgb 10.6 L, Hct 31.3 L, MCV 90.2, MCH 30.5, MCHC 33.9, RDW 12.5, RDW Differential 40.4, Plt Count 223, MPV 10.0, Neut % (Auto) Not Reportable, Absolute Neuts (auto) 6.5, Absolute Lymphs (auto) 1.92, Total Counted 100, Neutrophils % (Manual) 63, Band Neutrophils % 1, Lymphocytes % (Manual) 19, Monocytes % (Manual) 11 H, Eosinophils % (Manual) 3, Metamyelocytes % 1, Myelocytes % 2 H, Diff Path Review May foll, Reactive Lymphocytes 1+, Platelet Estimate ADEQUATE, Plt Morphology Comment LARGE, RBC Morphology NORM C+C 07/18/18 05:45: Sodium 136, Potassium 4.3, Chloride 97 L, Carbon Dioxide 26.0, Anion Gap 13, BUN 71 H, Creatinine 7.85 H*, Estim Creat Clear Calc 12.27, Est GFR (MDRD) Af Amer 10 L, Est GFR (MDRD) Non-Af 8 L, BUN/Creatinine Ratio 9.0 L, Glucose 101, Calcium 7.8 L, Total Bilirubin 0.90, AST 169 H, ALT 135 H, Alkaline Phosphatase 95, Total Protein 6.2 L, Albumin 1.8 L, Globulin 4.4 H, Albumin/Globulin Ratio 0.4 L Current Medications Acetaminophen (Tylenol) 650 mg PO Q4H PRN PRN PRN Reason: Fever >101 Last Admin: 07/17/18 15:15 Dose: 650 mg Albuterol Sulfate (Ventolin Aerosols) 2.5 mg INHALATION Q2H PRN PRN PRN Reason: sob/wheezing Bisacodyl (Dulcolax) 5 mg PO DAILY PRN PRN PRN Reason: Constipation Famotidine (Pepcid) 20 mg PO DAILY [facility] Last Admin: 07/18/18 08:57 Dose: 20 mg Hydralazine HCl (Apresoline Iv) 10 mg IV Q4H PRN PRN PRN Reason: SBP > 160 Last Admin: 07/16/18 19:46 Dose: 10 mg Magnesium Hydroxide (Milk Of Magnesia) 30 ml PO DAILY PRN PRN PRN Reason: Constipation Morphine Sulfate () 1 - 2 mg IV Q4H PRN PRN PRN Reason: PAIN Last Admin: 07/17/18 22:09 Dose: 2 mg Multivitamins/Minerals ([facility]itamin With Minerals) [facility] Last Admin: 07/18/18 08:57 Dose: 1 tablet Nicotine (Nicoderm Cq (Pbkc)) 21 mg TRANSDERM. DAILY [facility] Last Admin: 07/18/18 08:57 Dose: 21 mg Ondansetron HCl (Zofran) 4 mg IV Q8H PRN PRN PRN Reason: NAUSEA Last Admin: 07/16/18 07:56 Dose: 4 mg Oxycodone HCl (Oxyir) 10 mg PO Q4H PRN PRN PRN Reason: SEVERE PAIN (6-10/10) Last Admin: 07/18/18 12:04 Dose: 10 mg Sodium Chloride () 5 - 15 ml IV UD PRN PRN Reason: SALINE FLUSH Last Admin: 07/17/18 22:09 Dose: 10 ml Medical Necessity - Tobacco Use Smoking Status: Current every day smoker Tobacco Use: Cigarettes Assessment/Plan All Active Problems (Last Updated 07/14/18 @ 12:39 by Jenni Valdes PA-C) Acute respiratory failure with hypoxia (Acute) Aspiration pneumonia due to food (regurgitated) (Acute) Acute kidney injury (nontraumatic) (Acute) Elevated liver enzymes (Acute) Acute hyperkalemia (Acute) Lactic acidosis (Acute) Anaphylactic shock, unspecified, initial encounter (Acute) Toxic effect of ingested berries, intentional self-harm, initial encounter (Acute) Encephalopathy acute (Acute) Secondary rhabdomyolysis (Acute) 1. Acute hypoxic respiratory failure due to intentional drug overdose and aspiration pneumonia * successfully extubated on 07/12/18 and transferred to PCU on 07/13/18 * currently stable, saturating well on 2L of oxygen. On breathing treatments * titrate oxygen to maintain sats>90% * 2. Acute metabolic encephalopathy due to intentional drug overdose with gabapen tin * resolved. * 3. HÉCTOR likely due to acute rhabdomyolysis and dehydration * now dialysis dependent * nephrology on board; having regular dialysis * had right internal jugular dialysis catheter placed on 07/14/18 * for dialysis MWF 4. Apiration pneumonia: * blood cultures were positive for strep, and sputum cultures positive for MSSA. * IV Unasyn was stopped on 07/15/2018 after he completed 7-day course. * * 5. Drug induced hepatitis: * liver enzymes have trended down significantly. * largely resolved * * 6. Hyperkalemia: resolved with dialysis 7. Acute rhabdomyolysis: resolving. Now dialysis dependent. 8. Substance abuse: had heroin and vodka in his system as well. Counselled on cessation 9. Shoulder pain: had no complaints about shoulder pain today. Resolved. 10. Thrombocytopenia: resolved. * * DVT prophylaxis: SCDs Disposition: * patient will need placement in Psych facility for mental health evaluation o.a of suicidal attempt. Mental health crises team on board. * [facility] didnt take patient as he was deemed as having too many medical problems. * CM tried getting patient placed in [facility]. * The patient denies any homicidal or suicidal ideations now, disease case manager spoke to patient's friend yesterday who explained that patient had experienced a lot of losses over the years including losing both of his parents when he was younger. He also lost his about a year ago due to fentanyl overdose. Patient has about 10-11 siblings who all use drugs. States patient has been behaving erratically over the past couple of weeks and so there is concerned that patient may attempt to harm himself again once he leaves the hospital despite him saying that he does not feel suicidal homicidal now. It is the hospitalist view that patient was strongly benefit from inpatient psychiatric evaluation. * Hospitalist called [facility]. Number left in case management note on [phone]. Hospitalist unable to speak to anyone and left voicemail. * Hospitalist spoke to disease case manager professional tutor today and she will follow-up and see if she can get any further information. Anticipate patient will be here over the weekend due to difficulties with placement of patient. Code Visit Inpatient E&M: 90109 Subs Hosp L3
--- NOTE | 2018-07-18 18:18 | PCM.PN.REN ---
Patient Problems: Active and Suspected Problems (Last Updated 07/14/18 @ 12:39 by Jenni Valdes PA-C) Acute respiratory failure with hypoxia (Acute) Aspiration pneumonia due to food (regurgitated) (Acute) Acute kidney injury (nontraumatic) (Acute) Elevated liver enzymes (Acute) Acute hyperkalemia (Acute) Lactic acidosis (Acute) Anaphylactic shock, unspecified, initial encounter (Acute) Toxic effect of ingested berries, intentional self-harm, initial encounter (Acute) Encephalopathy acute (Acute) Secondary rhabdomyolysis (Acute) Subjective: no new complaints - Physical Exam General: Alert, Oriented x3, Cooperative HEENT: Atraumatic, PERRLA, EOMI, Normocephalic Neck: Supple, No JVD, Negative Carotid Bruits Lungs: Clear to auscultation, Normal air movement Cardiovascular: Regular rate, No murmurs Abdomen: Bowel Sounds Present, Soft, Non Tender Extremities: No edema, Capillary Refill Less than 3 Seconds Skin: No rashes, No breakdown Musculoskeletal: No Tenderness to Palpation of Joints or Extremities Neurological: Cranial nerves II-XII grossly intact Psych/Mental Status: Normal Affect, Appropriate Vital Signs Temp Pulse Resp BP Pulse Ox 99.0 F 63 14 143/77 H 96 07/18/18 15:00 07/18/18 15:00 07/18/18 15:00 07/18/18 15:00 07/18/18 15:00 Oxygen Flow Rate (L/min) 2 Oxygen Delivery Method Room Air Weight: 111 kg Body Mass Index (BMI) 35.9 Intake and Output for Last 24 Hours 07/16/18 07/17/18 07/18/18 23:59 23:59 23:59 Intake Total 1693 / 1693 1280 / 1280 610 / 610 Output Total 275 / 275 3575 / 3575 575 / 575 Balance 1418 / 1418 -2295 / -2295 35 / 35 Microbiology Past 72 Hours 07/12/18 13:25 Blood Culture - Final Blood Culture (Wb) - Port No growth in 5 days. 07/12/18 13:25 Blood Culture - Final Blood Culture (Wb) - Anticubital Left No growth in 5 days. 07/15/18 03:36 Blood Culture - Preliminary Blood Culture (Wb) - Left Hand No growth in 48 hours. 07/15/18 03:30 Blood Culture - Preliminary Blood Culture (Wb) - Anticubital Right No growth in 48 hours. 07/10/18 18:45 Bacteria Detection (PCR) - Final Blood Culture (Wb) - Anticubital Right Streptococcus pneumoniae Blood Culture - Final Streptococcus pneumoniae 07/10/18 18:45 Blood Culture - Final Blood Culture (Wb) - Right Hand No growth in 5 days. Laboratory Tests Past 24 Hrs 07/18/18 07/18/18 05:45 05:45 WBC 10.1 RBC 3.47 L Hgb 10.6 L Hct 31.3 L MCV 90.2 MCH 30.5 MCHC 33.9 RDW 12.5 RDW Differential 40.4 Plt Count 223 MPV 10.0 Neut % (Auto) Not Reportable Absolute Neuts (auto) 6.5 Absolute Lymphs (auto) 1.92 Total Counted 100 Neutrophils % (Manual) 63 Band Neutrophils % 1 Lymphocytes % (Manual) 19 Monocytes % (Manual) 11 H Eosinophils % (Manual) 3 Metamyelocytes % 1 Myelocytes % 2 H Diff Path Review May foll Reactive Lymphocytes 1+ Platelet Estimate ADEQUATE Plt Morphology Comment LARGE RBC Morphology NORM C+C Sodium 136 Potassium 4.3 Chloride 97 L Carbon Dioxide 26.0 Anion Gap 13 BUN 71 H Creatinine 7.85 H* Estim Creat Clear Calc 12.27 Est GFR (MDRD) Af Amer 10 L Est GFR (MDRD) Non-Af 8 L BUN/Creatinine Ratio 9.0 L Glucose 101 Calcium 7.8 L Total Bilirubin 0.90 AST 169 H ALT 135 H Alkaline Phosphatase 95 Total Protein 6.2 L Albumin 1.8 L Globulin 4.4 H Albumin/Globulin Ratio 0.4 L Medical Necessity - Tobacco Use Smoking Status: Current every day smoker Tobacco Use: Cigarettes Assessment/Plan All Active Problems (Last Updated 07/14/18 @ 12:39 by Jenni Valdse PA-C) Acute respiratory failure with hypoxia (Acute) Aspiration pneumonia due to food (regurgitated) (Acute) Acute kidney injury (nontraumatic) (Acute) Elevated liver enzymes (Acute) Acute hyperkalemia (Acute) Lactic acidosis (Acute) Anaphylactic shock, unspecified, initial encounter (Acute) Toxic effect of ingested berries, intentional self-harm, initial encounter (Acute) Encephalopathy acute (Acute) Secondary rhabdomyolysis (Acute) 1. Acute kidney injury. Pt's baseline renal function is unknown. Presumed normal. HÉCTOR is likely due to ischemic/nephrotoxic ATN related to rhabdomyolysis and volume depletion. Pt is now HD dependent. HD started on 07/11. Tunneled cath was placed on 07/14 urine output somewhat better 2. Hyperkalemia.resolved with HD. Follow K. 3. Rhabdomyolysis. Improved still has gtz in can dc and monitor urine output clinically
[2018-07-19] VITALS (11 sets, daily range): BP systolic 121–152; BP diastolic 58–79; PULSE 60–77; RESP 16–18; TEMP 36.7–37.8; O2SAT 92–96
[2018-07-19 06:28] LABS: Hematocrit 31.2 % (40-54); Hemoglobin 10.6 g/dl (13.0-16.5); Mean Corpuscular Hgb 30.5 pg (27.0-32.0); Mean Corpuscular Volume 89.9 fL (80-94); Mean Platelet Vol. 9.9 fl (6.2-12.0); Platelet Count 271 K/mm3 (150-450); RBC Distribution Width CV 12.7 % (11.6-14.6); RBC Distribution Width SD 40.7 fl (35.1-43.9); Red Blood Count 3.47 M/mm3 (4.6-6.2); White Blood Count 10.5 K/mm3 (4.4-11.0)
[2018-07-19 06:38] LABS: Differential Indicated MANUAL DIFF; POSITIVE COUNT YES; POSITIVE DIFFERENTIAL NO; POSITIVE MORPHOLOGY YES
[2018-07-19] MEDS: Acetaminophen 325 MG Tablet 650 MG PO (06:48)
[2018-07-19 07:01] LABS: ALB/GLOB Ratio 0.4 RATIO (0.9-2.4); AST(SGOT) 145 U/L (15-37); Alanine Aminotransfer ALT/SGPT 120 U/L (16-61); Albumin, Serum 1.8 g/dL (3.2-5.0); Alkaline Phosphatase 85 U/L (45-117); Anion Gap 14 (5-15); BUN 89 mg/dL (7-18); BUN/Creat Ratio 9.8 RATIO (10-20); Chloride 98 mmol/L (98-107); Creatinine, Serum 9.12 mg/dL (0.70-1.30); EST Glomerular Filtration Rate 7 mL/min (>60); Est Glom Filt Rate - Afr Amer 8 mL/min (>60); Estimated Creatinine Clearance 10.56 ml/min; Globulin 4.4 g/dL (2.2-4.2); Glucose 95 mg/dL (74-106); Potassium 4.4 mmol/L (3.5-5.1); Protein, Total 6.2 g/dL (6.4-8.2); Sodium Level 136 mmol/L (136-145)
[2018-07-19 07:05] LABS: Eosinophil 3 % (0-5); Lymphocyte 21 % (19-41); Monocyte 14 % (0-10); Myelocyte 1 (0-0); Neutrophil-Band 2 % (0-5); Neutrophil-Segmented 59 % (47-70); Platelet Estimate ADEQUATE (ADEQ); Red Cell Morphology NORM C+C NORMAL (NORM C&C); Total Cells Counted 100 (MANUAL DIFF); Toxic Granulation 2+
[2018-07-19 07:06] LABS: Absolute Lymphocyte Count 2.21 X10^3/ul (0.83-4.51); Absolute Neutrophil Count 6.4 X10^3/uL (2.0-7.7); Lymphocyte # 2.21 X10^3/ul (4.0)
[2018-07-19] MEDS: Multivitamins,Ther W-Minerals Tablet 1 TABLET PO (11:02)
[2018-07-19] MEDS: oxyCODONE 5 MG Tablet PO ×2 (11:03→18:30)
[2018-07-19] MEDS: Famotidine 20 MG Tablet PO (11:03)
--- NOTE | 2018-07-19 11:37 | PN_ITS ---
Patient Problems: Active and Suspected Problems (Last Updated 07/14/18 @ 12:39 by Jenni Valdes PA-C) Acute respiratory failure with hypoxia (Acute) Aspiration pneumonia due to food (regurgitated) (Acute) Acute kidney injury (nontraumatic) (Acute) Elevated liver enzymes (Acute) Acute hyperkalemia (Acute) Lactic acidosis (Acute) Anaphylactic shock, unspecified, initial encounter (Acute) Toxic effect of ingested berries, intentional self-harm, initial encounter (Acute) Encephalopathy acute (Acute) Secondary rhabdomyolysis (Acute) Subjective: Patient seen and examined. He had no complaints this morning. Review of systems otherwise negative. He still denies complaints of homicidal or suicidal ideation. He is now off oxygen. Labs and vitals reviewed. Vitals/I&O's: Vital Signs Temp Pulse Resp BP Pulse Ox 98.1 F 60 16 152/76 H 95 07/19/18 11:01 07/19/18 11:01 07/19/18 11:01 07/19/18 11:01 07/19/18 11:01 Oxygen Flow Rate (L/min) 2 Oxygen Delivery Method Room Air Weight: 244 lb 4.355 oz Body Mass Index (BMI) 35.9 Intake and Output for Last 24 Hours 07/17/18 07/18/18 07/19/18 23:59 23:59 23:59 Intake Total 1280 / 1280 1010 / 1010 240 / 240 Output Total 3575 / 3575 925 / 925 475 / 475 Balance -2295 / -2295 85 / 85 -235 / -235 General: Alert, Cooperative, No apparent distress HEENT: Atraumatic, PERRLA, EOMI, Normocephalic Oral: Dry Mucosa Neck: Supple, No JVD, Negative Carotid Bruits Lungs: No rhonchi, No wheeze, No rales, - - clear to auscultation; on room air Cardiovascular: Regular rate, Regular Rhythm, Normal S1, Normal S2, No murmurs Abdomen: Bowel Sounds Present, Soft, Non Tender, Non-Distended, No Hepato- splenomegaly Extremities: No clubbing, No cyanosis, No edema, Capillary Refill Less than 3 Seconds Skin: No rashes, No breakdown Musculoskeletal: No Tenderness to Palpation of Joints or Extremities; dialysis catheter in right side of chest Lymphatic: No Cervical, Supraclavicular, or Inguinal Adenopathy Neurological: Cranial nerves II-XII grossly intact, Neuro grossly intact, Motor Exam 5/5 strength throughout Psych/Mental Status: Normal Affect, Appropriate, - - lethargic, Alert and oriented to time, place, person, mood and affect Microbiology Past 72 Hours 07/12/18 13:25 Blood Culture (Wb) - Port Blood Culture - Final No growth in 5 days. 07/12/18 13:25 Blood Culture (Wb) - Anticubital Left Blood Culture - Final No growth in 5 days. 07/15/18 03:36 Blood Culture (Wb) - Left Hand Blood Culture - Preliminary No growth in 48 hours. 07/15/18 03:30 Blood Culture (Wb) - Anticubital Right Blood Culture - Preliminary No growth in 48 hours. Laboratory Results 07/19/18 05:30: WBC 10.5, RBC 3.47 L, Hgb 10.6 L, Hct 31.2 L, MCV 89.9, MCH 30.5, MCHC 34.0, RDW 12.7, RDW Differential 40.7, Plt Count 271, MPV 9.9, Neut % (Auto) Not Reportable, Absolute Neuts (auto) 6.4, Absolute Lymphs (auto) 2.21, Total Counted 100, Neutrophils % (Manual) 59, Band Neutrophils % 2, Lymphocytes % (Manual) 21, Monocytes % (Manual) 14 H, Eosinophils % (Manual) 3, Myelocytes % 1 H, Diff Path Review May foll, Toxic Granulation 2+, Platelet Estimate ADEQUATE, RBC Morphology NORM C+C 07/19/18 05:30: Sodium 136, Potassium 4.4, Chloride 98, Carbon Dioxide 24.0, Anion Gap 14, BUN 89 H, Creatinine 9.12 H*, Estim Creat Clear Calc 10.56, Est GFR (MDRD) Af Amer 8 L, Est GFR (MDRD) Non-Af 7 L, BUN/Creatinine Ratio 9.8 L, Glucose 95, Calcium 8.0 L, Total Bilirubin 0.90, AST 145 H, ALT 120 H, Alkaline Phosphatase 85, Total Protein 6.2 L, Albumin 1.8 L, Globulin 4.4 H, Albumin/Globulin Ratio 0.4 L Current Medications Acetaminophen (Tylenol) 650 mg PO Q4H PRN PRN PRN Reason: Fever >101 Last Admin: 07/19/18 06:48 Dose: 650 mg Albuterol Sulfate (Ventolin Aerosols) 2.5 mg INHALATION Q2H PRN PRN PRN Reason: sob/wheezing Bisacodyl (Dulcolax) 5 mg PO DAILY PRN PRN PRN Reason: Constipation Famotidine (Pepcid) 20 mg PO DAILY [facility] Last Admin: 07/19/18 11:03 Dose: 20 mg Hydralazine HCl (Apresoline Iv) 10 mg IV Q4H PRN PRN PRN Reason: SBP > 160 Last Admin: 07/16/18 19:46 Dose: 10 mg Magnesium Hydroxide (Milk Of Magnesia) 30 ml PO DAILY PRN PRN PRN Reason: Constipation Morphine Sulfate () 1 - 2 mg IV Q4H PRN PRN PRN Reason: PAIN Last Admin: 07/17/18 22:09 Dose: 2 mg Multivitamins/Minerals ([facility]itamin With Minerals) [facility] Last Admin: 07/19/18 11:02 Dose: 1 tablet Nicotine (Nicoderm Cq (Pbkc)) 21 mg TRANSDERM. DAILY [facility] Last Admin: 07/19/18 11:03 Dose: 21 mg Ondansetron HCl (Zofran) 4 mg IV Q8H PRN PRN PRN Reason: NAUSEA Last Admin: 07/16/18 07:56 Dose: 4 mg Oxycodone HCl (Oxyir) 5 mg PO Q6H PRN PRN PRN Reason: SEVERE PAIN (6-10/10) Last Admin: 07/19/18 11:03 Dose: 5 mg Sodium Chloride () 5 - 15 ml IV UD PRN PRN Reason: SALINE FLUSH Last Admin: 07/17/18 22:09 Dose: 10 ml Medical Necessity - Tobacco Use Smoking Status: Current every day smoker Tobacco Use: Cigarettes Assessment/Plan All Active Problems (Last Updated 07/14/18 @ 12:39 by Jenni Valdes PA-C) Acute respiratory failure with hypoxia (Acute) Aspiration pneumonia due to food (regurgitated) (Acute) Acute kidney injury (nontraumatic) (Acute) Elevated liver enzymes (Acute) Acute hyperkalemia (Acute) Lactic acidosis (Acute) Anaphylactic shock, unspecified, initial encounter (Acute) Toxic effect of ingested berries, intentional self-harm, initial encounter (Acute) Encephalopathy acute (Acute) Secondary rhabdomyolysis (Acute) 1. Acute hypoxic respiratory failure due to intentional drug overdose and aspiration pneumonia * successfully extubated on 07/12/18 and transferred to PCU on 07/13/18 * currently stable, saturating well on 2L of oxygen. On breathing treatments * titrate oxygen to maintain sats>90% * 2. Acute metabolic encephalopathy due to intentional drug overdose with g abapentin * resolved. * 3. HÉCTOR likely due to acute rhabdomyolysis and dehydration * now dialysis dependent * nephrology on board; having regular dialysis * had right internal jugular dialysis catheter placed on 07/14/18 * for dialysis MWF 4. Apiration pneumonia: * blood cultures were positive for strep, and sputum cultures positive for MSSA. * IV Unasyn was stopped on 07/15/2018 after he completed 7-day course. * * 5. Drug induced hepatitis: * liver enzymes have trended down significantly. * largely resolved * * 6. Hyperkalemia: resolved with dialysis 7. Acute rhabdomyolysis: resolving. Now dialysis dependent. 8. Substance abuse: had heroin and vodka in his system as well. Counselled on cessation 9. Shoulder pain: had no complaints about shoulder pain today. Resolved. 10. Thrombocytopenia: resolved. * * DVT prophylaxis: SCDs Disposition: * patient will need placement in Psych facility for mental health evaluation o.a of suicidal attempt. Mental health crises team on board. * [facility] didnt take patient as he was deemed as having too many medical problems. * Attempts not be made to place patient in [facility]. * Code Visit Inpatient E&M: 65736 [facility] Hosp L3
[2018-07-19] MEDS: 0.9% NaCl Peripheral Flush Adult/Peds IV ×2 (19:49→19:54)
[2018-07-19] MEDS: Ondansetron 4 MG/2 ML Vial IV (19:49)
[2018-07-20] VITALS (13 sets, daily range): BP systolic 128–148; BP diastolic 66–106; PULSE 63–79; RESP 14–18; TEMP 36.2–37.1; O2SAT 92–95
[2018-07-20] MEDS: oxyCODONE 5 MG Tablet PO (04:20)
[2018-07-20 07:36] LABS: ALB/GLOB Ratio 0.4 RATIO (0.9-2.4); AST(SGOT) 132 U/L (15-37); Alanine Aminotransfer ALT/SGPT 119 U/L (16-61); Alkaline Phosphatase 81 U/L (45-117); Anion Gap 13 (5-15); BUN 99 mg/dL (7-18); BUN/Creat Ratio 10.5 RATIO (10-20); Calcium,Total 7.8 mg/dL (8.5-10.1); Chloride 100 mmol/L (98-107); Creatinine, Serum 9.41 mg/dL (0.70-1.30); Differential Indicated MANUAL DIFF; EST Glomerular Filtration Rate 6 mL/min (>60); Est Glom Filt Rate - Afr Amer 8 mL/min (>60); Estimated Creatinine Clearance 10.24 ml/min; Globulin 4.5 g/dL (2.2-4.2); Glucose 104 mg/dL (74-106); Hematocrit 31.2 % (40-54); Hemoglobin 10.6 g/dl (13.0-16.5); Mean Corpuscular Hgb 30.4 pg (27.0-32.0); Mean Corpuscular Volume 89.4 fL (80-94); Mean Platelet Vol. 9.8 fl (6.2-12.0); POSITIVE COUNT YES; POSITIVE DIFFERENTIAL NO; POSITIVE MORPHOLOGY YES; Platelet Count 282 K/mm3 (150-450); Potassium 4.9 mmol/L (3.5-5.1); Protein, Total 6.5 g/dL (6.4-8.2); RBC Distribution Width CV 12.9 % (11.6-14.6); RBC Distribution Width SD 41.6 fl (35.1-43.9); Red Blood Count 3.49 M/mm3 (4.6-6.2); Sodium Level 135 mmol/L (136-145); White Blood Count 8.8 K/mm3 (4.4-11.0)
[2018-07-20 08:42] LABS: Basophil 1 % (0-1); Eosinophil 1 % (0-5); Lymphocyte 19 % (19-41); Metamyelocyte 1 % (0-1); Monocyte 12 % (0-10); Myelocyte 4 (0-0); Neutrophil-Segmented 62 % (47-70); Total Cells Counted 100 (MANUAL DIFF)
[2018-07-20 08:43] LABS: Absolute Neutrophil Count 5.5 X10^3/uL (2.0-7.7); Platelet Estimate ADEQUATE (ADEQ); Red Cell Morphology NORM C+C NORMAL (NORM C&C)
--- NOTE | 2018-07-20 09:50 | NURSING ---
Pt receiving Dialysis.
--- NOTE | 2018-07-20 10:48 | CASEMGMT ---
Social work: TC to Brenda at [facility]. Brenda stating that it is unlikely that they are able to accept patient due to patient needing dialysis and therefore needing more staff to care for patient as staff would need to accompany patient to dialysis. Brenda asking that referral be faxed and she will have supervisor grading review. Referral faxed. TC to Gini Morgan in crisis. Gini unavailable. Voice mail message left for Gini to call this SW. Will continue to follow to assist as needed with psych placement. ZIGGY Redmond
--- NOTE | 2018-07-20 10:50 | NURSING ---
Pt resting in bed, tolerating dialysis well. Sitter in room. Pt denies needs.
--- NOTE | 2018-07-20 10:50 | PCM.PROGNOTE ---
Patient Problems: Active and Suspected Problems (Last Updated 07/14/18 @ 12:39 by Jenni Valdes PA-C) Acute respiratory failure with hypoxia (Acute) Aspiration pneumonia due to food (regurgitated) (Acute) Acute kidney injury (nontraumatic) (Acute) Elevated liver enzymes (Acute) Acute hyperkalemia (Acute) Lactic acidosis (Acute) Anaphylactic shock, unspecified, initial encounter (Acute) Toxic effect of ingested berries, intentional self-harm, initial encounter (Acute) Encephalopathy acute (Acute) Secondary rhabdomyolysis (Acute) Subjective: no c/o no cp/sob - Physical Exam General: Alert, Oriented x3 HEENT: Atraumatic, PERRLA, EOMI Oral: Moist Mucosa Neck: Supple, No JVD Lungs: Clear to auscultation, Normal air movement, No rhonchi, No wheeze Cardiovascular: Regular rate, Regular Rhythm, Normal S1, Normal S2 Abdomen: Bowel Sounds Present, Soft, Non Tender Extremities: No clubbing Skin: No rashes Neurological: Neuro grossly intact Comment: RIJ TDC no signs of inflammation Vital Signs Temp Pulse Resp BP Pulse Ox 98 F 67 16 128/80 H 94 07/20/18 09:55 07/20/18 10:20 07/20/18 09:55 07/20/18 09:55 07/20/18 09:55 Oxygen Flow Rate (L/min) 2 Oxygen Delivery Method Room Air Weight: 109.7 kg Body Mass Index (BMI) 35.9 Intake and Output for Last 24 Hours 07/18/18 07/19/18 07/20/18 23:59 23:59 23:59 Intake Total 1010 / 1010 1080 / 1080 720 / 720 Output Total 925 / 925 475 / 475 600 / 600 Balance 85 / 85 605 / 605 120 / 120 Microbiology Past 72 Hours 07/12/18 13:25 Blood Culture - Final Blood Culture (Wb) - Port No growth in 5 days. 07/12/18 13:25 Blood Culture - Final Blood Culture (Wb) - Anticubital Left No growth in 5 days. 07/15/18 03:36 Blood Culture - Preliminary Blood Culture (Wb) - Left Hand No growth in 48 hours. 07/15/18 03:30 Blood Culture - Preliminary Blood Culture (Wb) - Anticubital Right No growth in 48 hours. Laboratory Tests Past 24 Hrs 07/20/18 07/20/18 06:34 06:34 WBC 8.8 RBC 3.49 L Hgb 10.6 L Hct 31.2 L MCV 89.4 MCH 30.4 MCHC 34.0 RDW 12.9 RDW Differential 41.6 Plt Count 282 MPV 9.8 Neut % (Auto) Not Reportable Absolute Neuts (auto) 5.5 Absolute Lymphs (auto) 1.70 Total Counted 100 Neutrophils % (Manual) 62 Lymphocytes % (Manual) 19 Monocytes % (Manual) 12 H Eosinophils % (Manual) 1 Basophils % (Manual) 1 Metamyelocytes % 1 Myelocytes % 4 H Diff Path Review May foll Platelet Estimate ADEQUATE RBC Morphology NORM C+C Sodium 135 L Potassium 4.9 Chloride 100 Carbon Dioxide 22.0 Anion Gap 13 BUN 99 H Creatinine 9.41 H* Estim Creat Clear Calc 10.24 Est GFR (MDRD) Af Amer 8 L Est GFR (MDRD) Non-Af 6 L BUN/Creatinine Ratio 10.5 Glucose 104 Calcium 7.8 L Total Bilirubin 0.70 AST 132 H ALT 119 H Alkaline Phosphatase 81 Total Protein 6.5 Albumin 2.0 L Globulin 4.5 H Albumin/Globulin Ratio 0.4 L Medical Necessity - Tobacco Use Smoking Status: Current every day smoker Tobacco Use: Cigarettes Assessment/Plan All Active Problems (Last Updated 07/14/18 @ 12:39 by Jenni Valdes PA-C) Acute respiratory failure with hypoxia (Acute) Aspiration pneumonia due to food (regurgitated) (Acute) Acute kidney injury (nontraumatic) (Acute) Elevated liver enzymes (Acute) Acute hyperkalemia (Acute) Lactic acidosis (Acute) Anaphylactic shock, unspecified, initial encounter (Acute) Toxic effect of ingested berries, intentional self-harm, initial encounter (Acute) Encephalopathy acute (Acute) Secondary rhabdomyolysis (Acute) 1. Acute kidney injury. Pt's baseline renal function is unknown. Presumed normal. HÉCTOR is likely due to ATN 2/2 rhabdomyolysis and volume depletion. Pt is now HD dependent. HD started on 07/11. Tunneled cath was placed on 07/14 HD today seen on HD tolerating well. Dose medications for CrCl<10. Avoid ACEI/ARB Will continue to monitor for renal recovery 2. Hyperkalemia.resolved with HD. Follow K. 3. Rhabdomyolysis almost resolved
--- NOTE | 2018-07-20 12:01 | CASEMGMT ---
Social Work: TC to [facility]. Brenda lynn. Spoke with [facility] who states that they are unable to take patient due to patient acuity and staffing needs. ZIGGY Garza
--- NOTE | 2018-07-20 13:12 | PCM.PN.ID ---
Patient Problems: Active and Suspected Problems (Last Updated 07/14/18 @ 12:39 by Jenni Valdes PA-C) Acute respiratory failure with hypoxia (Acute) Aspiration pneumonia due to food (regurgitated) (Acute) Acute kidney injury (nontraumatic) (Acute) Elevated liver enzymes (Acute) Acute hyperkalemia (Acute) Lactic acidosis (Acute) Anaphylactic shock, unspecified, initial encounter (Acute) Toxic effect of ingested berries, intentional self-harm, initial encounter (Acute) Encephalopathy acute (Acute) Secondary rhabdomyolysis (Acute) Subjective: Feeling better, no fever, no cough, no SOB - Physical Exam General: Alert, Cooperative, No apparent distress Lungs: Clear to auscultation, Normal air movement Cardiovascular: Regular rate, Regular Rhythm Abdomen: Soft, Non Tender, Non-Distended Skin: No rashes Vital Signs Temp Pulse Resp BP Pulse Ox 98 F 67 16 128/80 H 94 07/20/18 09:55 07/20/18 10:20 07/20/18 09:55 07/20/18 09:55 07/20/18 09:55 Oxygen Flow Rate (L/min) 2 Oxygen Delivery Method Room Air Weight: 109.7 kg Body Mass Index (BMI) 35.9 Intake and Output for Last 24 Hours 07/18/18 07/19/18 07/20/18 23:59 23:59 23:59 Intake Total 1010 / 1010 1080 / 1080 720 / 720 Output Total 925 / 925 475 / 475 600 / 600 Balance 85 / 85 605 / 605 120 / 120 Microbiology Past 72 Hours 07/15/18 03:36 Blood Culture - Final Blood Culture (Wb) - Left Hand No growth in 5 days. 07/15/18 03:30 Blood Culture - Final Blood Culture (Wb) - Anticubital Right No growth in 5 days. 07/12/18 13:25 Blood Culture - Final Blood Culture (Wb) - Port No growth in 5 days. 07/12/18 13:25 Blood Culture - Final Blood Culture (Wb) - Anticubital Left No growth in 5 days. Laboratory Tests Past 24 Hrs 07/20/18 07/20/18 06:34 06:34 WBC 8.8 RBC 3.49 L Hgb 10.6 L Hct 31.2 L MCV 89.4 MCH 30.4 MCHC 34.0 RDW 12.9 RDW Differential 41.6 Plt Count 282 MPV 9.8 Neut % (Auto) Not Reportable Absolute Neuts (auto) 5.5 Absolute Lymphs (auto) 1.70 Total Counted 100 Neutrophils % (Manual) 62 Lymphocytes % (Manual) 19 Monocytes % (Manual) 12 H Eosinophils % (Manual) 1 Basophils % (Manual) 1 Metamyelocytes % 1 Myelocytes % 4 H Diff Path Review May foll Platelet Estimate ADEQUATE RBC Morphology NORM C+C Sodium 135 L Potassium 4.9 Chloride 100 Carbon Dioxide 22.0 Anion Gap 13 BUN 99 H Creatinine 9.41 H* Estim Creat Clear Calc 10.24 Est GFR (MDRD) Af Amer 8 L Est GFR (MDRD) Non-Af 6 L BUN/Creatinine Ratio 10.5 Glucose 104 Calcium 7.8 L Total Bilirubin 0.70 AST 132 H ALT 119 H Alkaline Phosphatase 81 Total Protein 6.5 Albumin 2.0 L Globulin 4.5 H Albumin/Globulin Ratio 0.4 L Medical Necessity - Tobacco Use Smoking Status: Current every day smoker Tobacco Use: Cigarettes Route of nutrition/ use of supplements: [] Nutritional Intake: [] IV Site: [] Payne Catheter: [] - Assessment/Plan Antibiotics: [] Assessment/Plan: [] Active and Suspected Problems (Last Updated 07/10/18 @ 23:08 by Faustino Hagan MD) Acute respiratory failure with hypoxia (Acute) Aspiration pneumonia due to food (regurgitated) (Acute) Acute kidney injury (nontraumatic) (Acute) Elevated liver enzymes (Acute) Acute hyperkalemia (Acute) Lactic acidosis (Acute) Anaphylactic shock, unspecified, initial encounter (Acute) Toxic effect of ingested berries, intentional self-harm, initial encounter (Acute) Encephalopathy acute (Acute) Secondary rhabdomyolysis (Acute) sepsis with transaminitis, aspiration pneumonia, single (+) bcx with s.pneumo, sputum with mssa, HÉCTOR. Overall improving. Hep C (+). Pending hep C pcr (+) at 156k, and hiv was neg. Wbc and temps better off of abx. ID followup if he is able to abstain from drugs in order to get hep C treatment. Will sign off.
[2018-07-20 13:13] LABS: Pathologist Review Reviewed
[2018-07-20 13:19] LABS: Pathologist Review Reviewed
--- NOTE | 2018-07-20 13:28 | CASEMGMT ---
Addendum entered by Maria Guadalupe Benavides 07/20/18 13:31: Shannan at [facility] states that [facility] is declining patient due to drug use noted in medical record. [facility] indicating that patient will need both mental health and addiction treatment and is suggesting intensive outpatient dual diagnosis treatment. ZIGGY Redmond Original Note: Social Work: TC to Shannan at [facility]. Shannan states that [facility] has called [facility] and [facility] for bed availability. Both state that they have no beds available this day. Shannan states that they will attempt again tomorrow. Will continue to follow to assist as needed with psych placement. ZIGGY Redmond
--- NOTE | 2018-07-20 14:36 | DIALYSIS ---
Hemodialysis complete. 4 hour run, 2k bath. Net fluid removed = 2000 ml. Patient tolerated HD tx well. Patient's venous chamber clotting off midway through tx. Returned blood. New line setup. Small dose of Heparin ordered and given for remainder of tx. Access: Right chest CVC: Site benign, dressing dry and intact, lumen flushed with NS, filled to volume with Heparin, capped and clamped. Written and verbal report given to primary RNShelby.
[2018-07-20] MEDS: Multivitamins,Ther W-Minerals Tablet 1 TABLET PO (14:57)
[2018-07-20] MEDS: Famotidine 20 MG Tablet PO (14:57)
[2018-07-20] MEDS: Heparin 10,000 UNITS/10 ML Vial 2000 UNITS IV (14:58)
[2018-07-20] MEDS: Heparin 10,000 UNITS/10 ML Vial 3200 UNITS IV (14:58)
--- NOTE | 2018-07-20 15:16 | CASEMGMT ---
Social Work: TC to [facility] asking for Behavioral Health. Behavioral Health beeper number given to this SW. SW left phone number on beeper. Return call from Dr. Mosqueda (psychiatry) at [facility]. Patient information given to Dr. Mosqueda who is requesting clinicals be faxed for review. Clinicals faxed. PLAN: Patient to be discharged to [facility] pending acceptance. ZIGGY Redmond
--- NOTE | 2018-07-20 15:45 | PCM.PN.HOSP ---
Patient Problems: Active and Suspected Problems (Last Updated 07/14/18 @ 12:39 by Jenni Valdes PA-C) Acute respiratory failure with hypoxia (Acute) Aspiration pneumonia due to food (regurgitated) (Acute) Acute kidney injury (nontraumatic) (Acute) Elevated liver enzymes (Acute) Acute hyperkalemia (Acute) Lactic acidosis (Acute) Anaphylactic shock, unspecified, initial encounter (Acute) Toxic effect of ingested berries, intentional self-harm, initial encounter (Acute) Encephalopathy acute (Acute) Secondary rhabdomyolysis (Acute) Subjective: Denies any complaints. Vitals/I&O's: Vital Signs Temp Pulse Resp BP Pulse Ox 36.2 C L 79 16 142/106 H 93 07/20/18 14:41 07/20/18 14:41 07/20/18 14:41 07/20/18 14:41 07/20/18 14:41 Oxygen Flow Rate (L/min) 2 Oxygen Delivery Method Room Air Weight: 109.7 kg Body Mass Index (BMI) 35.9 Intake and Output for Last 24 Hours 07/18/18 07/19/18 07/20/18 23:59 23:59 23:59 Intake Total 1010 / 1010 1080 / 1080 720 / 720 Output Total 925 / 925 475 / 475 2600 / 2600 Balance 85 / 85 605 / 605 -1880 / -1880 General: Alert, No apparent distress, - - seen on HD HEENT: Atraumatic, Normocephalic Oral: Moist Mucosa, No Gingival or Mucosal Lesions/ Ulcerations Neck: No Nodes, Thyroid Normal Size and Texture Lungs: Clear to auscultation, Normal air movement, No rhonchi, No wheeze Cardiovascular: Regular rate, Regular Rhythm, Normal S1, Normal S2, No murmurs Abdomen: Bowel Sounds Present, Soft, Non Tender, Non-Distended, No Hepato-splenomegaly Extremities: No edema, No Calf Tenderness Skin: No rashes, No breakdown Psych/Mental Status: Appropriate, Flat Affect Microbiology Past 72 Hours 07/15/18 03:36 Blood Culture (Wb) - Left Hand Blood Culture - Final No growth in 5 days. 07/15/18 03:30 Blood Culture (Wb) - Anticubital Right Blood Culture - Final No growth in 5 days. 07/12/18 13:25 Blood Culture (Wb) - Port Blood Culture - Final No growth in 5 days. 07/12/18 13:25 Blood Culture (Wb) - Anticubital Left Blood Culture - Final No growth in 5 days. Laboratory Results 07/18/18 05:45: Diff Path Review Reviewed 07/19/18 05:30: Diff Path Review Reviewed 07/20/18 06:34: WBC 8.8, RBC 3.49 L, Hgb 10.6 L, Hct 31.2 L, MCV 89.4, MCH 30.4, MCHC 34.0, RDW 12.9, RDW Differential 41.6, Plt Count 282, MPV 9.8, Neut % (Auto) Not Reportable, Absolute Neuts (auto) 5.5, Absolute Lymphs (auto) 1.70, Total Counted 100, Neutrophils % (Manual) 62, Lymphocytes % (Manual) 19, Monocytes % (Manual) 12 H, Eosinophils % (Manual) 1, Basophils % (Manual) 1, Metamyelocytes % 1, Myelocytes % 4 H, Diff Path Review May foll, Platelet Estimate ADEQUATE, RBC Morphology NORM C+C 07/20/18 06:34: Sodium 135 L, Potassium 4.9, Chloride 100, Carbon Dioxide 22.0, Anion Gap 13, BUN 99 H, Creatinine 9.41 H*, Estim Creat Clear Calc 10.24, Est GFR (MDRD) Af Amer 8 L, Est GFR (MDRD) Non-Af 6 L, BUN/Creatinine Ratio 10.5, Glucose 104, Calcium 7.8 L, Total Bilirubin 0.70, AST 132 H, ALT 119 H, Alkaline Phosphatase 81, Total Protein 6.5, Albumin 2.0 L, Globulin 4.5 H, Albumin/Globulin Ratio 0.4 L Current Medications Acetaminophen (Tylenol) 650 mg PO Q4H PRN PRN PRN Reason: Fever >101 Last Admin: 07/19/18 06:48 Dose: 650 mg Albuterol Sulfate (Ventolin Aerosols) 2.5 mg INHALATION Q2H PRN PRN PRN Reason: sob/wheezing Bisacodyl (Dulcolax) 5 mg PO DAILY PRN PRN PRN Reason: Constipation Famotidine (Pepcid) 20 mg PO DAILY KRISTEN Last Admin: 07/20/18 14:57 Dose: 20 mg Hydralazine HCl (Apresoline Iv) 10 mg IV Q4H PRN PRN PRN Reason: SBP > 160 Last Admin: 07/16/18 19:46 Dose: 10 mg Magnesium Hydroxide (Milk Of Magnesia) 30 ml PO DAILY PRN PRN PRN Reason: Constipation Morphine Sulfate () 1 - 2 mg IV Q4H PRN PRN PRN Reason: PAIN Last Admin: 07/17/18 22:09 Dose: 2 mg Multivitamins/Minerals (Multivitamin With Minerals) 1 tablet PO DAILYCM KRISTEN Last Admin: 07/20/18 14:57 Dose: 1 tablet Nicotine (Nicoderm Cq (Pbkc)) 21 mg TRANSDERM. DAILY KRISTEN Last Admin: 07/20/18 14:56 Dose: 21 mg Ondansetron HCl (Zofran) 4 mg IV Q8H PRN PRN PRN Reason: NAUSEA Last Admin: 07/19/18 19:49 Dose: 4 mg Oxycodone HCl (Oxyir) 5 mg PO Q6H PRN PRN PRN Reason: SEVERE PAIN (6-10/10) Last Admin: 07/20/18 04:20 Dose: 5 mg Sodium Chloride () 5 - 15 ml IV UD PRN PRN Reason: SALINE FLUSH Last Admin: 07/19/18 19:54 Dose: 10 ml Medical Necessity - Tobacco Use Smoking Status: Current every day smoker Tobacco Use: Cigarettes Assessment/Plan All Active Problems (Last Updated 07/14/18 @ 12:39 by Jenni Valdes PA-C) Acute respiratory failure with hypoxia (Acute) Aspiration pneumonia due to food (regurgitated) (Acute) Acute kidney injury (nontraumatic) (Acute) Elevated liver enzymes (Acute) Acute hyperkalemia (Acute) Lactic acidosis (Acute) Anaphylactic shock, unspecified, initial encounter (Acute) Toxic effect of ingested berries, intentional self-harm, initial encounter (Acute) Encephalopathy acute (Acute) Secondary rhabdomyolysis (Acute) 1. acute hypoxic respiratory failure 2/2 toxic encephalopathy, aspiration pneumonia extubated 4/7 wean o2 as tolerated 2. acute toxic encephalopathy 2/2 intentional OD with gabapentin metabolic encephalopathy ruled out 3. HÉCTOR ongoing 2/2 ATN, prerenal adn rhabdomyolysis nephrology following had HD today 4. Rhabdomyolysis 2/2 to being down for prolonged period resolved 5. Aspiration/MSSA pneumonia completed abx 6. Acute hepatitis improving likely iatrogenic 7. hyperkalemia resolved monitor 8. suicide attempt medically stable for transfer to inpatient psychiatric unit awaiting on acceptance for facility. 9. DVT proph: SCDs Code Visit Inpatient E&M: 45071 Subs Hosp L2
--- NOTE | 2018-07-20 15:55 | PN_ITS ---
Patient Problems: Active and Suspected Problems (Last Updated 07/14/18 @ 12:39 by Jenni Valdes PA-C) Acute respiratory failure with hypoxia (Acute) Aspiration pneumonia due to food (regurgitated) (Acute) Acute kidney injury (nontraumatic) (Acute) Elevated liver enzymes (Acute) Acute hyperkalemia (Acute) Lactic acidosis (Acute) Anaphylactic shock, unspecified, initial encounter (Acute) Toxic effect of ingested berries, intentional self-harm, initial encounter (Acute) Encephalopathy acute (Acute) Secondary rhabdomyolysis (Acute) Subjective: Denies any complaints. Vitals/I&O's: Vital Signs Temp Pulse Resp BP Pulse Ox 36.2 C L 79 16 142/106 H 93 07/20/18 14:41 07/20/18 14:41 07/20/18 14:41 07/20/18 14:41 07/20/18 14:41 Oxygen Flow Rate (L/min) 2 Oxygen Delivery Method Room Air Weight: 109.7 kg Body Mass Index (BMI) 35.9 Intake and Output for Last 24 Hours 07/18/18 07/19/18 07/20/18 23:59 23:59 23:59 Intake Total 1010 / 1010 1080 / 1080 720 / 720 Output Total 925 / 925 475 / 475 2600 / 2600 Balance 85 / 85 605 / 605 -1880 / -1880 General: Alert, No apparent distress, - - seen on HD HEENT: Atraumatic, Normocephalic Oral: Moist Mucosa, No Gingival or Mucosal Lesions/ Ulcerations Neck: No Nodes, Thyroid Normal Size and Texture Lungs: Clear to auscultation, Normal air movement, No rhonchi, No wheeze Cardiovascular: Regular rate, Regular Rhythm, Normal S1, Normal S2, No murmurs Abdomen: Bowel Sounds Present, Soft, Non Tender, Non-Distended, No Hepato-sple nomegaly Extremities: No edema, No Calf Tenderness Skin: No rashes, No breakdown Psych/Mental Status: Appropriate, Flat Affect Microbiology Past 72 Hours 07/15/18 03:36 Blood Culture (Wb) - Left Hand Blood Culture - Final No growth in 5 days. 07/15/18 03:30 Blood Culture (Wb) - Anticubital Right Blood Culture - Final No growth in 5 days. 07/12/18 13:25 Blood Culture (Wb) - Port Blood Culture - Final No growth in 5 days. 07/12/18 13:25 Blood Culture (Wb) - Anticubital Left Blood Culture - Final No growth in 5 days. Laboratory Results 07/18/18 05:45: Diff Path Review Reviewed 07/19/18 05:30: Diff Path Review Reviewed 07/20/18 06:34: WBC 8.8, RBC 3.49 L, Hgb 10.6 L, Hct 31.2 L, MCV 89.4, MCH 30.4, MCHC 34.0, RDW 12.9, RDW Differential 41.6, Plt Count 282, MPV 9.8, Neut % (Auto) Not Reportable, Absolute Neuts (auto) 5.5, Absolute Lymphs (auto) 1.70, Total Counted 100, Neutrophils % (Manual) 62, Lymphocytes % (Manual) 19, Monocytes % (Manual) 12 H, Eosinophils % (Manual) 1, Basophils % (Manual) 1, Metamyelocytes % 1, Myelocytes % 4 H, Diff Path Review May foll, Platelet Estimate ADEQUATE, RBC Morphology NORM C+C 07/20/18 06:34: Sodium 135 L, Potassium 4.9, Chloride 100, Carbon Dioxide 22.0, Anion Gap 13, BUN 99 H, Creatinine 9.41 H*, Estim Creat Clear Calc 10.24, Est GFR (MDRD) Af Amer 8 L, Est GFR (MDRD) Non-Af 6 L, BUN/Creatinine Ratio 10.5, Glucose 104, Calcium 7.8 L, Total Bilirubin 0.70, AST 132 H, ALT 119 H, Alkaline Phosphatase 81, Total Protein 6.5, Albumin 2.0 L, Globulin 4.5 H, Albumin/Globulin Ratio 0.4 L Current Medications Acetaminophen (Tylenol) 650 mg PO Q4H PRN PRN PRN Reason: Fever >101 Last Admin: 07/19/18 06:48 Dose: 650 mg Albuterol Sulfate (Ventolin Aerosols) 2.5 mg INHALATION Q2H PRN PRN PRN Reason: sob/wheezing Bisacodyl (Dulcolax) 5 mg PO DAILY PRN PRN PRN Reason: Constipation Famotidine (Pepcid) 20 mg PO DAILY KRISTEN Last Admin: 07/20/18 14:57 Dose: 20 mg Hydralazine HCl (Apresoline Iv) 10 mg IV Q4H PRN PRN PRN Reason: SBP > 160 Last Admin: 07/16/18 19:46 Dose: 10 mg Magnesium Hydroxide (Milk Of Magnesia) 30 ml PO DAILY PRN PRN PRN Reason: Constipation Morphine Sulfate () 1 - 2 mg IV Q4H PRN PRN PRN Reason: PAIN Last Admin: 07/17/18 22:09 Dose: 2 mg Multivitamins/Minerals (Multivitamin With Minerals) 1 tablet PO DAILYCM KRISTEN Last Admin: 07/20/18 14:57 Dose: 1 tablet Nicotine (Nicoderm Cq (Pbkc)) 21 mg TRANSDERM. DAILY KRISTEN Last Admin: 07/20/18 14:56 Dose: 21 mg Ondansetron HCl (Zofran) 4 mg IV Q8H PRN PRN PRN Reason: NAUSEA Last Admin: 07/19/18 19:49 Dose: 4 mg Oxycodone HCl (Oxyir) 5 mg PO Q6H PRN PRN PRN Reason: SEVERE PAIN (6-10/10) Last Admin: 07/20/18 04:20 Dose: 5 mg Sodium Chloride () 5 - 15 ml IV UD PRN PRN Reason: SALINE FLUSH Last Admin: 07/19/18 19:54 Dose: 10 ml Medical Necessity - Tobacco Use Smoking Status: Current every day smoker Tobacco Use: Cigarettes Assessment/Plan All Active Problems (Last Updated 07/14/18 @ 12:39 by Jenni Valdes PA-C) Acute respiratory failure with hypoxia (Acute) Aspiration pneumonia due to food (regurgitated) (Acute) Acute kidney injury (nontraumatic) (Acute) Elevated liver enzymes (Acute) Acute hyperkalemia (Acute) Lactic acidosis (Acute) Anaphylactic shock, unspecified, initial encounter (Acute) Toxic effect of ingested berries, intentional self-harm, initial encounter ( Acute) Encephalopathy acute (Acute) Secondary rhabdomyolysis (Acute) 1. acute hypoxic respiratory failure * 2/2 toxic encephalopathy, aspiration pneumonia * extubated 07/12 * wean o2 as tolerated 2. acute toxic encephalopathy * 2/2 intentional OD with gabapentin * metabolic encephalopathy ruled out 3. HÉCTOR * ongoing * 2/2 ATN, prerenal adn rhabdomyolysis * nephrology following * had HD today 4. Rhabdomyolysis * 2/2 to being down for prolonged period * resolved 5. Aspiration/MSSA pneumonia * completed abx 6. Acute hepatitis * improving * likely iatrogenic 7. hyperkalemia * resolved * monitor 8. suicide attempt * medically stable for transfer to inpatient psychiatric unit * awaiting on acceptance for facility. 9. DVT proph: SCDs Code Visit Inpatient E&M: 02983 Subs Hosp L2
--- NOTE | 2018-07-20 17:10 | CASEMGMT ---
Social Work: TC from Dr. Mosqueda at [facility] asking for additional clinicals (current labs, activity level, diet/ eating status, documentation of restraints being discontinued and documentation of gtz being D/C'd). Additional clinicals faxed to . [facility] beeper number . ZIGGY Redmond
--- NOTE | 2018-07-20 17:11 | NURSING ---
1500 Pt was up in [place] ambulating independently. Pt went 2 laps around the unit and tolerated well.
[2018-07-20] MEDS: Acetaminophen 325 MG Tablet 650 MG PO (18:49)
--- NOTE | 2018-07-20 19:23 | CM.ED ---
Social Work Note Pt was accepted to [facility]. Per nursing [facility] contacted the main desk stating that they were accepting, but needed pre-cert. Pt's primary insurance in traditional Medicare and his secondary insurance is [place] [employer]. Placed call to [phone] and confirmed that the pt does not need a pre-cert. Pt will require a pink slip and a bed is ready for him at [facility] Room 641 bed 1. RN to call report to [phone]. Updated CIERRA Lai, on PCU. PLAN: [facility] for psychiatric stabilization. Dionne Paz, GATE TENDER, AIRPLANE TESTER
--- NOTE | 2018-07-20 20:02 | NURSING ---
Approximately 1900 the admin secretary took a phone call from [facility] stating that they have accepted the patient but need Precert. This RN called SW to relay message. ISIDRO clarified with [facility] about precert as patient is straight medicare. ISIDRO informed this RN that the patient does not require precert but does require pink slip. Instructed this RN to obtain pink slip from MD, arrange transport via cot and call for RN to RN handoff. Patient will go to bed 641 bed 1. The bed is ready. HS Charge nurse will take over pursuing pink slip and DC orders.
[2018-07-20] MEDS: Morphine 2 MG/ML Syringe IV (20:14)
[2018-07-20] MEDS: 0.9% NaCl Peripheral Flush Adult/Peds IV (20:15)
--- NOTE | 2018-07-20 21:17 | NURSING ---
Pt being discharged to adult psych facility, report called to Talha Kenny
--- NOTE | 2018-07-20 23:14 | NURSING ---
2220 Patient's brother called in and he is aware patient transferred to [facility].
--- NOTE | 2018-07-21 07:07 | DCINST_ITS ---
You will use the following diet at home:: Renal (restricted protein/sodium) Your food should be the consistency of: Regular Your liquids should be the consistency of: Regular/Thin Discharge Activity: Return to Normal Activity Call your doctor if you observe: Fever of 101 or Higher, Shortness of breath Allergies/Adverse Reactions: Allergies No Known Allergies Allergy (Verified 07/10/18 18:02) Medications to take at Discharge Butalb/Acetaminophen/Caffeine [Fioricet 50-300-40 mg Capsule] 1 capsule PO Q6H PRN 07/10/18 Gabapentin 800 mg PO DAILY 07/10/18 Primary Care Physician: Care Physician,No Primary [Primary Care Provider] - Test Results: Test results from this visit will be discussed in further detail at your follow- up appointment, if applicable. [facility] Date: 07/21/18
--- NOTE | 2018-07-21 07:07 | PCM.DC.SUM ---
Discharge Date and Diagnosis Date of Admission: 07/10/18 Date of Discharge: 07/20/18 - Primary Discharge Diagnosis 1. acute hypoxic respiratory failure 2/2 toxic encephalopathy, aspiration pneumonia extubated /7 wean o2 as tolerated 2. acute toxic encephalopathy 2/2 intentional OD with gabapentin metabolic encephalopathy ruled out 3. HÉCTOR ongoing 2/2 ATN, prerenal adn rhabdomyolysis nephrology following had HD today 4. Rhabdomyolysis 2/2 to being down for prolonged period resolved 5. Aspiration/MSSA pneumonia completed abx 6. Acute hepatitis improving likely iatrogenic 7. hyperkalemia resolved monitor 8. suicide attempt medically stable for transfer to inpatient psychiatric unit - Secondary Discharge Diagnosis Chronic Problems (Last Updated 07/14/18 @ 12:39 by Jenni Valdes PA-C) Hx unobtainable (Chronic) Hospital Course and Treatment Imaging Results: Clinical Impression(s) from Imaging Studies Brain CT 07/10/18 17:58 IMPRESSION: Focal low attenuation of the left basal ganglia as noted. Left maxillary sinusitis. Electronically Signed: Bay Mcdonald DO at 18:33 EDT Tel [phone], Service support , Chest X-Ray 07/10/18 17:58 IMPRESSION: Possible right basilar infiltrate. Mild cardiomegaly. Electronically Signed: Bay Mcdonald DO at 18:47 EDT Tel [phone], Service support , Chest X-Ray 07/10/18 19:08 IMPRESSION: 1. Interval advancement of the enteric tube when compared to the earlier study. 2. No other interval change. Electronically Signed: Rosendo Madrigal DO at 20:12 EDT Tel [phone], Service support , Chest X-Ray 07/10/18 19:08 IMPRESSION: 1. Endotracheal tube as described. 2. Enteric tube with its tip approximately 5 cm beyond the diaphragm. 3. No other major interval change when compared to the earlier study. Electronically Signed: Rosendo Madrigal DO at 20:11 EDT Tel [phone], Service support , Renal Ultrasound 07/11/18 05:55 IMPRESSION: No evidence of hydronephrosis. Small nonobstructing stone in the left kidney. Electronically Signed: Balbir An MD at 15:59 EDT Tel , Service support , Chest X-Ray 07/11/18 10:20 IMPRESSION: 1. Status post right central venous catheter placement. 2. No evidence of pneumothorax. 3. Improved right basilar infiltrate. 4. Otherwise no significant change Electronically Signed: Balbir An MD at 10:46 EDT Tel , Service support , Liver Ultrasound 07/12/18 12:23 IMPRESSION: No evidence of hydronephrosis. Small nonobstructing stone in the left kidney. Electronically Signed: Balbir An MD at 15:59 EDT Tel , Service support , Chest X-Ray 07/13/18 09:50 IMPRESSION: Status post extubation. Since prior study, there has been a progression of the bilateral airspace disease as described. Follow-up is recommended. Electronically Signed: Teto Carrasco, at 10:26 EDT , Service support , Chest X-Ray 07/14/18 20:08 IMPRESSION: Dialysis catheter terminates in the mid SVC. Low lung volumes with symmetric bilateral infiltrates, stable. Electronically Signed: Ramírez Lemos MD at 21:18 EDT , Service support , Chest X-Ray 07/15/18 03:20 IMPRESSION: Central line is in stable position. Persistent bilateral pulmonary infiltrates, not significantly changed. Electronically Signed: Jackson Merrill MD at 3:38 EDT , Service support , Consultations 07/17/18 10:03 Consult: Mental Health/Crisis Routine Reason for consult?: Crisis to see pt for psych placement, suicide attempt Date Notified:: 07/17/18 Time notified:: 09:45 Operations: None Procedures: Dialysis, Intubation, - - Right internal jugular 19 cm pre-curved palindrome dialysis catheter placement, Summary of Care Provided: The patient is a 47 year old M presents with intentional drug overdose. 1. acute hypoxic respiratory failure 2/2 toxic encephalopathy, aspiration pneumonia extubated / wean o2 as tolerated 2. acute toxic encephalopathy 2/2 intentional OD with gabapentin metabolic encephalopathy ruled out 3. HÉCTOR ongoing 2/2 ATN, prerenal adn rhabdomyolysis nephrology following had HD today 4. Rhabdomyolysis 2/2 to being down for prolonged period resolved 5. Aspiration/MSSA pneumonia completed abx 6. Acute hepatitis improving likely iatrogenic 7. hyperkalemia resolved monitor 8. suicide attempt medically stable for transfer to inpatient psychiatric unit transferred to inpatient psych unit.[] - Physical Exam Vital Signs Temp Pulse Resp BP Pulse Ox 36.9 C 66 18 143/77 H 92 07/20/18 20:20 07/20/18 20:20 07/20/18 20:20 07/20/18 20:20 07/20/18 20:20 Oxygen Flow Rate (L/min) 2 Oxygen Delivery Method Room Air Weight: 109.7 kg Body Mass Index (BMI) 35.9 Intake and Output for Last 24 Hours 07/19/18 07/20/18 07/21/18 23:59 23:59 23:59 Intake Total 1080 / 1080 960 / 960 Output Total 475 / 475 2600 / 2600 Balance 605 / 605 -1640 / -1640 Microbiology Past 72 Hours 07/15/18 03:36 Blood Culture - Final Blood Culture (Wb) - Left Hand No growth in 5 days. 07/15/18 03:30 Blood Culture - Final Blood Culture (Wb) - Anticubital Right No growth in 5 days. Laboratory Tests Past 24 Hrs 07/18/18 07/19/18 07/20/18 05:45 05:30 06:34 WBC 8.8 RBC 3.49 L Hgb 10.6 L Hct 31.2 L MCV 89.4 MCH 30.4 MCHC 34.0 RDW 12.9 RDW Differential 41.6 Plt Count 282 MPV 9.8 Neut % (Auto) Not Reportable Absolute Neuts (auto) 5.5 Absolute Lymphs (auto) 1.70 Total Counted 100 Neutrophils % (Manual) 62 Lymphocytes % (Manual) 19 Monocytes % (Manual) 12 H Eosinophils % (Manual) 1 Basophils % (Manual) 1 Metamyelocytes % 1 Myelocytes % 4 H Diff Path Review Reviewed Reviewed August Platelet Estimate ADEQUATE RBC Morphology NORM C+C Sodium Potassium Chloride Carbon Dioxide Anion Gap BUN Creatinine Estim Creat Clear Calc Est GFR (MDRD) Af Amer Est GFR (MDRD) Non-Af BUN/Creatinine Ratio Glucose Calcium Total Bilirubin AST ALT Alkaline Phosphatase Total Protein Albumin Globulin Albumin/Globulin Ratio 07/20/18 06:34 WBC RBC Hgb Hct MCV MCH MCHC RDW RDW Differential Plt Count MPV Neut % (Auto) Absolute Neuts (auto) Absolute Lymphs (auto) Total Counted Neutrophils % (Manual) Lymphocytes % (Manual) Monocytes % (Manual) Eosinophils % (Manual) Basophils % (Manual) Metamyelocytes % Myelocytes % Diff Path Review Platelet Estimate RBC Morphology Sodium 135 L Potassium 4.9 Chloride 100 Carbon Dioxide 22.0 Anion Gap 13 BUN 99 H Creatinine 9.41 H* Estim Creat Clear Calc 10.24 Est GFR (MDRD) Af Amer 8 L Est GFR (MDRD) Non-Af 6 L BUN/Creatinine Ratio 10.5 Glucose 104 Calcium 7.8 L Total Bilirubin 0.70 AST 132 H ALT 119 H Alkaline Phosphatase 81 Total Protein 6.5 Albumin 2.0 L Globulin 4.5 H Albumin/Globulin Ratio 0.4 L Discharge Diet: Renal Diet Discharge Activity: Return to Normal Activity Call your doctor if you observe: Fever of 101 or Higher, Shortness of breath Home Medications: Medications to take at Discharge Butalb/Acetaminophen/Caffeine [Fioricet 50-300-40 mg Capsule] 1 capsule PO Q6H PRN 07/10/18 Gabapentin 800 mg PO DAILY 07/10/18 Primary Care Physician: Care Physician,No Primary [Primary Care Provider] - [facility] Hospital or Unit Minutes spent on discharge:: 36 Patient Condition:: Stable Medical Necessity - Tobacco Use Smoking Status: Current every day smoker Tobacco Use: Cigarettes Meaningful Use Info Meaningful Use Diagnoses (Choose all that apply): None applicable Code Visit Inpatient E&M: 20485 Disch Hosp - code for 07/21/18
--- NOTE | 2018-07-21 07:13 | DS.PCM_ITS ---
Discharge Date and Diagnosis Date of Admission: 07/10/18 Date of Discharge: 07/20/18 - Primary Discharge Diagnosis 1. acute hypoxic respiratory failure * 2/2 toxic encephalopathy, aspiration pneumonia * extubated 07/12 * wean o2 as tolerated 2. acute toxic encephalopathy * 2/2 intentional OD with gabapentin * metabolic encephalopathy ruled out 3. HÉCTOR * ongoing * 2/2 ATN, prerenal adn rhabdomyolysis * nephrology following * had HD today 4. Rhabdomyolysis * 2/2 to being down for prolonged period * resolved 5. Aspiration/MSSA pneumonia * completed abx 6. Acute hepatitis * improving * likely iatrogenic 7. hyperkalemia * resolved * monitor 8. suicide attempt * medically stable for transfer to inpatient psychiatric unit - Secondary Discharge Diagnosis Chronic Problems (Last Updated 07/14/18 @ 12:39 by Jenni Valdes PA-C) Hx unobtainable (Chronic) Hospital Course and Treatment Imaging Results: Clinical Impression(s) from Imaging Studies Brain CT 07/10/18 17:58 IMPRESSION: Focal low attenuation of the left basal ganglia as noted. Left maxillary sinusitis. Electronically Signed: Bay Mcdonald DO at 18:33 EDT Tel [phone], Service support , Chest X-Ray 07/10/18 17:58 IMPRESSION: Possible right basilar infiltrate. Mild cardiomegaly. Electronically Signed: Bay Mcdonald DO at 18:47 EDT Tel [phone], Service support , Chest X-Ray 07/10/18 19:08 IMPRESSION: 1. Interval advancement of the enteric tube when compared to the earlier study. 2. No other interval change. Electronically Signed: Rosendo Madrigal DO at 20:12 EDT Tel [phone], Service support , Chest X-Ray 07/10/18 19:08 IMPRESSION: 1. Endotracheal tube as described. 2. Enteric tube with its tip approximately 5 cm beyond the diaphragm. 3. No other major interval change when compared to the earlier study. Electronically Signed: Rosendo Madrigal DO at 20:11 EDT Tel [phone], Service support , Renal Ultrasound 07/11/18 05:55 IMPRESSION: No evidence of hydronephrosis. Small nonobstructing stone in the left kidney. Electronically Signed: Balbir An MD at 15:59 EDT Tel , Service support , Chest X-Ray 07/11/18 10:20 IMPRESSION: 1. Status post right central venous catheter placement. 2. No evidence of pneumothorax. 3. Improved right basilar infiltrate. 4. Otherwise no significant change Electronically Signed: Balbir An MD at 10:46 EDT Tel , Service support , Liver Ultrasound 07/12/18 12:23 IMPRESSION: No evidence of hydronephrosis. Small nonobstructing stone in the left kidney. Electronically Signed: Balbir An MD at 15:59 EDT Tel , Service support , Chest X-Ray 07/13/18 09:50 IMPRESSION: Status post extubation. Since prior study, there has been a progression of the bilateral airspace disease as described. Follow-up is recommended. Electronically Signed: Teto Carrasco, at 10:26 EDT , Service support , Chest X-Ray 07/14/18 20:08 IMPRESSION: Dialysis catheter terminates in the mid SVC. Low lung volumes with symmetric bilateral infiltrates, stable. Electronically Signed: Ramírez Lemos MD at 21:18 EDT , Service support , Chest X-Ray 07/15/18 03:20 IMPRESSION: Central line is in stable position. Persistent bilateral pulmonary infiltrates, not significantly changed. Electronically Signed: Jackson Merrill MD at 3:38 EDT , Service support , Consultations 07/17/18 10:03 Consult: Mental Health/Crisis Routine Reason for consult?: Crisis to see pt for psych placement, suicide attempt Date Notified:: 07/17/18 Time notified:: 09:45 Operations: None Procedures: Dialysis, Intubation, - - Right internal jugular 19 cm pre-curved palindrome dialysis catheter placement, Summary of Care Provided: The patient is a 47 year old M presents with intentional drug overdose. 1. acute hypoxic respiratory failure * 2/2 toxic encephalopathy, aspiration pneumonia * extubated 07/12 * wean o2 as tolerated 2. acute toxic encephalopathy * 2/2 intentional OD with gabapentin * metabolic encephalopathy ruled out 3. HÉCTOR * ongoing * 2/2 ATN, prerenal adn rhabdomyolysis * nephrology following * had HD today 4. Rhabdomyolysis * 2/2 to being down for prolonged period * resolved 5. Aspiration/MSSA pneumonia * completed abx 6. Acute hepatitis * improving * likely iatrogenic 7. hyperkalemia * resolved * monitor 8. suicide attempt * medically stable for transfer to inpatient psychiatric unit * transferred to inpatient psych unit.[] - Physical Exam Vital Signs Temp Pulse Resp BP Pulse Ox 36.9 C 66 18 143/77 H 92 07/20/18 20:20 07/20/18 20:20 07/20/18 20:20 07/20/18 20:20 07/20/18 20:20 Oxygen Flow Rate (L/min) 2 Oxygen Delivery Method Room Air Weight: 109.7 kg Body Mass Index (BMI) 35.9 Intake and Output for Last 24 Hours 07/19/18 07/20/18 07/21/18 23:59 23:59 23:59 Intake Total 1080 / 1080 960 / 960 Output Total 475 / 475 2600 / 2600 Balance 605 / 605 -1640 / -1640 Microbiology Past 72 Hours 07/15/18 03:36 Blood Culture - Final Blood Culture (Wb) - Left Hand No growth in 5 days. 07/15/18 03:30 Blood Culture - Final Blood Culture (Wb) - Anticubital Right No growth in 5 days. Laboratory Tests Past 24 Hrs 07/18/18 07/19/18 07/20/18 05:45 05:30 06:34 WBC 8.8 RBC 3.49 L Hgb 10.6 L Hct 31.2 L MCV 89.4 MCH 30.4 MCHC 34.0 RDW 12.9 RDW Differential 41.6 Plt Count 282 MPV 9.8 Neut % (Auto) Not Reportable Absolute Neuts (auto) 5.5 Absolute Lymphs (auto) 1.70 Total Counted 100 Neutrophils % (Manual) 62 Lymphocytes % (Manual) 19 Monocytes % (Manual) 12 H Eosinophils % (Manual) 1 Basophils % (Manual) 1 Metamyelocytes % 1 Myelocytes % 4 H Diff Path Review Reviewed Reviewed August Platelet Estimate ADEQUATE RBC Morphology NORM C+C Sodium Potassium Chloride Carbon Dioxide Anion Gap BUN Creatinine Estim Creat Clear Calc Est GFR (MDRD) Af Amer Est GFR (MDRD) Non-Af BUN/Creatinine Ratio Glucose Calcium Total Bilirubin AST ALT Alkaline Phosphatase Total Protein Albumin Globulin Albumin/Globulin Ratio 07/20/18 06:34 WBC RBC Hgb Hct MCV MCH MCHC RDW RDW Differential Plt Count MPV Neut % (Auto) Absolute Neuts (auto) Absolute Lymphs (auto) Total Counted Neutrophils % (Manual) Lymphocytes % (Manual) Monocytes % (Manual) Eosinophils % (Manual) Basophils % (Manual) Metamyelocytes % Myelocytes % Diff Path Review Platelet Estimate RBC Morphology Sodium 135 L Potassium 4.9 Chloride 100 Carbon Dioxide 22.0 Anion Gap 13 BUN 99 H Creatinine 9.41 H* Estim Creat Clear Calc 10.24 Est GFR (MDRD) Af Amer 8 L Est GFR (MDRD) Non-Af 6 L BUN/Creatinine Ratio 10.5 Glucose 104 Calcium 7.8 L Total Bilirubin 0.70 AST 132 H ALT 119 H Alkaline Phosphatase 81 Total Protein 6.5 Albumin 2.0 L Globulin 4.5 H Albumin/Globulin Ratio 0.4 L Discharge Diet: Renal Diet Discharge Activity: Return to Normal Activity Call your doctor if you observe: Fever of 101 or Higher, Shortness of breath Home Medications: Medications to take at Discharge Butalb/Acetaminophen/Caffeine [Fioricet 50-300-40 mg Capsule] 1 capsule PO Q6H PRN 07/10/18 Gabapentin 800 mg PO DAILY 07/10/18 Primary Care Physician: Care Physician,No Primary [Primary Care Provider] - [facility] Disposition: Psych Hospital or Unit Minutes spent on discharge:: 36 Patient Condition:: Stable Medical Necessity - Tobacco Use Smoking Status: Current every day smoker Tobacco Use: Cigarettes Meaningful Use Info Meaningful Use Diagnoses (Choose all that apply): None applicable Code Visit Inpatient E&M: 79644 Disch Hosp - code for 07/21/18
--- NOTE | 2018-07-21 10:37 | CASEMGMT ---
Addendum entered by Sabine Mcclure 07/22/18 11:07: This RN CM placed call to [facility] 6B as did not receive call back from them yesterday. This RN CM spoke with Nemesio NORTON and notified him of [facility] OP dialysis set up and he is aware that they need to notify Stephenie or Jose when pt is getting ready for discharge, voices understanding of all and [facility] with [facility]. This RN CM also provided Nemesio with own contact info at this time. Nemesio voices no further questions/concerns/needs at this time. Joel RN CM Original Note: Message left for pt's RN on 6B at [facility] to call this RN CM to discuss OP dialysis that was set up previously. Call to Stephenie at [facility] to notify of pt transfer and that [facility] to be made aware that pt is set up with [facility] and that they need to [facility] Stephenie [facility] being prepared for discharge, voices understanding. This RN CM awaiting call back from [facility] at this time. Joel NORTON CM
[2018-07-21 14:08] LABS: Pathologist Review Reviewed
== END 2018-07-20 21:55 | DRG 917 ==
LOC: ED 19:29 → ICU 20:20 → PCU 07-13 11:38
PROVIDERS: Internal Medicine; Internal Medicine Critical Care Medicine; Internal Medicine Infectious Disease; Internal Medicine Nephrology; Student in an Organized Health Care Education/Training Program; Surgery; Admitting Provider Hospitalist; Emergency Provider Emergency Medicine
PROC: 0JH63XZ Insertion of Tunneled Vascular Access Device into Chest Subcutaneous Tissue and Fascia, Percutaneous Approach (ICD-10-PCS; principal; 2018-07-14 16:00)
DX: T42.6X2A Poisoning by other antiepileptic and sedative-hypnotic drugs, intentional self-harm, initial encounter (principal); A41.9 Sepsis, unspecified organism; G92 Toxic encephalopathy; R65.21 Severe sepsis with septic shock; J96.01 Acute respiratory failure with hypoxia; J69.0 Pneumonitis due to inhalation of food and vomit; N17.0 Acute kidney failure with tubular necrosis; K72.00 Acute and subacute hepatic failure without coma; J15.211 Pneumonia due to Methicillin susceptible Staphylococcus aureus; M62.82 Rhabdomyolysis; E87.5 Hyperkalemia; F17.210 Nicotine dependence, cigarettes, uncomplicated
CPT/HCPCS: 31500; 31720; 36415; 36600; 51702; 70450; 71045; 76705; 76770; 77001; 80048; 80053; 80069; 80074; 80076; 80307; 80320; 80329; 81001; 82140; 82550; 82570; 82803; 82962; 83605; 83690; 83735; 84100; 84300; 84478; 85025; 85610; 85730; 86022; 86703; 87040; 87070; 87077; 87086; 87149; 87186; 87205; 87449; 87522; 87641; 90937; 93005; 94003; 94660; 95831; 97110; 97162; 97165; 97530; 97802; 99251; 99285; J7030; J7050; J7120; A4216; C1750; C1752; G0257; G0463; G0480; J0295; J2405; J3490

== ENCOUNTER 2018-08-14 06:03 | Emergency (ER) | payer MEDICARE, MEDICAID, SELFPAY ==
[2018-08-05 09:19] VITALS: BMI 35.9
[2018-08-14 06:05] VITALS: BP 142/79; PULSE 71; RESP 22; TEMP 36.7; O2SAT 97; BMI 32.3
--- NOTE | 2018-08-14 06:09 | RAD_ITS ---
STUDY: X-RAY - LEFT ANKLE REASON FOR EXAM: Male, 47 years old. Injury TECHNIQUE: 3 view(s) of the ankle. COMPARISON: None. FINDINGS: There are no acute fractures or dislocations. The ankle mortise and the subtalar joints are normal. There is a small posterior calcaneal spur. No radiopaque foreign bodies are in the soft tissues. RAD/Ankle min 3 Views IMPRESSION: No acute fractures. No radiopaque foreign bodies in the soft tissues. Electronically Signed: Daljit Lainez MD at 6:40 EDT Tel , Service support ,
--- NOTE | 2018-08-14 06:10 | ED.VIS.GEN ---
History of Present Illness Chief Complaint: Lower Extremity Injury Narrative: Patient stated 2 days ago he twisted his right ankle on a pallet at work. Happened suddenly. He has been using [id number] NSAIDs and Tylenol. Worse with movement. Relieved with rest. Noticed persistent swelling and came in for further evaluation to make sure it was not broken. Not a Worker's Comp. case per patient. No previous injury. - Past Medical History (1) Acute hyperkalemia Status: Acute (2) Acute kidney injury (nontraumatic) Status: Acute (3) Acute respiratory failure with hypoxia Status: Acute (4) Anaphylactic shock, unspecified, initial encounter Status: Acute (5) Aspiration pneumonia due to food (regurgitated) Status: Acute (6) Elevated liver enzymes Status: Acute (7) Encephalopathy acute Status: Acute (8) Lactic acidosis Status: Acute (9) Secondary rhabdomyolysis Status: Acute (10) Toxic effect of ingested berries, intentional self-harm, initial encounter Status: Acute (11) Hx unobtainable Status: Chronic Past Medical History - Allergies and Home Meds Allergies/Adverse Reactions: Allergies No Known Allergies Allergy (Verified 08/14/18 06:08) Primary Care Physician: NOT,DEFINED [Primary Care Provider] - Prior records reviewed: Yes Surgical History: no surgical history Smoking Status: Current every day smoker Alcohol: None Drugs: None - Family History Paternal Family History: Reports: No pertinent history Maternal Family History: Reports: No pertinent history Review of Systems General: Denies: Chills, Fever, Sweats Eyes: Denies: Visual changes - bilaterally, Diplopia ENT: Denies: Rhinorrhea, Sore throat Cardiovascular: Denies: Chest pain, Palpitations Respiratory: Denies: Dyspnea, Cough, Dyspnea on exertion Gastrointestinal: Denies: Abdominal pain, Nausea, Vomiting, Diarrhea, Melena, Hematochezia Genitourinary: Denies: Dysuria, Hematuria, Frequency Musculoskeletal: Reports: Extremity Pain. Denies: Back pain Skin: Denies: Rash, Wounds Neurological: Denies: Headache, Weakness, Numbness Physical Exam Vital Signs/Narrative: Vital Signs Temp Pulse Resp BP Pulse Ox 08/14/18 06:05 98.1 F 71 22 H 142/79 H 97 General: Well nourished, Well developed, No Acute Distress Head: Normocephalic, Atraumatic Eyes: Perrl, EOMI ENT: Moist mucous membranes, No rhinorrhea Neck: Supple, Nontender Cardiovascular: Regular rate, Regular rhythm, No murmurs Respiratory: No distress, CTA bilaterally, Chest nontender Abdomen: Soft, Nontender, Nondistended, Normal bowel sounds Back: Nontender, Normal Inspection Extremities: Tenderness - Tenderness right lateral malleolus with mild soft tissue swelling. Decreased range of motion secondary to pain.. Negative for: Nontender, No edema Skin: Normal color, No rash Neurological: Alert, Oriented x3, Cranial nerves II-XII grossly intact, Normal Strength, Normal Sensation Psychological: Normal affect, Normal Mood Diagnostic/Tx/Re-eval - Medical Decision Making Patient did not not want anything for pain. X-ray of the right ankle obtained. X-ray negative. Given Antony bandage. At this time he just sprained his ankle. Will rest and ice wear the Antony wrap and follow-up as an outpatient ED Disposition - Plan for ED Patient: Disposition: [facility] Diagnosis: Right ankle sprain Instructions: ED Sprain Ankle W X Ray Referrals: NOT,DEFINED [Primary Care Provider] - Boni Villaseñor DO [NON CLINICAL AFFILIATE] -
[2018-08-14 06:42] VITALS: BP 142/79; PULSE 71; RESP 18; O2SAT 98
== END 2018-08-14 06:43 | disposition home or self-care (01) ==
PROVIDERS: Emergency Provider Emergency Medicine; Family Provider Family Medicine; PCP Family Medicine
DX: S93.401A Sprain of unspecified ligament of right ankle, initial encounter (principal); X50.1XXA Overexertion from prolonged static or awkward postures, initial encounter; Y93.9 Activity, unspecified; Y92.89 Other specified places as the place of occurrence of the external cause; Y99.0 Civilian activity done for income or pay; F17.200 Nicotine dependence, unspecified, uncomplicated; M62.82 Rhabdomyolysis
CPT/HCPCS: 73610; 99282

== ENCOUNTER 2018-08-22 11:36 | Emergency (ER) | payer MEDICARE, MEDICAID, SELFPAY ==
[2018-08-22 11:37] VITALS: BP 154/91; PULSE 81; RESP 16; TEMP 36.7; O2SAT 98; BMI 31.8
[2018-08-22] MEDS: HYDROcodone Bitartrate/Apap 5/325 Tablet PO (12:12)
[2018-08-22] MEDS: Naproxen 500 MG Tablet PO (12:12)
--- NOTE | 2018-08-22 12:13 | ED.RN ---
pt refused to use ice pack provided, because it made the pain worse
--- NOTE | 2018-08-22 12:14 | RAD_ITS ---
STUDY: X-RAY - RIGHT ANKLE REASON FOR EXAM: Male, 47 years old. Fall TECHNIQUE: 3 view(s) of the ankle. COMPARISON: None. FINDINGS: Normal visualized distal tibia and fibula. Normal medial and lateral malleoli. Normal tibiotalar articulation and ankle mortise. Normal visualized talus and calcaneus. The visualized subtalar, talonavicular, calcaneocuboid and tarsal articulations are normal. The soft tissue structures are unremarkable. RAD/Ankle min 3 Views IMPRESSION: Normal x-ray examination of the ankle. Electronically Signed: Bay Mcdonald DO at 12:37 EDT Tel [phone], Service support ,
--- NOTE | 2018-08-22 12:22 | RAD_ITS ---
STUDY: X-RAY - RIGHT FOOT CLINICAL: Male, 47 years old. Fall TECHNIQUE: 3 view(s) of the foot. COMPARISON: None. FINDINGS: Normal talus, calcaneus, and tarsal bones. Normal visualized subtalar, talonavicular, calcaneocuboid, tarsal and tarsometatarsal articulations. Normal metatarsi. Normal metatarsophalangeal joint of the great toe. Normal tibial and fibular sesamoid bones. Normal interphalangeal joint of the great toe. Normal phalanges of the great toe. Normal second through fifth metatarsophalangeal joints. Normal interphalangeal joints and phalanges of the lesser toes. The soft tissue structures are unremarkable. RAD/Foot min 3 Views IMPRESSION: Normal x-ray examination of the foot. Electronically Signed: Bay Mcdonald DO at 12:39 EDT Tel [phone], Service support ,
--- NOTE | 2018-08-22 12:34 | ED.VIS.INJ ---
History of Present Illness Chief Complaint: Fall Informant: Patient Onset: Yesterday Quality of Pain: Dull, Aching Current Severity: Mild Maximum Severity: Severe Worsened by: Weightbearing right lower extremity Relieved by: Elevation and rest Associated Symptoms: Negative for: Parasthesias, Weakness, Inability to ambulate, Loss of consciousness, Amnesia Length of loss of consciousness: No LOC Narrative: Patient is a 47-year-old male who presents after falling off a ladder yesterday. States he landed on his right side. He is complaining of right ankle and right foot pain. He also complains of right calf pain. He denies right hip or knee pain. He denies low back pain. He states he did not hit his head. There is no loss of consciousness. He denies paresthesia, anesthesia motor weakness upper lower 70 presently or time of injury. He denies shortness of breath or difficulty breathing. He denies chest trauma or abdominal trauma. He has urinated since incident and reports no blood in his urine. Tetanus Immunization: 5-10 years Prior similar symptoms: No Recent Illness/Hospitalization: No - Past Medical History (1) History of depression Status: Acute Past Medical History - Allergies and Home Meds Allergies/Adverse Reactions: Allergies No Known Allergies Allergy (Verified 08/22/18 11:39) Primary Care Physician: NOT,DEFINED [NON-STAFF] - Past Medical History: None - Toxic and ingestion of berries Surgical History: no surgical history Lives: Alone Smoking Status: Current every day smoker Alcohol: None - Family History Paternal Family History: Reports: No pertinent history Maternal Family History: Reports: No pertinent history Review of Systems General: Denies: Chills, Fever, Sweats Eyes: Denies: Visual changes - bilaterally, Diplopia ENT: Denies: Rhinorrhea, Sore throat Cardiovascular: Denies: Chest pain, Palpitations Respiratory: Denies: Dyspnea, Cough, Dyspnea on exertion Gastrointestinal: Denies: Abdominal pain, Nausea, Vomiting, Diarrhea, Melena, Hematochezia Genitourinary: Denies: Dysuria, Hematuria, Frequency Musculoskeletal: Reports: Extremity Pain - Right ankle and foot pain. Denies: Myalgias, Arthralgias, Back pain, Swelling Skin: Denies: Rash, Wounds Neurological: Denies: Headache, Weakness, Numbness Psych: Reports: Depression Hematologic: Denies: Easy bruising, Easy bleeding Allergy: Denies: Uticaria, Swelling of the mouth Physical Exam Vital Signs/Narrative: Vital Signs Temp Pulse Resp BP Pulse Ox 08/22/18 11:37 98.1 F 81 16 154/91 H 98 Inital Vital Signs reviewed: Yes General: Well nourished, Well developed Head: Normocephalic, Atraumatic Eyes: Perrl, EOMI. Negative for: Pale conjunctiva, Scleral icterus, - ENT: TM's clear, No hemotympanum or drainage, No trauma. Negative for: Hemotympanum, Otorrhea, Nasal trauma, Nasal septal hematoma, - Neck: Nontender, Full ROM, Paraspinal Tenderness. Negative for: Spinal Tenderness Cardiovascular: Regular rate, Regular rhythm, No murmurs, Normal S1, Normal S2 Respiratory: No distress, CTA bilaterally, Chest nontender Abdomen: Soft, Nontender, Nondistended, Normal bowel sounds, No masses Rectal: Deferred Back: Nontender. Negative for: CVA Tenderness - Right, CVA Tenderness - Left, Spinal Tenderness Skin: Normal color, No rash Neurological: Alert, Oriented x3, Cranial nerves II-XII grossly intact, Normal Strength, Normal Sensation, Normal DTR. Negative for: Normal Gait Psychological: Depressed Diagnostic/Tx/Re-eval Three-view x-ray of the ankle interpreted by me as negative for fracture, subluxation or dislocation. No arthritic changes noted either. Three-view x-ray of the right foot was interpreted by me as negative for fracture, subluxation or dislocation. There is no soft tissue swelling noted either. - Medical Decision Making With history of fall 6 feet and pain with weightbearing will obtain x-ray to evaluate for fracture of ankle and foot. She was medicated with Naprosyn and [place] in the emergency department. He will be discharged with prescription for Naprosyn. He has no contraindication to NSAIDs. Disposition: Home ED Disposition - Plan for ED Patient: Disposition: Home or Assisted Living Diagnosis: Contusion of right foot, initial encounter, Sprain of other ligament of right ankle, initial encounter Instructions: Treating Ankle Sprains, ED Contusion Foot Prescriptions: Naproxen [Naprosyn] 500 mg PO BID #14 tablet Referrals: NOT,DEFINED [NON-STAFF] - Additional Instructions: Your prescription was electronically transmitted to [facility] pharmacy your designated pharmacy of choice.
[2018-08-22 13:06] VITALS: BP 146/84; PULSE 80
== END 2018-08-22 13:07 | disposition home or self-care (01) ==
PROVIDERS: Emergency Provider Emergency Medicine
DX: S90.01XA Contusion of right ankle, initial encounter (principal); S93.491A Sprain of other ligament of right ankle, initial encounter; S93.601A Unspecified sprain of right foot, initial encounter; W11.XXXA Fall on and from ladder, initial encounter; F32.9 Major depressive disorder, single episode, unspecified; F17.200 Nicotine dependence, unspecified, uncomplicated
CPT/HCPCS: 73610; 73630; 99283